=== PATIENT | female | born 1975 | race Hispanic/Latino ===

== ENCOUNTER 2020-08-04 | Emergency (ER) | payer BC, SELFPAY ==
--- NOTE | 2020-08-03 23:54 | ED.ARRPALP ---
HPI - Arrhythmia/Palpitations General Chief Complaint: Arrhythmia/Palpitations Stated Complaint: fast HR Source: patient and EMS Mode of arrival: EMS Limitations: no limitations History of Present Illness HPI narrative: Patient is a 45-year-old female with a history of SVT following with Dr. Monsalve, who presents for evaluation of palpitations. Patient reportedly awakened with palpitations from sleep. She has had associated chest pain and shortness of breath with these. Patient immediately called EMS, EMS administered 6 mg of adenosine without change. The patient was then given 12 mg of adenosine, after this the patient remained in SVT however her blood pressure decreased to 80s/40s, thus the patient was given 4 of intravenous Versed and attempted synchronized cardioversion with 50 J with EMS without resolution in the SVT. Patient presents alert and oriented, reporting palpitations and chest pressure. Patient states this is happened 3 times prior. She denies any recent illnesses or medication changes. Patient states she does not often remember to take her Toprol and misses doses. Per chart review, last admission in October 2019 in which the patient had stable troponin and was discharged home with beta-blockade medication after normal cardiac work-up otherwise. Related Data Home Medications Medication Instructions Recorded Confirmed naproxen 08/04/20 Allergies Allergy/AdvReac Type Severity Reaction Status Date / Time morphine Allergy Unknown Rash Verified 10/30/19 16:54 Review of Systems Review of Systems: Narrative: CONSTITUTIONAL: Denies fever, chills, or sweats. EYES: Denies visual changes, redness, or discharge. ENT: Denies rhinorrhea, congestion, sore throat, or otalgia. CARDIOVASCULAR: Reports chest pain and palpitations RESPIRATORY: Denies cough or dyspnea. GASTROINTESTINAL: Denies abdominal pain, reports nausea GENITOURINARY: Denies dysuria or hematuria. SKIN: Denies rash or itching. MUSCULOSKELETAL: Denies back pain, joint pain, or myalgia. NEUROLOGIC: Denies headache, numbness, or weakness. [facility]LY [facility] Past Medical History Medical History SVT (supraventricular tachycardia) Surgical History Surgical History History of cholecystectomy Hx of right knee surgery Previous section x2 Family History Family History (Updated 10/30/19 @ 21:56 by Karly Banda RN) Sibling Diabetes mellitus Hypertension Grandparent Diabetes mellitus Hypertension Mother Pacemaker Hypertension Father Cerebrovascular accident Social History Social History Smoking packs per day: 1 Smoking cigarettes per day: 20.0 Years smoked: 1 Smoking pack-years: 1.00 Smoking status: Former smoker Tobacco type: cigarettes Second hand tobacco smoke exposure: Yes Alcohol intake: former Substance use: former Gender identity (if verbalized by the patient): Female Spiritual care concerns: No Agree to blood products: Yes Exam Narrative: Exam Narrative: GENERAL: Awake, alert, hyperventilating HEAD: Normocephalic, atraumatic. EYES: PERRLA and EOMI. ENT: Nares clear, no rhinorrhea or epistaxis. Mucous membranes moist. NECK: Supple. CHEST: Tachypneic, hyperventilating, lungs clear to auscultation bilaterally HEART: Narrow complex tachycardia, regular rhythm ABDOMEN:Non distended, non tender EXTREMITIES: Normal range of motion. No edema. SKIN: Warm, dry, no rash. NEURO:No focal deficits. Alert and oriented x3 Course Vital Signs Vital signs: Vital Signs Temperature 37.0 C 08/03/20 23:59 Pulse Rate 216 H 08/03/20 23:59 Respiratory Rate 30 H 08/03/20 23:59 Blood Pressure 112/72 08/03/20 23:59 Pulse Oximetry 96 08/03/20 23:59 Temperature 37.0 C 08/03/20 23:59 Pulse Rate 84 08/04/20 02:01 Respiratory Rate
[2020-08-03 23:59] VITALS: BP 112/72; PULSE 216; RESP 30; TEMP 37; O2SAT 96
--- NOTE | ~2020-08-04 | XR_ITS ---
EXAMINATION: XR chest 1V portable DATE: 08/04/2020 02:40 INDICATION: Chest pain. TECHNIQUE: A single frontal view of the chest was obtained. COMPARISON: Chest 2 views 10/30/2019 FINDINGS: The chest demonstrates clear lungs without pneumonia, pleural effusion, or pneumothorax. Th e heart size is normal. IMPRESSION: 1. No acute cardiopulmonary disease. Reviewed, dictated and finalized at location A.
[2020-08-04] MEDS: ONDANSETRON INJ 4 MG/2 ML VIAL IV PUSH (00:08)
[2020-08-04] MEDS: fentaNYL CITRATE INJ (*CRX) 100 MCG/2 ML VIAL 50 MCG IV PUSH (00:10)
--- NOTE | 2020-08-04 00:13 | PC.NURSE ---
Note pt converts to ST after additional dose of adenosine. Repeat EKG being obtained.
[2020-08-04 00:14] VITALS: BP 129/88; PULSE 115; RESP 24; O2SAT 100
[2020-08-04] MEDS: ADENOSINE IV SOLN 6 MG/2 ML VIAL 12 MG IV PUSH (00:14)
--- NOTE | 2020-08-04 00:15 | ECG_ITS ---
Measurements Intervals [place] Rate: 215 P: VA: 0 QRS: 57 QRSD: 132 T: -60 QT: 240 QTc: 455 Interpretive Statements SUPRAVENTRICULAR TACHYCARDIA CANNOT RULE OUT SEPTAL INFARCT, AGE INDETERMINATE ST-T WAVE ABNORMALITY IN ANTEROLAT/INF LEADS- CONSIDER ISCHEMIA BASELINE ARTIFACT- I, II, III, AVR, AVL, AVF ABNORMAL ECG Electronically Signed On 08-04-2020 7:59:03 CDT by Jesus Self D.O.
[2020-08-04 00:25] LABS: Basophils Absolute Auto 0.1 K/mm3 (0.0-0.1); Basophils Percent Auto 0.7 % (0.2-1.2); Eosinophils Absolute Auto 0.3 K/mm3 (0-0.3); Eosinophils Percent Auto 3.3 % (0-4.4); Hematocrit 42.9 % (37.0-47.0); Immature Granulocyte Absolute 0.02 K/mm3 (0.00-0.031); Immature Granulocyte Percent A 0.2 % (0-0.5); Lymphocytes Absolute Auto 4.19 K/mm3 (0.9-3.2); Lymphocytes Percent Auto 46.2 % (18.3-44.2); Mean Corpuscular Hemoglobin 32.2 pg (26-34); Mean Corpuscular Volume 92.1 fl (80-100); Mean Platelet Volume 10.4 fl (7.4-10.4); Monocytes Absolute Auto 0.9 K/mm3 (0.1-0.6); Monocytes Percent Auto 9.7 % (2.6-8.5); Neutrophils Absolute Auto 3.6 K/mm3 (1.3-6.7); Neutrophils Percent Auto 39.9 % (45.5-73.1); Platelet Count Result 440 k/mm3 (150-375); Red Blood Count 4.66 M/mm3 (4.2-5.4); Red Cell Distribution Width 12.7 % (11.5-14.5); White Blood Count 9.1 K/mm3 (4.5-10.0)
[2020-08-04 00:36] VITALS: BP 110/73; PULSE 91; RESP 15; O2SAT 100
[2020-08-04 00:37] LABS: Anion Gap 13 mmol/L (8-16); Blood Urea Nitrogen 10 mg/dL (7-17); Calcium 9.5 mg/dL (8.4-10.2); Carbon Dioxide 21 mmol/L (22-30); Chloride 107 mmol/L (98-107); Estimated Glomerular Filt Rate > 60; Glucose 135 mg/dL (65-105); Potassium 3.5 mmol/L (3.4-5.0); Sodium 141 mmol/L (137-145)
[2020-08-04 01:01] VITALS: BP 113/68; PULSE 93; RESP 20; O2SAT 98
--- NOTE | 2020-08-04 01:05 | ECG_ITS ---
Measurements Intervals [place] Rate: 106 P: 2 AK: 118 QRS: 25 QRSD: 89 T: 36 QT: 332 QTc: 442 Interpretive Statements SINUS TACHYCARDIA WITH SHORT [place] INTERVAL BORDERLINE ST ABNORMALITY- ANTEROLATERAL LEADS BASELINE ARTIFACT- I, II, III, AVR, AVL, AVF, V1-V2, V5-V6 ABNORMAL ECG Electronically Signed On 08-04-2020 7:59:58 CDT by Jesus Self D.O.
--- NOTE | 2020-08-04 01:06 | PC.NURSE ---
Pt continues to c/o chest pressure. Dr. Patiño made aware.
[2020-08-04] MEDS: fentaNYL CITRATE INJ (*CRX) 100 MCG/2 ML VIAL 25 MCG IV PUSH (01:11)
[2020-08-04] MEDS: ASPIRIN 81 MG CHEWABLE TABLET 324 MG PO (01:12)
[2020-08-04 01:16] VITALS: BP 103/69; PULSE 92; O2SAT 98
[2020-08-04 01:17] LABS: Prothrombin Time 12.7 Seconds (11.1-14.7)
[2020-08-04 01:30] LABS: Troponin I < 0.012 ng/mL (0.000-0.034)
[2020-08-04 02:01] VITALS: BP 108/70; PULSE 84; O2SAT 99
[2020-08-04 02:25] LABS: Free T4 Free Thyroxine Reflex 1.31 ng/dL (0.78-2.19)
[2020-08-04 02:53] VITALS: BP 112/71; PULSE 84; RESP 18; O2SAT 99
== END 2020-08-04 02:50 | disposition home or self-care (01) ==
PROVIDERS: Emergency Provider Emergency Medicine; PCP Family Medicine
DX: I47.1 Supraventricular tachycardia (principal); Z87.891 Personal history of nicotine dependence; R94.31 Abnormal electrocardiogram [ECG] [EKG]
CPT/HCPCS: 36415; 71045; 80048; 84439; 84443; 84480; 84484; 85025; 85610; 85730; 93005; 96374; 96375; 96376; 99284; A9270; J0153; J2405; J3010

== ENCOUNTER → 2020-08-06 16:38 | Outpatient (CLI) | payer BC, SELFPAY ==
--- NOTE | ~2020-08-06 | MR_ITS ---
EXAMINATION: MR knee LT wo con DATE: 08/06/2020 17:28 INDICATION: Left knee pain. TECHNIQUE: Magnetic resonance imaging (MRI) of the left knee was performed without intravenous contra st. Sequences included axial PD-weighted FS FSE, coronal PD-weighted FSE and PD-weighted FS FSE, sagi ttal PD-weighted FSE, and sagittal T2-weighted FS FSE. COMPARISON: None. FINDINGS: Medial compartment: There is an undersurface horizontal tear of posterior horn of medial meniscus. There is extensive sha llow partial-thickness cartilage loss of tibial condyle and femoral condyle. There is deep partial th ickness cartilage loss of femoral condyle involving the lateral, central, and medial articular surfac e. There is deep partial thickness cartilage loss of tibial condyle involving the central articular s urface with mild subchondral edema-like marrow signal intensity. Marginal osteophytes are noted. Lateral compartment: Lateral meniscus is normal. There is shallow partial-thickness cartilage loss of tibial condyle predo minantly involving the central and posterior articular surface. Femoral cartilage is normal. Marginal osteophytes are noted. Patellofemoral compartment: There is deep partial thickness cartilage loss of patellar medial facet, median ridge, and lateral fa cet with mild subchondral edema. There is deep partial thickness cartilage loss of central trochlea a nd shallow partial-thickness cartilage loss of medial and lateral trochlea with mild subchondral roberto a-like marrow signal intensity. Subtle osteophytes are noted. Ligaments and tendons: The anterior and posterior cruciate ligaments are normal. Medial collateral ligament and lateral herberth ateral ligament complex are normal. There is mild patellar tendinopathy. Fluid: There is a small knee joint effusion. There is mild prepatellar and superficial infrapatellar bursiti s. IMPRESSION: 1. Moderate chondrosis of medial and patellofemoral compartments and mild chondrosis of lateral marcela rtment. 2. Tear of medial meniscus. 3. Small knee joint effusion. Reviewed, dictated and finalized at location A. IMPRESSION: 1. Moderate chondrosis of medial and patellofemoral compartments and mild chond rosis of lateral compartment. 2. Tear of medial meniscus. 3. Small knee joint effusion.
== END ==
PROVIDERS: PCP Family Medicine; Visit Provider Chiropractor Rehabilitation
DX: M25.562 Pain in left knee (principal); M22.2X2 Patellofemoral disorders, left knee; S83.242A Other tear of medial meniscus, current injury, left knee, initial encounter; M25.462 Effusion, left knee
CPT/HCPCS: 73721

== ENCOUNTER → 2020-10-07 12:21 | Outpatient (CLI) | payer BC, SELFPAY ==
--- NOTE | ~2020-10-07 | XR_ITS ---
EXAMINATION: XR clavicle LT DATE: 10/07/2020 13:28 INDICATION: Left clavicle injury. TECHNIQUE: 2 views of left clavicle were obtained. COMPARISON: None. FINDINGS: Bone alignment is normal. No fracture. Coracoclavicular interval is normal. There is mild a cromioclavicular joint osteoarthritis. IMPRESSION: 1. Mild left acromioclavicular joint osteoarthritis. Reviewed, dictated and finalized at location A. OPERATOR
== END ==
PROVIDERS: PCP Family Medicine; Visit Provider Nurse Practitioner Family
DX: S29.9XXA Unspecified injury of thorax, initial encounter (principal); M19.012 Primary osteoarthritis, left shoulder
CPT/HCPCS: 73000

== ENCOUNTER 2020-11-22 06:38 | Emergency (ER) | payer BC, SELFPAY ==
[2020-11-22 06:44] VITALS: BP 129/86; PULSE 229; RESP 28; TEMP 36.2; O2SAT 100
[2020-11-22] MEDS: ADENOSINE IV SOLN 6 MG/2 ML VIAL (06:50)
[2020-11-22] MEDS: ADENOSINE IV SOLN 6 MG/2 ML VIAL 12 MG (06:52)
--- NOTE | 2020-11-22 06:53 | ECG_ITS ---
Measurements Intervals [place] Rate: 224 P: ID: 0 QRS: 47 QRSD: 89 T: -60 QT: 193 QTc: 373 Interpretive Statements SUPRAVENTRICULAR TACHYCARDIA NONSPECIFIC ST & T-WAVE ABNORMALITY- DIFFUSE LEADS BASELINE WANDER- I, II, III, AVR, AVL, AVF, V1-V2, V4-V6 ABNORMAL ECG Electronically Signed On 11-22-2020 7:16:29 SENIOR MECHANICAL PROJECT ENGINEER by Jesus Self D.O.
[2020-11-22 06:54] VITALS: PULSE 113; RESP 22; O2SAT 100
--- NOTE | 2020-11-22 06:56 | ECG_ITS ---
Measurements Intervals [place] Rate: 96 P: 10 NH: 117 QRS: 23 QRSD: 94 T: 16 QT: 351 QTc: 444 Interpretive Statements SINUS RHYTHM WITH SHORT [place] INTERVAL BORDERLINE ECG Electronically Signed On 11-22-2020 7:16:44 SPRING TESTER by Jesus Self D.O.
[2020-11-22 07:14] VITALS: BP 110/78; PULSE 93; RESP 16; O2SAT 100
--- NOTE | 2020-11-22 07:14 | PC.NURSE ---
Assumed care of pt, pt is alert on stretcher w/ tele monitor. Pt VSS at this time. EDP at bedside discussing POC.
--- NOTE | 2020-11-22 07:20 | ED.ARRPALP ---
HPI - Arrhythmia/Palpitations General Chief Complaint: Arrhythmia/Palpitations Stated Complaint: heart palpitations Time Seen by Provider: 11/22/20 06:59 History of Present Illness HPI narrative: 45 yo female w/ h/o SVT presented to the ED for heart racing. This started shortly before coming in. Associated with moderate chest pressure. Dix like previous a-fib. She had already taken her metoprolol this morning. She was given 6 and 12 mg adenosine before I arrived. She is currently in Sinus and symptoms are significantly improved. Related Data Home Medications Medication Instructions Recorded Confirmed naproxen 08/04/20 Allergies Allergy/AdvReac Type Severity Reaction Status Date / Time morphine Allergy Unknown Rash Verified 11/22/20 07:16 Review of Systems Review of Systems: All systems reviewed & are unremarkable except as noted in HPI and below Constitutional: Constitutional: Denies chills, Denies fever(s) and Denies weakness Cardiovascular: Cardiovascular: Reports chest pain, Reports rapid heart rate and Denies radiating jaw, neck or arm pain Respiratory: Respiratory: Denies dyspnea Gastrointestinal: Gastrointestinal: Denies abdominal pain, Denies nausea and Denies vomiting Genitourinary: Genitourinary: Denies dysuria Musculoskeletal: Musculoskeletal: Denies back pain Neurologic: Denies dizziness and Denies weakness PMFSH Past Medical History Medical History SVT (supraventricular tachycardia) Surgical History Surgical History History of cholecystectomy Hx of right knee surgery Previous section x2 Family History Family History Sibling Diabetes mellitus Hypertension Grandparent Diabetes mellitus Hypertension Mother Pacemaker Hypertension Father Cerebrovascular accident Social History Social History Smoking packs per day: 1 Smoking cigarettes per day: 20.0 Years smoked: 1 Smoking pack-years: 1.00 Smoking status: Former smoker Tobacco type: cigarettes Second hand tobacco smoke exposure: Yes Alcohol intake: former Substance use: former Gender identity (if verbalized by the patient): Female Spiritual care concerns: No Agree to blood products: Yes Exam Const: General: healthy appearing, no acute distress and alert Orientation/consciousness: patient oriented x3 HENMT: Head: normal to inspection Neck: Neck: normal visual inspection and no lymphadenopathy Chest: Chest palpation & inspection: no tenderness Resp: Effort & Inspection: normal respiratory effort Auscultation: clear to auscultation bilaterally, no rales, no rhonchi and no wheezes Cardio: Jugular venous distension: no JVD Rate: regular rate Rhythm: regular rhythm Heart sounds: no murmurs GI: Inspection: non-distended GI Palp: Yes Soft to palpation and No Tenderness to palpation present (GI) Skin: General skin exam: normal color Neuro: General: patient oriented x3 and moves all extremities Speech: normal speech Extrem: General: no edema Psych: Appearance: well kempt Affect: normal affect Course Vital Signs Vital signs: Vital Signs Temperature 36.2 C L 11/22/20 06:44 Pulse Rate 229 H 11/22/20 06:44 Respiratory Rate 28 H 11/22/20 06:44 Blood Pressure 129/86 11/22/20 06:44 Pulse Oximetry 100 11/22/20 06:44 Temperature 36.2 C L 11/22/20 06:44 Pulse Rate 93 11/22/20 08:58 Respiratory Rate 17 11/22/20 08:58 Blood Pressure 118/71 11/22/20 08:58 Pulse Oximetry 98 11/22/20 08:58 MDM - Arrhythmia/Palpitations MDM Narrative Medical decision making narrative: Original EKG shows SVT at a rate 224. NSR after adenosine Dr. Santiago contacted. No med changes at this time. She can follow-up in clinic. Medical Records At
[2020-11-22] MEDS: SODIUM CHLORIDE 0.9% IV 1,000 ML 999 ML IV CONT (07:29)
[2020-11-22 07:40] LABS: Basophils Percent Auto 0.7 % (0.2-1.2); Eosinophils Absolute Auto 0.1 K/mm3 (0-0.3); Hematocrit 37.8 % (37.0-47.0); Hemoglobin 12.5 g/dL (12.0-15.0); Immature Granulocyte Absolute 0.01 K/mm3 (0.00-0.031); Immature Granulocyte Percent A 0.2 % (0-0.5); Lymphocytes Absolute Auto 1.13 K/mm3 (0.9-3.2); Lymphocytes Percent Auto 26.1 % (18.3-44.2); Mean Corpuscular HGB Conc 33.1 g/dl (32-36); Mean Corpuscular Hemoglobin 30.9 pg (26-34); Mean Corpuscular Volume 93.3 fl (80-100); Mean Platelet Volume 9.8 fl (7.4-10.4); Monocytes Absolute Auto 0.4 K/mm3 (0.1-0.6); Monocytes Percent Auto 9.9 % (2.6-8.5); Neutrophils Absolute Auto 2.6 K/mm3 (1.3-6.7); Neutrophils Percent Auto 60.1 % (45.5-73.1); Platelet Count Result 360 k/mm3 (150-375); Red Blood Count 4.05 M/mm3 (4.2-5.4); Red Cell Distribution Width 12.6 % (11.5-14.5); White Blood Count 4.3 K/mm3 (4.5-10.0)
[2020-11-22 07:50] LABS: Partial Thromboplastin Time 27.2 SECONDS (22.3-36.8)
[2020-11-22 07:51] LABS: Anion Gap 3 mmol/L (8-16); Blood Urea Nitrogen 16 mg/dL (7-17); Calcium 7.9 mg/dL (8.4-10.2); Carbon Dioxide 26 mmol/L (22-30); Chloride 111 mmol/L (98-107); Estimated CRCL calculation 83 ml/min; Estimated Glomerular Filt Rate > 60; Glucose 71 mg/dL (65-105); Potassium 3.4 mmol/L (3.4-5.0); Sodium 140 mmol/L (137-145)
[2020-11-22 08:02] LABS: Troponin I < 0.012 ng/mL (0.000-0.034)
[2020-11-22 08:10] VITALS: BP 113/75; PULSE 90; RESP 15; O2SAT 100
[2020-11-22 08:58] VITALS: BP 118/71; PULSE 93; RESP 17; O2SAT 98
== END 2020-11-22 08:59 | disposition home or self-care (01) ==
PROVIDERS: Emergency Provider Emergency Medicine; PCP Family Medicine
DX: I47.1 Supraventricular tachycardia (principal); Z87.891 Personal history of nicotine dependence; R94.31 Abnormal electrocardiogram [ECG] [EKG]
CPT/HCPCS: 36415; 80048; 84484; 85025; 85610; 85730; 93005; 96361; 96374; 99284; J0153; J7030

== ENCOUNTER → 2020-12-11 16:50 | Outpatient (CLI) | payer BC, SELFPAY ==
--- NOTE | ~2020-12-11 | MR_ITS ---
EXAMINATION: MR shoulder LT wo con DATE: 12/11/2020 17:51 INDICATION: Rotator cuff insufficiency of left shoulder. Left shoulder pain. TECHNIQUE: Magnetic resonance imaging (MRI) of the left shoulder was performed without intravenous co ntrast. Sequences included axial PD-weighted FS FSE, coronal oblique PD-weighted FS FSE and T2-weight ed FS FSE, and sagittal oblique T2-weighted FS FSE and T1-weighted FSE. COMPARISON: Left clavicle radiographs 10/07/2020 FINDINGS: Coracoacromial arch: The acromion undersurface is curved in morphology with anterior hook (type III). There is moderate ac romioclavicular joint osteoarthritis including inferiorly directed osteophytes. There is mild subacro mial/subdeltoid bursitis. Rotator cuff: There is mild supraspinatus and infraspinatus tendinopathy. Teres minor tendon is normal. Subscapular is tendon is normal. No tear. There is no asymmetric fatty atrophy of the rotator cuff muscle bellies . Biceps tendon and glenoid labrum: Biceps tendon is in bicipital groove. Intra-articular biceps tendon is normal. The glenoid labrum is normal. Fluid: There is no glenohumeral joint effusion. Bones/cartilage: Glenoid cartilage is normal. Humeral head cartilage is normal. IMPRESSION: 1. Mild rotator cuff tendinopathy. No tear. 2. Moderate acromioclavicular joint osteoarthritis. 3. Mild subacromial/subdeltoid bursitis. Reviewed, dictated and finalized at location A. AL MEDIA MANAGER
== END ==
DX: M25.312 Other instability, left shoulder (principal); M75.52 Bursitis of left shoulder; M19.012 Primary osteoarthritis, left shoulder
CPT/HCPCS: 73221

== ENCOUNTER → 2020-12-27 07:50 | Outpatient (CLI) | payer BC, SELFPAY ==
--- NOTE | ~2020-12-27 | MMUS_ITS ---
EXAMINATION: MM diagnostic maria r BI w anne, US breast BI limited HISTORY: TECHNIQUE: Additional 3-D tomosynthesis images of were performed and synthetic 2-D images were genera garcia. CAD analysis was submitted and interpreted. High resolution breast ultrasound was performed. COMPARISON: 08/09/2019 diagnostic left digital mammogram and limited left breast ultrasound 07/11/2019, 07/07/2017 bilateral digital screening mammogram examinations BREAST PARENCHYMAL COMPOSITION: There are scattered areas of fibroglandular density. FINDINGS: MAMMOGRAPHIC FINDINGS: No suspicious mass, architectural distortion, malignant calcification, skin thickening or retraction of either breast is evident. There is minimal fibroglandular asymmetry. No significant change since p rior examinations. ULTRASOUND: There is a 1.9 x 3.4 mm cyst of the left breast at 2:00 6 cm from the nipple. Otherwise no suspicious mass or shadowing or other significant sonographic abnormality of either breast. IMPRESSION: 1. No mammographic evidence of malignancy 2. Routine annual mammographic screening is recommended. BI-RADS Category 2: Benign finding(s). Reviewed, dictated and finalized at location A. TRIC MOTOR REBUILDER IMPRESSION: 1. No mammographic evidence of malignancy 2. Routine annual mammographic screening is recommended. BI-RADS Category 2: Benign finding(s).
== END ==
PROVIDERS: PCP Family Medicine; Visit Provider Family Medicine
DX: R92.8 Other abnormal and inconclusive findings on diagnostic imaging of breast (principal)
CPT/HCPCS: 76642; 77062; 77066; G0279

== ENCOUNTER → 2021-01-22 08:41 | Outpatient (CLI) | payer BC, SELFPAY ==
--- NOTE | ~2021-01-22 | XR_ITS ---
EXAMINATION: XR chest 2V EXAM DATE: 01/22/2021 08:59 INDICATION: Preoperative testing for shoulder surgery. Heart ablation 01/05. TECHNIQUE: Frontal and lateral projections of the chest obtained and reviewed. Comparison is made to prior examination from 08/04/2020. FINDINGS: The lungs are clear. There are no pleural effusions. The cardiomediastinal silhouette is within normal limits, has normalized compared to last 2 studies. There is no pneumothorax suspected. The bones and soft tissues are unremarkable. IMPRESSION: No acute cardiopulmonary findings. Reviewed, dictated and finalized at location A.
== END ==
PROVIDERS: Visit Provider Orthopaedic Surgery
DX: Z01.818 Encounter for other preprocedural examination (principal)
CPT/HCPCS: 71046

== ENCOUNTER 2021-05-16 22:19 | Emergency (ER) | payer BC, SELFPAY ==
--- NOTE | ~2021-05-16 | CT_ITS ---
EXAMINATION: CT abdomen pelvis w con INDICATION: Epigastric pain TECHNIQUE: Computed tomographic images of the abdomen and pelvis were obtained after the administrati on of 100 cc of Omnipaque 350 intravenous contrast. The dose-length product (DLP) was 830.39 mGy-cm. Automated exposure control and iterative reconstruction technique were employed. COMPARISON: None available FINDINGS: Minimal dependent atelectasis is present in the lung bases. The heart size is normal. The g allbladder is surgically absent. The liver, spleen, pancreas, and adrenal glands are normal. The kidn eys are unremarkable. A large volume of colonic stool is present. No pathologically enlarged abdomina l or pelvic lymph nodes are identified. There is no free intraperitoneal gas or evidence of bowel obs truction. The appendix is normal. IMPRESSION: 1. No CT correlate for the patient's symptoms. Reviewed, dictated and finalized at location A.
[2021-05-16 22:21] VITALS: BP 155/70; PULSE 103; RESP 17; TEMP 37.1; O2SAT 100
[2021-05-16 22:39] LABS: Basophils Percent Auto 0.6 % (0.2-1.2); Eosinophils Absolute Auto 0.2 K/mm3 (0-0.3); Eosinophils Percent Auto 3.2 % (0-4.4); Hematocrit 39.3 % (37.0-47.0); Hemoglobin 12.6 g/dL (12.0-15.0); Immature Granulocyte Absolute 0.02 K/mm3 (0.00-0.031); Immature Granulocyte Percent A 0.3 % (0-0.5); Lymphocytes Absolute Auto 2.34 K/mm3 (0.9-3.2); Lymphocytes Percent Auto 32.3 % (18.3-44.2); Mean Corpuscular HGB Conc 32.1 g/dl (32-36); Mean Corpuscular Hemoglobin 30.1 pg (26-34); Mean Corpuscular Volume 93.8 fl (80-100); Mean Platelet Volume 9.7 fl (7.4-10.4); Monocytes Absolute Auto 0.7 K/mm3 (0.1-0.6); Monocytes Percent Auto 9.4 % (2.6-8.5); Neutrophils Absolute Auto 3.9 K/mm3 (1.3-6.7); Neutrophils Percent Auto 54.2 % (45.5-73.1); Platelet Count Result 398 k/mm3 (150-375); Red Blood Count 4.19 M/mm3 (4.2-5.4); White Blood Count 7.2 K/mm3 (4.5-10.0)
[2021-05-16 22:44] LABS: Add Urine Microscopic? YES; Appearance Urine Clear (Clear); Bacteria Urine Trace /hpf; Bilirubin Urine Negative (Negative); Blood Urine Negative (Negative); Color Urine Straw (Yellow); Glucose Urine UA Negative (Negative); Ketones Urine Negative (Negative); Leukocyte Esterase Ur Negative LEU/UL (Negative); Mucus Urine Rare /lpf; Nitrate Urine Negative (Negative); Protein Urine Negative (Negative); RBC Urine 0-2 /hpf (0-2); Squamous Epithelial Cell Urine Rare /hpf (Few); Urobilinogen Urine Negative mg/dL (<2.0); WBC Urine 0-3 /hpf
[2021-05-16 22:53] LABS: Alanine Aminotransferase 23 U/L (4-35); Albumin Level 4.1 g/dL (3.5-5.1); Alkaline Phosphatase 71 U/L (38-126); Anion Gap 8 mmol/L (8-16); Aspartate Amino Transferase 31 U/L (14-36); Bilirubin,Total 0.2 mg/dL (0.2-1.3); Blood Urea Nitrogen 18 mg/dL (7-17); Calcium 9.6 mg/dL (8.4-10.2); Carbon Dioxide 24 mmol/L (22-30); Chloride 108 mmol/L (98-107); Estimated CRCL calculation 82 ml/min; Estimated Glomerular Filt Rate > 60; Glucose 103 mg/dL (65-110); Lipase 137 U/L (23-300); Potassium 4.6 mmol/L (3.4-5.0); Sodium 140 mmol/L (137-145)
[2021-05-17] VITALS (13 sets, daily range): BP systolic 105–128; BP diastolic 59–91; PULSE 68–90; RESP 18; O2SAT 95–100
--- NOTE | 2021-05-17 00:12 | ED.ABDPAIN ---
HPI - Abdominal Pain General Chief Complaint: Abdominal Pain Stated Complaint: abdominal pain Time Seen by Provider: 05/17/21 00:12 History of Present Illness HPI narrative: 46 yo female w/ h/o cholecystectomy presnets to the ED for abdominal pain. Cramping epigastric pain. No radiation. 3-4 days. exacerbated by eating. No nausea, vomiting, diarrhea, fever. Related Data Home Medications Medication Instructions Recorded Confirmed naproxen 08/04/20 Allergies Allergy/AdvReac Type Severity Reaction Status Date / Time morphine Allergy Unknown Rash Verified 11/22/20 07:16 Review of Systems Review of Systems: All systems reviewed & are unremarkable except as noted in HPI and below PMFSH Past Medical History Medical History SVT (supraventricular tachycardia) Surgical History Surgical History History of cholecystectomy Hx of right knee surgery Previous section x2 Family History Family History Sibling Diabetes mellitus Hypertension Grandparent Diabetes mellitus Hypertension Mother Pacemaker Hypertension Father Cerebrovascular accident Social History Social History Smoking packs per day: 1 Smoking cigarettes per day: 20.0 Years smoked: 1 Smoking pack-years: 1.00 Smoking status: Former smoker Tobacco type: cigarettes Second hand tobacco smoke exposure: Yes Alcohol intake: former Substance use: former Gender identity (if verbalized by the patient): Female Spiritual care concerns: No Agree to blood products: Yes Exam Const: General: healthy appearing, no acute distress and alert Orientation/consciousness: patient oriented x3 HENMT: Head: normal to inspection Neck: Neck: normal visual inspection Chest: Chest palpation & inspection: no tenderness Resp: Effort & Inspection: normal respiratory effort Auscultation: clear to auscultation bilaterally, no rales, no rhonchi and no wheezes Cardio: Jugular venous distension: no JVD Rate: regular rate Rhythm: regular rhythm Heart sounds: no murmurs GI: Inspection: non-distended GI Palp: Yes Soft to palpation, Yes Tenderness to palpation present (GI) (epigastrium), Yes Guarding due to palpation present (GI) and No Rebound tenderness present Skin: General skin exam: normal color Neuro: General: patient oriented x3 and moves all extremities Speech: normal speech Extrem: General: no edema Psych: Appearance: well kempt Affect: normal affect Course Vital Signs Vital signs: Vital Signs Temperature 37.1 C 05/16/21 22:21 Pulse Rate 103 H 05/16/21 22:21 Respiratory Rate 17 05/16/21 22:21 Blood Pressure 155/70 H 05/16/21 22:21 Pulse Oximetry 100 05/16/21 22:21 Temperature 37.1 C 05/16/21 22:21 Pulse Rate 90 05/17/21 02:31 Respiratory Rate 18 05/17/21 02:46 Blood Pressure 105/59 L 05/17/21 02:46 Pulse Oximetry 100 05/17/21 02:46 MDM - Abdominal Pain Medical Records Attestation: I reviewed the patient's medical records. Lab Data Attestation: I reviewed the patient's lab results. Result diagrams: 05/16/21 22:32 05/16/21 22:32 Labs: Lab Results 05/16/21 05/16/21 05/16/21 Range/Units 22:32 22:32 22:32 WBC 7.2 (4.5-10.0) K/mm3 RBC 4.19 L (4.2-5.4) M/mm3 Hgb 12.6 (12.0-15.0) g/dL Hct 39.3 (37.0-47.0) % MCV 93.8 (80-100) fl MCH 30.1 (26-34) pg MCHC 32.1 (32-36) g/dl RDW 13.0 (11.5-14.5) % Plt Count 398 H (150-375) k/mm3 MPV 9.7 (7.4-10.4) fl Immature Gran % (Auto) 0.3 (0-0.5) % Neut % (Auto) 54.2 (45.5-73.1) % Lymph % (Auto) 32.3 (18.3-44.2) % [place] % (Auto) 9.4 H (2.6-8.5) % Eos % (Auto) 3.2 (0-4.4) % Baso % (Auto) 0.6 (0.2-1.2) % Ly
--- NOTE | 2021-05-17 00:28 | PC.NURSE ---
pt to ED c/o abd pain to medial upper abd since approx. 2100 last night. denies nvd. denies difficulty urinating. appears uncomfortable. prior choly.
[2021-05-17] MEDS: fentaNYL CITRATE INJ (*CRX) 100 MCG/2 ML VIAL 50 MCG IV PUSH (01:02)
--- NOTE | 2021-05-17 01:06 | ECG_ITS ---
Measurements Intervals [place] Rate: 61 P: 4 RI: 115 QRS: 12 QRSD: 97 T: -5 QT: 412 QTc: 417 Interpretive Statements SINUS RHYTHM WITH SHORT RI INTERVAL MINIMAL Q WAVES- HIGH LATERAL LEADS BORDERLINE T WAVE ABNORMALITY- INFERIOR LEADS BASELINE WANDER- I, II, AVR BORDERLINE ECG Electronically Signed On 05-17-2021 7:39:40 CDT by Jesus Self D.O.
[2021-05-17 02:31] LABS: Troponin I < 0.012 ng/mL (0.000-0.034)
== END 2021-05-17 03:06 | disposition home or self-care (01) ==
PROVIDERS: Emergency Medicine; Emergency Provider Emergency Medicine
DX: R10.13 Epigastric pain (principal); Z87.891 Personal history of nicotine dependence; R94.31 Abnormal electrocardiogram [ECG] [EKG]
CPT/HCPCS: 36415; 74177; 80053; 81001; 81025; 83690; 84484; 85025; 93005; 96374; 99284; A9270; J3010; Q9967

== ENCOUNTER → 2021-06-16 16:33 | Outpatient (CLI) | payer BC, SELFPAY ==
--- NOTE | ~2021-06-16 | XR_ITS ---
EXAMINATION: XR knee RT 3V DATE: 06/16/2021 16:53 INDICATION: Right knee pain. TECHNIQUE: 3 views of right knee including standing views were obtained. COMPARISON: Right knee radiographs 09/17/2015 FINDINGS: There is varus angulation at the knee. No fracture. There is moderate osteoarthritis of med ial compartment and mild osteoarthritis of lateral and patellofemoral compartments. There is a small knee joint effusion. There are loose bodies in the knee joint posteriorly. IMPRESSION: 1. Moderate right knee osteoarthritis. 2. Small right knee joint effusion with loose bodies. Reviewed, dictated and finalized at location A.
== END ==
PROVIDERS: PCP Nurse Practitioner Family; Visit Provider Nurse Practitioner Family
DX: M25.561 Pain in right knee (principal); M25.461 Effusion, right knee; M23.41 Loose body in knee, right knee
CPT/HCPCS: 73562

== ENCOUNTER → 2022-04-22 16:20 | Outpatient (CLI) | payer BC, SELFPAY ==
--- NOTE | ~2022-04-22 | MM_ITS ---
EXAMINATION: MM screening maria r BI w anne HISTORY: Screening TECHNIQUE: Craniocaudal and mediolateral oblique 3-D tomosynthesis images were obtained and synthetic 2-D images were generated. CAD analysis was submitted and interpreted. COMPARISON: Comparison to multiple prior studies sequentially, with oldest reviewed study dated 06/30. BREAST PARENCHYMAL COMPOSITION: There are scattered areas of fibroglandular density. FINDINGS: There is a developing mass in the lower inner quadrant of the left breast measuring 5 mm. T he right breast is stable without evidence for malignancy. IMPRESSION: 1. Developing left breast mass, lower inner quadrant. 2. Additional mammographic views and possible breast ultrasound are recommended. BI-RADS Category 0: Incomplete: Needs additional imaging evaluation. Reviewed, dictated and finalized at location A. IMPRESSION: 1. Developing left breast mass, lower inner quadrant. 2. Additional mammographic views and possible breast ultrasound are recommended . BI-RADS Category 0: Incomplete: Needs additional imaging evaluation.
== END ==
PROVIDERS: PCP Family Medicine; Visit Provider Family Medicine
DX: Z12.31 Encounter for screening mammogram for malignant neoplasm of breast (principal); R92.8 Other abnormal and inconclusive findings on diagnostic imaging of breast
CPT/HCPCS: 77063; 77067

== ENCOUNTER → 2022-08-07 14:25 | Outpatient (CLI) | payer BC, SELFPAY ==
--- NOTE | ~2022-08-07 | MMUS_ITS ---
EXAMINATION: MM diagnostic maria r LT w anne, US breast LT limited HISTORY: Follow-up left breast mass TECHNIQUE: Additional 3-D tomosynthesis images of the left breast were performed and synthetic 2-D im ages were generated. CAD analysis was submitted and interpreted. High resolution Limited left breast ultrasound was performed. COMPARISON: Comparison to multiple prior studies sequentially, with oldest reviewed study dated 06/30. BREAST PARENCHYMAL COMPOSITION: Breast composed of scattered areas of fibroglandular density FINDINGS: MAMMOGRAPHIC FINDINGS: There is a slightly irregular shaped mass in the upper inner quadrant of the left breast. No suspicio us calcifications or architectural distortion. ULTRASOUND: Limited left breast ultrasound: At 10:00, 7 cm from the nipple, there is an irregular shaped hypoecho ic mass measuring 5 x 4 x 3 mm. There is internal vascularity. This corresponds to the mass seen on m ammography. IMPRESSION: 1. Irregular shaped left breast mass measuring 5 mm at 10:00, 7 cm from the nipple. 2. Ultrasound-guided left breast biopsy recommended. BI-RADS category 4, suspicious findings. Reviewed, dictated and finalized at location A. IMPRESSION: 1. Irregular shaped left breast mass measuring 5 mm at 10:00, 7 cm from the nip ple. 2. Ultrasound-guided left breast biopsy recommended. BI-RADS category 4, suspicious findings.
== END ==
PROVIDERS: PCP Family Medicine; Visit Provider Family Medicine
DX: R92.8 Other abnormal and inconclusive findings on diagnostic imaging of breast (principal)
CPT/HCPCS: 76642; 77061; 77065; G0279

== ENCOUNTER 2022-09-15 12:28 | Outpatient (CLI) | payer BC, SELFPAY ==
--- NOTE | ~2022-09-15 | MMUS_ITS ---
EXAMINATION: US breast biopsy LT w image, MM post biopsy invasive LT DATE: 09/15/2022 13:45 (accession [id number]), 09/15/2022 13:51 (accession [id number]) INDICATION: Indeterminate mass in the upper inner quadrant of the left breast Ultrasound-guided core biopsy is requested to evaluate for malignancy. TECHNIQUE AND FINDINGS: The risks and potential benefits of the procedure were discussed with the patient including bleeding and infection. A time out was performed. The skin of the left breast was prepared and draped in usual sterile fashion. Lidocaine was used for superficial anesthesia. Lidocaine with epinephrine was used for deep anesthesia. A vacuum-assisted biopsy needle was advanced through to the outer edge of the region of interest from a lateral approach utilizing sonographic guidance. A total of three tissue core samples were obtaine d through the lesion. A tissue marker clip was then placed at the biopsy site. Hemostasis was achieve d. A sterile bandage was applied. The patient tolerated procedure well and there was no evidence of immediate complication. The patient was given verbal instructions to return to the Emergency Department in the event of severe breast pa in or rapid breast enlargement. A two view left breast mammogram was obtained to document tissue xiao er clip placement. IMPRESSION: 1. Successful ultrasound-guided vacuum-assisted biopsy of left breast mass with tissue marker placeme nt. Reviewed, dictated and finalized at location A. OROLOGY PROFESSOR IMPRESSION: 1. Successful ultrasound-guided vacuum-assisted biopsy of left breast mass with tissue marker placement.
== END 2022-09-15 12:29 | disposition home or self-care (01) ==
PROVIDERS: PCP Family Medicine; Visit Provider Family Medicine
DX: R92.8 Other abnormal and inconclusive findings on diagnostic imaging of breast (principal)
CPT/HCPCS: 19083; 88305; A4648

== ENCOUNTER → 2022-10-29 11:23 | Outpatient (CLI) | payer BC, SELFPAY ==
--- NOTE | ~2022-10-29 | XR_ITS ---
EXAMINATION: XR chest 2V DATE: 10/29/2022 11:42 INDICATION: History of SVT with ablation TECHNIQUE: PA and lateral views of the chest are obtained. COMPARISON: 01/22/2021 FINDINGS: The lungs are free of acute opacities. No pleural effusion or pneumothorax. The cardiomedia stinal silhouette is normal. There is mild thoracic spondylosis. IMPRESSION: 1. No acute cardiopulmonary abnormality. Reviewed, dictated and finalized at location L. OMER HOSTESS
== END ==
PROVIDERS: PCP Physician Assistant; Visit Provider Physician Assistant
DX: Z01.89 Encounter for other specified special examinations (principal)
CPT/HCPCS: 71046

== ENCOUNTER → 2023-10-02 10:50 | Outpatient (CLI) | payer BC, SELFPAY ==
--- NOTE | ~2023-10-02 | XR_ITS ---
XR foot RT 2V 10/02/2023 11:04 Indication: Right foot pain Procedure: 2 views right foot Comparison: 03/05/2017 Findings: Lisfranc joint intact. Small degenerative calcaneal enthesophyte. No acute fracture or trau matic malalignment. No foreign bodies. No focal soft tissue abnormality. 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 Impression: 1: No acute bone or joint abnormality. Reviewed, dictated and finalized at location A. DENTIAL DIRECTOR Impression: 1: No acute bone or joint abnormality.
== END ==
PROVIDERS: PCP Family Medicine; Visit Provider Family Medicine
DX: M79.671 Pain in right foot (principal)
CPT/HCPCS: 73620

== ENCOUNTER 2023-10-02 11:28 | Outpatient (CLI) | payer BC, SELFPAY ==
[2023-10-02 13:02] LABS: Basophils Percent Auto 0.4 % (0.2-1.2); Eosinophils Absolute Auto 0.2 K/mm3 (0-0.3); Eosinophils Percent Auto 1.8 % (0-4.4); Hematocrit 38.9 % (37.0-47.0); Hemoglobin 12.9 g/dL (12.0-15.0); Immature Granulocyte Absolute 0.02 K/mm3 (0.00-0.031); Immature Granulocyte Percent A 0.2 % (0-0.5); Lymphocytes Absolute Auto 1.87 K/mm3 (0.9-3.2); Lymphocytes Percent Auto 22.3 % (18.3-44.2); Mean Corpuscular HGB Conc 33.2 g/dl (32-36); Mean Corpuscular Hemoglobin 31.1 pg (26-34); Mean Corpuscular Volume 93.7 fl (80-100); Mean Platelet Volume 10.2 fl (7.4-10.4); Monocytes Absolute Auto 0.5 K/mm3 (0.1-0.6); Monocytes Percent Auto 6.2 % (2.6-8.5); Neutrophils Absolute Auto 5.8 K/mm3 (1.3-6.7); Neutrophils Percent Auto 69.1 % (45.5-73.1); Platelet Count Result 457 k/mm3 (150-375); Red Blood Count 4.15 M/mm3 (4.2-5.4); Red Cell Distribution Width 13.2 % (11.5-14.5); White Blood Count 8.4 K/mm3 (4.5-10.0)
[2023-10-02 13:14] LABS: Alanine Aminotransferase 21 U/L (6-35); Alkaline Phosphatase 58 U/L (38-126); Anion Gap 6 mmol/L (8-16); Aspartate Amino Transferase 28 U/L (14-36); Bilirubin,Total 0.4 mg/dL (0.2-1.3); Blood Urea Nitrogen 14 mg/dL (7-17); Carbon Dioxide 25 mmol/L (22-30); Chloride 107 mmol/L (98-107); Cholesterol 179 mg/dL (0-200); Estimated Glomerular Filt Rate > 60; Glucose 88 mg/dL (65-110); HDL Direct 59 mg/dL; Sodium 138 mmol/L (137-145); Triglycerides 153 mg/dL (<150)
[2023-10-02 13:22] LABS: Hemoglobin A1C 5.8 % (<5.7)
[2023-10-02 13:25] LABS: LDL Cholesterol Direct 87 mg/dL
[2023-10-02 13:53] LABS: Hepatitis B Surface Antigen Negative (Negative)
[2023-10-02 13:57] LABS: HIV 1/2 Ab P24 Ag Result Negative (Negative)
[2023-10-02 13:58] LABS: HAV RESULT Negative (Negative); Hepatitis B Core IgM Result Negative (Negative)
[2023-10-02 14:10] LABS: Hepatitis C Virus Antibody Negative (Negative)
== END 2023-10-02 11:29 | disposition home or self-care (01) ==
PROVIDERS: PCP Family Medicine
DX: Z00.00 Encounter for general adult medical examination without abnormal findings (principal); E03.9 Hypothyroidism, unspecified; R73.9 Hyperglycemia, unspecified; L40.0 Psoriasis vulgaris; Z79.899 Other long term (current) drug therapy; Z13.220 Encounter for screening for lipoid disorders; Z13.1 Encounter for screening for diabetes mellitus
CPT/HCPCS: 36415; 80053; 80061; 80074; 83036; 84443; 85025; 86480; 86703; G0432

== ENCOUNTER 2023-10-05 17:58 | Outpatient (CLI) | payer BC, SELFPAY ==
[2023-10-08 12:49] LABS: NIL 0.02 IU/mL; Quantiferon TB Plus, 1T NEGATIVE (NEGATIVE); TB2-NIL 0.01 IU/mL
== END 2023-10-05 17:59 | disposition home or self-care (01) ==
PROVIDERS: PCP Family Medicine
DX: L40.0 Psoriasis vulgaris (principal); Z79.899 Other long term (current) drug therapy
CPT/HCPCS: 36415; 86480

== ENCOUNTER 2024-05-30 13:02 | Outpatient (CLI) | payer BC, SELFPAY ==
--- NOTE | ~2024-05-30 | MM_ITS ---
EXAMINATION: MM screening maria r BI w anne HISTORY: Screening TECHNIQUE: Craniocaudal and mediolateral oblique 3-D tomosynthesis images were obtained and synthetic 2-D images were generated. CAD analysis was submitted and interpreted. COMPARISON: Comparison to multiple prior studies sequentially, with oldest reviewed study dated 07/11. BREAST PARENCHYMAL COMPOSITION: Not Dense. The breasts are almost entirely fatty. FINDINGS: There is no evidence of suspicious mass, calcification, or architectural distortion to sugg est malignancy in either breast. There has been no suspicious interval change. IMPRESSION: 1. No mammographic evidence of malignancy. 2. Recommend routine screening mammography in one year. BI-RADS Category 1: Negative Reviewed, dictated and finalized at location B.
== END 2024-05-30 13:03 ==
LOC: MICIMG 13:04
PROVIDERS: PCP Nurse Practitioner Family; Visit Provider Nurse Practitioner Family
DX: Z12.31 Encounter for screening mammogram for malignant neoplasm of breast (principal)
CPT/HCPCS: 77063; 77067

== ENCOUNTER 2024-05-30 13:36 | Outpatient (CLI) | payer BC, SELFPAY ==
[2024-05-30 14:11] LABS: Basophils Percent Auto 0.6 % (0.2-1.2); Eosinophils Absolute Auto 0.2 K/mm3 (0-0.3); Eosinophils Percent Auto 2.6 % (0-4.4); Hematocrit 43.3 % (37.0-47.0); Hemoglobin 14.4 g/dL (12.0-15.0); Immature Granulocyte Absolute 0.02 K/mm3 (0.00-0.031); Immature Granulocyte Percent A 0.3 % (0-0.5); Lymphocytes Absolute Auto 1.69 K/mm3 (0.9-3.2); Lymphocytes Percent Auto 24.1 % (18.3-44.2); Mean Corpuscular HGB Conc 33.3 g/dl (32-36); Mean Corpuscular Hemoglobin 31.5 pg (26-34); Mean Corpuscular Volume 94.7 fl (80-100); Monocytes Absolute Auto 0.5 K/mm3 (0.1-0.6); Monocytes Percent Auto 7.6 % (2.6-8.5); Neutrophils Absolute Auto 4.6 K/mm3 (1.3-6.7); Neutrophils Percent Auto 64.8 % (45.5-73.1); Platelet Count Result 378 k/mm3 (150-375); Red Blood Count 4.57 M/mm3 (4.2-5.4); Red Cell Distribution Width 12.5 % (11.5-14.5)
[2024-05-30 14:25] LABS: Alanine Aminotransferase 24 U/L (6-35); Albumin Level 4.2 g/dL (3.5-5.1); Alkaline Phosphatase 79 U/L (38-126); Anion Gap 10 mmol/L (4-12); Aspartate Amino Transferase 28 U/L (14-36); Bilirubin,Total 0.2 mg/dL (0.2-1.3); Blood Urea Nitrogen 17 mg/dL (7-17); Calcium 9.2 mg/dL (8.4-10.2); Carbon Dioxide 26 mmol/L (22-30); Chloride 102 mmol/L (98-107); Estimated Glomerular Filt Rate > 60; Glucose 108 mg/dL (65-110); Potassium 3.8 mmol/L (3.4-5.0); Sodium 138 mmol/L (137-145)
== END 2024-05-30 13:37 | disposition home or self-care (01) ==
PROVIDERS: PCP Nurse Practitioner Family
DX: Z79.899 Other long term (current) drug therapy (principal)
CPT/HCPCS: 36415; 80053; 85025

== ENCOUNTER 2025-05-04 19:22 | Emergency (ER) | payer BC, SELFPAY ==
--- OUTSIDE RECORDS SUMMARY | 2025-05-04 19:26 | XMS_ITS | Encounter Summary ---
Author Organization [facility] Address [address] [place] [address] Care Team Providers Care Dictating Transcribing Machine Servicer Name Role Phone Unavailable Primary Care Provider Unavailabl e Encounter Details Date Type Department Care Team (Late st Contact Info) Description 05/11/2018 Lab Requisition [id number] [address], [facility] [place] [address] Mely Jones MD [address] [facility] [place] [address] Social History Tobacco Use Types Packs/Day Years Used Date Smoking Tobacco: Never Assessed Comments Unknown Sex and Gender Information Value Date Recorded Sex Assigned at Female 01/12/2022 10:12 AM CDT Legal Sex Female 8:32 AM CDT Gender Identity Female 01/12/2022 10:12 AM CDT Sexual Orientation Not on file documented as of this encounter Plan of Treatment Not on file documented as of this encounter Procedures Procedure Name Priority Date/Time Associated Diagnosis Comments DERMATOPATH TECHNICAL REPORT Routine 05/10/2018 12:00 AM CDT documented in this encounter Results * DERMATOPATH TECHNICAL REPORT (05/10/2018 12:00 AM CDT) Case Report Dermatopathology Report Case: [id number] Authorizing Provider: Mely Jones MD Collected: 05/10/2018 12:00 AM Pathologist: Maura Bay MD Received: 05/11/2018 06:16 AM Specimen: Skin, left barrientos 8 11:36 AM CDT DERMATOPATHOLOGY LABORATORY Addendum 1 At the request of the diagnosing physician, the technical component for GMS was performed by [facility] Dermatopathology [facility]. 8 11:36 AM CDT DERMATOPATHOLOGY LABORATORY Addendum electronically signed by Maura Bay MD on 05/13/2018 at 1136 CDT Clinical History [place] vs PSO vs other. 11:36 AM T DERMATOPATHOLOGY LABORATORY Gross Description Specimen A: Received is one formalin filled container labeled with the patient's name and designated left barrientos. The specimen consists of a shave biopsy measuring [id number]. Jar 0. [facility] Dermatopathology [facility] performed the technical component only. 11:36 AM T DERMATOPATHOLOGY LABORATORY Embedded Images 11:36 AM T DERMATOPATHOLOGY LABORATORY DISCLAIMER An external and internal positive and negative controls are appropriate for the histochemical, immunohistochemical and immunofluorescence stain(s) in this case (if any), except where stated explicitly. The performance characteristics of the stain(s) cited in this report were developed and its performance characteristic determined by the Dermatopathology Laboratory at [facility]. These tests need not be, and therefore are not, approved by the [place] Food and Drug Administration. The tests are used for clinical purposes. 11:36 AM [facility] DERMATOPATHOLOGY [facility]ORATORY at 1232 CDT Pathology/Cytolog y TISSUE SPECIMEN FROM SKIN / Unknown 05/10/2018 05/11/2018 6:16 AM CDT Mely Jones MD LAB - PATHOLOGY/CYTOLOGY OR DERABLES Edited Result - Final DERMATOPATHOLOGY LABORATORY [facility] - Department of Dermatology [address] [place] [address], [facility] [phone] documented in this encounter Visit Diagnoses Not on filedocumented in this encounter
--- OUTSIDE RECORDS SUMMARY | 2025-05-04 19:26 | XMS_ITS | Encounter Summary ---
Author Name Department of [facility] ([place]) Organization Department of [facility] ([place]) Address [address] [place] [address] Care Team Providers Care Franchise Manager Name Role Phone SANTA BETHEA Primary Care Provider Unavailshekhar eastman Insurance Providers: All historical and current Section Date Range: From patient's date of to the date document was created. This section includes the names of all active insurance providers for the patient. Insurance Provider Type of Coverage Plan Name Start of Policy Coverage End of Policy Coverage Group Number Member ID Insurance Provider's Telephone Number Policy Phipps's Name Patient's Relationship to Policy Phipps [place] PREFERRED PROVIDER ORGANIZAT ION (PPO) FEP BASIC FAM Jun 12, 2012 [id number] [phone] UGO CABELLO PATIENT ANTHE[place] PREFERRED PROVIDER ORGANIZAT ION (PPO) FEP BASIC FAM Jun 12, 2012 112 [id number] [phone] UGO CABELLO SINECRE PATIENT ANTHE[place] PREFERRED PROVIDER ORGANIZAT ION (PPO) FEP BASIC FAM Jun 12, 2012 112 [id number] [phone] UGO CABELLO SINC[place] PATIENT [place] PREFERRED PROVIDER ORGANIZAT ION (PPO) FEP BASIC FAM Jun 12, 2012 112 [id number] [phone] UGO CABELLO PATIENT [place] FEP ([id number]) PRESCRIPT ION FEPRX Jun 12, 2012 [id number] [phone] UGO CABELLO PATIENT Selected Encounter This section includes the information on record at [place] for the Encounter. Date/Time Encounter Type Encounter Description Reason Provider Source February 19, 2025 01:30 PM OFFICE O/P EST MOD 30 MIN PRIMARY CARE/MEDICINE ICD-10-CM M54.50 Low back pain, unspecified BETHEA,SANTA A IHE Encounter Template Text not used by [place] Assessments - Encounter Diagnoses This section includes the primary and secondary diagnoses documented for the Encounter. Date/Time Primary/Secondary Diagnosis Diagnosis Name Provider Source February 19, 2025 09:59 PM PRIMARY Low back pain, unspecified BETHEA,SANTA A [facility] February 19, 2025 09:59 PM SECONDARY Pain in unspecified knee [facility]HEA,[facility]A [facility] Plan of Treatment: Future Appointments (+ 6 months) and Future Tests (+/- 45 days) The Plan of Treatment section includes future care activities for the patient from [facility] [place] [facility] This section includes future appointments and future orders which are active, pending or scheduled. Future Appointments This section includes appointments that were scheduled to occur 6 months from the date of the Encounter, up to a maximum of 20 appointments. The data comes from all [place] treatment facilities. Appointment Date/Time Appointment Type Appointme nt Facility Name March 07, 2025 08:00 AM AMBULATORY - REHAB MEDICIN E [facility] March 14, 2025 08:00 AM AMBULATORY - REHAB MEDICIN E [facility] Mar 26, 2025 08:00 AM AMBULATORY - REHAB MEDICIN E [facility] Apr 02, 2025 08:00 AM AMBULATORY - REHAB MEDICIN E [facility] Apr 04, 2025 08:30 AM [facility]ULATORY [facility] NONE [facility] Apr 10, 2025 08:00 AM AMBULATORY - REHAB MEDICIN E [facility] Apr 17, 2025 01:30 PM AMBULATORY [facility] NONE [facility] Jun 12, 2025 08:30 AM AM[facility]ULATORY [facility] NONE [facility] Jun 22, 2025 08:30 AM AMBULATORY [facility] NONE [facility] Jun 29, 2025 08:30 AM AM[facility]ULATORY [facility] NONE [facility] Jul 06, 2025 08:30 AM AM[facility]ULATORY [facility] NONE [facility] Jul 12, 2025 03:00 PM AMBULATORY - NONE [facility] Active, Pending, and Scheduled Orders This section includes a listing of several types of active, pending, and scheduled orders, including clinic medications orders, diagnostic test orders, procedure orders and consult orders; where the start date of the order is 45 days before the date of the Encounter or 45 days after the date of theEncounter. The data comes from all [place] treatment facilities. Test Date/Time Test Type Test Details Facility Name February 19, 2025 12:00 AM Laboratory - Chemistry Order COMPREHENSIVE METABOLIC PANEL GREEN LI/HEP BLD/PLAS PLASMA SP [facility] February 19, 2025 12:00 AM Laboratory - Chemistry Order LIPID PANEL (STL) GREEN LI/HEP BLD/PLAS PLASMA SP ONCE [facility] Lab Results: +/- 30 days of the encounter This section includes the Chemistry and Hematology Lab Results [facility] record with [facility] for the [facility]. Radiology Reports and Pathology Reports are provided separately, in subsequent sections. Lab Results This section contains the Chemistry/Hematology Results that were resulted 30 days before or 30 daysafter the date of the Encounter. Date/Time Source Result Type Result - Unit Interpretation Reference Range Specimen Type Comment February 20, 2025 02:09 PM [facility] MICRAL/CREAT PROFILE (STL) URINE Specimen Typ e: URINE Comment: uALB/CREAT Ratio Unable to be calculated Unable to calculate due to Microalbumin < 5.0 mg/L Ordering Provider: SANTA BETHEA Report Released Date/Time: February 19, 2025 02:02 PM Reporting Lab: [facility] [address] [facility] [phone] Performing Lab: [facility] [address] [facility] [phone] URINE ALBUMIN (PB-STL) <5.0 mg/L uACR (STL) comment mg/g 0-29 CREATININE URINE/OTHERS 51.0 mg/dL 47-11 0 February 19, 2025 02:05 PM [facility] HGA1C BLOOD Specimen Type: BLOOD No comment entered. Ordering Provider: SANTA BETHEA Report Released Date/Time: February 19, 2025 02:02 PM Reporting Lab: [facility] [address] [facility] [address] Performing Lab: [facility] [address] [place] [phone] HGA1C 5.8 4.0-6.0 February 19, 2025 02:05 PM [facility] TSH W/ REFLEX FT4 (STL) PLASMA Specimen Type: PLASMA No comment entered. Ordering Provider: SANTA BETHEA Report Released Date/Time: February 19, 2025 02:02 PM Reporting Lab: [facility] [address] [place] [phone] Performing Lab: [address] [phone] TSH 1.441 u[IU]/mL 0.47-5 February 19, 2025 02:05 PM [facility] VITAMIN D, 25-HYDROXY SERUM Specimen Type: SE RUM No comment entered. Ordering Provider: SANTA BETHEA Report Released Date/Time: February 19, 2025 02:02 PM Reporting Lab: [facility] [address] [place] [phone] Performing Lab: [address] [address] VITAMIN D, 25-HYDROXY 28.6 ng/mL L 30-96 February 19, 2025 02:05 PM [facility] CBC BLOOD Specimen Type: BLOOD No comment entered. Ordering Provider: SANTA BETHEA Report Released Date/Time: February 19, 2025 02:02 PM Reporting Lab: [facility] [address] [place] [phone] Performing Lab: [address] [address] WBC 7.4 10*3/uL 3.6-11.2 RBC 4.79 10*6/uL 3.60-5.00 HGB 14.7 g/dL 11.0-14.9 HCT 45.0 H 32.6-43.4 MCV 93.9 fL 80.0-100.0 MCH 30.7 pg 27.0-34.0 MCHC 32.7 g/dL L 33.0-36.0 PLT 463 10*3/uL H 150-400 MPV 10.4 fL 7.5-11.2 RDW 12.4 11.8-15.1 LYMPHOCYTES, AUTO % 28 MONOCYTES, AUTO % 8 NEUTROPHILS, AUTO % 61 EOSINOPHILS, AUTO % 3 BASOPHILS, AUTO % 1 LYMPHOCYTES, ABSOLUTE 2.06 10*3/uL 0.77- 4.50 MONOCYTES, ABSOLUTE 0.56 10*3/uL 0.19-0. 80 NEUTROPHILS, ABSOLUTE 4.49 10*3/uL 2.10- 8.00 EOSINOPHILS, ABSOLUTE 0.24 10*3/uL 0.00- 0.60 BASOPHILS, ABSOLUTE 0.04 10*3/uL 0.00-0. 20 Vital Signs: All taken on the encounter date This section contains inpatient and outpatient Vital Signs collected on the date of the Encounter. Date/Time Temperature Pulse Blood Pressure Respiratory Rate SP02 Pain Height Weight Body Mass Index Source February 19, 2025 01:39 PM 98 82 124/84 18 99 5 64 220 38 [facility] Social History: Smoking Status (Most current) and Tobacco Use (All prior to encounter date) This section includes the most current, and the historical, smoking and tobacco- related health factors from the [place] facility where the Encounter took place. Current Smoking Status This section includes the most current smoking, or tobacco-related health factor, from the [place] facility where the Encounter took place. Date/Time Current Smoking Status Comment Facil ity Apr 18, 2024 11:30 AM [facility]-TOBACCO NEVER USED [facility] Tobacco Use History This section includes a history of the smoking, or tobacco-related health factors, that were collected on or before the date of the Encounter. The data comes from the [place] facility where the Encounter took place. Date/Time Smoking Status/Tobacco Use Comment F acility Jun 02, 2021 02:30 PM [facility]-TOBACCO FORMER USER [facility] Jun 02, 2021 02:30 PM [place]-TOBAC[place] QUIT 15 YRS OR MORE [facility] Encounter Notes: All associated encounter notes This section contains the clinical notes associated to the Encounter. Date/Time Encounter Note(s) Provider Source Mar 27, 2025 10:43 AM PHYSICIAN LETTERS: LOCAL TITLE: TEST RESULT GENERAL LETTER STL STANDARD TITLE: PHYSICIAN LETTERS DATE OF NOTE: MAR 27, 2025@10:43 ENTRY DATE: MAR 27, 2025@10:43:15 AUTHOR: SANTA BETHEA COSIGNER: URGENCY: STATUS: COMPLETED [facility] [address] [place] [address] MAR 27, 2025 SEBASTIÁN CABELLO [address] [place], [place] [address] Dear Sebastián Cabello, I would like to update you on your recent test results. HEMOGLOBIN A1C - Gives us information about your diabetes (sugar or glucose) control over the past 3 months. Your target is to keep your A1C below 6 %. HGA1C 5.8 % 02/19/2025 14:05 These readings are within normal limits. CBC - A complete blood count (CBC) gives important information about the kinds and numbers of cells in the blood, especially red blood cells, white blood cells, and platelets. HGB 14.7 g/dL 02/19/2025 14:05 HEMATOCRIT 45.0 % H (02/19/25 14:05) PLT 463 H 10*3/uL 02/19/2025 14:05 WHITE BLOOD COUNT 7.4 10*3/uL (02/19/25 14:05) These results are abnormal. We will continue to monitor your elevated Platelet and hematocrit, I am not sure if this is stable for you as I do not have any access to your previous records from other medical providers that you see in the community TSH - Thyroid-stimulating hormone (also known as TSH or thyrotropin) is a peptide hormone synthesized and secreted by thyrotrope cells in the anterior pituitary gland, which regulates the endocrine function of the thyroid gland. TSH TSH 1.441 uIU/mL 02/19/2025 14:05 These readings are within normal limits. VITAMIN D - Helps promote the proper utilization of calcium and phosphorus, thereby producing proper bone maintenance. VITAMIN D, 25-HYDROXY 28.6 L ng/mL 02/19/2025 14:05 These results are abnormal. pls go out and get some sun. you may also take over the counter Vitamin D supplement daily. PLAN Please continue your treatment as we discussed during your visit. If you have any questions please call your case worker. I look forward to seeing you at your next clinic appointment. Thank you for choosing the [facility] for your healthcare. FUTURE APPOINTMENTS: 04/02/2025 08:00 [facility]-PT VP PRODUCT 04/04/2025 08:30 [facility]-HW MASSAGE CONSULT BLD 10/17/2025 10:00 [facility]-ST CLR PACT 6 PCP Sincerely, SEBASTIÁN ULLOA MD, ARMIDA A [facility] February 19, 2025 01:46 PM PRIMARY CARE NOTE: LOCAL TITLE: PRIMARY CARE PROVIDER ESTABLISHED VISIT [facility] STANDARD TITLE: PRIMARY CARE NOTE DATE OF NOTE: FEBRUARY 19, 2025@13:46 ENTRY DATE: FEBRUARY 19, 2025@13:46:23 AUTHOR: SANTA BETHEA COSIGNER: URGENCY: STATUS: COMPLETED ESTABLISHED PATIENT ASYA-YD-KVHE: REASON FOR VISIT/CHIEF COMPLAINT: routine f.u HPI:had knee replacement Sep 2024. still followed by orth and still on restrictions. still doing PT and reports improving ROM. still as occ neck pain that radiates to shoulders, on a daily basis, BFA was helpful but pt is unable to get to [facility] .last pap 3 yrs ago, will scheds wwe in 6 mo SOURCE(S) OF HISTORY: Patient PAST MEDICAL HISTORY: 1) Low Back Pain (SCT [id number]) 2) Bilateral Knee Pain (SCT [id number]) comment: L TKA Oct 2022, R TKA Sep 2024 3) Shoulder Pain (SCT [id number]) 4) Tinnitus (SCT [id number]) 5) Foot Pain (SCT [id number]) 6) Neck Pain (SCT [id number]) 7) Headache (SCT [id number]) FAMILY HISTORY: No new updates. SOCIAL HISTORY: NICOTINE: Nicotine User: No ILLICIT DRUGS: No ETOH: denies ALLERGIES: MORPHINE ALLERGY REVIEW: Allergy list reviewed and remains current. MEDICATION RECONCILIATION: I have reviewed the patient's medication list with the patient and/or his/her care-radiology orderly. Handwritten corrections, additions and/or deletions were made to the list. Corrected Outpatient Medication List was provided to the patient/caregiver. Active Outpatient Medications (including Supplies): Active Outpatient Medications Status 1) METHOCARBAMOL 750MG TAB TAKE 1 TABLET BY MOUTH FOUR TIMES A ACTIVE (S) DAY NEEDED Indication: FOR MUSCLE SPASM Active Non-VA Medications Status 1) Non-VA NAPROXEN 500MG TAB 500MG BY MOUTH TWICE A DAY ACTIVE 2 Total Medications REVIEW OF SYSTEMS: General: Normal No Fevers, Chills, Weight Loss, Weight Gain, Recent Illness. Ears, Nose, Mouth, Throat: Normal No new loss of hearing or tinnitus, no Dental issue, Difficulty swallowing, Vertigo. Eye: Normal No Trauma, Cataracts, Glaucoma, Blurred vision Cardiovascular: Normal No Chest pain, Dizziness, Palpitations. Respiratory: Normal No Cough, SOB, Hemoptysis, Epistaxis, Influenza symptoms, +PDD. PHYSICAL EXAMINATION: General appearance: VITALS (most recent, as listed in the electronic record): B/P: 124/84 (02/19/2025 13:39) Pulse: 82 (02/19/2025 13:39) Temperature: 98 F [36.7 C] (02/19/2025 13:39) Weight: 220 lb [99.79 kg] (02/19/2025 13:39) Height: 64 in [162.6 cm] (02/19/2025 13:39) BMI: 37.8 Pain: 5 (02/19/2025 13:39) (0-10 scale) General: pleasant, cooperative, well-developed,obese,, appropriately dressed and groomed ; in no acute distress. Ears, Nose, Mouth, Throat:TM pearly bañuelos, intact. Throat clear with no exudate. No trismus. Nose patent Eye:PERRL Cardiovascular:RRR, No m/r/g or clicks. Respiratory:Clear to auscultation bilaterally. No accessory muscle use. Respirations even and non-labored ABD/GI:soft, non-tender. BS + x 4. /FIBER MACHINE TENDER: Deferred Lymph: No lymphadenopathy Extremities:No pedal edema. bilateral TKR Psych:Affect appropriate. Neuro: Oriented x3. Gait steady with normal stride. Hematology: Color good. No pallor. No ecchymosis or petechiae. Skin:No visualized abnormalities. ASSESSMENT/PLAN: LBP 2/2 DDD, cont RICE. nsaid and muscle relaxers. monitor knee pain better with TKR- cont PT and ortho recs; ,monitor obesity cont TLC , monitor claoric intake. MOVE program RETURN TO CLINIC:6-8 mo for WWE Return to Clinic order placed SUMMARY STATEMENT: Plan of care has been discussed with including expected therapeutic benefits and potential side effects of prescribed medication and treatments. [place] verbalizes understanding and is in agreement with the plan of care. Patient was instructed to keep all scheduled appointments and contact well site drilling engineer for any additional problems. PREVENTION & SCREENING: ALCOHOL: Clinical Reminder not due now or within a month BLOOD PRESSURE: Clinical Reminder not due now or within a month HEMOGLOBIN A1C: Clinical Reminder not due now or within a month Breast Cancer Screening - L,N,P,PH,U: A mammogram is currently scheduled. /yonny/ SANTA BETHEA MD Signed: 03/01/2025 17:27 SANTA BETHEA [facility] February 19, 2025 01:44 PM NURSING NOTE: LOCAL TITLE: V15 PACT FACE TO FACE NOTE STL STANDARD TITLE: NURSING NOTE DATE OF NOTE: FEBRUARY 19, 2025@13:44 ENTRY DATE: FEBRUARY 19, 2025@13:44:06 AUTHOR: ABBY BRADLEY EXP COSIGNER: URGENCY: STATUS: COMPLETED Provider Visit: Patient Identifiers : Full Name Date of Reason for visit: Established Follow-Up Mode of Arrival: Ambulatory Allergy Review: MORPHINE Allergy list reviewed and remains current. Recent Vital Signs: Temperature: 98 F [36.7 C] (02/19/2025 13:39) Pulse: 82 (02/19/2025 13:39) Respiration: 18 (02/19/2025 13:39) B/P: 124/84 (02/19/2025 13:39) Pain: 5 (02/19/2025 13:39) Wt: 220 lb [99.79 kg] (02/19/2025 13:39) Ht: 64 in [162.6 cm] (02/19/2025 13:39) BMI: 37.8 POX: 99% (02/19/2025 13:39) PERSONAL HEALTH INVENTORY Notes: No data available for PHI note titles PERSONAL HEALTH INVENTORY - MAP: No data available for PHI MAP What matters most to you in your life right now? - [place]'s Response: family Would you like to discuss any personal problem, family problem, alcohol use, drug use, or a mental or emotional illness? No My [facility] ([facility]), please select appointment type: Face to face: Yes- Done Contact provided Primary Care phone number and encouraged to call if any questions or concerns. Review that after hours nurse line [phone] and emergency room are available 10/05 for patient use. Contact verbalized good understanding. Influenza Immunization - L,N,P,PH,U: Deferral / Refusal The patient declines to receive the recommended dose of seasonal influenza vaccine. Immunization: INFLUENZA, UNSPECIFIED FORMULATION Refusal Reason: PATIENT DECISION Patient refuses all immunization(s) in the FLU group Date Documented: 02/19/25 13:45 /yonny/ ABBY BRADLEY LPN LICENSED PRACTICAL NURSE Signed: 02/19/2025 13:45 ABBY BRADLEY [facility]
--- OUTSIDE RECORDS SUMMARY | 2025-05-04 19:26 | XMS_ITS | Encounter Summary ---
Author Name [facility] ([place]) Organization [facility] ([place]) Address [address] [place] [address] Care Team Providers Care Cake Tester Name Role Phone SANTA COLLIER Primary Care Provider Anurag e Insurance Providers: All historical and current Section [...] FEP BASIC FAM Jun 12, 2012 112 [id number] [phone] UGO CABELLO PATIENT ANTHEM [place] FEP PREFERRED PROVIDER ORGANIZAT ION (PPO) FEP BASIC FAM Jun 12, 2012 112 [id number] [phone] UGO CABELLO SINCERE PATIENT ANTHEM [place] FEP PREFERRED PROVIDER ORGANIZAT ION (PPO) FEP BASIC FAM Jun 12, 2012 112 [id number] [phone] UGO CABELLO SINCERE PATIENT [place] FEP PREFERRED PROVIDER ORGANIZAT ION (PPO) FEP BASIC FAM Jun 12, 2012 112 [id number] [phone] UGO CABELLO PATIENT [employer] FEP ([id number]) PRESCRIPT ION FEPRX Jun 12, 2012 [id number] [phone] UGO CABELLO PATIENT Selected Encounter This section includes the information on record at [place] for the Encounter. Date/Time Encounter Type Encounter Description Reason Provider Source Mar 26, 2025 08:00 AM THERAPEUTIC EXERCISES PHYSICAL THERAPY ICD-10-CM M17.11 Unilateral primary osteoarthritis, right knee JO GAGE IHE Encounter Template Text not used by [place] Assessments - Encounter Diagnoses This section includes the primary and secondary diagnoses documented for the Encounter. Date/Time Primary/Secondary Diagnosis Diagnosis Name Provider Source Mar 26, 2025 11:48 AM PRIMARY Unilateral primary osteoarthritis, right knee JO GAGE [facility] Plan of Treatment: Future Appointments (+ 6 months) and Future Tests (+/- 45 days) The Plan of Treatment section includes future care activities for the patient from [facility] [place] [facility]. This section includes future appointments and future orders which are active, pending or scheduled. Future Appointments This section includes appointments that were scheduled to occur 6 months from the date of the Encounter, up to a maximum of 20 appointments. The data comes from all [facility]. Appointment Date/Time Appointment Type Appointme nt Facility Name Apr 02, 2025 08:00 AM AMBULATORY - REHAB MEDICIN E [facility] Apr 04, 2025 08:30 AM AMBULATORY - NONE [facility] Apr 10, 2025 08:00 AM AMBULATORY - REHAB MEDICIN E [facility] Apr 17, 2025 01:30 PM AMBULATORY - NONE [facility] Jun 12, 2025 08:30 AM AMBULATORY - NONE [facility] Jun 22, 2025 08:30 AM AMBULATORY - NONE [facility] Jun 29, 2025 08:30 AM AMBULATORY - NONE [facility] Jul 06, 2025 08:30 AM AMBULATORY - NONE [facility] Jul 12, 2025 03:00 PM AMBULATORY - NONE [facility] Active, Pending, and Scheduled Orders This section includes a listing of several types of active, pending, and scheduled orders, including clinic medications orders, diagnostic test orders, procedure orders and consult orders; where the start date of the order is 45 days before the date of the Encounter or 45 days after the date of theEncounter. The data comes from all [facility]. Test Date/Time Test Type Test Details Facility Name February 19, 2025 12:00 AM Laboratory - Chemistry Order COMPREHENSIVE METABOLIC PANEL GREEN LI/HEP BLD/PLAS PLASMA SP [facility] February 19, 2025 12:00 AM Laboratory - Chemistry Order LIPID PANEL (STL) GREEN LI/HEP BLD/PLAS PLASMA SP [facility] Encounter Notes: All associated encounter notes This section contains the clinical notes associated to the Encounter. Date/Time Encounter Note(s) Provider Source Mar 26, 2025 11:08 AM PHYSICAL MEDICINE REHAB NOTE: LOCAL TITLE: PT PROGRESS STL STANDARD TITLE: PHYSICAL MEDICINE REHAB NOTE DATE OF NOTE: MAR 26, 2025@11:08 ENTRY DATE: MAR 26, 2025@11:08:11 AUTHOR: JO GAGE COSIGNER: URGENCY: STATUS: COMPLETED Current PC Provider: SANTA COLLIER Current PC Team: OLGA DO PACT 6 PCP Current Pat. 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 Date: Oct 13, 2024 DST ID: Orderable Item: PT OUTPT STL Consult: Consult Request Provisional Diagnosis: Pain in right Knee(ICD-10-CM M25.561) Reason For Request: Physical Therapy Outpatient Consult Please educate patient prior to placing this consult that if they no show to this appointment, the consult will be discontinued and a new consult will be needed in order to reschedule.If a referral is for multiple areas, the treating therapist will work with the patient to prioritize treatment area(s) to optimize function. Referrals from patients who have received and been discharged from physical therapy within the last 6 months for the same condition will not be accepted. If contact with Physical Therapy Department is needed: Launch Email to [facility] PT Group Evaluation and Treatment for: (Please include post-op protocol as appropriate) received [facility] for PT from [facility]. pt is s/p right knee arthroplasty 10/01/24 and is ordered to start PT 2-3x/week for 8-12 weeks. ROM, strengthening, gait training, functional activities, balance/proprioception. HEP instructions , modalities as needed. Responsible attending:Santa Collier Md for NON [facility] orth[facility] provider Cecilio Reese MD PHYSICAL THERAPY DAILY NOTE for RIGHT TKA on 10/01/25(by outside doctor) Referring provider: Josefina Collier MD Start of Care: 10/24/24 Reevaluation due:11/24/24 POC through:01/22/25 Visits to date: 13 No shows/cancellations: 0 Primary PT: Monet Gage Treatment time: Total mins. 45 Therapeutic exercise: 45 mins. Subjective:[place] states that she has until the end of the month to get ready for her eval. for RTW. Pt states doing about the same. Would like to work on kneeling and squats so she can return to work. 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 Treatment: Therapeutic exercise: Physiostep for 8.0 minutes, level 5 forward lunges in // bars x 10 each side backwards lunge onto blue airex+red/yellow mat, 1 UE support on chair x 10 reps bilateral(holding a 2lb wt) single leg stance, toe taps on 3 cones in front of pt, 3 rounds each direction and 1 round on LLE -SLB with one arm overhead(holding a 4lb wt) and one out to the side. Pt was instructed in and demonstrated independence with current HEP x 1 (pt was provided with handouts):pt to begin with 6-7 reps an build up reps as tolerated. -Quad sets(as many as possible) -SLR, SAQ, LAQ, Heel slides -Standing ham. curls, marching steps, AROM of the right hip, TKE with ball behind the knee, wall slide with ball betwen the knee, toe raises->all with UE support. given written HEP Encouraged HEP 2x's/day -Instructed in hip strengthening ex's. *Sidelying clam shells->partial and with hip lift, 10 reps. each, X2 *Sit to stands, 10 reps. *AROM of the hip in standing with ankle weight *Marching step in standing with ankle weight Assessment: Pt would benefit from PT to address:ROM, strength, gait, balance. Pt reports no increase in pain with session. Able to progress to no UE support on backwards lunge onto soft surface. Will continue to progress to lower surfaces in future visits. Pt inquired about running again-february trial treadmill next visit. Encouraged to continue with hip/core strengthening prior to running. Movement Classification:right TKA Goals: Short term: (4 weeks) 1) Pt will demonstrate independence with current HEP x 1 2) Pt will verbalize pain at worst:4 at night skilled nursing: (12 weeks) 1) Pt will demonstrate independence with final HEP x 1 2) Pt will verbalize pain at worst:2/10 at night 3) Pt will improve right knee ROM to 0 to 120d. 4) Pt will improve right knee strength to 4/5 to 4+/5. --CONTINUED SKILLED THERAPY NEEDED TO ADDRESS THE FOLLOWING IMPAIRMENTS/FUNCTIONAL LIMITATIONS AND EDUCATIONAL NEEDS: [X] Pain: [X] Physiological impairments of: [X] Balance: [X] ROM: [X] Strength: [] Other: [X] ADL deficits: [] WB activities: [X] Self-care: [] Other: [X] Education needs: Individual(s) involved: [X] Patient: [] Caregiver: [X] Achieving (I) with home program: [X] Gain further of understanding of self-management of condition: [X] Self-Care: [] Caregiver education: [] Other: Equipment Pt Currently Has:SPC Plan: Will see in 1 week for strengthening, ROM, gait and balance activites. Pt to continue to go to her gym. --PATIENT EDUCATION DOCUMENTATION: Person(s) who received education: [x] Patient; [] Family: [] Other: Education Topic/Teaching Needs: [X] Home program: [X] Why compliance with home program is important [] Regarding automated call/letter regarding scheduled appointment; two no show policy; late arriving for appointment; follow up appointment lengths. [] TENS [] Nature of condition [] Other: Methods used Included: [X] Handout(s): [X] Home program: [X] Why compliance with home program is important [] Regarding automated call/letter regarding scheduled appointment; two no show policy; late arriving for appointment; follow up appointment lengths. [] TENS [] Other: [x] One-on one: [X] Verbal instructions [X] Visual instructions [] Tactile cues. [] Other: Teaching Outcomes: [X] Good; [] Fair; [] Poor [x] Patient acknowledged understanding of instruction [] Family/Other acknowledged understanding of instruction /es/ Jo Gage MA, PT Physical Therapist Signed: 03/26/2025 11:48 JO GAGE [facility]
--- OUTSIDE RECORDS SUMMARY | 2025-05-04 19:26 | XMS_ITS | Encounter Summary ---
Author Name [facility] Organization [facility] ([place]) Address [address] [place] [address] Care Team Providers Care Ict Help Desk Technician Name Role Phone SANTA COLLIER Primary Care [...] FEP BASIC FAM Jun 12, 2012 112 [id number] [phone] UGO CABELLO PATIENT ANTHEM [place] FEP PREFERRED PROVIDER ORGANIZAT ION (PPO) FEP BASIC FAM Jun 12, 2012 112 [id number] [phone] UGO CABELLO SINCERE PATIENT [place]THE[place] FEP PREFERRED PROVIDER ORGANIZAT ION (PPO) FEP BASIC FAM Jun 12, 2012 112 [id number] [phone] UGO CABELLO SINCERE PATIENT [place] FEP PREFERRED PROVIDER ORGANIZAT ION (PPO) FEP BASIC FAM Jun 12, 2012 112 [id number] [phone] UGO CABELLO PATIENT [employer] FEP ([id number]) PRESCRIPT ION FEPRX Jun 12, 2012 [id number] [phone] UGO CABELLO PATIENT Selected Encounter This section includes the information on record at [place] for the Encounter. Date/Time Encounter Type Encounter Description Reason Provider Source March 07, 2025 08:00 AM THERAPEUTIC EXERCISES PHYSICAL THERAPY ICD-10-CM M17.11 Unilateral primary osteoarthritis, right knee JO GAGE I[facility] Encounter Template Text not used by [place] Assessments - Encounter Diagnoses This section includes the primary and secondary diagnoses documented for the Encounter. Date/Time Primary/Secondary Diagnosis Diagnosis Name Provider Source March 07, 2025 12:42 PM PRIMARY Unilateral primary osteoarthritis, right knee JO GAGE [facility] Plan of Treatment: Future Appointments (+ 6 months) and Future Tests (+/- 45 days) The Plan of Treatment section includes future care activities for the patient from all [place] [facility]. This section includes future appointments and future orders which are active, pending or scheduled. Future Appointments This section includes appointments that were scheduled to occur 6 months from the date of the Encounter, up to a maximum of 20 appointments. The data comes from all [place] treatment facilities. Appointment Date/Time Appointment Type Appointme nt Facility Name March 14, 2025 08:00 AM AMBULATORY - REHAB MEDICIN E [facility] Mar 26, 2025 08:00 AM AMBULATORY - REHAB MEDICIN E [facility] Apr 02, 2025 08:00 AM AMBULATORY - REHAB MEDICIN E [facility] Apr 04, 2025 08:30 AM AMBULATORY - NONE [facility] Apr 10, 2025 08:00 AM AMBULATORY - REHAB MEDICIN E [facility] Apr 17, 2025 01:30 PM AMBULATORY - NONE [facility] Jun 12, 2025 08:30 AM AMBULATORY - NONE [facility] Jun 22, 2025 08:30 AM AMBULATORY - NONE [facility] Jun 29, 2025 08:30 AM AMBULATORY - NONE [facility] Jul 06, 2025 08:30 AM AMBULATORY - NONE [facility] Jul 12, 2025 03:00 PM AMBULATORY - NONE [facility] Active, Pending, and Scheduled Orders This section includes a listing of several types of active, pending, and scheduled orders, including clinic medications orders, diagnostic test orders, procedure orders and consult orders; where the start date of the order is 45 days before the date of the Encounter or 45 days after the date of theEncounter. The data comes from all [place] treatment facilities. Test Date/Time Test Type Test Details Facility Name February 19, 2025 12:00 AM Laboratory - Chemistry Order COMPREHENSIVE METABOLIC PANEL GREEN LI/HEP BLD/PLAS PLASMA SP [facility] February 19, 2025 12:00 AM Laboratory - Chemistry Order LIPID PANEL (STL) GREEN LI/HEP BLD/PLAS PLASMA SP ONCE [facility] Lab Results: +/- 30 days of the encounter This section includes the Chemistry and Hematology Lab Results on record with [place] for the patient. Radiology Reports and Pathology Reports are provided separately, in subsequent sections. Lab Results This section contains the Chemistry/Hematology Results that were resulted 30 days before or 30 daysafter the date of the Encounter. Date/Time Source Result Type Result - Unit Interpretation Reference Range Specimen Type Comment February 20, 2025 02:09 PM [facility] MICRAL/CREAT PROFILE (STL) URINE Specimen Typ e: URINE Comment: uALB/CREAT Ratio Unable to be calculated Unable to calculate due to Microalbumin < 5.0 mg/L Ordering Provider: SANTA COLLIER Report Released Date/Time: February 19, 2025 02:02 PM Reporting Lab: [facility] [address] [facility] [phone] Performing Lab: [facility] [address] [facility] [phone] URINE ALBUMIN (PB-STL) <5.0 mg/L uACR (STL) comment mg/g 0-29 CREATININE URINE/OTHERS 51.0 mg/dL 47-11 0 February 19, 2025 02:05 PM [facility] HGA1C BLOOD Specimen Type: BLOOD No comment entered. Ordering Provider: SANTA COLLIER Report Released Date/Time: February 19, 2025 02:02 PM Reporting Lab: [facility] [address] [facility] [phone] Performing Lab: [facility] [address] [facility] [address] HGA1C 5.8 4.0-6.0 February 19, 2025 02:05 PM [facility] TSH W/ REFLEX FT4 (STL) PLASMA Specimen Type: PLASMA No comment entered. Ordering Provider: SANTA COLLIER Report Released Date/Time: February 19, 2025 02:02 PM Reporting Lab: [facility] [address] [place] [phone] Performing Lab: [facility] [address] [place] [phone] TSH 1.441 u[IU]/mL 0.47-5 February 19, 2025 02:05 PM [facility] VITAMIN D, 25-HYDROXY SERUM Specimen Type: SE RUM No comment entered. Ordering Provider: SANTA COLLIER Report Released Date/Time: February 19, 2025 02:02 PM Reporting Lab: [address] [address] Performing Lab: [address] [address] VITAMIN D, 25-HYDROXY 28.6 ng/mL L 30-96 February 19, 2025 02:05 PM [facility] CBC BLOOD Specimen Type: BLOOD No comment entered. Ordering Provider: SANTA COLLIER Report Released Date/Time: February 19, 2025 02:02 PM Reporting Lab: [facility] [address] [place] [phone] Performing Lab: [address] [address] WBC 7.4 10*3/uL 3.6-11.2 RBC 4.79 10*6/uL [...] 0.60 BASOPHILS, ABSOLUTE 0.04 10*3/uL 0.00-0. 20 Encounter Notes: All associated encounter notes This section contains the clinical notes associated to the Encounter. Date/Time Encounter Note(s) Provider Source March 07, 2025 12:34 PM PHYSICAL MEDICINE REHAB NOTE: LOCAL TITLE: PT DAILY STL STANDARD TITLE: PHYSICAL MEDICINE REHAB NOTE DATE OF NOTE: MARCH 07, 2025@12:34 ENTRY DATE: MARCH 07, 2025@12:34:32 AUTHOR: JO GAGE COSIGNER: URGENCY: STATUS: COMPLETED Current PC Provider: SANTA COLLIER Current PC Team: OLGA DO PACT 6 PCP Current Pat. Status: Outpatient UCID: [id number] Primary Eligibility: SERVICE CONNECTED 50% to 100%(VERIFIED) Patient Type: SC OEF/OIF: NO Service Connection/Rated Disabilities [place] Percent: 90% Rated Disabilities: FLAT FOOT CONDITION [...] be rendered on an OUTPATIENT basis Place: Chemical Processing Equipment Repairer's choice Urgency: Routine Clinically Ind. Date: Oct [...] Therapy Department is needed: Launch Email to [facility] PT Group Evaluation and Treatment for: (Please include post-op protocol as appropriate) received [facility] for PT [facility]. pt is s/p right knee arthroplasty 10/01/24 [...] Reevaluation due:11/24/24 POC through:01/22/25 Visits to date: 11 No shows/cancellations: 0 Treatment time: Total mins. 35 Therapeutic exercise: 35 mins. Subjective:Pt states that she is not having too much right post-op knee pain lately. States that she is practicing kneeling on a soft surface. states that she was told by the PA in her surgeon's office that she needs more hip strength. She states that she didn't have this much pain and recovery with her other TKA. She states that she was told that she has a different type of knee than the other one. Pt states that she is doing water aerobics once a week. She has returned to work on a limited basis. Not ready for full duty just yet. She needs to be able to kneel. She states that she is still having some difficulty with going down the stairs. Needs UE support. 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 Treatment: Therapeutic exercise: Pt was instructed in and demonstrated independence [...] the knee, toe raises->all with UE support. [place] given written HEP Encouraged HEP 2x's/day In PT today: -Physiostep for 8.0 min, Level 5 -Leg press with 20 reps. at 60lbs. and 20 reps. at 80 lbs. -Toe raises and calf/ham stretch on step with UE support, 10 reps. -Stretching into knee fl on step, 10 reps. -Lateral step-ups with UE support, 10 reps. -Agility drills (with triangle ladder on the floor), side to side and forward, quick steps. -Forward and side lunges holding 2 4lb wts., 2 laps up an down in // bars. -Instructed in hip strengthening ex's. *Sidelying clam shells->partial and with hip lift, 10 reps. each, X2 *Sit to stands, 10 reps. *AROM of the hip in standing with ankle weight *Marching step in standing with ankle weight Using pool at her gym. States that she also swam some laps. States that she has to be able to kneel at work on a soft surface. She states that she is going to try 1/2 kneeling since she has to be able to get in that position for work activities. Assessment: Pt would benefit from PT to address:ROM, strength, gait, balance. PT tolerated well. Delia has been able to to RTW on a limited basis. Delia is a 49 yr female with a dx of right TKA on 10/01/24. 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 She had a left TKA in 2022 and recoverd well. She was able to go back to work and run. She was cooperative and well motivated. --Complexity of eval: [X] Low [] Medium [] High -Complexity of eval due to: -Co-morbidities:see above -Personal Factors:see above -Examination: -Elements addressed:ROM, strength, gait, balance -Outcome measure: -Clinical Presentation: - [X] Stable and/or Uncomplicated - [] Evolving Clinical Presentation with Changing Clinical Characteristics: - [] Unstable And Unpredictable Characteristics Movement Classification:right TKA Goals: Short term: (4 weeks) 1) Pt will demonstrate independence with current HEP x 1 2) Pt will verbalize pain at worst:4 at night flight service specialist: (12 weeks) 1) Pt will demonstrate independence with final HEP x 1 2) Pt will verbalize pain at worst:2/10 at night 3) Pt will improve right knee ROM to 0 to 120d. 4) Pt will improve right knee strength to 4/5 to 4+/5. --REHABILITATION POTENTIAL: [] POOR - Limited potential for improvement. [] GUARDED - There exists a question of the potential for improvement [] FAIR - Presents with the potential to improve in some areas while other deficits may remain unchanged. [X] GOOD - Presents with the potential to improve to a level of functional independence, though may continue to demonstrate certain minimal limitations with consistent performance of HEP. [] EXCELLENT - Presents with the potential to fully recover with no residual deficits. --CONTINUED SKILLED THERAPY NEEDED TO ADDRESS THE [...] Jo Gage MA, PT Physical Therapist Signed: 03/07/2025 12:42 JO GAGE [facility]
--- OUTSIDE RECORDS SUMMARY | 2025-05-04 19:26 | XMS_ITS | Clinical Summary ---
Author Organization [facility] Address [address] [place] [address] Care Team Providers Care Nat Instructor Name Role Phone Unavailable Primary Care Provider Unavailabl e Source Comments [facility],non-owned Affiliates and Associated Physician Practices is amultiple site organization consisting of ambulatory clinics and hospital sitesin [place], [place], [place] and [place]. This disclosure is being madepursuant to the Care Everywhere program and may not contain all information available regarding this patient. Last updated 18.[facility] [place] Social History Tobacco Use Types Packs/Day Years Used Date Smoking Tobacco: Never Assessed Comments Unknown Sex and Gender Information Value Date Recorded Sex Assigned at Female 01/12/2022 10:12 AM CDT Legal Sex Female 8:32 AM CDT Gender Identity Female 01/12/2022 10:12 AM CDT Sexual Orientation Not on file Plan of Treatment Health Maintenance Due Date Last Done Comments COLOGUARD (AGES 45-75) - COL ON CA SCREENING 1976 COLON MONITORING 1976 COLONOSCOPY - COLON CA SCREENING 1976 CT COLONOGRAPHY - COLON CA SCREENING 1976 Colorectal Cancer Screening 1976 FIT - COLON CA SCREENING 1976 FLEX SIG - COLON CA SCREENING 1976 LIPID TESTING 1976 MAMMOGRAM 1976 HIV SCREENING 01/06/1991 HEPATITIS C SCREENING 01/02/1994 DTAP/TDAP/TD VACCINES (1 - Tdap) 01/06/1995 HEPATITIS B VACCINE (1 of 3 - 19+ 3-dose series) 01/06/1995 COVID-19 VACCINE (1 - 2023-2 5 season) 2024 DEPRESSION SCREENING 10/18/2024 INFLUENZA VACCINE (#1) 2025 ZOSTER VACCINE (1 of 2) 01/06/2026 HIB VACCINE Aged Out No longer eligi ble based on patient's age to complete this topic HPV VACCINE Aged Out No longer eligi ble based on patient's age to complete this topic MENINGOCOCCAL (Group B) VACC INE SHARED DECISION-MAKING Aged Out No longer eligibl e based on patient's age to complete this topic MENINGOCOCCAL GROUPS A/C/Y/W VACCINE Aged Out No longer eligible b ased on patient's age to complete this topic Insurance
--- OUTSIDE RECORDS SUMMARY | 2025-05-04 19:27 | XMS_ITS | Encounter Summary ---
Author Name [facility] ([place]) Organization [facility] ([place]) Address [address] [place] [address] Care Team Providers Care Director Of Math Name Role Phone SANTA COLLIER Primary Care Provider Anurag eastman Insurance Providers: All historical and current [...] FEP BASIC FAM Jun 12, 2012 112 [id number] [phone] UGO CABELLO SINCERE PATIENT ANTHEM [place] FEP PREFERRED PROVIDER ORGANIZAT ION (PPO) FEP BASIC FAM Jun 12, 2012 112 [id number] [phone] UGO CABELLO SINCERE PATIENT ANTHEM [place] FEP PREFERRED PROVIDER ORGANIZAT ION (PPO) FEP BASIC FAM Jun 12, 2012 112 [id number] [phone] UGO CABELLO SINCERE PATIENT [place] FEP PREFERRED PROVIDER ORGANIZAT ION (PPO) FEP BASIC FAM Jun 12, 2012 112 [id number] [phone] UGO CABELLO SINCERE PATIENT [employer] FEP ([id number]) PRESCRIPT ION FEPRX Jun 12, 2012 [id number] [phone] UGO CABELLO SINCERE PATIENT Selected Encounter This section includes the information on record at [place] for the Encounter. Date/Time Encounter Type Encounter Description Reason Pro vider Source May 23, 2024 11:05 AM Outpatient Encounter ADMIN PAT ACTIVTIES (MASNONCT) IHE Encounter Template Text not used by [place] Plan of Treatment: Future Appointments (+ 6 months) and Future Tests (+/- 45 days) The Plan of Treatment section includes future care activities for the patient from [facility] [place] [facility] This section includes future appointments and future orders which are active, pending or scheduled. Future Appointments This section includes appointments that were scheduled to occur 6 months from the date of the Encounter, up to a maximum of 20 appointments. The data comes from all [facility]. Appointment Date/Time Appointment Type Appointme nt Facility Name May 30, 2024 08:30 AM AMBULATORY - MEDICINE [facility] Jul 10, 2024 03:00 PM AMBULATORY - NONE . BRII R [facility] Oct 24, 2024 01:00 PM AMBULATORY - REHAB MEDICIN E [facility] Oct 31, 2024 01:00 PM AMBULATORY - REHAB MEDICIN E [facility] Nov 07, 2024 02:30 PM AMBULATORY - REHAB MEDICIN E [facility] Nov 14, 2024 01:30 PM AMBULATORY - REHAB MEDICIN E [facility] Nov 21, 2024 01:30 PM AMBULATORY - REHAB MEDICIN E [facility] Radiology Reports: +/- 30 days of the encounter Radiology Reports For cases when an order for radiology services may have been completed prior to the date of the Encounter, the report list includes the Radiology Reports that were completed up to 30 days before dateof the Encounter. For cases when an order for radiology services may have been completed after the date of the Encounter, the report list also includes the Radiology Reports that were completed up to30 days after date of the Encounter. The data comes from all [facility]. Date/Time Radiology Report Provider Source May 14, 2024 08:42 AM SPINE CERVICAL MIN 4 OR 5 VIEWS: SEBASTIÁN CABELLO [id number] -1975 F Exm Date: MAY 14, 2024@08:42 Req Phys: SANTA COLLIER Loc: -[facility]VC PACT 6 PCP (Req' Img Loc: -MAIN RADIOLOGY SUITE Service: Unknown Screen: Patient answered no [facility] [address] [place] [address] (Case [id number] COMPLETE) SPINE CERVICAL MIN 4 OR 5 VIEWS (RAD Detailed) CPT:61498 Reason for Study: neck pain Clinical History: Report Status: Verified Date Reported: MAY 14, 2024 Date Verified: MAY 14, 2024 Security Systems Manager E-Sig:/ES/Kenton Wick MD Report: FINDINGS: Changes of disc degeneration are present at C5-C6 and there is loss of normal cervical curve/muscle spasm. Minor changes of facet arthropathy are seen. No other significant finding are noted. Other disc spaces appeared preserved throughout and vertebral alignment is satisfactory. Vertebral bodies appear intact. 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 Impression: Changes of disc degeneration at C5-C6 and changes of muscle spasm are noted without additional significant findings. Primary Interpreting Staff: Kenton Wick MD, Radiologist (Security Systems Manager) /QMB [facility] May 05, 2024 01:[address] HEAD W/O CONT: SEBASTIÁN CABELLO [id number] -1975 F Exm Date: MAY 05, 2024@13:59 Req Phys: SANTA COLLIER Pat Loc: [facility] PACT 6 PCP (Req' Img Loc: [facility] Service: Unknown Screen: Patient answered no [facility] [address] [place] [address] (Case [id number] COMPLETE) CT HEAD W/O CONT (CT Detailed) CPT:61676 Reason for Study: chronic headache Clinical History: Responsible Attending: Santa Collier Attending Contact Number: ext [phone] Resident Contact Number: chronic headache, denies eye strain r/o tension headache.rule out organic brain pathology Allergies listed in CPRS chart: MORPHINE Creatinine: No CREATININE EO data found/eGFR: STL EGFR (within one year). *No Lab Data Found* Wt: 201 lb [91.17 kg] (06/02/2021 14:45) History of: Renal failure, chronic or acute renal disease: NO Report Status: Verified Date Reported: MAY 08, 2024 Date Verified: MAY 08, 2024 Security Systems Manager E-Sig:/ES/Sky Gunn MD Report: CT HEAD W/O CONT CASE #: [id number] DATE:05/05/2024 2:41 PM CLINICAL HISTORY:chronic headache COMPARISON: None currently available. TECHNIQUE: CT HEAD W/O CONT FINDINGS: Beam hardening streak artifact affects the lower scan slices. Brain appears developmentally unremarkable. No evidence for acute or more chronic hemorrhage. The calvarium and visualized facial bones are intact. No mass effect or midline shift. No acute sinusitis or mastoiditis. Impression: No acute intracranial hemorrhage. No mass effect or midline shift. Primary Interpreting Staff: Sky Gunn MD, Radiologist (Security Systems Manager) /SKY [facility] Encounter Notes: All associated encounter notes This section contains the clinical notes associated to the Encounter. Date/Time Encounter Note(s) Provider Source May 30, 2024 02:05 PM ADDENDUM: LOCAL TITLE: Addendum STANDARD TITLE: ADDENDUM DATE OF NOTE: MAY 30, 2024@14:05:38 ENTRY DATE: MAY 30, 2024@14:05:39 AUTHOR: ROXANE DEL RIO COSIGNER: URGENCY: STATUS: COMPLETED pt called stating BFA is not working, patient is getting annoyed no one has called her back, states test result does nothing for her because she doesnt understand the verbabge, said shes been calling for an update since april /yonny/ ROXANE DEL RIO [employer] Signed: 05/30/2024 14:32 Receipt Acknowledged By: 06/05/2024 13:59 /es/ JULIEN GUSMAN REGISTERED NURSE --- Original Document --- 05/23/24 ADMINISTRATIVE STL: PTN called stating that she would like the RNCM to go over the CT scan and x-ray results with her. /es/ KWAKU CELIS Signed: 05/23/2024 11:11 Receipt Acknowledged By: 05/24/2024 13:35 /es/ SANTA COLLIER MD 05/24/2024 ADDENDUM STATUS: COMPLETED head CT unremarakble. cervical spine XR showed arthritis or disc degeneration at C5-C6 and changes of muscle spasm are noted without additional significant findings.Pls proceed with WH accupuncture, massage. OTC nsaid. /es/ SANTA COLLIER MD Signed: 05/24/2024 13:38 ROXANE DEL RIO [facility] May 23, 2024 11:11 AM ADMINISTRATIVE NOT E: LOCAL TITLE: ADMINISTRATIVE STL STANDARD TITLE: ADMINISTRATIVE NOTE DATE OF NOTE: MAY 23, 2024@11:11 ENTRY DATE: MAY 23, 2024@11:11:13 AUTHOR: KWAKU WISDOM EXP COSIGNER: URGENCY: STATUS: COMPLETED ADMINISTRATIVE STL Has ADDENDA PTN called stating that she would like the RNCM to go over the CT scan and x-ray results with her. /yonny/ KWAKU WISDOM AMSA Signed: 05/23/2024 11:11 Receipt Acknowledged By: 05/24/2024 13:35 /es/ SANTA COLLIER MD * AWAITING SIGNATURE * JULIEN GUSMAN 05/24/2024 ADDENDUM STATUS: COMPLETED head CT unremarakble. cervical spine XR showed arthritis or disc degeneration at C5-C6 and changes of muscle spasm are noted without additional significant findings.Pls proceed with WH accupuncture, massage. OTC nsaid. /es/ SANTA COLLIER MD Signed: 05/24/2024 13:38 05/30/2024 ADDENDUM STATUS: COMPLETED pt called stating BFA is not working, patient is getting annoyed no one has called her back, states test result does nothing for her because she doesnt understand the verbabge, said shes been calling for an update since april /yonny/ ROXANE DEL RIO [employer] Signed: 05/30/2024 14:32 Receipt Acknowledged By: * AWAITING SIGNATURE * JULIEN GUSMAN [facility]
--- OUTSIDE RECORDS SUMMARY | 2025-05-04 19:27 | XMS_ITS | Encounter Summary ---
Author Name [facility] ([place]) Organization [facility] ([place]) Address [address] [place] [id number] Care Team Providers Care Chain Mortiser Operator Name Role Phone SANTA COLLIER Primary Care [...] FEP BASIC FAM Jun 12, 2012 112 [id number] [phone] UGO CABELLO PATIENT [place] FEP PREFERRED PROVIDER ORGANIZAT ION (PPO) FEP BASIC FAM Jun 12, 2012 112 [id number] [phone] UGO CBAELLO SINCERE PATIENT ANTHEM [place] FEP PREFERRED PROVIDER ORGANIZAT ION (PPO) FEP BASIC FAM Jun 12, 2012 112 [id number] [phone] UGO CABELLO SINCERE PATIENT [place] FEP PREFERRED PROVIDER ORGANIZAT ION (PPO) FEP BASIC FAM Jun 12, 2012 112 [id number] [phone] UGO CABELLO PATIENT [employer] FEP ([id number]) PRESCRIPT ION FEPRX Jun 12, 2012 [id number] [phone] UGO CABELLO PATIENT Selected Encounter This section includes the information on record at [place] for the Encounter. Date/Time Encounter Type Encounter Description Reason Provider Source Jan 29, 2025 02:30 PM THERAPEUTIC EXERCISES PHYSICAL THERAPY ICD-10-CM M17.12 Unilateral primary osteoarthritis, left knee JO GAGE IHE Encounter Template Text not used by [place] Assessments - Encounter Diagnoses This section includes the primary and secondary diagnoses documented for the Encounter. Date/Time Primary/Secondary Diagnosis Diagnosis Name Provider Source Jan 30, 2025 10:54 AM PRIMARY Unilateral primary osteoarthritis, left knee JO GAGE [facility] Plan of Treatment: Future Appointments (+ 6 months) and Future Tests (+/- 45 days) The Plan of Treatment section includes future care activities for the patient from all [place] treatmentfacilities. This section includes future appointments and future orders which are active, pending or scheduled. Future Appointments This section includes appointments that were scheduled to occur 6 months from the date of the Encounter, up to a maximum of 20 appointments. The data comes from all [place] treatment facilities. Appointment Date/Time Appointment Type Appointme nt Facility Name Feb 12, 2025 02:30 PM AMBULATORY - REHAB MEDICIN E [facility] February 19, 2025 01:30 PM AMBULATORY - MEDICINE [facility] March 07, 2025 08:00 AM AMBULATORY - REHAB MEDICIN E [facility] March 14, 2025 08:00 AM AMBULATORY - REHAB MEDICIN E [facility] Mar 26, 2025 08:00 AM AMBULATORY - REHAB MEDICIN E [facility] Apr 02, 2025 08:00 AM AMBULATORY - REHAB MEDICIN E [facility] Apr 04, 2025 08:30 AM AMBULATORY - NONE [facility] Apr 10, 2025 08:00 AM AMBULATORY - REHAB MEDICIN E [facility] Apr 17, 2025 01:30 PM AMBULATORY - NONE . CLAI R [facility] Jun 12, 2025 08:30 AM AMBULATORY - NONE [facility] Jun 22, 2025 08:30 AM AMBULATORY - NONE [facility] Jun 29, 2025 08:30 AM AMBULATORY - NONE [facility] Jul 06, 2025 08:30 AM AMBULATORY - NONE [facility] Jul 12, 2025 03:00 PM [facility]ULATORY - NONE [facility] Active, Pending, and Scheduled Orders This section includes a listing of several types of active, pending, and scheduled orders, including clinic medications orders, diagnostic test orders, procedure orders and consult orders; where the start date of the order is 45 days before the date of the Encounter or 45 days after the date of theEncounter. The data comes from all [place] treatment facilities. Test Date/Time Test Type Test Details Facility Name February 19, 2025 12:00 AM Laboratory - Chemistry Order COMPREHENSIVE METABOLIC PANEL GREEN LI/HEP BLD/PLAS PLASMA SP [facility] February 19, 2025 12:00 AM Laboratory - Chemistry Order LIPID PANEL (STL) GREEN LI/HEP BLD/PLAS PLASMA SP ONCE [facility] Lab Results: +/- 30 days of the [...] Type Comment February 20, 2025 02:09 PM [facility] MICRAL/CREAT PROFILE (STL) URINE Specimen Typ e: URINE Comment: uALB/CREAT Ratio Unable to be calculated Unable to calculate due to Microalbumin < 5.0 mg/L Ordering Provider: SANTA COLLIER Report Released Date/Time: February 19, 2025 02:02 PM Reporting Lab: [facility] [address] [address] [phone] Performing Lab: [facility] [address] [phone] URINE ALBUMIN (PB-STL) <5.0 mg/L uACR (STL) comment mg/g 0-29 CREATININE URINE/OTHERS 51.0 mg/dL 47-11 0 February 19, 2025 02:05 PM [facility] HGA1C BLOOD Specimen Type: BLOOD No comment entered. Ordering Provider: SANTA COLLIER Report Released Date/Time: February 19, 2025 02:02 PM Reporting Lab: [facility] [address] [phone] Performing Lab: [facility] [address] [place] [phone] HGA1C 5.8 4.0-6.0 February 19, 2025 02:05 PM [facility] TSH W/ REFLEX FT4 (STL) PLASMA Specimen Type: PLASMA No comment entered. Ordering Provider: SANTA COLLIER Report Released Date/Time: February 19, 2025 02:02 PM Reporting Lab: [facility] [address] [place] [phone] Performing Lab: [address] [address] TSH 1.441 u[IU]/mL 0.47-5 February 19, 2025 02:05 PM [facility] VITAMIN D, 25-HYDROXY SERUM Specimen Type: SE RUM No comment entered. Ordering Provider: SANTA COLLIER Report Released Date/Time: February 19, 2025 02:02 PM Reporting Lab: [facility] [address] [place] [phone] Performing Lab: [address] [phone] VITAMIN D, 25-HYDROXY 28.6 ng/mL L 30-96 February 19, 2025 02:05 PM [facility] CBC BLOOD Specimen Type: BLOOD No comment entered. Ordering Provider: SANTA COLLIER Report Released Date/Time: February 19, 2025 02:02 PM Reporting Lab: [facility] [address] [place] [phone] Performing Lab: [address] [phone] WBC 7.4 10*3/uL 3.6-11.2 RBC 4.79 10*6/uL [...] the Encounter. Date/Time Encounter Note(s) Provider Source Jan 29, 2025 03:13 PM PHYSICAL MEDICINE REHAB NOTE: LOCAL TITLE: PT DAILY STL STANDARD TITLE: PHYSICAL MEDICINE REHAB NOTE DATE OF NOTE: JAN 29, 2025@15:13 ENTRY DATE: JAN 29, 2025@15:13:05 AUTHOR: JO GAGE COSIGNER: URGENCY: STATUS: COMPLETED Current PC Provider: SANTA COLLIER Current PC Team: OLGA DO PACT 6 PCP *WH* Current Pat. Status: Outpatient UCID: [id number] Primary Eligibility: SERVICE CONNECTED 50% to 100%(VERIFIED) Patient Type: [place] OEF/OIF: NO Service Connection/Rated Disabilities [place] Percent: 90% Rated Disabilities: FLAT FOOT CONDITION [...] be rendered on an OUTPATIENT basis Place: Spray Painting Machine Operator's choice Urgency: Routine Clinically Ind. Date: Oct [...] Therapy Department is needed: Launch Email to [facility] Evaluation and Treatment for: (Please include post-op protocol as appropriate) [facility]. pt is s/p right knee [...] Reevaluation due:11/24/24 POC through:01/22/25 Visits to date: 9 No shows/cancellations: 0 Treatment time: Total mins. 40 Therapeutic exercise: 40 mins. 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 Left knee ROM:0 to 125d Functional ability: sit <-> stand: use BUE's [...] the knee, toe raises->all with UE support. [place] given written HEP Encouraged HEP 2x's/day In PT today: -Physiostep for 8.0 min -Leg press with 60 lbs, 2 sets of 10 reps. and 20 reps. at 80lbs. -Toe raises and calf/ham stretch on step with UE support, 10 reps. -Stretching into knee fl on step, 10 reps. -Lateral step-ups with UE support, 10 reps. -Agility drills (with triangle ladder on the floor), side to side and forward, quick steps. - Sit to stand without UE support, 2 sets of 10 reps. -Prone stretching into knee fl. with green stretch our strap. -Instructed in hip strengthening ex's. *Sidelying clam [...] kneel at work on a soft surface. Assessment: Pt would benefit from PT to address:ROM, strength, gait, balance. PT tolerated well. Delia has been able to to RTW on a limited basis. Delia is a 49 yr female with a dx of right TKA on 10/01/24. 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 [...] will verbalize pain at worst:4 at night [facility]: (12 weeks) 1) Pt will demonstrate independence [...] Jo Gage MA, PT Physical Therapist Signed: 01/30/2025 10:54 JO GAGE [facility]
--- OUTSIDE RECORDS SUMMARY | 2025-05-04 19:27 | XMS_ITS | Clinical Summary ---
Author Organization [facility] Address [address] [place] [address] Care Team Providers Care Photovoltaic Power Systems Engineer Name Role Phone Samantha Mackay MD Primary Care Provider [phone] Social History Tobacco Use Types Packs/Day Years Used Date Smoking Tobacco: Never Assessed Comments Unknown Sex and Gender Information Value Date Recorded Sex Assigned at Not on file Legal Sex Female 4:13 PM CDT Gender Identity Not on file Sexual Orientation Not on file Plan of Treatment Health Maintenance Due Date Last Done Comments Cervical Cancer Screening Pa p Smear (Age 30 to 64) Every 3 Years 1976 Colorectal Cancer Screening Colonoscopy (10 Years) 1976 Annual Physical 01/06/1979 Hepatitis C 01/06/1994 DTaP, Tdap and Td Vaccines ( 1 - Tdap) 01/06/1995 Hepatitis B Vaccines (1 of 3 - 19+ 3-dose series) 01/06/1995 Cervical Cancer Screening Pa p with HPV Testing (Age 30 to 64) Every 5 Years 01/06/2006 Cervical Cancer Screening with HPV 01/06/2006 Mammogram Screening 2016 COVID-19 Vaccine (2023-2 5 season) 2024 Meningococcal B Vaccine Aged Out No l onger eligible based on patient's age to complete this topic Meningococcal Vaccine Aged Out No frannie caitlin eligible based on patient's age to complete this topic Pneumococcal Vaccine: Pediat rics (0 to 5 Years) and At-Risk Patients (6 to 49 Years) Aged Out No longer eligible b ased on patient's age to complete this topic RSV Immunizations Under 20 Months Aged Out No longer eligible based on patient's age to complete this topic Care Teams Photovoltaic Power Systems Engineer Relationship Specialty Start Date End Date Samantha Mackay MD [address] [place], [place] [id number] [facility] - General 03/23/17
--- OUTSIDE RECORDS SUMMARY | 2025-05-04 19:27 | XMS_ITS | Data Portability ---
Author Organization [place] [facility], Main Office Address [address] [place] [address] Care Team Providers Care Senior Stack Engineer Name Role Phone VERA MACKAY Primary Care Provider VERA MACKAY Referring Provider Assessment Encounter Date Assessment Date Assessment LastModified by Organization Details LastModified Time 11/01/2023 11/01/2023 This note is dictated and transcribed by [employer]. Veneer Splicer variances may occur. Despite proofreading, typographical errors may occur. Occasional wrong-word or 'amgpy-d-dlnt' substitutions may have occurred due to the inherent limitations of voice recording. Read the chart carefully and recognize, using context, where substitutions have occurred. [email or web address] Not available 11/01/2023 17:12:13 Plan of Treatment Reminders Order Date Submit Date Provider Last Modified By Organization Details Last Modified Time Details Appointments None recorded. Lab CMP, serum or plasma [address] (Lab)[address], [id number], 4 07:58:30 CBC w/ auto diff [address] (Lab), [address] [place] [address], [id number], 4 07:58:30 urinalysis complete, reflex culture [address] (Lab), [address] [place] [address], [phone], 4 07:58:30 HbA1c (hemoglobin A1c), blood 2022 023 [email or web address] Not available 3 07:50:58 noninvasive colorectal cancer DNA + occult blood screening, QL, stool 2022 023 [email or web address] (Cologuard Orders Only), [address], [facility] [address], [place], [address], 3 07:50:58 BMP, serum or plasma 2022 023 [email or web address] Not available 3 07:50:58 lipid panel, serum 2022 023 [email or web address] Not available 3 07:50:58 TSH, serum or plasma 2022 023 [email or web address] Not available 3 07:50:57 Referral cardiologis t referral - Please call patient to schedule an appointment . Thank you. 2023 024 [email or web address] [facility], [facility], [address] [facility], [facility] [address], [place], [address], 4 08:56:49 Procedures None recorded. Surgeries None recorded. Imaging electrocard iogram 2023 024 [email or web address] [facility] [address], [place], [address], 4 17:32:20 XR, chest, 2 view 2023 024 [email or web address] [facility], [address], [place] [address], [place], [address], 4 09:08:19 MAMMO, screening, digital, bilateral 2022 023 [email or web address] Not available 3 08:58:39 Medication Orders fluconazole 150 mg tablet 2023 024 [email or web address] [id number], [address], [place], [place], [id number], 4 17:49:24 triamcinolo ne acetonide 40 mg/mL suspension for injection 2023 024 [email or web address] Not available 4 08:50:06 lidocaine (PF) 10 mg/mL (1 %) injection solution 2023 024 [email or web address] Not available 4 08:50:42 diclofenac sodium 75 mg tablet,aparna yed release 2023 024 DELANO [facility] #[id number], [address] , [place], [place], [id number], 4 15:55:07 Patient TargetsNo targets recorded. Patient InstructionsNo instructions recorded. Reason for Referral Home Care Chaplain Referral for Pr e-surgery evaluation Please call patient to schedule an appointment. Thank you. Referring Physician: Loreto Silva, Family Medicine, Encounter Date: 08/21/2024 Results Created Date Observation Date Name Description Value Unit Range Abnormal Flag Note LastModifiedBy Organization Detail LastModifiedTime 10/29/19 23 10/29/2022 AMBFABI ABBRE V CMP14 DEFAU LT ambfabi abbrev CMP14 default commen t A hand- writt en panel /prof ile was recei fredrick from your offic e. In accor dance with the [facility] Ambig uous Test Code Polic y dated April 2003, we have compl eted your order by using the close st curre ntly or forme rly recog nized AMA panel . We have assig jairo Compr ehens reynaldo Metab olic Panel (14), Test Code #32[address]. If this is not the testi ng you wishe d to recei ve on this speci men, pleas e conta ct the [facility] Clien t Inqui ry/Te chnic al Servi leonides Depar tment to malaika fy the test order . We appre ciate your busin ess. Not Available [facility] ([facility]) [address] [facility], [place], [address], 10/30/2022 09:38:39 10/29/19 23 10/30/2022 URINA LYSIS , COMPL ETE appearance cloudy clear abnormal Not Available [facility] ([facility]) [address] [place], [address], 10/30/2022 09:38:38 10/29/19 23 10/30/2022 URINA LYSIS , COMPL ETE specific gravity 1.028 1.005- 1.030 Not Available [facility] ([facility]) [address] [place], [address], 10/30/2022 09:38:38 10/29/19 23 10/30/2022 URINA LYSIS , COMPL ETE pH 6.5 5.0-7. 5 Not Available [facility] ([facility]) [address] [place], [address], 10/30/2022 09:38:38 10/29/19 23 10/30/2022 URINA LYSIS , COMPL ETE urine-color yellow yellow Not Available [facility] ([facility]) [address] [place], [address], 10/30/2022 09:38:38 10/29/19 23 10/30/2022 URINA LYSIS , COMPL ETE WBC esterase 1+ negati ve abnormal Not Available [facility] ([facility]) [address] [place], [address], 10/30/2022 09:38:38 10/29/19 23 10/30/2022 URINA LYSIS , COMPL ETE protein 1+ negati ve/tra ce abnormal Not Available [facility] ([facility]) [address] [place], [address], 10/30/2022 09:38:38 10/29/1910/30/2022 URINA LYSIS , COMPL ETE glucose negati ve negati ve Not Available [facility] ([facility]) [address] [facility], [place], [address], 10/30/2022 09:38:38 10/29/1910/30/2022 URINA LYSIS , COMPL ETE ketones negati ve negati ve Not Available [facility] ([facility]) [address] [facility], [place], [address], 10/30/2022 09:38:38 10/29/1910/30/2022 URINA LYSIS , COMPL ETE occult blood 3+ negati ve abnormal Not Available [facility] ([facility]) [address] [facility], [place], [address], 10/30/2022 09:38:38 10/29/1910/30/2022 URINA LYSIS , COMPL ETE bilirubin negati ve negati ve Not Available [facility] ([facility]) [address] [place], [address], 10/30/2022 09:38:38 10/29/1910/30/2022 URINA LYSIS , COMPL ETE urobilinogen ,semi-qn 0.2 mg/dL 0.2-1. 0 Not Available [facility] ([facility]) [address] [facility], [place], [address], 10/30/2022 09:38:38 10/29/1910/30/2022 URINA LYSIS , COMPL ETE nitrite, urine negati ve negati ve Not Available [facility] ([facility]) [address] [place], [address], 10/30/2022 09:38:38 10/29/1910/30/2022 URINA LYSIS , COMPL ETE microscopic examination see below: Micro scopi c was indic ated and was perfo rmed. Not Available [facility] ([facility]) [address] [facility], [place], [address], 10/30/2022 09:38:38 10/29/19 23 10/30/2022 URINA LYSIS , COMPL ETE WBC 6-10 /hpf 0 - 5 abnormal Not Available [facility] ([facility]) [address] [facility], [place], [address], 10/30/2022 09:38:38 10/29/19 23 10/30/2022 URINA LYSIS , COMPL ETE RBC >30 /hpf 0 - 2 abnormal Not Available [facility] ([facility]) [address] [facility], [place], [address], 10/30/2022 09:38:38 10/29/19 23 10/30/2022 URINA LYSIS , COMPL ETE epithelial cells (non renal) >10 /hpf 0 - 10 abnormal Not Available [facility] ([facility]) [address] [facility], [place], [address], 10/30/2022 09:38:38 10/29/19 23 10/30/2022 URINA LYSIS , COMPL ETE epithelial cells (renal) road cutter Not Available [facility] ([facility]) [address] [facility], [place], [address], 10/30/2022 09:38:38 10/29/19 23 10/30/2022 URINA LYSIS , COMPL ETE casts none seen /lpf none seen Not Available [facility] ([facility]) [address] [facility] [place], [address], 10/30/2022 09:38:38 10/29/1910/30/2022 URINA LYSIS , COMPL ETE cast type road cutter Not Available [facility] ([facility]) [address] [facility], [place], [address], 10/30/2022 09:38:38 10/29/19 23 10/30/2022 URINA LYSIS , COMPL ETE crystals road cutter Not Available [facility] ([facility]) [address] [facility], [place], [address], 10/30/2022 09:38:38 10/29/19 23 10/30/2022 URINA LYSIS , COMPL ETE crystal type road cutter Not Available [facility] ([facility]) [address] [facility], [place], [address], 10/30/2022 09:38:38 10/29/1910/30/2022 URINA LYSIS , COMPL ETE mucus threads presen t not estab. Not Available [facility] ([facility]) [address] [facility], [place], [address], 10/30/2022 09:38:38 10/29/1910/30/2022 URINA LYSIS , COMPL ETE bacteria few none seen/f ew Not Available [facility] ([facility]) [address] [facility], [place], [address], 10/30/2022 09:38:38 10/29/1910/30/2022 URINA LYSIS , COMPL ETE yeast road cutter Not Available [facility] ([facility]) [address] [facility], [place], [address], 10/30/2022 09:38:38 10/29/1910/30/2022 URINA LYSIS , COMPL ETE trichomonas road cutter Not Available [facility] ([facility]) [address] [facility], [place], [address], 10/30/2022 09:38:38 10/29/1910/30/2022 URINA LYSIS , COMPL ETE comment road cutter Not Available [facility] ([facility]) [address] [facility], [place], [address], 10/30/2022 09:38:38 10/29/1910/30/2022 URINA LYSIS , COMPL ETE microscopic examination road cutter Not Available [facility] ([facility]) [address] [facility] [place], [address], 10/30/2022 09:38:38 10/29/19 23 10/30/2022 COMP. METAB OLIC PANEL (14) glucose 97 mg/dL 70-99 Not Available [facility] ([facility]) [address] [facility] [place], [address], 10/30/2022 09:38:38 10/29/19 23 10/30/2022 COMP. METAB OLIC PANEL (14) BUN 12 mg/dL 6-24 Not Available [facility] ([facility]) [address] [place], [address], 10/30/2022 09:38:38 10/29/19 23 10/30/2022 COMP. METAB OLIC PANEL (14) creatinine 0.69 mg/dL 0.57-1 .00 Not Available [facility] ([facility]) [address] [place], [address], 10/30/2022 09:38:38 10/29/19 23 10/30/2022 COMP. METAB OLIC PANEL (14) eGFR 108 mL/mi n/1.7 3 >59 Not Available [facility] ([facility]) [address] [place], [address], 10/30/2022 09:38:38 10/29/19 23 10/30/2022 COMP. METAB OLIC PANEL (14) BUN/creatini ne ratio 17 9-23 Not Available [facility] ([facility]) [address] [place], [address], 10/30/2022 09:38:38 10/29/19 23 10/30/2022 COMP. METAB OLIC PANEL (14) sodium 139 mmol/ L 134-14 4 Not Available [facility] ([facility]) [address] [place], [address], 10/30/2022 09:38:38 10/29/19 23 10/30/2022 COMP. METAB OLIC PANEL (14) potassium 4.6 mmol/ L 3.5-5. 2 Not Available [facility] ([facility]) [address] [place], [address], 10/30/2022 09:38:38 10/29/19 23 10/30/2022 COMP. METAB OLIC PANEL (14) chloride 105 mmol/ L 96-106 Not Available [facility] ([facility]) [address] [place], [address], 10/30/2022 09:38:38 10/29/19 23 10/30/2022 COMP. METAB OLIC PANEL (14) carbon dioxide, total 22 mmol/ L 20-29 Not Available [facility] ([facility]) [address] [place], [address], 10/30/2022 09:38:38 10/29/19 23 10/30/2022 COMP. METAB OLIC PANEL (14) calcium 8.8 mg/dL 8.7-10 .2 Not Available [facility] ([facility]) [address] [place], [address], 10/30/2022 09:38:38 10/29/19 23 10/30/2022 COMP. METAB OLIC PANEL (14) protein, total 6.4 g/dL 6.0-8. 5 Not Available [facility] ([facility]) [address] [place], [address], 10/30/2022 09:38:38 10/29/19 23 10/30/2022 COMP. METAB OLIC PANEL (14) albumin 4.0 g/dL 3.8-4. 8 Not Available [facility] ([facility]) [address] [place], [address], 10/30/2022 09:38:38 10/29/19 23 10/30/2022 COMP. METAB OLIC PANEL (14) globulin, total 2.4 g/dL 1.5-4. 5 Not Available [facility] ([facility]) [address] [facility] [place], [address], 10/30/2022 09:38:38 10/29/19 23 10/30/2022 COMP. METAB OLIC PANEL (14) A/G ratio 1.7 1.2-2. 2 Not Available [facility] ([facility]) [address] [facility] [place], [address], 10/30/2022 09:38:38 10/29/19 23 10/30/2022 COMP. METAB OLIC PANEL (14) bilirubin, total 0.5 mg/dL 0.0-1. 2 Not Available [facility] ([facility]) [address] [facility] [place], [address], 10/30/2022 09:38:38 10/29/19 23 10/30/2022 COMP. METAB OLIC PANEL (14) alkaline phosphatase 50 IU/L 44-121 Not Available [facility] ([facility]) [address] [facility] [place], [address], 10/30/2022 09:38:38 10/29/19 23 10/30/2022 COMP. METAB OLIC PANEL (14) AST (SGOT) 18 IU/L 0-40 Not Available [facility] ([facility]) [address] [facility] [place], [address], 10/30/2022 09:38:38 10/29/19 23 10/30/2022 COMP. METAB OLIC PANEL (14) ALT (SGPT) 20 IU/L 0-32 Not Available [facility] ([facility]) [address] [facility] [place], [address], 10/30/2022 09:38:38 10/29/19 23 10/30/2022 CBC/D IFF AMBIG UOUS DEFAU LT hematocrit 40.6 % 34.0-4 6.6 Not Available [facility] ([facility]) [address] [facility], [place], [address], 10/30/2022 09:38:37 10/29/19 23 10/30/2022 CBC/D IFF AMBIG UOUS DEFAU LT WBC 4.7 x10e3 /uL 3.4-10 .8 Not Available [facility] ([facility]) [address] [facility], [place], [address], 10/30/2022 09:38:37 10/29/1910/30/2022 CBC/D IFF AMBIG UOUS DEFAU LT RBC 4.42 x10e6 /uL 3.77-5 .28 Not Available [facility] ([facility]) [address] [facility], [place], [address], 10/30/2022 09:38:37 10/29/1910/30/2022 CBC/D IFF AMBIG UOUS DEFAU LT hemoglobin 13.4 g/dL 11.1-1 5.9 Not Available [facility] ([facility]) [address] [facility], [place], [address], 10/30/2022 09:38:37 10/29/1910/30/2022 CBC/D IFF AMBIG UOUS DEFAU LT MCV 92 fL 79-97 Not Available [facility] ([facility]) [address] [facility], [place], [address], 10/30/2022 09:38:37 10/29/1910/30/2022 CBC/D IFF AMBIG UOUS DEFAU LT MCH 30.3 pg 26.6-3 3.0 Not Available [facility] ([facility]) [address] [facility], [place], [address], 10/30/2022 09:38:37 10/29/1910/30/2022 CBC/D IFF AMBIG UOUS DEFAU LT MCHC 33.0 g/dL 31.5-3 5.7 Not Available [facility] ([facility]) [address] [facility], [place], [address], 10/30/2022 09:38:37 10/29/19 23 10/30/2022 CBC/D IFF AMBIG UOUS DEFAU LT RDW 13.3 % 11.7-1 5.4 Not Available [facility] ([facility]) [address] [facility], [place], [address], 10/30/2022 09:38:37 10/29/1910/30/2022 CBC/D IFF AMBIG UOUS DEFAU LT platelets 382 x10e3 /uL 150-45 0 Plate paul ruvalcaba ed. Not Available [facility] ([facility]) [address] [facility], [place], [address], 10/30/2022 09:38:37 10/29/1910/30/2022 CBC/D IFF AMBIG UOUS DEFAU LT neutrophils 55 % not estab. Not Available [facility] ([facility]) [address] [facility], [place], [address], 10/30/2022 09:38:37 10/29/1910/30/2022 CBC/D IFF AMBIG UOUS DEFAU LT lymphs 30 % not estab. Not Available [facility] ([facility]) [address] [facility], [place], [address], 10/30/2022 09:38:37 10/29/1910/30/2022 CBC/D IFF AMBIG UOUS DEFAU LT monocytes 10 % not estab. Not Available [facility] ([facility]) [address] [facility], [place], [address], 10/30/2022 09:38:37 10/29/19 23 10/30/2022 CBC/D IFF AMBIG UOUS DEFAU LT eos 4 % not estab. Not Available [facility] ([facility]) [address] [facility], [place], [address], 10/30/2022 09:38:37 10/29/1910/30/2022 CBC/D IFF AMBIG UOUS DEFAU LT basos 1 % not estab. Not Available [facility] ([facility]) [address] [facility], [place], [address], 10/30/2022 09:38:37 10/29/1910/30/2022 CBC/D IFF AMBIG UOUS DEFAU LT immature cells road cutter Not Available [facility] ([facility]) [address] [facility], [place], [address], 10/30/2022 09:38:37 10/29/1910/30/2022 CBC/D IFF AMBIG UOUS DEFAU LT neutrophils (absolute) 2.6 x10e3 /uL 1.4-7. 0 Not Available [facility] ([facility]) [address] [place], [address], 10/30/2022 09:38:37 10/29/19 23 10/30/2022 CBC/D IFF AMBIG UOUS DEFAU LT lymphs (absolute) 1.4 x10e3 /uL 0.7-3. 1 Not Available [facility] ([facility]) [address] [facility], [place], [address], 10/30/2022 09:38:37 10/29/19 23 10/30/2022 CBC/D IFF AMBIG UOUS DEFAU LT monocytes(ab solute) 0.5 x10e3 /uL 0.1-0. 9 Not Available [facility] ([facility]) [address] [place], [address], 10/30/2022 09:38:37 10/29/19 23 10/30/2022 CBC/D IFF AMBIG UOUS DEFAU LT eos (absolute) 0.2 x10e3 /uL 0.0-0. 4 Not Available [facility] ([facility]) [address] [facility], [place], [address], 10/30/2022 09:38:37 10/29/19 23 10/30/2022 CBC/D IFF AMBIG UOUS DEFAU LT baso (absolute) 0.0 x10e3 /uL 0.0-0. 2 Not Available [facility] ([facility]) [address] [facility], [place], [address], 10/30/2022 09:38:37 10/29/19 23 10/30/2022 CBC/D IFF AMBIG UOUS DEFAU LT immature granulocytes 0 % not estab. Not Available [facility] ([facility]) [address] [facility], [place], [address], 10/30/2022 09:38:37 10/29/19 23 10/30/2022 CBC/D IFF AMBIG UOUS DEFAU LT immature grans (abs) 0.0 x10e3 /uL 0.0-0. 1 Not Available [facility] ([facility]) [address] [place], [address], 10/30/2022 09:38:37 10/29/19 23 10/30/2022 CBC/D IFF AMBIG UOUS DEFAU LT NRBC road cutter Not Available [facility] ([facility]) [address] [place], [address], 10/30/2022 09:38:37 10/29/19 23 10/30/2022 CBC/D IFF AMBIG UOUS DEFAU LT hematology comments: note: Verif ied by jean Sethi hand- writt en panel /prof abby was recei fredrick from your offic e. In accor dance with the [facility] Ambig uous Test Code Polic y dated April 2003, we have assig jairo CBC with Diffe yara al/Pl atele t, Test Code #[address]. If this is not the testi ng you wishe d to recei ve on this speci men, pleas e conta ct the [facility] Clien t Inqui ry/ Techn ical Servi leonides Depar tment to malaika fy the test order . We appre ciate your busin ess. Not Available [facility] ([facility]) [address] [facility], [place], [address], 10/30/2022 09:38:37 07/10/2007/10/2023 COLOG UARD cologuard result reportable NEGATI VE negati ve normal NEGAT REYNALDO TEST RESUL T. A negat reynaldo Colog uard resul t indic ates a low likel ihood that a color ectal cance r (CRC) or advan jh adeno ma (yenni omato us polyp s with more advan jh pre-m align ant featu res) is prese nt. The [facility] that a perso n with a negat reynaldo Colog uard test has a color ectal cance r is less than 1 in 1500 (nega tive predi ctive value >99.9 %) or has an advan jh adeno ma is less than 5.3% (nega tive predi ctive value 94.7% ). These data are based on a prosp ectiv e cross -sect ional study of 10,00 0 indiv idual s at [place] [facility] risk for color ectal cance r who were scree jairo with both Colog uard and colon oscop y. (Marina Dc et al, N Engl J Med 2014; 370(1 4):12 86-12 97) The johana l value (refe rence range ) for this assay is negat reynaldo. COLOG UARD RE-SC REENI NG RECOM MENDA TION: Perio dic color ectal cance r scree violeta is an impor tant part of preve ntive healt hcare for asymp tomat ic indiv idual s at [place] risk for color ectal cance r. Follo wing a negat reynaldo Colog uard resul t, the Ameri can Cance r Socie ty and U.S. Multi -Soci ety Task Force scree violeta guide lines recom mend a Colog uard re-sc peter romero inter sanjana of 3 years . Refer ences : Ameri can Cance r Socie ty Guide line for Color ectal Cance r Scree violeta: https ://noemi w.can cer.o rg/ca ncer/ colon -rect al-ca ncer/ detec tion- diagn osis- stagi ng/ac s-rec ommen datio ns.ht ml.; Javier DK, Kip ca CR, Mt calero JK, Color ectal Cance r Scree violeta: Recom menda tions for Physi cians and Patie nts from the U.S. Multi -Soci ety Task Force on Color ectal Cance r Scree violeta , Charles haydenntjaren rolog y 2017; 112:1 016-1 030. TEST DESCR IPTIO N: [place] site algor ithmi c [facility] sis of stool DNA-b jeffrey childress with hemog lobin immun oassa y. Quant itati ve value s of indiv idual bioma rkers are not repor table and are not assoc iated with indiv idual bioma rker resul t refer ence range s. Colog uard is inten ded for color ectal cance r scree violeta of adult s of eithe r sex, 45 years or older , who are at [facility] for color ectal cance r (CRC) . Colog uard has been appro fredrick for use by the U.S. FDA. The perfo rmanc e of Colog uard was estab lishe d in a cross secti onal study of [facility] adult s aged 50-84 . Colog uard perfo rmanc e in patie nts ages 45 to 49 years was estim ated by john-araceli koenig [facility] sis of near- age group s. Colon oscop ies perfo rmed for a posit reynaldo resul t may find as the most clini edilberto signi fican t lesio n: color ectal cance r [4.0% ], advan jh adeno ma (incl uding sessi le erin garcia polyp s great er than or equal to 1cm diame ter) [20%] or non- advan jh adeno ma [31%] ; or no color ectal neopl dagmar [45%] . These estim ates are deriv ed from a prosp ectiv e cross -sect ional rubio mcdaniel study of ,00 0 indiv idual s at [facility] risk for color ectal cance r who were scree jairo with both Colog uard and colon oscop y. (Marina Dc et al, N Engl J Med 2014; 370(1 4):12 86-12 97.) Colog uard may produ ce a false negat reynaldo or false posit reynaldo resul t (no color ectal cance r or preca ncero us polyp prese nt at colon oscop y follo w up). A negat reynaldo Colog uard test resul t does not guara ntee the absen ce of CRC or advan jh adeno ma (pre- cance r). The curre nt Colog uard scree violeta inter sanjana is every 3 years . (Amer ican Cance r Socie ty and U.S. Multi -Soci ety Task Force ). Colog uard perfo rmanc e data in a 0 patie nt pivot al study using colon oscop y as the refer ence metho d can be acces sed at the follo wing locat ion: www.e xactl abs.c om/re andressa . Addit ional descr iptio n of the Colog uard test proce ss, warni ngs and preca ution s can be found at www.c ologu thelma.c om. Not Available [email or web address] (Cologuard Orders Only) [address] [facility] [address], [place], [address], 07/14/2023 17:13:33 11/06/19 23 10/29/2022 XR, chest , 2 view No observ ation record ed. [id number] [facility] [address], [place], [address], 12/16/2022 03:07:30 10/02/20 23 10/02/2023 XR, foot No observ ation record ed. [email or web address] [facility] [address], [place], [address], 10/19/2023 09:57:53 11/01/19 24 10/02/2023 XR, foot No observ ation record ed. [email or web address] [facility] [address], [place], [address], 11/01/2023 18:23:07 05/30/20 24 05/30/2024 MAMMO , scree violeta, digit al, bilat eral No observ ation record ed. [email or web address] Not Available 2023 16:48:38 08/21/20 24 elect lara mckinley am No observ ation record ed. [email or web address] [facility] [address], [place], [address], 08/21/2024 16:03:13 09/19/20 24 09/13/2024 rhyth m strip , EKG* No observ ation record ed. [email or web address] [facility] [place] [facility] [address], [place], [address], 09/22/2024 14:05:50 09/19/20 24 09/13/2024 XR, chest , 2 view No observ ation record ed. [email or web address] [facility] [place] [facility] [address] [facility] [address], [place], [address], 09/22/2024 14:06:03 Result Notes None recorded. Problems Name Problem SNOMED Code Status Onset Date Resolution Date Notes Provider Name and Address Organization Details Recorded Time Acne 49853589 Active Not Available [facility] 3 02:58:11 Synovitis and tenosynov itis 170258192 Active Not Available [employer] 3 02:58:11 Sprain of ankle and/or foot 791139221 Active Not Available [facility] 3 02:58:11 Genital warts 999355905 Active Not Available [facility] 3 02:58:11 Dysmenorr hea 329552256 Active Not Available [facility] 3 02:58:12 Knee pain Active Not Available [facility] 3 02:58:12 Seasonal allergic rhinitis 174775826 Active Not Available [facility] 3 02:58:12 Fever 823489804 Active Not Available [facility] 3 02:58:12 Menorrhag ia 334118189 Active Not Available [facility] 3 02:58:12 Temporoma ndibular joint disorder 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 Not Available [facility] 3 02:58:12 Abnormal cervical Papanicol aou smear 036231199 Active Not Available [facility] 3 02:58:12 Sprain of ankle 57510772 Active Not Available [facility] 3 02:58:12 Muscle strain 58769000 Active Not Available [facility] 3 02:58:12 Cyst of ovary 75828955 Active Not Available [facility] 3 02:58:12 Sinusitis 95642094 Active 2016 Not Available [facility] 3 02:58:12 Pharyngit is 197123047 Active 2016 Not Available [facility] 3 02:58:12 Supravent ricular tachycard ia 3354269 Active 2018 Not Available [facility] 3 02:58:12 Hypothyro idism 34327156 Active 2019 Not Available [facility] 3 02:58:12 Prediabet es 154642096 Active 2021 Not Available [facility] 3 02:58:12 Hyperglyc emia 46463885 Active 2022 Vera Mackay MD [address] [facility], [facility] [address], [place], [address] , [facility] 3 15:03:54 Pain in right foot 17445598987 9107 Active 2022 Vera Mackay MD [address], [place], [address] , [facility] [place] [facility] 3 17:39:52 Arthritis 6186165 Active 2023 Christal Gomez null, [place] [facility] 4 15:15:21 Disorder of eye 447023320 Active 2023 Christal Gomez [place], [place] [facility] 4 15:15:48 Skin problem 471608626 Active 2023 Christal Gomez null, [place] [facility] 4 15:15:55 Disorder of thyroid gland 36783727 Active 2023 Christal Gomez [place], [place] [facility] 4 15:16:04 Asthma 512401340 Active 2023 Christal Gomez [place], [place] [facility] 4 15:16:28 Tendiniti s of right posterior tibial tendon 06579262595 9102 Active 2023 John Rouse DPM [address], [address], [place], [address] , [facility] 4 15:53:38 Pain of right knee joint 33871314433 4100 Active 2023 Vera Mackay MD [address], [place], [address] , [facility] 4 14:44:15 Vaginitis 07056470 Active 2023 Vera Mackay MD [address], [place], [address] , [facility] 4 15:19:35 Pain of bilateral knee joints 13717689091 4104 Active 2023 CHANTAL Robert [address], [place], [address] , [facility] [place] [facility] 4 23:25:35 Notes:BACK/NECK PROBLEMS Problem Notes None recorded. Procedures Surgical History Date Name Laterality Status Provider Name and Address Organization Details Recorded Time 01/19/20 24 Cortisone Injection (Dequervains/ Greater Trochantric/ Lateral Epicondylitis/ Shoulder/ Subacromial Space/ Knee or Trigger Finger) completed Vera Mackay MD [address], [place], [address], [employer] 03/06/2024 15:37:37 11/12/19 23 total knee replacement completed Vera Mackay MD [address], [place], [address], [facility] 06/01/2023 14:55:46 02/25/20 21 PLUMBER PIPE FITTING Procedure completed Not Available [facility] 12/16/2022 02:51:32 01/28/20 21 Orthopedic Surgery completed Not Available [facility] 12/16/2022 02:51:32 01/11/20 21 catheter ablation of tissue of heart completed Not Available [facility] 12/16/2022 02:51:32 09/20/20 Date of Last Pap Smear completed Not Available [facility] 12/16/2022 02:51:26 09/17/20 20 Orthopedic Surgery completed Not Available [facility] 12/16/2022 02:51:32 section completed Not Available [facility] 12/16/2022 02:51:32 Orthopedic Surgery completed Not Available [facility] 12/16/2022 02:51:32 cryosurgery completed Not Available [facility] 12/16/2022 02:51:32 cholecystectomy completed Not Available [facility] 12/16/2022 02:51:32 loop electrosurgical excision procedure completed Not Available [facility] 12/16/2022 02:51:32 Imaging Results None recorded. Procedure Notes None recorded. Medical Equipment None Reported. Allergies Allergen ID Allergen Name Allergen Category Reaction Reaction Severity Criticality Documentation Date Start Date Code Code System Note Provider Name and Address Organization Details Recorded Time 5103 morphine medicatio n rash Not available Not available 12/16/2022 7052 RxNorm Not Available [facility] 03:07:00 Medications Name Sig Start Date Stop Date Status Note LastModified by Organization Details LastModified Time celecoxib 200 mg capsule 11/01 completed Not Available Not Available Not Available cyclobenzap rine 10 mg tablet TK 1 T PO HS PRN active Not Available Not Available No t Available amoxicillin 500 mg capsule 04/24 completed Not Available Not Available Not Available promethazin e-DM 6.25 mg-15 mg/5 mL oral syrup Take 5 mL every 4 hours by oral route as needed for 3 days. active Not Available Not Available No t Available Xylocaine with Epinephrine 2 %-1:100,000 injection solution Take 2 mL by injection route. 04/27 completed Not Available Not Available Not Available doxycycline hyclate 100 mg capsule Take 1 capsule twice a day by oral route for 10 days. active Not Available Not Available No t Available clindamycin HCl 300 mg capsule 04/24 completed Not Available Not Available Not Available azithromyci n 250 mg tablet TK 2 TS PO ON DAY 1, THEN TK 1 T PO D FOR 4 DAYS 11/01 completed Not Available Not Available Not Available ibuprofen 800 mg tablet 01/16 completed Not Available Not Available Not Available ofloxacin 0.3 % eye drops 09/19 completed Not Available Not Available Not Available fluconazole 150 mg tablet TAKE 1 TABLET BY MOUTH NOW. MAY REPEAT IN 3 DAYS. IF SYMPTOMS CONTINUE active Not Available Not Available No t Available valacyclovi r 1 gram tablet Take 1 tablet every 12 hours by oral route for 7 days. active Not Available Not Available No t Available hydrocodone 5 mg-acetamin ophen 325 mg tablet TAKE 1 TO 2 TABLETS BY MOUTH EVERY 4 HOURS NEEDED FOR PAIN active Not Available Not Available No t Available phenazopyri dine 200 mg tablet 09/19 completed Not Available Not Available Not Available metronidazo le 0.75 % (37.5 mg/5 gram) vaginal gel Insert 1 applicato rful every day by vaginal route at bedtime for 5 days. active Not Available Not Available No t Available ondansetron HCl 4 mg tablet active Not Available Not Available Not Available prednisone 20 mg tablet TK 2 TS PO D FOR 5 DAYS active Not Available Not Available No t Available clobetasol 0.05 % topical cream APPLY TO NECK AND INJECTION REACTIONS TWICE DAILY NEEDED active Not Available Not Available No t Available penicillin V potassium 500 mg tablet 04/24 completed Not Available Not Available Not Available phentermine 37.5 mg tablet TAKE 1 TABLET BY MOUTH EVERY DAY 11/01 completed Not Available Not Available Not Available ciprofloxac in 500 mg tablet 09/19 completed Not Available Not Available Not Available Tamiflu 75 mg capsule Take 1 capsule twice a day by oral route for 5 days. 11/01 completed Not Available Not Available Not Available clindamycin 1 %-benzoyl peroxide 5 % topical gel active Not Available Not Available Not Available sulfamethox azole 800 mg-trimetho prim 160 mg tablet 06/15 completed Not Available Not Available Not Available aspirin 81 mg tablet,aparna yed release active Not Available Not Available Not Available triamcinolo ne acetonide 0.1 % topical cream APPLY AA UTD BID 01/16 completed Not Available Not Available Not Available ketorolac 30 mg/mL (1 mL) injection solution Inject 1 mL every 6 hours by intramusc ular route. 06/15 completed Not Available Not Available Not Available amoxicillin 500 mg tablet 04/24 completed Not Available Not Available Not Available ketorolac 10 mg tablet Take 1 tablet every 6 hours by oral route as needed for 5 days. active Not Available Not Available No t Available oxycodone-a cetaminophe n 5 mg-325 mg tablet 02/12 completed Not Available Not Available Not Available famotidine 20 mg tablet TK 1 T PO BID FOR 15 DAYS 12/01 completed Not Available Not Available Not Available magnesium oxide 400 mg (241.3 mg magnesium) tablet TAKE 1 TABLET BY MOUTH EVERY OTHER DAY 11/01 completed Not Available Not Available Not Available aspirin 325 mg tablet,aparna yed release 08/06 completed Not Available Not Available Not Available imiquimod 5 % topical cream packet APPLY 1 APPLICATI ON TOPICALLY THREE TIMES A WEEK HS 05/22 completed Not Available Not Available Not Available doxycycline monohydrate 100 mg capsule TK ONE C PO D WITH FOOD AND FULL GLASS OF LIQUID 04/24 completed Not Available Not Available Not Available triamcinolo ne acetonide 40 mg/mL suspension for injection 2 ml right knee x 1 2023 active Not Available Not Available Not Avai lable levothyroxi ne 50 mcg tablet TAKE 1 TABLET BY MOUTH EVERY DAY active Not Available Not Available No t Available cephalexin 500 mg capsule 06/15 completed Not Available Not Available Not Available erythromyci n 5 mg/gram (0.5 %) eye ointment 09/19 completed Not Available Not Available Not Available tobramycin 0.3 % eye drops 09/19 completed Not Available Not Available Not Available nystatin 100,000 unit/gram topical cream APPLY TO THE AFFECTED AREA(S) BY TOPICAL ROUTE 2 TIMES PER DAY for 1 week 2023 active Not Available Not Available Not Avai lable promethazin e 25 mg tablet 08/06 completed Not Available Not Available Not Available diclofenac sodium 75 mg tablet,aparna yed release TAKE 1 TABLET BY MOUTH TWICE DAILY NEEDED active Not Available Not Available No t Available metoprolol succinate ER 25 mg tablet,exte nded release 24 hr TAKE 1/2 TABLET BY MOUTH DAILY AT BEDTIME DIRECTED 02/12 completed Not Available Not Available Not Available clobetasol 0.05 % topical ointment APPLY TO LEGS / TRUNKS TWICE DAILY FOR 7 DAYS THEN NEEDED 11/01 completed Not Available Not Available Not Available ibuprofen 600 mg tablet 01/16 completed Not Available Not Available Not Available methylpredn isolone 4 mg tablets in a dose pack Take per package instructi ons 06/15 completed Not Available Not Available Not Available albuterol sulfate HFA 90 mcg/actuati on aerosol inhaler INHALE 2 PUFFS BY MOUTH EVERY 4 HOURS active Not Available Not Available No t Available betamethaso ne dipropionat e 0.05 % topical ointment 01/16 completed Not Available Not Available Not Available ondansetron 4 mg disintegrat ing tablet 02/12 completed Not Available Not Available Not Available fluticasone propionate 50 mcg/actuati on nasal spray,suspe nsion SHAKE LQ AND U 2 SPRAYS IEN QD 11/01 completed Not Available Not Available Not Available medroxyprog esterone 150 mg/mL intramuscul ar suspension Inject 1 mL every 3 months by intramusc ular route as directed. 02/24 completed Not Available Not Available Not Available doxycycline hyclate 100 mg tablet Take 1 tablet twice a day by oral route for 7 days. active Not Available Not Available No t Available naproxen 500 mg tablet TAKE 1 TABLET BY MOUTH TWICE DAILY NEEDED active Not Available Not Available No t Available amoxicillin 875 mg-potassiu m clavulanate 125 mg tablet Take 1 tablet every 12 hours by oral route for 7 days. active Not Available Not Available No t Available calcipotrie ne 0.005 % topical ointment APPLY TO SPOTS TWICE DAILY NEEDED active Not Available Not Available No t Available cyclobenzap rine 5 mg tablet 11/01 completed Not Available Not Available Not Available Restasis 0.05 % eye drops in a dropperette 05/22 completed Not Available Not Available Not Available moxifloxaci n 0.5 % eye drops 11/01 completed Not Available Not Available Not Available metoprolol tartrate 25 mg tablet 04/24 completed Not Available Not Available Not Available nitrofurant oin monohydrate /macrocryst als 100 mg capsule Take 1 capsule every 12 hours by oral route for 5 days. 04/24 completed Not Available Not Available Not Available lidocaine (PF) 10 mg/mL (1 %) injection solution 2 ml injected right knee x 1 2023 active Not Available Not Available Not Avai lable diclofenac 1 % topical gel 11/01 completed Not Available Not Available Not Available calcipotrie ne-betameth asone 0.005 %-0.064 % topical suspension APPLY EXTERNALL Y TO THE AFFECTED AREA ON ARMS AND LEGS TWICE DAILY NEEDED active Not Available Not Available No t Available Nexplanon 68 mg subdermal implant Inject 1 implant by subcutane ous route. 11/01 completed Not Available Not Available Not Available OneTouch Verio test strips TEST ONCE DAILY 11/01 completed Not Available Not Available Not Available Fluzone [id number] 45 mcg (15 mcg x 3)/0.5 mL intramuscul ar suspension TO BE ADMINISTE RED BY PHARMACIS T FOR IMMUNIZAT ION 09/19 completed Not Available Not Available Not Available Blisovi Fe 11/06 (28) 1 mg-20 mcg (21)/75 mg (7) tablet TAKE 1 TABLET BY MOUTH EVERY DAY active Not Available Not Available No t Available OneTouch Verio Flex Meter TEST ONCE DAILY 11/01 completed Not Available Not Available Not Available Taltz Autoinjecto r 80 mg/mL subcutaneou s active Not Available Not Available Not Available Flulaval Quad 60 mcg (15 mcg x 4)/0.5 mL IM suspension ADM 0.5ML IM UTD active Not Available Not Available No t Available Fluvirin 45 mcg (15 mcg x 3)/0.5 mL intramuscul ar suspension active Not Available Not Available N ot Available Fluarix Quad (PF) 60 mcg (15 mcg x 4)/0.5 mL IM syringe active Not Available Not Available N ot Available OneTouch Delica Plus Lancet 33 gauge TEST ONCE DAILY 11/01 completed Not Available Not Available Not Available ID NOW COVID-19 Test Kit TEST DIRECTED TODAY active Not Available Not Available No t Available Vitals Date Recorded Body height Body mass index (BMI) Body weight Provider Name and Address Organization Details Last Updated DateTime 11/01/2023 162.56 cm 36 kg/m2 73883.4 g Christal Gomez [employer] 11/01/2023 15:12:45 Date Recorded Heart rate Respiratory rate Oxygen saturation Oxygen saturation in Arterial blood by Pulse oximetry Systolic And Diastolic Provider Name and Address Organization Details Last Updated DateTime 4 66 /min 14 /min 99 % 99 % 135/84 mm[Hg] Sharonda Doss [employer] 4 15:14:34 Date Recorded Body mass index (BMI) Body height Oxygen saturation Oxygen saturation in Arterial blood by Pulse oximetry Heart rate Body temperature Body weight Systolic And Diastolic Provider Name and Address Organization Details Last Updated DateTime 3 38.4 kg/m2 162.56 cm 98 % 98 % 85 /min 96.8 [degF] 803291. 69 g 122/82 mm[Hg] Not Available [facility] 3 02:52:05 Date Recorded Body height Body mass index (BMI) Body weight Body temperature Heart rate Oxygen saturation Oxygen saturation in Arterial blood by Pulse oximetry Systolic And Diastolic Provider Name and Address Organization Details Last Updated DateTime 4 162.56 cm 37.1 kg/m2 12808.9 5 g 97.5 [degF] 77 /min 96 % 96 % 134/78 mm[Hg] Ericka Crain RN [employer] [facility] [employer] 4 14:34:49 Date Recorded Body height Body mass index (BMI) Body weight Body temperature Heart rate Oxygen saturation Oxygen saturation in Arterial blood by Pulse oximetry Systolic And Diastolic Provider Name and Address Organization Details Last Updated DateTime 3 162.56 cm 37.2 kg/m2 27988.5 4 g 97.9 [degF] 77 /min 99 % 99 % 122/76 mm[Hg] Ericka Crain RN [facility] [employer] [facility] 3 14:47:05 Date Recorded Body height Body mass index (BMI) Body weight Body temperature Heart rate Oxygen saturation Oxygen saturation in Arterial blood by Pulse oximetry Systolic And Diastolic Provider Name and Address Organization Details Last Updated DateTime 4 162.56 cm 37.9 kg/m2 265321. 91 g 97.7 [degF] 78 /min 97 % 97 % 138/88 mm[Hg] THEODORA Richard [facility] [employer] [facility] 4 15:51:35 Social History Question Answer Notes LastModified by [email or web address] Details LastModified Time Tobacco Smoking Status Never Smoker Not Available [facility] 12/16/2022 02:35:39 Do You Have An Advance Directive? No [id number] Information not available 12/16/2022 What Is Your Level Of Caffeine Consumption? Moderate [id number] Information not available 12/16/2022 In The 14 Days Before Symptom Onset, Have You Had Close Contact With A Laboratory-confirm ed COVID-19 While That Case Was Ill? No [id number] Information not available 12/16/2022 In The 14 Days Before Symptom Onset, Have You Had Close Contact With A Person Who Is Under Investigation For COVID-19 While That Person Was Ill? No [id number] Information not available 12/16/2022 Are There Any Guns Present In Your Home? No [id number] Information not available 12/16/2022 What Was The Date Of Your Most Recent Tobacco Screening? 04/27/2022 [id number] Information not available 12/16/2022 Do You Use Sunscreen Routinely? Yes [id number] Information not available 12/16/2022 Sex: Unknown Functional Status Question Answer Note LastModified by [email or web address] Details LastModified Time What is your level of alcohol consumption? 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 Never used electronic cigarettes [id number] Information not available 12/16/2022 What is your exercise level? None [id number] Information not available 12/16/2022 Mental Status None recorded. Family History Relationship Description Onset Age of this Age Resolved Age Notes LastModified by Organization Details LastModified Time Sister Diabetes mellitus [id number] Not available 12/16/2022 02:51:33 Maternal Grandmother Diabetes mellitus [id number] Not available 12/16/2022 02:51:33 Mother Hypertensive disorder [id number] Not available 12/16/2022 02:51:33 Mother Cardiac pacemaker in situ [email or web address] Not available 2023 14:28:40 Mother Arthritis [email or web address] Not availabl e 01/19/2024 14:28:40 Mother Heart disease [email or web address] Not available 2023 15:17:05 Brother Hypertensive disorder [id number] Not available 12/16/2022 02:51:33 Father Cerebrovascu lar accident [email or web address] Not available 12/2023 14:28:40 Father Heart disease [email or web address] Not available 2023 15:17:05 Medical History Condition Response BLINDNESS N RHEUMATIC FEVER N BLADDER PROBLEMS N KIDNEY STONES N MRSA N OTHER # 1 N POLIO N LUNG DISEASE/DISORDER N RADIATION / CHEMOTHERAPY N COPD N Other # 2 N BLOOD DISEASES N SURGERY N EAR OR HEARING PROBLEMS N MUMPS N FEMALE PROBLEMS / INFECTIONS N DEPRESSION (INCLUDING POST ) N BOWEL PROBLEMS N STROKE/TIA N THYROID DISEASE Y ULCERS N BENIGN PROSTATIC HYPERPLASIA N MEASLES N CERVICALGIA N TB SKIN TEST N MYOCARDIAL INFARCTION N PARAPELGIA N OBESITY N GERD/NAUSEA N ANEURYSM N URINARY/BLADDER/KIDNEY PROBLEMS N CORONARY ARTERY DISEASE (CAD) N MENIERE'S DISEASE N ADDICTION CONCERNS N ENDOMETRIOSIS N USE OF BLOOD THINNERS N SKIN PROBLEMS Y EMPHYSEMA N GASTROINTESTINAL DISORDER N MUSCLE,JOINT OR BONE PROBLEMS N GASTROINTESTINAL BLEEDING N BLOOD CLOTS N ASTHMA Y CATARACTS N ERECTILE DYSFUNCTION N GI PROBLEMS N CHF N Low Testosterone N NEUROPATHY N INFERTILITY N AIDS/HIV N FRACTURES N CHEMOTHERAPY / RADIATION N VISION/EYE PROBLEMS N LIVER DISEASE N MALE HYPOGONADISM N HYPERTENSION N ANXIETY DISORDER N BLOOD TRANSFUSION N ANEMIA/BLOOD DISORDER N CHRONIC EAR INFECTIONS N BRONCHITIS N TUBERCULOSIS N GLAUCOMA N FOOT PROBLEM N DIVERTICULITIS N SLEEP APNEA N CHICKENPOX N ALLERGIES/HAYFEVER Y INFECTIOUS DISEASE N PROSTATE N HEART ARRHYTHMIA N INSOMNIA N HIGH CHOLESTEROL / HYPERLIPIDEMIA N EYE PROBLEMS Y HYPERTHYROIDISM Y EATING DISORDER N NEUROLOGICAL PROBLEMS N EDEMA N CHRONIC PAIN SYNDROME N HYPOTHYROIDISM Y CAROTID BLOCKAGE N CONSTIPATION N BACK / NECK PROBLEMS Y HAVE YOU BEEN HOSPITALIZED OR SEEN IN [facility] ER IN THE PAST YEAR ? N ATHEROSCLEROSIS N BREAST PROBLEMS N DIALYSIS N ECZEMA N FIBROMYALGIA N OSTEOPOROSIS N ARTHRITIS Y NO SIGNIFICANT PAST MEDICAL HISTORY N APPENDICITIS N DIABETES, TYPE N BAD TEETH N HEARTBURN / REFLUX N ADD/ADHD N AUTISM SPECTRUM DISORDER (ASD) N HEPATITIS / LIVER DISEASE N PULMONARY DISEASE N GOUT N SLEEP DISORDER N ALZHEIMER'S DISEASE N PAIN N DEMENTIA N HERPES N SEIZURES/EPILEPSY N HEADACHES/MIGRAINES N VASCULAR DISEASE N PACEMAKER N DIZZINESS N HEART DISEASE/HEART PROBLEMS Y KIDNEY DISEASE N SCARLET FEVER N MULTIPLE SCLEROSIS N DEVELOPMENTAL OR BEHAVIORAL DISORDERS N MENTAL DISORDER/ILLNESS N CANCER: SPECIFY N CARDIAC ARRHYTHMIA N PNEUMONIA N ATRIAL FIBRILLATION N Gall Stones N PULMONARY EMBOLISM N AUTOIMMUNE DISEASE N Gynecological History Statement/Question Response Date of Last Pap Smear 09/20/2020 Current Control Method Implant Date of LMP 10/27/2022 Breast Problems no Obstetrics History GPAL:G 2 P 2 0 0 2 Type Value Full Term 2 Living 2 Total 2 Immunizations Vaccine Type Date Status Note Provider Nam e and Address Organization Details Recorded Time influenza, unspecified formulation 3 completed Not Available [facility] 12/16/2022 03:06:32 COVID-19, mRNA, LNP-S, PF, 30 mcg/0.3 mL dose 1 completed Not Available [facility] 12/16/2022 03:06:32 Influenza, split virus, quadrivalent, PF 9 completed Not Available [facility] 12/16/2022 03:06:32 Influenza, split virus, quadrivalent, PF 3 completed Not Available [facility] 12/16/2022 03:06:32 Influenza, split virus, quadrivalent, PF 0 completed Not Available [facility] 12/16/2022 03:06:32 Past Encounters Encounter ID Performer Location Encounter Start Date Encounter Closed Date Diagnosis/Indication Diagnosis SNOMED-CT Code Diagnosis ICD10 Code Diagnosis Note [id number] Vera Mackay MD [facility] Primary [facility] [address] [place] [address] 01/22/2021 00:00:00 01/22/2021 08:31:21 [id number] [facility]_M IGRATION_ DEFAULT_1 _1 , 02/13/2021 00:00:00 02/13/2021 17:53:33 [id number] [facility] _[facility]_M IGRATION_ DEFAULT_1 _1 , 02/24/2021 00:00:00 02/24/2021 18:13:48 [id number] Vera Mackay MD [facility] [place] [address] [place] [address] 03/19/2021 00:00:00 03/19/2021 09:13:46 [id number] [facility]_Histor ic_Gateway _ATHENA_M IGRATION_ DEFAULT_1 _1 , 05/19/2021 00:00:00 05/19/2021 17:26:14 [id number] Vera Mackay MD [facility] [place] [address] [place] [address] [address] [place] [address] 06/19/2021 00:00:00 06/19/2021 20:51:48 [id number] Vera Mackay MD [facility] [place] [address] [place] [address] [address] [place] [address] 10/09/2021 00:00:00 10/09/2021 13:29:29 [id number] Vera Mackay MD [facility] Primary Care [facility] [address] [place] [address] [address] [place] [address] 04/27/2022 00:00:00 04/27/2022 08:50:37 [id number] Vera Mackay MD [facility] Primary Care [facility] [address] [facility] [address] [place] [address] 07/22/2022 00:00:00 07/22/2022 14:25:40 [id number] Vera Mackay MD [facility] Primary [place] [address] [facility] [address] [place] [address] 08/25/2022 00:00:00 08/25/2022 08:33:11 [id number] Vera Mackay MD [facility] Primary [place] [address] [facility] [address] [place] [address] 10/20/2022 00:00:00 12/08/2022 17:52:28 [id number] Vera Mackay MD [facility] Primary [place] [address] [facility] [address] [place] [address] 11/03/2022 00:00:00 11/03/2022 19:52:26 [id number] Vera Mackay MD [facility] Primary [place] [address] [facility] [address] [place] [address] 06/01/2023 14:41:55 06/01/2023 15:18:34 Adult health examination 394572598 Z00.00 Z13.1 Z13.220 check fasting labsPap normal 2021 repeat in 2024 (ASCUS in 2020)Flu vaccine yearlyCovi d booster this fallcologu thelma ordered Screening mammography 24 924344 Z12.31 Hypothyroidism 20291928 E03.9 Hyperglycemia 10237901 R 73.9 Screening for malignant neoplasm of colon 830028356 Z12.11 [id number] John Rouse DPM [facility] Podiatry Renetta Savage [address] [place] [address] 11/01/2023 15:05:08 11/02/2023 11:58:34 Tendinitis of right posterior tibial tendon 8112686393 71878 M76.821 rice therapyrec ommend [employer] [place] [facility] ecommend supportive bootspatie nt declined cam boot and injection Pain in right foot 79189 58512 28263 M79.671 as above [id number] Vera Mackay MD [facility] Primary [place] [address] [facility] [address] [place] [address] 01/19/2024 14:27:31 01/19/2024 15:03:19 Pain of right knee joint [id number] 68126 M25.561 injection given in right knee, pt tolerated wellinjure d while serving in militarywi ll need surgery in futurecont inue supportive care in meantime, can repeat injection in 3 months if needed Vaginitis 98752112 N76.0 [id number] Loreto Silva, LUIS FERNANDO-Carlo [facility] Primary Care [place] [address] [facility] [address] [place] [address] 08/21/2024 15:42:33 08/21/2024 17:32:20 Pre-surgery evaluation 154731291 Z01.818 Health Concerns Section Related Observation LastModified by Organization Detai ls LastModified Time None Recorded Concern Status LastModified by Organization Details LastModified Time None Recorded Advance Directives Directive N: Payers Insurance Date Sequence Insurance Name Policy Number Policy Phipps Covered Member ID Phipps Member ID Guarantor Name 10/10/2024 1 [place] 112 Kayla S Blancas [id number] Kayla S Blancas Notes Date Note Type Note Provider Name and Address Organization Details Recorded Time 06/01/2023 text/html Here for alex s exam. Healing well from total knee replacement in October on left side. Vera Mackay MD [address] [address], [place], [address], [place] [facility] [employer] 06/01/2023 15:12:27 11/01/2023 text/html . Patient is a 48-year-old female who presents to the office with complaints of right foot pain. 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 Patient states that when she is walking or standing she has pain which she states is pinpoint to the posterior tibial tendon attachment at the navicular. Patient denies any injury of the foot. Patient states she comfort walk 0-2 blocks. Patient states the pain varies from 5/7 out of 10. Patient describes it as throbbing aching constant when weight-bearing. Patient states she has been taking naproxen which has helped but she continues have pain. Patient denies any other pedal complaints. John Rouse DPM [address] [address], [place], [address], [employer] 11/02/2023 10:23:29 01/19/2024 text/html Left knee pain from injury while in the -after PT and othe conservative therapy, had to have surgery to repair. 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 Injured while in , would like right knee injection. Ortho has already told her she will need surgery in future for definitive treatment. Vera Mackay MD [address], [facility] [address], [place], [address], [employer] 03/06/2024 15:38:00 08/21/2024 text/html Patient is a 49 year old female that presents to the office for pre-surgical clearance. Patient is scheduled on 10/02/24 for right total knee replacement. Patient's surgeon is requesting CBC, CMP, UA with reflux, EKG and Chest XR prior to surgery, will order. Patient is also in need of cardiology clearance, referral placed. Patient denies chest pain and shortness of breath. Patient denies any previous issues with anesthesia. CHANTAL Robert [address], [facility] [address], [place], [address], [employer] 08/21/2024 16:18:28 OBGyn Episode No OBEpisode recorded.
--- OUTSIDE RECORDS SUMMARY | 2025-05-04 19:27 | XMS_ITS | Encounter Summary ---
Author Name [facility] Organization [facility] ([place]) Address [address] [place] [address] Care Team Providers Care Operator Automated Process Name Role Phone SANTA COLLIER Primary Care [...] FEP BASIC FAM Jun 12, 2012 112 [id number] [phone] UGO CABELLO PATIENT ANTHEM [place] F[place] PREFERRED PROVIDER ORGANIZAT ION (PPO) FEP BASIC FAM Jun 12, 2012 112 [id number] [phone] UGO CABELLO SINCERE PATIENT ANTHEM [place] F[place] PREFERRED PROVIDER ORGANIZAT ION (PPO) FEP BASIC FAM Jun 12, 2012 112 [id number] [phone] UGO CABELLO SINCERE PATIENT [place] FEP PREFERRED PROVIDER ORGANIZAT ION (PPO) FEP BASIC FAM Jun 12, 2012 112 [id number] [phone] UGO CABELLO PATIENT [employer] FEP ([id number]) PRESCRIPT ION FEPRX Jun 12, 2012 [id number] [phone] UGO CABELLO PATIENT Selected Encounter This section includes the information on record at [place] for the Encounter. Date/Time Encounter Type Encounter Description Reason Provider Source Dec 21, 2024 02:30 PM THERAPEUTIC EXERCISES PHYSICAL THERAPY ICD-10-CM M17.11 Unilateral primary osteoarthritis, right knee JO AGGE IHE Encounter Template Text not used by [place] Assessments - Encounter Diagnoses This section includes the primary and secondary diagnoses documented for the Encounter. Date/Time Primary/Secondary Diagnosis Diagnosis Name Provider Source Dec 22, 2024 08:54 AM PRIMARY Unilateral primary osteoarthritis, right knee JO GAGE [facility] Plan of Treatment: Future Appointments (+ 6 months) and Future Tests (+/- 45 days) The Plan of Treatment section includes future care activities for the patient from all [place] treatmentfacilities. This section includes future appointments and future orders which are active, pending or scheduled. Future Appointments This section includes appointments that were scheduled to occur 6 months from the date of the Encounter, up to a maximum of 20 appointments. The data comes from all [place] treatment facilities. Appointment Date/Time Appointment Type Appointme nt Facility Name Jan 04, 2025 02:30 PM AMBULATORY - REHAB MEDICIN E [facility] Jan 24, 2025 10:30 AM AMBULATORY - MEDICINE [facility] Jan 29, 2025 02:30 PM AMBULATORY - REHAB MEDICIN E [facility] Feb 12, 2025 02:30 PM AMBULATORY - REHAB MEDICIN E [facility] February 19, 2025 01:30 PM AMBULATORY - MEDICINE [facility] March 07, 2025 08:00 AM AMBULATORY - REHAB MEDICIN E [facility] March 14, 2025 08:00 AM AMBULATORY - REHAB MEDICIN E [facility] Mar 26, 2025 08:00 AM AMBULATORY - REHAB MEDICIN E [facility] Apr 02, 2025 08:00 AM AMBULATORY - REHAB MEDICIN E [facility] Apr 04, 2025 08:30 AM AMBULATORY - NONE [facility] Apr 10, 2025 08:00 AM AMBULATORY - REHAB MEDICIN E [facility] Apr 17, 2025 01:30 PM AMBULATORY - NONE . [facility] Jun 12, 2025 08:30 AM AM[facility]ULATORY [facility]ONE [facility] Jun 22, 2025 08:30 AM AMBULATORY [facility] NONE [facility] Encounter Notes: All associated encounter notes This section contains the clinical notes associated to the Encounter. Date/Time Encounter Note(s) Provider Source Dec 21, 2024 03:20 PM PHYSICAL MEDICINE REHAB NOTE: LOCAL TITLE: PT PROGRESS ST STANDARD TITLE: PHYSICAL MEDICINE REHAB NOTE DATE OF NOTE: DEC 21, 2024@15:20 ENTRY DATE: DEC 21, 2024@15:20:18 AUTHOR: JO GAGE COSIGNER: URGENCY: STATUS: COMPLETED [...] (10%) Order Information To Service: PT OUTPT ST From Service: OLGA DO PACT PHONE 06 PCP Requesting Provider: SANTA COLLIER Service is to be rendered on an OUTPATIENT basis Place: Ski Production Supervisor's choice Urgency: Routine Clinically Ind. Date: Oct [...] Therapy Department is needed: Launch Email to [facility] Evaluation and Treatment for: (Please include post-op protocol as appropriate) received [facility] for PT from [facility] at [facility]. pt is s/p right knee arthroplasty 10/01/24 and is ordered to start PT 2-3x/week for 8-12 weeks. ROM, strengthening, gait training, functional activities, balance/proprioception. HEP instructions , modalities as needed. Responsible attending:Santa Collier Md for NON [facility] ortho provider Cecilio Reese MD PHYSICAL THERAPY PROGRESS NOTE for RIGHT TKA on 10/01/25(by outside doctor) Referring provider: Josefina Collier MD Start of Care: 10/24/24 Reevaluation due:11/24/24 POC through:01/22/25 Visits to date: 6 No shows/cancellations: 0 Treatment time: Total mins. 40 Therapeutic exercise: 40 mins. Subjective:Pt states that she feels she is progressing with TKA rehab. She has returned to work on a limited basis. She states that she is still having some difficulty with going down the stairs. Needs UE support. 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 Delia given written HEP Encouraged HEP 2x's/day In PT today: -Physiostep for 9.0 min -Leg press with 60 lbs, 2 sets of 10 reps. and 20 reps. at 80lbs. -Toe raises and calf/ham stretch on step with UE support, 10 reps. -Stretching into knee fl on step, 10 reps. -Lunges with 10lb wt., forward and side to side -Agility drills (with triangles on the floor), side to side and forward, quick steps. -Instructed in sit to stands without UE support, 2 sets of 10 reps. Using pool at her gym. Assessment: Pt would benefit from PT to address:ROM, strength, gait, balance. PT tolerated well. Delia has been able to to RTW on a limited basis. Delia is a 49 yr female with a dx of right TKA on 10/01/24. 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 [...] will verbalize pain at worst:4 at night FDC: (12 weeks) 1) Pt will demonstrate independence [...] Pt Currently Has:SPC Plan: Will see in 2 weeks for strengthening, ROM, gait and balance activites. [...] Family/Other acknowledged understanding of instruction /es/ Jo Uriarte. BELKIS Gage, PT Physical Therapist Signed: 12/22/2024 08:55 JO GAGE [facility]
--- OUTSIDE RECORDS SUMMARY | 2025-05-04 19:27 | XMS_ITS | Encounter Summary ---
Author Name [facility]) Organization [facility] ([place]) Address [address] [place] [address] Care Team Providers Care Reefer Engineer Name Role Phone SANTA COLLIER Primary Care [...] FEP BASIC FAM Jun 12, 2012 112 [id number] [phone] UGO CABELLO PATIENT ANTHE[place] FEP PREFERRED PROVIDER ORGANIZAT ION (PPO) FEP BASIC FAM Jun 12, 2012 112 [id number] [phone] UGO CABELLO SINCERE PATIENT ANTHE[place] F[place] PREFERRED PROVIDER ORGANIZAT ION (PPO) FEP BASIC FAM Jun 12, 2012 112 [id number] [phone] UGO CABELLO SINCERE PATIENT [place] FEP PREFERRED PROVIDER ORGANIZAT ION (PPO) FEP BASIC FAM Jun 12, 2012 112 [id number] [phone] UGO CABELLO PATIENT [employer] FEP ([id number]) PRESCRIPT ION FEPRX Jun 12, 2012 [id number] [phone] UGO CABELLO PATIENT Selected Encounter This section includes the information on record at [place] for the Encounter. Date/Time Encounter Type Encounter Description Reason Provider Source Nov 07, 2024 02:30 PM THERAPEUTIC EXERCISES PHYSICAL THERAPY ICD-10-CM M17.11 Unilateral primary osteoarthritis, right knee JO GAGE I[facility] Encounter Template Text not used by [place] Assessments - Encounter Diagnoses This section includes the primary and secondary diagnoses documented for the Encounter. Date/Time Primary/Secondary Diagnosis Diagnosis Name Provider Source Nov 08, 2024 11:45 AM PRIMARY Unilateral primary osteoarthritis, right knee JO GAGE [facility] Plan of Treatment: Future Appointments (+ 6 months) and Future Tests (+/- 45 days) The Plan of Treatment section includes future care activities for the patient from all [place] treatmentfacilities. This section includes future appointments and future orders which are active, pending or scheduled. Future Appointments This section includes appointments that were scheduled to occur 6 months from the date of the Encounter, up to a maximum of 20 appointments. The data comes from all [place] treatment facilities. Appointment Date/Time Appointment Type Appointme nt Facility Name Nov 14, 2024 01:30 PM AMBULATORY - REHAB MEDICIN E [facility] Nov 21, 2024 01:30 PM AMBULATORY - REHAB MEDICIN E [facility] Dec 21, 2024 02:30 PM AMBULATORY - REHAB MEDICIN E [facility] Jan 04, 2025 02:30 PM AMBULATORY - REHAB MEDICIN E [facility] Jan 24, 2025 10:30 AM AMBULATORY - MEDICINE [facility] Jan 29, 2025 02:30 PM AMBULATORY - REHAB MEDICIN E [facility] Feb 12, 2025 02:30 PM AMBULATORY - REHAB MEDICIN E [facility] February 19, 2025 01:30 PM AMBULATORY - MEDICINE [facility] March 07, 2025 08:00 AM AMBULATORY - REHAB MEDICIN E [facility] March 14, 2025 08:00 AM AMBULATORY - REHAB MEDICIN E [facility] Mar 26, 2025 08:00 AM AMBULATORY - REHAB MEDICIN E [facility] Apr 02, 2025 08:00 AM AMBULATORY - REHAB MEDICIN E [facility] Apr 04, 2025 08:30 AM AMBULATORY - NONE [facility] Apr 10, 2025 08:00 AM AMBULATORY - REHAB [facility] Apr 17, 2025 01:30 PM AMBULATORY - NONE [facility] Encounter Notes: All associated encounter notes This section contains the clinical notes associated to the Encounter. Date/Time Encounter Note(s) Provider Source Nov 07, 2024 03:06 PM PHYSICAL MEDICINE REHAB NOTE: LOCAL TITLE: PT DAILY STL STANDARD TITLE: PHYSICAL MEDICINE REHAB NOTE DATE OF NOTE: NOV 07, 2024@15:06 ENTRY DATE: NOV 07, 2024@15:06:15 AUTHOR: JO GAGE COSIGNER: URGENCY: STATUS: COMPLETED Current PC Provider: SANTA COLLIER Current PC Team: OLGA DO PACT 6 PCP *WH* Current Pat. Status: Outpatient UCID: [id number] Primary Eligibility: SERVICE CONNECTED 50% to 100%(VERIFIED) Patient Type: [place] OEF/OIF: NO Service Connection/Rated Disabilities OK Percent: 90% Rated Disabilities: FLAT FOOT CONDITION [...] be rendered on an OUTPATIENT basis Place: Casualty Claims Supervisor's choice Urgency: Routine Clinically Ind. Date: [...] Therapy Department is needed: Launch Email to [facility] PT Group Evaluation and Treatment for: (Please include post-op protocol as appropriate) received request for PT from NON [facility] orth[facility] at [facility]. pt is s/p right knee arthroplasty 10/01/24 and is ordered to start PT 2-3x/week for 8-12 weeks. ROM, strengthening, gait training, functional activities, balance/proprioception. HEP instructions , modalities as needed. Responsible attending:Santa Collier Md for NON [facility] ortho provider Cecilio Reese MD view: Imaging: Chart Review: [facility] including: PHYSICAL THERAPY DAILY NOTE for RIGHT TKA on 10/01/25(by outside doctor) Referring provider: Josefina Collier MD Start of Care: 10/24/24 Reevaluation due:11/24/24 POC through:01/22/25 Visits to date: 3 No shows/cancellations: 0 Treatment time: Total mins. 40 Therapeutic exercise: 40 mins. Subjective:Pt states that she has been having more right TKA pain lately. States that she is having difficulty sleeping. 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 given written HEP Encouraged HEP 2x's/day In PT today: -Physiostep for 6.0 min -Total gym, 3 sets of 10 reps. -Toe raises and calf/ham stretch on step with UE support, 10 reps. -Tandem walking in parallel bars with back wards walking, 3 laps. -Toe raises/ham. stretch on blue foam block in parallel bars with UE support as needed, 2 sets of 10 reps. EMS/Interferential applied today to the right knee for 20 min. to help with pain control and swelling. Assessment: Pt would benefit from PT to address:ROM, strength, gait, balance. Pt was unable to perform any exercises including the Physiostep due to an increase in pain. She will try them again at home. PT tolerated well. Alcove is a 49 yr female with a dx of right TKA on 10/01/24. 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 --PATIENT EDUCATION DOCUMENTATION: Person(s) who received education: [...] Jo Gage MA, PT Physical Therapist Signed: 11/08/2024 11:45 JO GAGE [facility]
--- OUTSIDE RECORDS SUMMARY | 2025-05-04 19:27 | XMS_ITS ---
Author Name [facility] ([place]) Organization [facility] ([place]) Address [address] [place] [id number] Care Team Providers Care Electric Shipyard Operator Name Role Phone SANTA COLLIER Primary [...] FEP BASIC FAM Jun 12, 2012 112 [id number] [phone] UGO CABELLO PATIENT ANTHEM [place] FEP PREFERRED PROVIDER ORGANIZAT ION (PPO) FEP BASIC FAM Jun 12, 2012 112 [id number] [phone] UGO CABELLO SINCERE PATIENT ANTHEM [place] FEP PREFERRED PROVIDER ORGANIZAT ION (PPO) FEP BASIC FAM Jun 12, 2012 112 [id number] [phone] UGO CABELLO SINCERE PATIENT [place] FEP PREFERRED PROVIDER ORGANIZAT ION (PPO) FEP BASIC FAM Jun 12, 2012 112 [id number] [phone] UGO CABELLO PATIENT CAREMARK FEP ([id number]) PRESCRIPT ION FEPRX Jun 12, 2012 [id number] [phone] UGO CABELLO PATIENT Selected Encounter This section includes the information on record at [place] for the Encounter. Date/Time Encounter Type Encounter Description Reason Provider Source Jan 04, 2025 02:30 PM THERAPEUTIC EXERCISES PHYSICAL THERAPY ICD-10-CM M17.11 Unilateral primary osteoarthritis, right knee JO GAGE IHE Encounter Template Text not used by [place] Assessments - Encounter Diagnoses This section includes the primary and secondary diagnoses documented for the Encounter. Date/Time Primary/Secondary Diagnosis Diagnosis Name Provider Source Jan 04, 2025 03:41 PM PRIMARY Unilateral primary osteoarthritis, right knee JO GAGE [facility] Plan of Treatment: Future Appointments (+ 6 months) and Future Tests (+/- 45 days) The Plan of Treatment section includes future care activities for the patient from all [place] treatmentfacilities. This section includes future appointments and future orders which are active, pending or scheduled. Future Appointments This section includes appointments that were scheduled to occur 6 months from the date of the Encounter, up to a maximum of 20 appointments. The data comes from all [place] treatment facilities. Appointment Date/Time Appointment Type Appointme nt Facility Name Jan 24, 2025 10:30 AM AMBULATORY - MEDICINE [facility] Jan 29, 2025 02:30 PM AMBULATORY - REHAB MEDICIN E [facility] Feb 12, 2025 02:30 PM AMBULATORY - REHAB MEDICIN E [facility] February 19, 2025 01:30 PM AMBULATORY - MEDICINE [facility] March 07, 2025 08:00 AM AMBULATORY - REHAB MEDICIN E [facility] March 14, 2025 08:00 AM AMBULATORY - REHAB MEDICIN [facility] Mar 26, 2025 08:00 AM AMBULATORY - REHAB MEDICIN [facility] Apr 02, 2025 08:00 AM AMBULATORY - REHAB MEDICIN [facility] Apr 04, 2025 08:30 AM AMBULATORY - NONE [facility] Apr 10, 2025 08:00 AM AMBULATORY - REHAB MEDICIN E [facility] Apr 17, 2025 01:30 PM AMBULATORY - NONE [facility] Jun 12, 2025 08:30 AM AMBULATORY - NONE [facility] Jun 22, 2025 08:30 AM AMBULATORY - NONE [facility] Jun 29, 2025 08:30 AM AMBULATORY - NONE [facility] Jul 06, 2025 08:30 AM AMBULATORY - NONE [facility] Encounter Notes: All associated encounter notes This section contains the clinical notes associated to the Encounter. Date/Time Encounter Note(s) Provider Source Jan 04, 2025 03:13 PM PHYSICAL MEDICINE REHAB NOTE: LOCAL TITLE: PT DAILY [facility] STANDARD TITLE: PHYSICAL MEDICINE REHAB NOTE DATE OF NOTE: JAN 04, 2025@15:13 ENTRY DATE: JAN 04, 2025@15:13:22 AUTHOR: JO GAGE COSIGNER: URGENCY: STATUS: COMPLETED [...] be rendered on an OUTPATIENT basis Place: Pond Supervisor's choice Urgency: Routine Clinically Ind. Date: [...] Therapy Department is needed: Launch Email to [facility] PT Group Evaluation and Treatment for: (Please include post-op protocol as appropriate) received request for PT from NON [facility] ortho at [facility]. pt is s/p right knee [...] Reevaluation due:11/24/24 POC through:01/22/25 Visits to date: 7 No shows/cancellations: 0 Treatment time: Total mins. 35 Therapeutic exercise: 35 mins. Subjective:Pt states that she is doing water aerobics once a week. She has returned to work on a limited basis. She states that she is still having some difficulty with going down the stairs. Needs UE support. 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 -Agility drills (with triangles on the floor), side to side and forward, quick steps. - sit to stands without UE support, 2 sets of 10 reps. -Prone stretching into knee fl. with green stretch our strap. Will send strap to pt's home. Using pool at her gym. States that she also swam some laps. States that she has to be able to kneel at work. Assessment: Pt would benefit from PT to address:ROM, strength, gait, balance. PT tolerated well. Delia has been able to to RTW on a limited basis. Delia is a 49 yr female with a dx of right TKA on 10/01/24. 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
--- OUTSIDE RECORDS SUMMARY | 2025-05-04 19:27 | XMS_ITS | Encounter Summary ---
Author Name [facility]) [facility] ([place]) Address [address] [place] [address] Care Team Providers Care Sales Representative Aircraft Name Role Phone SANTA COLLIER Primary Care [...] FEP BASIC FAM Jun 12, 2012 112 [id number] [phone] UGO CABELLO PATIENT ANTHEM [place] FEP PREFERRED PROVIDER ORGANIZAT ION (PPO) FEP BASIC FAM Jun 12, 2012 112 [id number] [phone] UGO CABELLO SINCERE PATIENT [place]THE[place] FEP PREFERRED PROVIDER ORGANIZAT ION (PPO) FEP BASIC FAM Jun 12, 2012 112 [id number] [phone] UGO CABELLO SINCERE PATIENT [place] FEP PREFERRED PROVIDER ORGANIZAT ION (PPO) FEP BASIC FAM Jun 12, 2012 112 [id number] [phone] UGO CABELLO PATIENT CAR[employer] FEP ([id number]) PRESCRIPT ION FEPRX Jun 12, 2012 [id number] [phone] UGO CABELLO PATIENT Selected Encounter This section includes the information on record at [place] for the Encounter. Date/Time Encounter Type Encounter Description Reason Provider Source Feb 12, 2025 02:30 PM THERAPEUTIC EXERCISES PHYSICAL THERAPY ICD-10-CM M17.11 Unilateral primary osteoarthritis, right knee JO GAGE IHE Encounter Template Text not used by [place] Assessments - Encounter Diagnoses This section includes the primary and secondary diagnoses documented for the Encounter. Date/Time Primary/Secondary Diagnosis Diagnosis Name Provider Source Feb 12, 2025 03:21 PM PRIMARY Unilateral primary osteoarthritis, right knee JO GAGE [facility] Plan of Treatment: Future Appointments (+ 6 months) and Future Tests (+/- 45 days) The Plan of Treatment section includes future care activities for the patient from all [place] treatmentfacilities. This section includes future appointments and future orders which are active, pending or scheduled. Future Appointments This section includes appointments that were scheduled to occur 6 months from the date of the Encounter, up to a maximum of 20 appointments. The data comes from all [place] treatment facilities. Appointment Date/Time Appointment Type Appointme nt Facility Name February 19, 2025 01:30 PM AMBULATORY - MEDICINE [facility] March 07, 2025 08:00 AM AMBULATORY - REHAB MEDICIN E [facility] March 14, 2025 08:00 AM AMBULATORY - REHAB MEDICIN E [facility] Mar 26, 2025 08:00 AM AMBULATORY - REHAB MEDICIN E [facility] Apr 02, 2025 08:00 AM AMBULATORY - REHAB MEDICIN E [facility] Apr 04, 2025 08:30 AM AMBULATORY - NONE [facility] Apr 10, 2025 08:00 AM AMBULATORY - REHAB MEDICIN E [facility] Apr 17, 2025 01:30 PM [facility] Jun 12, 2025 08:30 AM AMBULATORY - NONE [facility] Jun 22, 2025 08:30 AM AMBULATORY - NONE [facility] Jun 29, 2025 08:30 AM AMBULATORY - NONE [facility] Jul 06, 2025 08:30 AM AMBULATORY - NONE [facility] Jul 12, 2025 03:00 PM [facility] Active, Pending, and Scheduled Orders This section includes a listing of several types of active, pending, and scheduled orders, including clinic medications orders, diagnostic test orders, procedure orders and consult orders; where the start date of the order is 45 days before the date of the Encounter or 45 days after the date of theEncounter. The data comes from all [place] treatment facilities. Test Date/Time Test Type Test Details Facility Name February 19, 2025 12:00 AM Laboratory - Chemistry Order COMPREHENSIVE METABOLIC PANEL GREEN LI/HEP BLD/PLAS PLASMA SP [facility] February 19, 2025 12:00 AM Laboratory - Chemistry Order LIPID PANEL (STL) GREEN LI/HEP BLD/PLAS PLASMA SP ONCE [facility] Lab Results: +/- 30 days [...] Type Comment February 20, 2025 02:09 PM [facility] MICRAL/CREAT PROFILE (STL) URINE Specimen Typ e: URINE Comment: uALB/CREAT Ratio Unable to be calculated Unable to calculate due to Microalbumin < 5.0 mg/L Ordering Provider: SANTA COLLIER Report Released Date/Time: February 19, 2025 02:02 PM Reporting Lab: [facility] [address] [facility] [address] Performing Lab: [facility] [address] [facility] [address] URINE ALBUMIN (PB-STL) <5.0 mg/L uACR (STL) comment mg/g 0-29 CREATININE URINE/OTHERS 51.0 mg/dL 47-11 0 February 19, 2025 02:05 PM [facility] HGA1C BLOOD Specimen Type: BLOOD No comment entered. Ordering Provider: SANTA COLLIER Report Released Date/Time: February 19, 2025 02:02 PM Reporting Lab: [facility] [address] [facility] [address] Performing Lab: [facility] [address] [address] HGA1C 5.8 4.0-6.0 February 19, 2025 02:05 PM [facility] TSH W/ REFLEX FT4 (STL) PLASMA Specimen Type: PLASMA No comment entered. Ordering Provider: SANTA COLLIER Report Released Date/Time: February 19, 2025 02:02 PM Reporting Lab: [address] [address] Performing Lab: [address] [address] TSH 1.441 u[IU]/mL 0.47-5 February 19, 2025 02:05 PM [facility] VITAMIN D, 25-HYDROXY SERUM Specimen Type: SE RUM No comment entered. Ordering Provider: SANTA COLLIER Report Released Date/Time: February 19, 2025 02:02 PM Reporting Lab: [address] [address] Performing Lab: [address] [address] VITAMIN D, 25-HYDROXY 28.6 ng/mL L 30-96 February 19, 2025 02:05 PM [facility] CBC BLOOD Specimen Type: BLOOD No comment entered. Ordering Provider: SANTA COLLIER Report Released Date/Time: February 19, 2025 02:02 PM Reporting Lab: [address] [address] Performing Lab: [address] [address] WBC 7.4 10*3/uL 3.6-11.2 RBC 4.79 10*6/uL [...] the Encounter. Date/Time Encounter Note(s) Provider Source Feb 12, 2025 03:09 PM PHYSICAL MEDICINE REHAB NOTE: LOCAL TITLE: PT DAILY [facility] STANDARD TITLE: PHYSICAL MEDICINE REHAB NOTE DATE OF NOTE: FEB 12, 2025@15:09 ENTRY DATE: FEB 12, 2025@15:10:04 AUTHOR: JO GAGE COSIGNER: URGENCY: STATUS: COMPLETED Current PC Provider: SANTA COLLIER Current PC Team: OLGA DO PACT 6 PCP *WH* Current Pat. Status: Outpatient UCID: [id number] Primary Eligibility: SERVICE CONNECTED 50% to 100%(VERIFIED) Patient Type: [place] OEF/OIF: NO Service Connection/Rated Disabilities [place] Percent: 90% Rated Disabilities: FLAT FOOT CONDITION [...] be rendered on an OUTPATIENT basis Place: Pressurised Container Filler's choice Urgency: Routine Clinically Ind. Date: Oct [...] PT from NON VA ortho at [facility]. pt is s/p right knee [...] Reevaluation due:11/24/24 POC through:01/22/25 Visits to date: 10 No shows/cancellations: 0 Treatment time: Total mins. 30 Therapeutic exercise: 30 mins. Subjective:Pt states that she is having right patellar tendon pain, Right over the incision. [facility] states that she was told by the [...] going down the stairs. Needs UE support. 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 Left knee ROM:0 to 115d Functional ability: [...] the knee, toe raises->all with UE support. [facility] given written HEP Encouraged HEP 2x's/day In PT today: -Physiostep for 8.0 min -Leg press with 20 reps. at 80lbs. -Toe raises and calf/ham stretch on step with UE support, 10 reps. -Stretching into knee fl on step, 10 reps. -Lateral step-ups with UE support, 10 reps. -Agility drills (with triangle ladder on the floor), side to side and forward, quick steps. - Sit to stand without UE support, 2 sets of 10 reps. -Instructed in hip strengthening ex's. *Sidelying clam [...] TKA on 10/01/24. 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
--- OUTSIDE RECORDS SUMMARY | 2025-05-04 19:27 | XMS_ITS | Encounter Summary ---
Author Name [facility]) Organization [facility] ([place]) Address [address] [place] [address] Care Team Providers Care Pantograph Operator Name Role Phone SANTA COLLIER Primary [...] FEP BASIC FAM Jun 12, 2012 112 [id number] [phone] UGO CABELLO PATIENT ANTHEM [place] FEP PREFERRED PROVIDER ORGANIZAT ION (PPO) FEP BASIC FAM Jun 12, 2012 112 [id number] [phone] UGO CABELLO SINCERE PATIENT ANTHEM [place] FEP PREFERRED PROVIDER ORGANIZAT ION (PPO) FEP BASIC FAM Jun 12, 2012 112 [id number] [phone] UOG CABELLO SINCERE PATIENT [place] FEP PREFERRED PROVIDER ORGANIZAT ION (PPO) FEP BASIC FAM Jun 12, 2012 112 [id number] [phone] UGO CABELLO PATIENT CAR[employer]ARK FEP ([id number]) PRESCRIPT ION FEPRX Jun 12, 2012 [id number] [phone] UGO CABELLO PATIENT Selected Encounter This section includes the information on record at [place] for the Encounter. Date/Time Encounter Type Encounter Description Reason Provider Source Oct 31, 2024 01:00 PM THERAPEUTIC EXERCISES PHYSICAL THERAPY ICD-10-CM M17.11 Unilateral primary osteoarthritis, right knee JO GAGE IHE Encounter Template Text not used by [place] Assessments - Encounter Diagnoses This section includes the primary and secondary diagnoses documented for the Encounter. Date/Time Primary/Secondary Diagnosis Diagnosis Name Provider Source Oct 31, 2024 01:58 PM PRIMARY Unilateral primary osteoarthritis, right knee JO GAGE [facility] Plan of Treatment: Future Appointments (+ 6 months) and Future Tests (+/- 45 days) The Plan of Treatment section includes future care activities for the patient from all [place] treatmentfacilcitizens [facility]. This section includes future appointments and future orders which are active, pending or scheduled. Future Appointments This section includes appointments that were scheduled to occur 6 months from the date of the Encounter, up to a maximum of 20 appointments. The data comes from all [place] treatment facilities. Appointment Date/Time Appointment Type Appointme nt Facility Name Nov 07, 2024 02:30 PM AMBULATORY - REHAB MEDICIN E [facility] Nov 14, 2024 01:30 PM AMBULATORY - REHAB MEDICIN E [facility] Nov 21, 2024 01:30 PM AMBULATORY - REHAB MEDICIN E [facility] Dec 21, 2024 02:30 PM AMBULATORY - REHAB MEDICIN E [facility] Jan 04, 2025 02:30 PM AMBULATORY - REHAB MEDICIN E [facility] Jan 24, 2025 10:30 AM AMBULATORY - MEDICINE [facility] Jan 29, 2025 02:30 PM AMBULATORY - REHAB MEDICIN E [facility] Feb 12, 2025 02:30 PM AMBULATORY - REHAB MEDICIN E [facility] February 19, 2025 01:30 PM AMBULATORY - MEDICINE [facility] March 07, 2025 08:00 AM AMBULATORY - REHAB MEDICIN E [facility] March 14, 2025 08:00 AM AMBULATORY - REHAB MEDICIN E [facility] Mar 26, 2025 08:00 AM AMBULATORY - REHAB MEDICIN E [facility] Apr 02, 2025 08:00 AM AMBULATORY - REHAB MEDICIN E [facility] Apr 04, 2025 08:30 AM AMBULATORY - NONE [facility] Apr 10, 2025 08:00 AM AMBULATORY - REHAB MEDICIN E [facility] Apr 17, 2025 01:30 PM AMBULATORY - NONE [facility] Encounter Notes: All associated encounter notes This section contains the clinical notes associated to the Encounter. Date/Time Encounter Note(s) Provider Source Oct 31, 2024 01:50 PM PHYSICAL MEDICINE REHAB NOTE: LOCAL TITLE: PT DAILY [facility] STANDARD TITLE: PHYSICAL MEDICINE REHAB NOTE DATE OF NOTE: OCT 31, 2024@13:50 ENTRY DATE: OCT 31, 2024@13:50:17 AUTHOR: OJ GAGE COSIGNER: URGENCY: STATUS: COMPLETED Current PC Provider: SANTA COLLIER Current PC Team: OLGA DO PACT 6 PCP *WH* Current Pat. 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 Date: Oct [...] Therapy Department is needed: Launch Email to [facility] PT Group Evaluation and Treatment for: (Please include post-op protocol as appropriate) received request for PT from NON [facility] ortho at [facility]. pt is s/p right knee arthroplasty 10/01/24 and is ordered to start PT 2-3x/week for 8-12 weeks. ROM, strengthening, gait training, functional activities, balance/proprioception. HEP instructions , modalities as needed. Responsible attending:Santa Collier Md for NON [facility] ortho provider Cecilio Reese MD view: Imaging: Chart Review: [facility] including: Referring provider: Josefina Collier MD Start of Care: 10/24/24 Reevaluation due:11/24/24 POC through:01/22/25 Visits to date: 2 No shows/cancellations: 0 Treatment time: Total mins. 40 Therapeutic exercise: 40 mins. Subjective:Pt states that she is having soreness in her right TKA ayaz with performing wall squats. 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 Badger given written HEP Encouraged HEP 2x's/day In PT today: -Physiostep for 6.0 min -Total gym, 3 sets of 10 reps. -Toe raises and calf/ham stretch on step with UE support, 10 reps. -Tandem walking in parallel bars with back wards walking, 3 laps. -Toe raises/ham. stretch on blue foam block in parallel bars with UE support as needed, 2 sets of 10 reps. Assessment: Pt would benefit from PT to address:ROM, strength, gait, balance. PT tolerated well. Badger is a 49 yr female with a dx of right TKA on 10/01/24. 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 [...] will verbalize pain at worst:4 at night FPC: (12 weeks) 1) Pt will demonstrate independence [...] Jo Gage MA, PT Physical Therapist Signed: 10/31/2024 13:58 JO GAGE [facility]
--- OUTSIDE RECORDS SUMMARY | 2025-05-04 19:27 | XMS_ITS | Encounter Summary ---
Author Name [facility] ([place]) Organization [facility] ([place]) Address [address] [place] [address] Care Team Providers Care Mercerizing Range Controller Name Role Phone SANTA BETHEA Primary Care Provider Anurag eastman Insurance Providers: [...] FEP BASIC FAM Jun 12, 2012 112 [id number] [phone] UGO CABELLO SINCERE PATIENT ANTHEM [place] FEP PREFERRED PROVIDER ORGANIZAT ION (PPO) FEP BASIC FAM Jun 12, 2012 112 [id number] [phone] UGO CABELLO SINCERE PATIENT ANTHE[place] FEP PREFERRED PROVIDER ORGANIZAT ION (PPO) FEP BASIC FAM Jun 12, 2012 112 [id number] [phone] UGO CABELLO SINCERE PATIENT [place] FEP PREFERRED PROVIDER ORGANIZAT ION (PPO) FEP BASIC FAM Jun 12, 2012 112 [id number] [phone] UGO CABELLO SINCERE PATIENT [place] FEP ([id number]) PRESCRIPT ION FEPRX Jun 12, 2012 [id number] [phone] UGO CABELLO SINCERE PATIENT Selected Encounter This section includes the information on record at [place] for the Encounter. Date/Time Encounter Type Encounter Description Reason Provider Source Apr 04, 2025 08:30 AM MANUAL THERAPY 1/> [facility] TREATMENT ICD-10-CM M54.50 Low back pain, unspecified SAMANTHA CHUNG IHE Encounter Template Text not used by [place] Assessments - Encounter Diagnoses This section includes the primary and secondary diagnoses documented for the Encounter. Date/Time Primary/Secondary Diagnosis Diagnosis Name Provider Source Apr 04, 2025 09:57 AM PRIMARY Low back pain, unspecified SAMANTHA CHUNG [facility] Plan of Treatment: Future Appointments (+ 6 months) and Future Tests (+/- 45 days) The Plan of Treatment section includes future care activities for the patient [facility] This section includes future appointments and future orders which are active, pending or scheduled. Future Appointments This section includes appointments that were scheduled to occur 6 months from the date of the Encounter, up to a maximum of 20 appointments. The data comes from all [facility]. Appointment Date/Time Appointment Type Appointme nt Facility Name Apr 10, 2025 08:00 AM AMBULATORY - REHAB MEDICIN E [facility] Apr 17, 2025 01:30 PM AMBULATORY - NONE [facility] Jun 12, 2025 08:30 AM AMBULATORY - NONE [facility] Jun 22, 2025 08:30 AM AMBULATORY - NONE [facility] Jun 29, 2025 08:30 AM AMBULATORY - NONE [facility] Jul 06, 2025 08:30 AM AMBULATORY - NONE [facility] Jul 12, 2025 03:00 PM AMBULATORY - NONE [facility] Active, Pending, and Scheduled Orders This section includes a listing of several types of active, pending, and scheduled orders, including clinic medications orders, diagnostic test orders, procedure orders and consult orders; where the start date of the order is 45 days before the date of the Encounter or 45 days after the date of theEncounter. The data comes from all [facility]. Test Date/Time Test Type Test Details Facility Name February 19, 2025 12:00 AM Laboratory - Chemistry Order COMPREHENSIVE METABOLIC PANEL GREEN LI/HEP BLD/PLAS PLASMA SP [facility] February 19, 2025 12:00 AM Laboratory - Chemistry Order LIPID PANEL (STL) GREEN LI/HEP BLD/PLAS PLASMA SP ONCE [facility] May 18, 2025 12:00 AM Imaging - Mammography Order MAMM SCREENING WITH CAD-P RIGHT, LEFT [facility] Encounter Notes: All associated encounter notes This section contains the clinical notes associated to the Encounter. Date/Time Encounter Note(s) Provider Source Apr 04, 2025 08:44 AM PRIMARY CARE CONSU LT: LOCAL TITLE: WHOLE HEALTH MASSAGE COMPLEMENTARY APPROACH CONSULT STANDARD TITLE: PRIMARY CARE CONSULT DATE OF NOTE: APR 04, 2025@08:44 ENTRY DATE: APR 04, 2025@08:44:16 AUTHOR: SAMANTHA CHUNG EXP COSIGNER: URGENCY: STATUS: COMPLETED MEDICAL MASSAGE THERAPY From Service: [facility] PACT 6 PCP Requesting Provider: SANTA BETHEA Provisional Diagnosis: Low back pain, unspecified note: pt has CLBP and neck pain 2.2 DDDD, has done PT with minimal relief on CLBP and neck pain and would like to try massage of LBP Treatment Plan 1 SESSION #1 F2F Indication for Massage Therapy: low back pain, neck pain Diagnosis/Pain Condition --- low back pain ----- CLINICAL RECORD REVIEWED --- Working with a Unclaimed Property Officer PCP 02/19/2025 HPI:had knee replacement Sep 2024. still followed by [facility] and still on restrictions. still doing PT and reports improving ROM. still as occ neck pain that radiates to shoulders, on a daily basis, [facility] was helpful but pt is unable to get to [facility] .last pap 3 yrs ago, will scheds wwe in 6 mo SOURCE(S) OF HISTORY: Patient PAST MEDICAL HISTORY: 1) Low Back Pain ([facility] [id number]) 2) Bilateral Knee Pain ([facility] [id number]) comment: L TKA Oct 2022, R TKA Sep 2024 3) Shoulder Pain ([facility] [id number]) 4) Tinnitus ([facility] 34823914) 5) Foot Pain ([facility] [id number]) 6) Neck Pain ([facility] [id number]) 7) Headache ([facility] [id number]) ----- PATIENT REPORT PRIOR TO TREATMENT: Six months post op and knee is still bothering her. She is trying to be patient. CURRENT pain: 01/25 Where are the main locations of your pain: back pain at intake: 01/25 band along beltline with increased tenderness at midline radiculopathy at lateral hips along IT band bilateral rt side worse right knee pain at intake 11/27 pain along incision and distal to incision has not received manual therapy neck pain at intake 01/25 posterior In the LAST SEVEN DAYS- BEST pain:3/10 WORST pain: 7/10 Flare ups: 3 Last SEVEN DAY AVERAGE pain:5/10 Last 30 DAY AVERAGE Pain:5/10 In the LAST SEVEN DAYS- needed to take MORE pain medication: y pain interfered with usual activity: 03/27 pain interfered with enjoyment of life: 03/27 anxiety today:12/25 stress today:02/24 pain post treatment today: 10/27 at right knee Associated Non-pain Symptoms --- 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 KNEES: RT knee pain today 11/27 pain along incision and distal to incision has not received manual therapy Full knee replacement rt 10/2024 lft 10/2021 knee scopes bilateral knee due to arthritis 2016 FEET: Palpation: Surgeries/Fusions/Implant s: SBT - cardiac ablation 2020 gallbladder removed 2007 ADHESIONS/HYPERTONICITY- Other: IMPRESSION: Date: Myofascial Pain Syndrome by Travell criteria with classic referred pain patterns combined with postural compensations, and age related degeneration affecting --- [place] will benefit from focused medical massage therapy with transition to active pain management strategies as appropriate. TREATMENT: dressed supine LOCATION --- right knee TECHNIQUES UTILIZED MLD right knee Pt education: self MLD at right knee PATIENT RESPONSE TO TREATMENT: Y/N: Relaxation of muscle spasm: y Y/N: Reduction of trigger point(s): y Y/N: Improved mobility of: right knee Y/N: Patient reports improved function: y Y/N: Patient reports reduced intensity of pre-treatment pain y Y/N: General well-being is improved by patient self-report and therapist observation Other (Narrative): Treatment provided without incidence. PLAN: --Initial plan of care to consist of 4-6 initial visits of massage therapy in addition to incremental increase in appropriate, assessable,and relevant self massage technique, movement/positional protocols or active pain management strategies depending on the patient goals and response to treatment. agreed to this plan. Consent to Treatment was provided by . --Risks, Benefits, and potential complications of massage therapy and associated practices were discussed with the patient,along with an opportunity to ask questions. --Increase water intake for 12-24 hours following treatment, unless otherwise restricted. --Education to include physical self-care with soft-tissue manipulation, stretching, exercise. --Thermal therapy (cold and heat) application as directed by therapist. --Pain medications, topical analgesics per prescribing clinician. --Massage Therapist brief review of Veterans mission/aspiration/purpos e (MAP) in Whole Health framework. --Review of Massage Therapy framework/guidelines. --Heating pad, foam roller, theracane REFERRALS/Recommendations : encouraging PT for low back post knee rehab FOLLOW UP --Patient to return as recommended for follow up Massage Therapy care. --Schedule follow up visit(s) y Treatment plan reflects shared decision-making between the provider and the . Thank you for allowing me to participate in the care of this [place]. If you have any questions or concerns, please reachout to me on Teams or email. ICD-10 DIAGNOSIS CODES: CPT CODES: 12704 (Massage Therapy), 79238 (Manual Therapy), Other EVALUATION/TREATMENT TIME: 75 minutes TOTAL TIME SPENT: 75 minutes, including record review, patient treatment/counseling/educ ation, documentation, and coordination of care /jose Chung, LMT, CLT, C-IAYT [facility] Massage Therapist Signed: 04/04/2025 09:59 SAMANTHA CHUNG [facility] Apr 04, 2025 08:41 AM SUICIDE PREVENTION NOTE: LOCAL TITLE: [place]-SUICIDE SEVERITY RATING SCALE STANDARD TITLE: SUICIDE PREVENTION NOTE DATE OF NOTE: APR 04, 2025@08:41 ENTRY DATE: APR 04, 2025@08:41:50 AUTHOR: SAMANTHA CHUNG EXP COSIGNER: URGENCY: STATUS: COMPLETED [place]-Suicide Severity Rating Scale (C-SSRS Screener) 1. Over the past month, have you wished you were or wished you could go to sleep and not wake up? No 2. Over the past month, have you had any actual thoughts of killing yourself? No 3. Over the past month, have you been thinking about how you might do this? Response not required due to responses to other questions. 4. Over the past month, have you had these thoughts and had some intention of acting on them? Response not required due to responses to other questions. 5. Over the past month, have you started to work out or worked out the details of how to kill yourself? Response not required due to responses to other questions. 6. If yes, at any time in the past month did you intend to carry out this plan? Response not required due to responses to other questions. 7. In your lifetime, have you ever done anything, started to do anything, or prepared to do anything to end your life (for example, collected pills, obtained a gun, gave away valuables, went to the roof but didn't jump)? No 8. If YES, was this within the past 3 months? Response not required due to responses to other questions. I have reviewed the results of the Mental Health screens and have evaluated the patient. Based on the evaluation, the following disposition plan will be implemented: No further intervention is needed at this time. Contact information and instructions for accessing emergency services provided. /es/ Samantha Chung LMT, ODALYS, Carlo-IAYT [facility] Massage Therapist Signed: 04/04/2025 10:00 SAMANTHA CHUNG [facility]
--- OUTSIDE RECORDS SUMMARY | 2025-05-04 19:27 | XMS_ITS | Continuity of Care Document ---
Author Name [facility] Organization [facility] Care Team Providers Care Scaffolder Name Role Phone [facility] Unavailable Unavailable Problems Combined list of problems from Department of Defense and Veterans Affairs facilities. It does not include entries that were removed or entered in error. Problem Status Onset Date Problem Type Date of Resolution Comments Source Bilateral Knee Pain (SCT [id number]) Active Condition Jan 16 025 Entered By: SANTA BETHEA Comment: L TKA Oct 2022, R TKA Sep 2024 [facility] Foot Pain (SCT [id number]) Active Condition [facility] Headache (SCT 04241767) Active Condition [facility] Hypothyroidism (SCT 23594283) Active Condition [facility] Low Back Pain (SCT 455363541) Active Condition [facility] Neck Pain (SCT 38793331) Active Condition [facility] Shoulder Pain (SCT 00626335) Active Condition [facility] Tinnitus (SCT 47055772) Active Condition [facility] FOLLICLE CYST OF OVARY Active Condition [facility] NORMAL ROUTINE HISTORY AND PHYSICAL Inactive Condition DoD CONDITIONS INFLUENCING HEALTH STATUS Active Condition [facility] visit for: postsurgical exam Active Condition DoD Test Negative Inactive Condition DoD MENORRHAGIA Active Condition DoD NORMAL ROUTINE HISTORY AND PHYSICAL ADULT (18-65) Inactive Condition DoD LUMBAGO Active Condition DoD BULGING INTERVERTEBRAL DISC Active Condition DoD Nails Onycholysis Active Condition DoD joint pain fingers Active Condition DoD CERVICAL STENOSIS / STRICTURE Active Condition DoD POST CHOLECYSTECTOMY Active Condition DoD Vomiting Inactive Condition DoD PATELLOFEMORAL DYSFUNCTION Active Condition DoD BULGING INTERVERTEBRAL DISC LUMBAR Active Condition DoD X-Ray Active Condition DoD tingling (paresthesia) Active Condition DoD Cervical Pap Smear Unsatisfactory Inactive Condition DoD VIRAL SYNDROME Inactive Condition DoD URTICARIA Active Condition DoD Laboratory Studies Active Condition DoD Abnormal Pap Smear Of Cervix Active Condition Repeat due to insuffient endocervical cells. PAP 07 ACUS w/negative HPV DoD visit for: laboratory Active Condition DoD Preventive Medicine Establ. Patient Checkup Adult 18-39 Active Condition DoD Need For Vaccination Hepatitis B Active Condition Pt in need of her third Hep B vaccine. Pt tolerated well, no questions. Pt given Vaccine information sheet and told to follow up as needed. 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 Reassurance. Probably viral. Encouraged fluids. Avoid OTC that slow down stools. Review s/s of dehydration. Advised to return in 48 hours if symptoms persist or sooner any problems DoD visit for: routine eye exam Active Condition DoD REFRACTIVE ERROR - HYPERMETROPIA Active Condition DoD CERUMEN IMPACTION - RIGHT EAR Inactive Condition DoD DYSMENORRHEA Active Condition DoD visit for: screening exam for malignant neoplasm cervix Active Condition DoD ROUTINE GYNECOLOGICAL EXAM WITH CERVICAL PAP SMEAR Inactive Condition DoD ALLERGIC RHINITIS Active Condition DoD visit for: services physical Inactive Condition DoD ASTIGMATISM - IRREGULAR Active Condition DoD Cornea Pannus Both Eyes Active Condition DoD GASTROENTERITIS Active Condition DoD visit for: issue repeat prescription for medication Inactive Condition DoD Oral Contraceptives Inactive Condition DoD PHARYNGITIS STREPTOCOCCUS, GROUP A: BETA HEMOLYTIC Inactive Condition Pt to take medication as Rx, to wash hands regularly and to throw away toothbrush after 24-48 hours of treatment. DoD cough Inactive Condition Pt to take medication as Rx. with plenty of water for congestion and cough. DoD visit for: screening exam malignant neoplasm breast Inactive Condition DoD visit for: contraceptive surveillance Active Condition discussed options as far as injection, pills, IUD, Nuvaring; pt states they may be considering Vasectomy; will consider and will f/u DoD visit for: issue repeat prescription Active Condition DoD Contraceptives Inactive Condition DoD Gynecologic Service Prescrip Of Contracept Agent - Repeat Rx Active Condition DoD Administrative Evaluation Services Inactive Condition Cleared for participation in fitness test/career opportunity. Paperwork completed. DoD ASTIGMATISM Active Condition DoD visit for: administrative purpose Inactive Condition DoD METRORRHAGIA Active Condition DoD VAGINITIS NONSPECIFIC Active Condition DoD Diagnosis: ICD-10-CM Z71.89 Other specified counseling Active Diagnosis [facility] Diagnosis: ICD-10-CM M17.11 Unilateral primary osteoarthritis, right knee Active Diagnosis [facility] Diagnosis: ICD-10-CM M54.50 Low back pain, unspecified Active Diagnosis [facility] Diagnosis: ICD-10-CM M25.561 Pain in right knee Active Diagnosis [facility] Diagnosis: ICD-10-CM Z59.86 Financial insecurity Active Diagnosis [facility] Diagnosis: ICD-10-CM M17.12 Unilateral primary osteoarthritis, left knee Active Diagnosis [facility] Diagnosis: ICD-10-CM Z71.9 Counseling, unspecified Active Diagnosis [facility] Diagnosis: ICD-10-CM M54.2 Cervicalgia Active Diagnosis [facility] Diagnosis: ICD-10-CM R51.9 Headache, unspecified Active Diagnosis [facility] Medications Combined list of outpatient medications from Department of Defense and [facility] Affairs facilities.Medications provided include 1) outpatient medications from the last 15 months, and 2) patient-reported medications. Medication Details Route Status Patient Instructions Prescription Expires Prescription Number Last Dispense Date Ordering Provider Order Date Order Qty Source LEVOTHYROXI NE NA 50MCG TAB TAKE ONE TABLET BY MOUTH EVERY MORNING BEFORE A MEAL FOR HYPOTHYR OIDISM TAKE 30 MINUTES BEFORE FOOD. TAKE SEPARATE LY FROM ALL OTHER MEDICATI ONS. ORAL SUSPEND ED 03/22/2026 [id number] 5 ME WILSON TTISA 2024 90 [facility] [place] 750[place] TAB TAKE 1 TABLET BY MOUTH FOUR TIMES A DAY NEEDED ORAL ACTIVE 02/01/2026 [id number] 5 BETHEA,A RMIDA A 2024 120 [facility] METH[place]BAM [place] 750MG TAB TAKE 1 TABLET BY MOUTH FOUR TIMES A DAY NEEDED FOR MUSCLE SPASM ORAL 06/29/2024 [id number] 4 BETHEA,A RMIDA A 2023 120 [facility] NAPROXEN 500MG TAB TAKE ONE TABLET BY MOUTH TWICE A DAY FOR PAIN TAKE WITH FOOD. ORAL ACTIVE 02/20/2026 [id number] 5 BETHEA,A RMIDA A 2024 180 [facility] NAPROXEN 500MG TAB TAKE ONE TABLET BY MOUTH TWICE A DAY ORAL ACTIVE BETHEAA RMIDA A 2020 [facility] Allergies, Adverse Reactions, Alerts Combined list of allergies from Department of Defense and Veterans Affairs facilities. It does not include entries that were removed or entered in error. Substance Category Reaction Severity Reaction type Status Date Reported Comments Source MORPHINE Drug allergy (disorder) Eruption of skin active 1 [facility] MORPHINE Propensity to adverse reactions to drug (finding) Eruption active 1 [facility] MORPHINE {Cla } Drug allergy (disorder) Unknown active 4 [employer] [place] ABDALLA [place] Immunizations Combined list of available immunizations from the Department of Defense and Veterans Affairs facilities. 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 INFLUENZA, RECOMBINANT, QUADRIVALENT, PF 1 2022 185 complet ed HISTORICA L INFORMATI ON - FROM OTHER [facility] INFLUENZA, SPLIT VIRUS, QUADRIVALENT, PF 1 2022 150 complet ed HISTORICA L INFORMATI ON - FROM OTHER [facility] COVID-19 (Giftango), MRNA, LNP-S, PF, 30 MCG/0.3 ML DOSE 2 2020 208 complet ed [facility] COVID-19 (PFIZER), MRNA, LNP-S, PF, 30 MCG/0.3 ML DOSE 1 2020 208 complet ed [facility] INFLUENZA, SPLIT VIRUS, QUADRIVALENT, PF 1 2019 150 complet ed HISTORICA L INFORMATI ON - FROM OTHER [facility] INFLUENZA, UNSPECIFIED FORMULATION 2019 88 complet ed [facility] INFLUENZA, SPLIT VIRUS, QUADRIVALENT, PF 1 2018 150 complet ed HISTORICA L INFORMATI ON - FROM OTHER [facility], [facility] INFLUENZA, SPLIT VIRUS, QUADRIVALENT, PF 1 2017 150 complet ed HISTORICA L INFORMATI ON - FROM OTHER [facility], [facility] INFLUENZA, SPLIT VIRUS, TRIVALENT, PRESERVATIVE 1 2016 141 complet ed HISTORICA L INFORMATI ON - FROM OTHER REGISTRY, [facility] INFLUENZA, SPLIT VIRUS, QUADRIVALENT, PF 1 2015 150 complet ed HISTORICA L INFORMATI ON - FROM OTHER REGISTRY, [facility] Influenza, seasonal, injectable 1 2013 141 Transcribed (TRS) complet ed Influenza , seasonal, injectabl e DoD INFLUENZA, UNSPECIFIED FORMULATION 1 2012 88 complet ed HISTORICA L INFORMATI ON - FROM OTHER REGISTRY, [facility] Influenza, seasonal, injectable 1 2012 141 Transcribed (TRS) complet ed Influenza , seasonal, injectabl e DoD influenza virus vaccine, unspecified formulation 1 2011 88 Transcribed (TRS) complet ed influenza virus vaccine, unspecifi ed formulati on [facility] tetanus toxoid, reduced diphtheria toxoid, and acellular pertu is vaccine, adsorbed 0 2011 [id number] 115 [facility] (B) complet ed tetanus toxoid, reduced diphtheri a toxoid, and acellular pertussis vaccine, adsorbed DoD Influenza, seasonal, injectable 12 2010 141 Sanofi Pasteur ([facility]) complet ed Influenza , seasonal, injectabl e [facility] influenza virus vaccine, split virus (incl. purified surface antigen)-reti red CODE 3 2009 15 Transcribed (TRS) complet influenza virus vaccine, split virus (incl. purified surface antigen)- retired CODE [facility] influenza virus vaccine, split virus (incl. purified surface antigen)-reti red CODE 2 2008 15 Transcribed (TRS) complet ed influenza virus vaccine, split virus (incl. purified surface antigen)- retired CODE [facility] Novel influenza-H1N 1-09, injectable 1 2008 127 Transcribed (TRS) complet Novel influenza -[id number], injectabl e [facility] influenza virus vaccine, split virus (incl. purified surface antigen)-reti red CODE 1 2008 [id number] 15 Sanofi Pasteur ([facility]) complet ed influenza virus vaccine, split virus (incl. purified surface antigen)- retired CODE [facility] hepatitis B vaccine, adult dosage 3 2007 [id number] 43 SmithKline (SKB) complet ed hepatitis B vaccine, adult dosage DoD influenza virus vaccine, live, attenuated, for intranasal use 1 2006 [id number] [employer] ([facility]) complet ed influenza virus vaccine, live, attenuate d, for intranasa l use DoD influenza virus vaccine, split virus (incl. purified surface antigen)-reti red CODE [id number] [facility] ([facility] complet ed influenza virus vaccine, split virus (incl. purified surface antigen)- retired CODE DoD varicella virus vaccine 0 2005 21 () Not Given varicella virus vaccine DoD influenza virus vaccine, split virus (incl. purified surface antigen)-reti red CODE 1 2005 [id number] 15 Sanofi Pasteur ([facility]) complet ed influenza virus vaccine, split virus (incl. purified surface antigen)- retired CODE DoD influenza virus vaccine, whole virus 0 2002 16 Transcribed (TRS) complet ed influenza virus vaccine, whole virus DoD rabies vaccine, for intramuscular injection RETIRED CODE 3 2002 [id number] 18 Sanofi Pasteur ([facility]) complet ed rabies vaccine, for intramusc ular injection RETIRED CODE DoD rabies vaccine, for intramuscular injection RETIRED CODE 2 2002 [id number] 18 Sanofi Pasteur ([facility]) complet ed rabies vaccine, for intramusc ular injection RETIRED CODE DoD tetanus and diphtheria toxoids, adsorbed, preservative free, for adult use (2 Lf of tetanus toxoid and 2 Lf of diphtheria toxoid) 1 2002 [id number] Merck (MSD) complet ed tetanus and diphtheri a toxoids, adsorbed, preservat stefan free, for adult use (2 Lf of tetanus toxoid and 2 Lf of diphtheri a toxoid) DoD rabies vaccine, for intramuscular injection RETIRED CODE 1 2002 [id number] 18 Sanofi Pasteur ([facility]) complet ed rabies vaccine, for intramusc ular injection RETIRED CODE DoD meningococcal polysaccharid e vaccine (MPSV4) 0 2002 [id number] 32 Sanofi Pasteur (PMC) complet ed meningoco ccal polysacch aride vaccine (MPSV4) DoD hepatitis B vaccine, adult dosage 2 2002 [id number] 43 SmithKline (SKB) complet ed hepatitis B vaccine, adult dosage DoD influenza virus vaccine, whole virus 0 2001 [id number] 16 Wyeth-Ayerst (WAL) complet ed influenza virus vaccine, whole virus DoD typhoid vaccine, parenteral, other than acetone-kille d, dried 0 2001 [id number] Sanofi Pasteur ([facility]) complet ed typhoid vaccine, parentera l, other than acetone-k illed, dried DoD hepatitis B vaccine, adult dosage 1 2001 [id number] 43 [employer] (SKB) complet ed hepatitis B vaccine, adult dosage DoD anthrax vaccine 6 1999 24 [employer] Kisha (MIP) complet ed anthrax vaccine DoD influenza virus vaccine, whole virus 0 1998 16 Katie-Berterst (WAL) complet ed influenza virus vaccine, whole virus DoD anthrax vaccine 5 1998 [id number] 24 [employer] [facility] (MIP) complet ed anthrax vaccine DoD anthrax vaccine 4 1998 [id number] 24 [employer] [facility] (MIP) complet ed anthrax vaccine DoD influenza virus vaccine, whole virus 0 [id number] Connaucirat (CON) complet ed influenza virus vaccine, whole virus DoD anthrax vaccine 3 1997 [id number] 24 [employer] Kisha (MIP) complet ed anthrax vaccine DoD anthrax vaccine 2 1997 [id number] 24 [employer] Kisha (MIP) complet ed anthrax vaccine DoD anthrax vaccine 1 1997 [id number] 24 [employer] [facility] (MIP) complet ed anthrax vaccine DoD typhoid vaccine, parenteral, other than acetone-kille d, dried 0 1997 [id number] 41 [employer]naught (CON) complet ed typhoid vaccine, parentera l, other than acetone-k illed, dried DoD influenza virus vaccine, whole virus 0 [id number] 16 Wyeth-Ayerst (Inactive) (NE) complet ed influenza virus vaccine, whole virus DoD meningococcal polysaccharid e vaccine (MPSV4) 0 1996 32 () complet ed meningoco ccal polysacch aride vaccine (MPSV4) DoD meningococcal polysaccharid e vaccine (MPSV4) 0 1995 32 () complet ed meningoco ccal polysacch aride vaccine (MPSV4) DoD hepatitis A vaccine, adult dosage 2 1995 52 () complet ed hepatitis A vaccine, adult dosage DoD hepatitis A vaccine, adult dosage 1 1994 52 () complet ed hepatitis A vaccine, adult dosage DoD yellow fever vaccine 0 1994 37 () complet ed yellow fever vaccine DoD trivalent poliovirus vaccine, live, oral 0 1993 02 () complet ed trivalent polioviru s vaccine, live, oral DoD measles, mumps and rubella virus vaccine 0 1993 03 () Not Given measles, mumps and rubella virus vaccine DoD tetanus and diphtheria toxoids, adsorbed, preservative free, for adult use (2 Lf of tetanus toxoid and 2 Lf of diphtheria toxoid) 0 1993 09 () complet ed tetanus and diphtheri a toxoids, adsorbed, preservat stefan free, for adult use (2 Lf of tetanus toxoid and 2 Lf of diphtheri a toxoid) DoD Results Combined list of recent chemistry, hematology and other laboratory results from Department of Defense and Veterans Affairs, ranging from 15 months to all on record, depending upon the facility. Order Name Results Value Reference Range Date Interpretation Specimen Comments Source MICRAL/C REAT PROFILE (STL) ALBUMIN [MASS/VOLUME ] IN URINE <5.0mg /L 02/20 Specimen Type: URINE Comment: uALB/CREAT Ratio Unable to be calculated Unable to calculate due to Microalbumin < 5.0 mg/L Ordering Provider: CLAUDIO BETHEA Report Released Date/Time: February 19, 2025 02:02 PM Reporting Lab: [facility] [address] [facility] [address] Performing Lab: [facility] [address] [facility] [address] [facility] MICRAL/C REAT PROFILE (STL) ALBUMIN/CREA TININE [MASS RATIO] IN URINE commen tmg/g 0 - 29 02/20 Specimen Type: URINE Comment: uALB/CREAT Ratio Unable to be calculated Unable to calculate due to Microalbumin < 5.0 mg/L Ordering Provider: CLAUDIO BETHEA Report Released Date/Time: February 19, 2025 02:02 PM Reporting Lab: [facility] [address] [facility] [phone] Performing Lab: [facility] [address] [place] [address] [phone] [place] [address] MICRAL/C REAT PROFILE (STL) CREATININE [MASS/VOLUME ] IN URINE 51.0 mg/dL 47 - 110 02/20 Specimen Type: URINE Comment: uALB/CREAT Ratio Unable to be calculated Unable to calculate due to Microalbumin < 5.0 mg/L Ordering Provider: CLAUDIO BETHEA Report Released Date/Time: February 19, 2025 02:02 PM Reporting Lab: [facility] [address] [place] [phone] Performing Lab: [address] [phone] [place] [address] HGA1C HEMOGLOBIN A1C/HEMOGLOB IN.TOTAL IN BLOOD 5.8 4.0 - 6.0 02/19 Specimen Type: BLOOD No comment entered. Ordering Provider: CLAUDIO BETHEA Report Released Date/Time: February 19, 2025 02:02 PM Reporting Lab: [facility] [address] [place] [phone] Performing Lab: [address] [phone] [place] [address] TSH W/ REFLEX FT4 (STL) THYROTROPIN [UNITS/VOLUM E] IN SERUM OR PLASMA 1.441 u[IU]/ mL 0.47 - 5 02/19 Specimen Type: PLASMA No comment entered. Ordering Provider: CLAUDIO BETHEA Report Released Date/Time: February 19, 2025 02:02 PM Reporting Lab: [facility] [address] [facility] [address] Performing Lab: [facility] [address] [facility] [address] [facility] VITAMIN D, 25-HYDRO XY 25-HYDROXYVI TAMIN D3 [MASS/VOLUME ] IN SERUM OR PLASMA 28.6 ng/mL 30 - 96 02/19 L Specimen Type: SERUM No comment entered. Ordering Provider: CLAUDIO BETHEA Report Released Date/Time: February 19, 2025 02:02 PM Reporting Lab: [address] [address] Performing Lab: [address] [phone] [place] [address] CBC LEUKOCYTES [#/VOLUME] IN BLOOD BY AUTOMATED COUNT 7.4 10*3/u L 3.6 - 11.2 02/19 Specimen Type: BLOOD No comment entered. Ordering Provider: CLAUDIO BETHEA Report Released Date/Time: February 19, 2025 02:02 PM Reporting Lab: [address] [address] Performing Lab: [facility] [address] [place] [phone] [place] [address] CBC ERYTHROCYTES [#/VOLUME] IN BLOOD BY AUTOMATED COUNT 4.79 10*6/u L 3.60 - 5.00 02/19 Specimen Type: BLOOD No comment entered. Ordering Provider: CLAUDIO BETHEA Report Released Date/Time: February 19, 2025 02:02 PM Reporting Lab: [facility] [address] [place] [phone] Performing Lab: [address] [phone] [place] [address] CBC HEMOGLOBIN [MASS/VOLUME ] IN BLOOD 14.7 g/dL 11.0 - 14.9 02/19 Specimen Type: BLOOD No comment entered. Ordering Provider: CLAUDIO BETHEA Report Released Date/Time: February 19, 2025 02:02 PM Reporting Lab: [address] [address] Performing Lab: [facility] [address] [facility] [phone] [facility] CBC HEMATOCRIT [VOLUME FRACTION] OF BLOOD 45.0 32.6 - 43.4 02/19 H Specimen Type: BLOOD No comment entered. Ordering Provider: CLAUDIO BETHEA Report Released Date/Time: February 19, 2025 02:02 PM Reporting Lab: [address] [phone] Performing Lab: [address] [phone] [facility] CBC MCV [ENTITIC VOLUME] BY AUTOMATED COUNT 93.9 fL 80.0 - 100.0 02/19 Specimen Type: BLOOD No comment entered. Ordering Provider: CLAUDIO BETHEA Report Released Date/Time: February 19, 2025 02:02 PM Reporting Lab: [address] [address] Performing Lab: [address] [address] [facility] CBC MCH [ENTITIC MASS] BY AUTOMATED COUNT 30.7 pg 27.0 - 34.0 02/19 Specimen Type: BLOOD No comment entered. Ordering Provider: CLAUDIO BETHEA Report Released Date/Time: February 19, 2025 02:02 PM Reporting Lab: [address] [address] Performing Lab: [address] [phone] [facility] CBC MCHC [MASS/VOLUME ] BY AUTOMATED COUNT 32.7 g/dL 33.0 - 36.0 02/19 L Specimen Type: BLOOD No comment entered. Ordering Provider: CLAUDIO BETHEA Report Released Date/Time: February 19, 2025 02:02 PM Reporting Lab: [address] [address] Performing Lab: [address] [place] [address] [facility] CBC PLATELETS [#/VOLUME] IN BLOOD BY AUTOMATED COUNT 463 10*3/u L 150 - 400 02/19 H Specimen Type: BLOOD No comment entered. Ordering Provider: CLAUDIO BETHEA Report Released Date/Time: February 19, 2025 02:02 PM Reporting Lab: [facility] [address] [place] [phone] Performing Lab: [facility] [address] [facility] [address] [facility] CBC PLATELET MEAN VOLUME [ENTITIC VOLUME] IN BLOOD BY AUTOMATED COUNT 10.4 fL 7.5 - 11.2 02/19 Specimen Type: BLOOD No comment entered. Ordering Provider: CLAUDIO BETHEA Report Released Date/Time: February 19, 2025 02:02 PM Reporting Lab: [address] [address] Performing Lab: [place] [address] [address] [facility] [address] [facility] CBC ERYTHROCYTE DISTRIBUTION WIDTH [RATIO] BY AUTOMATED COUNT 12.4 11.8 - 15.1 02/19 Specimen Type: BLOOD No comment entered. Ordering Provider: CLAUDIO BETHEA Report Released Date/Time: February 19, 2025 02:02 PM Reporting Lab: [place] [address] [address] [facility] [phone] Performing Lab: [address] [address] [facility] CBC LYMPHOCYTES/ 100 LEUKOCYTES IN BLOOD BY AUTOMATED COUNT 28 02/19 Specimen Type: BLOOD No comment entered. Ordering Provider: CLAUDIO BETHEA Report Released Date/Time: February 19, 2025 02:02 PM Reporting Lab: [facility] [facility] [address] Performing Lab: [facility] [address] [facility] [address] [facility] CBC MONOCYTES/10 0 LEUKOCYTES IN BLOOD BY AUTOMATED COUNT 8 02/19 Specimen Type: BLOOD No comment entered. Ordering Provider: CLAUDIO BETHEA Report Released Date/Time: February 19, 2025 02:02 PM Reporting Lab: [facility] [address] [facility] [address] Performing Lab: [facility] [address] [facility] [id number] [place] [address] CBC NEUTROPHILS/ 100 LEUKOCYTES IN BLOOD BY AUTOMATED COUNT 61 02/19 Specimen Type: BLOOD No comment entered. Ordering Provider: CLAUDIO BETHEA Report Released Date/Time: February 19, 2025 02:02 PM Reporting Lab: [facility] [address] [facility] [address] Performing Lab: [facility] [address] [place], [place] [phone] [address] CBC EOSINOPHILS/ 100 LEUKOCYTES IN BLOOD BY AUTOMATED COUNT 3 02/19 Specimen Type: BLOOD No comment entered. Ordering Provider: CLAUDIO BETHEA Report Released Date/Time: February 19, 2025 02:02 PM Reporting Lab: [facility] [address] [facility] [address] Performing Lab: [facility] [address] [place] [phone] [place] [address] CBC BASOPHILS/10 0 LEUKOCYTES IN BLOOD BY AUTOMATED COUNT 1 02/19 Specimen Type: BLOOD No comment entered. Ordering Provider: CLAUDIO BETHEA Report Released Date/Time: February 19, 2025 02:02 PM Reporting Lab: [facility] [address] [facility] [address] Performing Lab: [facility] [address] [facility] [phone] CBC LYMPHOCYTES [#/VOLUME] IN BLOOD BY AUTOMATED COUNT 2.06 10*3/u L 0.77 - 4.50 02/19 Specimen Type: BLOOD No comment entered. Ordering Provider: CLAUDIO BETHEA Report Released Date/Time: February 19, 2025 02:02 PM Reporting Lab: [facility] [address] [place], [place] [phone] Performing Lab: [facility] [address] [place] [phone] [place] [address] CBC MONOCYTES [#/VOLUME] IN BLOOD BY AUTOMATED COUNT 0.56 10*3/u L 0.19 - 0.80 02/19 Specimen Type: BLOOD No comment entered. Ordering Provider: CLAUDIO BETHEA Report Released Date/Time: February 19, 2025 02:02 PM Reporting Lab: [facility] [address] [place] [phone] Performing Lab: [facility] [address] [place] [address] [phone] CBC NEUTROPHILS [#/VOLUME] IN BLOOD BY AUTOMATED COUNT 4.49 10*3/u L 2.10 - 8.00 02/19 Specimen Type: BLOOD No comment entered. Ordering Provider: CLAUDIO BETHEA Report Released Date/Time: February 19, 2025 02:02 PM Reporting Lab: [facility] [address] [place] [phone] Performing Lab: [address] [phone] [place] [address] CBC EOSINOPHILS [#/VOLUME] IN BLOOD BY AUTOMATED COUNT 0.24 10*3/u L 0.00 - 0.60 02/19 Specimen Type: BLOOD No comment entered. Ordering Provider: CLAUDIO BETHEA Report Released Date/Time: February 19, 2025 02:02 PM Reporting Lab: [facility] [address] [place] [phone] Performing Lab: [facility] [address] [place] [phone] [facility] CBC BASOPHILS [#/VOLUME] IN BLOOD BY AUTOMATED COUNT 0.04 10*3/u L 0.00 - 0.20 02/19 Specimen Type: BLOOD No comment entered. Ordering Provider: CLAUDIO BETHEA Report Released Date/Time: February 19, 2025 02:02 PM Reporting Lab: [facility] [address] [facility] [address] Performing Lab: [facility] [address] [facility] [address] [facility] Vital Signs Combined list of inpatient and outpatient Vital Signs from Department of [facility] and [facility], ranging from 12 months to all on record, depending upon the facility. Vital Sign Value Date Comments Source SYSTOLIC BLOOD PRESSURE 124 02/19/2025 13:39:01 [facility] DIASTOLIC BLOOD PRESSURE 84 02/19/2025 13:39:01 [facility] PULSE OXIMETRY 99 02/19/2025 13:39:01 S . [facility]3] WEIGHT 220 02/19/2025 13:39:01 [facility] BMI 38 kg/m2 02/19/2025 13:39:01 [facility] PAIN 5 02/19/2025 13:39:01 [facility] HEIGHT 64 02/19/2025 13:39:01 [facility] TEMPERATURE 98 02/19/2025 13:39:01 [facility] PULSE 82 02/19/2025 13:39:01 [facility] RESPIRATION 18 02/19/2025 13:39:01 [facility] Encounters Combined list of: 1) Encounters from Department of Veterans Affairs facilities going backup to the last 18 months, not all [place] inpatient encounters are included; 2) Encounters from the Department of Defense facilities going backup to 280 months. Location Location Details Encounter Type Encounter Number Reason For Visit Attending Provider ADM Date DC Date Status Disposition Source [address] [place] [address] [employer] [facility] ([facility]Sco tt Internal Medicine Tm) OUTPATIENT [id number] Vaginal Dischar ge, itching w/bleed KEM Villanueva 04/09 Released w/o Limitations [address] [place] [address] [employer] ABDALLA ([facility]S cott Interna l Medicin e Tm) [facility] Medical [facility] [employer] ([facility] Practice Non-GME FHI1) TELE CONSULT [id number] pt wanted SDA for persist ant cough TARA CHURCH A 06/[address] [place] [address] [employer] JEFFERSONB [facility])(F amily Practic e Non-GME FHI1) [address] [place] [address] [employer] B ([facility]Opt ometry) OUTPATIENT [id number] Routine Eye Exam / CL Re-new JIMBO CORRALES A 06/15 Released w/o Limitations [address] [place] [address] [employer] JEFFERSONB ([facility]O ptometr y) [address] [place] [address] [employer] [facility] Practice Non-GME FHI2) OUTPATIENT [id number] employ ent MANISH Wyman 07/24 Released w/o Limitations [address] [place] [address] [employer] JEFFERSONB ([facility])(F amily Practic e Non-GME FHI2) [address] [place] [address] [employer] B [facility])([facility] Non-GME FHI1) TELE CONSULT [id number] RX RENEWED - B/C LAYO SANZ 08/[address] [place] [address] [employer] JEFFERSONB [facility])(F amily Practic e Non-GME FHI1) [address] [place] [address] [employer] [facility] Non-GME FHI1) TELE CONSULT [id number] PASQUALE --MED JONATHAN MARTINEZ 11/[address] [place] [address] [employer] JEFFERSONB [facility])(F amily Practic e Non-GME FHI1) [address] [place] [address] [employer] [facility])([facility] Practice Non-GME FHI1) OUTPATIENT [id number] ANNUAL PAP SARAH BARDALES S 12/10 Released w/o Limitations [address] [place] [address] [employer] [facility])(F amily Practic e Non-GME FHI1) [address] [place] [address] [employer] [facility])([facility] nish Practice Non-GME FHI2) OUTPATIENT [id number] sore throat HARINDER CEDENO 12/19 Released w/o Limitations [address] [place] [address] [employer] ([facility])(F amily Practic e Non-GME FHI2) [address] [place] [address] [employer] ([facility])([facility] nish Practice Non-GME FHI1) TELE CONSULT [id number] 0959-[id number] d duc- LUIS Henry 01/[address] [place], [place] [address]B [facility])(F amily Practic e Non-GME FHI1) [address] [place] [address] [employer] [facility])([facility] nish Practice Non-GME FHI1) OUTPATIENT [id number] sneezin g, eyes itch and burn TYESHA GARCIA 02/02 Released w/o Limitations [address] [place] [address] [employer] [facility])(F amily Practic e Non-GME FHI1) [address] [place] [address] [employer] [facility] Practice Non-GME FHI1) OUTPATIENT [id number] ELENO MATA 02/18 Released w/o Limitations [address] [place] [address] [employer] [facility])(F amily Practic e Non-GME FHI1) [address] [place], [place] [address] [facility])([facility] nish Practice Non-GME FHI1) OUTPATIENT [id number] Upset stomach PREM SEPULVEDA 08/03 Sick at Home/Quarter s [address] [place], [place] [address] [facility])(F amily Practic e Non-GME FHI1) [address] [place], [place] [address]B [facility])(Opt ometry) OUTPATIENT [id number] annual eye exam-co ntact wearer- astigma BHAKTI Saldivar 11/12 Released w/o Limitations [address] [place] [address] [employer] [facility])(O ptometr y) [address] [place], [place] [address] [facility])(Opt ometry) OUTPATIENT [id number] pt here for RGP BHAKTI Saleem 11/18 Released w/o Limitations [address] [place] [address] [employer] [facility])(O ptometr y) [address] [place] [address] [employer] [facility])([facility] nish Practice Non-GME FHI1) TELE CONSULT [id number] meds duc- KELSEA Marlow 12/[address] [place] [address] [employer] [facility])(F amily Practic e Non-GME FHI1) [address] [place] [address] [employer] [facility])([facility] nish Practice Non-GME FHI2) OUTPATIENT [id number] DIMITRIOS Denny 01/19 Released w/o Limitations [address] [place] [address] [employer] B [facility])(F amily Practic e Non-GME FHI2) [address] [place] [address] [employer] B [facility])(Operations Team Leader ecology) OUTPATIENT [id number] YURY WATT 01/21 Released w/o Limitations [address] [place] [address] [employer] B [facility])(G ynecolo gy) [address] [place] [address] [employer] B [facility])(Fam nish Practice Non-GME FHI2) OUTPATIENT [id number] rt ear infecti on [phone]# CEDENO HARINDER Zee 05/03 Released w/o Limitations [address] [place] [address] [employer] B [facility])(F amily Practic e Non-GME FHI2) [address] [place] [address] [employer] B [facility])(Opt ometry) OUTPATIENT [id number] ; eye exam JIMBO CORRALES 09/14 Released w/o Limitations [address] [place] [address] [employer] B [facility])(O ptometr y) [address] [place] [address] [employer] [facility])(Fam nish Practice Non-GME FHI2) OUTPATIENT [id number] stom pain x 2 days vomit JAIMEE CONNOLLY 12/06 Released w/o Limitations [address] [place] [address] [employer] B [facility])(F amily Practic e Non-GME FHI2) [address] [place] [address] [employer] [facility])(Fam nish Practice Non-GME FHI1) OUTPATIENT [id number] [facility]- web based ROSANNE Aponte 02/16 Released w/o Limitations [address] [place] [address] [employer] [facility])(F amily Practic e Non-GME FHI1) [address] [place] [address] [employer] [facility])(Fam nish Practice Non-GME FHI2) OUTPATIENT [id number] allergi es/ need meds MANISH VIVEROS 03/05 Released w/o Limitations [address] [place] [address] [employer] [facility])(F amily Practic e Non-GME FHI2) [address] [place] [address] [employer] ([facility]Fam nish Practice Non-GME FHI1) OUTPATIENT [id number] physica l [phone] ELBA ANTUNEZ 03/14 Released w/o Limitations [employer] ([facility])(F amily Practic e Non-GME FHI1) [employer] ([facility] Practice Non-GME FHI2) OUTPATIENT [id number] Annual PAP [phone] JAIMEE CONNOLLY 03/21 Released w/o Limitations [facility] [employer] ([facility])(F amily Practic e Non-GME FHI2) [employer] ([facility] Practice Non-GME FHI2) TELE CONSULT [id number] results /BERNARDINO Alcantar 04/05 [facility] [employer] ([facility])(F amily Practic e Non-GME FHI2) [address] [place] [address] Group [employer] ([facility])([facility] Practice Non-GME FHI2) OUTPATIENT [id number] repeat pap JAIMEE CONNOLLY 04/30 Released w/o Limitations [facility] [employer] ([facility])(F amily Practic e Non-GME FHI2) [facility] Medical Group [employer] ([facility])(Sco tt [facility] Team 4) TELE CONSULT [id number] Results - URIEL Pedersen 12/19 [facility] [employer] ([facility]S cott [facility] Team 4) [address] [place] [address] [employer] ([facility])(Fam nish Med Tm B Non-AD BCC) OUTPATIENT [id number] itching from waist down to legs when working out [phone] JAIMEE CONNOLLY 12/25 Released w/o Limitations [employer] ([facility])(F amily Med Tm B Non-AD BCC) [facility] Medical Group [employer] ([facility])(Fam nish Med Tm B Non-AD BCC) OUTPATIENT [id number] allergi ALEXX Camejo 01/04 Released w/o Limitations [facility] Medical Group [employer] ([facility])(F amily Med Tm B Non-AD BCC) [facility] Medical [facility] [employer] ([facility])(Operations Team Leader ecology) OUTPATIENT [id number] Womenjaziel johnson s w/PAP [phone] JAIMEE TERRAZAS 02/22 Released w/o Limitations [address] [place] [address] Group [employer] [facility] ([facility])(G ynecolo gy) [facility] Medical [facility] [employer] ([facility])(Ob/ Operations Team Leader) TELE CONSULT [id number] repeat pap due to No ECC SMILEY RAMOS 03/[address] [place] [address] Group [employer] [facility] ([facility])(O b/Operations Team Leader) [address] [place] [address] [employer] PAULIN[facility] ([facility])(Ob/ Operations Team Leader) TELE CONSULT [id number] repeat pap smear DIGNA THAKUR 03/[address] [place] [address] [employer] [facility] ([facility])(O b/Operations Team Leader) [address] [place] [address] [employer] PAULIN[facility] ([facility])(Operations Team Leader ecology) OUTPATIENT [id number] repeat pap due to UNSAt/c ytotec night prior DIGNA THAKUR 03/21 Released w/o Limitations [address] [place] [address] Group [employer] [facility] ([facility])(G ynecolo gy) [address] [place] [address] [employer] [facility] ([facility]) OUTPATIENT [id number] [facility] - Web Based Assessm vera -BASHIR KILPATRICK 04/03 Released w/o Limitations [address] [place] [address] Group [employer] [facility] ([facility])([facility]) [address] [place] [address] [employer] PAULINOB [facility])(Fam nish Med Tm B Non-AD BCC) OUTPATIENT [id number] Numbnes s in back after running [phone] ALEXX VIVEROS 12/17 Released with Work/Duty Limitations [address] [place] [address] [employer] [facility] ([facility])(F amily Med Tm B Non-AD BCC) [address] [place] [address] [employer] PAULINOB [facility])(Fam nish Med Tm B Non-AD BCC) TELE CONSULT [id number] X- Ray Results ALEXX VIVEROS 12/[address] [place] [address] Group [employer] [facility] ([facility])(F amily Med Tm B Non-AD BCC) [facility] Medical Group [employer] JEFFERSONB [facility])(Fam nish Med Tm B Non-AD BCC) TELE CONSULT [id number] Leela/miguel ants test results CHAS AMIN 12/[address] [place] [address] [employer] ([facility])(F amily Med Tm B Non-AD BCC) [address] [place] [address] [employer] [facility])(Fam nish Med Tm B Non-AD BCC) TELE CONSULT [id number] Leela/NEHEMIAH FrancisI A 12/[address] [place] [address] Group [employer] ([facility])(F amily Med Tm B Non-AD BCC) [address] [place] [address] [employer] ([facility])(Fam nish Med Tm B Non-AD BCC) TELE CONSULT [id number] Leela/binta briscoe for her therapy CHAS AMIN Jossie 12/[address] [place] [address] [employer] ([facility])(F amily Med Tm B Non-AD BCC) [address] [place] [address] [employer] ([facility])(Fam nish Med Tm B Non-AD BCC) TELE CONSULT [id number] Enrique kenney NEHEMIAH AMINReny Sethi 01/[address] [place] [address] [employer] [facility] ([facility])(F amily Med Tm B Non-AD BCC) [address] [place] [address] [employer] ([facility])(Fam nish Med Tm B Non-AD BCC) TELE CONSULT [id number] Lakshmi - CHAS Dockery 01/[address] [place] [address] [employer] [facility] ([facility])(F amily Med Tm B Non-AD BCC) [address] [place] [address] [employer] ([facility])(Fam nish Med Tm B Non-AD BCC) OUTPATIENT [id number] ALEXX Craig 02/06 Released with Work/Duty Limitations [address] [place] [address] [employer] [facility] ([facility])(F amily Med Tm B Non-AD BCC) [address] [place] [address] [employer] ([facility])(Fam nish Med Tm B Non-AD BCC) TELE CONSULT [id number] CHAN Barrera 04/[address] [place] [address] Group [employer] [facility] ([facility])(F amily Med Tm B Non-AD BCC) [address] [place] [address] [employer] ([facility])(Fam nish Med Tm B Non-AD BCC) OUTPATIENT [id number] [facility]-a /pha ALEXX ALBRIGHT 04/03 Released w/o Limitations [address] [place] [address] Group [employer] ([facility])(F amily Med Tm B Non-AD BCC) [address] [place] [address] [employer] ([facility])(Fam nish Med Tm B Non-AD BCC) TELE CONSULT [id number] CHAS Krishna 04/[address] [place] [address] [employer] [facility] ([facility])(F amily Med Tm B Non-AD BCC) [facility] Medical Group [employer] ([facility])(Fam nish Med Tm B Non-AD BCC) TELE CONSULT [id number] [facility] update- CHAS Dockery 04/15 [facility] [employer] [facility] ([facility])(F amily Med Tm B Non-AD BCC) [employer] [facility] ([facility])(Fam nish Med Tm B Non-AD BCC) TELE CONSULT [id number] [facility]-CHAS De León 04/[address] [place] [address] Group [employer] [facility] ([facility])(F amily Med Tm B Non-AD BCC) [facility] Medical Group [employer] ([facility])(Fam nish Med Tm B Non-AD BCC) TELE CONSULT [id number] [facility] CHAS Medel 04/28 Referred for Appointment [employer] [facility] ([facility])(F amily Med Tm B Non-AD BCC) [facility] Medical Group [employer] ([facility])(Fam nish Med Tm B Non-AD BCC) TELE CONSULT [id number] Contact numbers [phone] work or [phone] Cell. See add note CHAS AMIN 04/29 Referred for Appointment [facility] Medical Group [employer] ([facility])(F amily Med Tm B Non-AD BCC) [address] [place] [address] [employer] ([facility])(Fam nish Med Tm B Non-AD BCC) TELE CONSULT [id number] pt is having Gall bladder surgery on Wednesday 26 needs ok'd by Leela burciaga#[phone] CHAS AMIN 05/08 Referred for Appointment [facility] Medical Group [employer] [facility])(F amily Med Tm B Non-AD BCC) [facility] Medical Group [employer] [facility])(Operations Team Leader ecology) TELE CONSULT [id number] medicat ion DIGNA THAKUR 06/[address] [place] [address] Group [employer] [facility] ([facility])(Araceli holt) [address] [place] [address] [employer] [facility])(Operations Team Leader ecology) OUTPATIENT [id number] annual wwe - [id number] DIGNA THAKUR 06/10 Released w/o Limitations [address] [place] [address] Group [employer] [facility] ([facility])(Araceli holt) [address] [place] [address] [employer] ABDALLA [facility])(Sco tt [facility] Team 3) TELE CONSULT [id number] after hours call SERENE SAN 06/[address] [place] [address] [employer] ABD[facility])(S cott [facility] Team 3) [address] [place] [address] [facility]Fam nish Med Tm B Non-AD BCC) OUTPATIENT [id number] Phy [phone] ALEXX VIVEROS 07/04 Released w/o Limitations [address] [place] [address] Group Bonifacio [facility]BDALLA [facility])(F amily Med Tm B Non-AD BCC) [address] [place] [address] Bonifacio [facility])(War rior Op Med Cln Tm A Ad) TELE CONSULT [id number] Have yadira judd about profile extenti [phone] CHAS Docekry 08/19 Referred for Appointment [address] [place] [address] Bonifacio ABDALLA [facility])(W arrior Op Med Cln Tm A Ad) [address] [place] [address] Bonifacio [facility])(Fam nish Med Tm B Non-AD BCC) TELE CONSULT [id number] Leela/4 07 3276/pr dustin cardoso and wants advice on tx (dual eligibl e) CHAS AMIN 10/23 Referred for Appointment [address] [place] [address] [place] [facility])(F amily Med Tm B Non-AD BCC) [address] [place] [address] [place] [facility])(Fam nish Med Tm B Non-AD BCC) OUTPATIENT [id number] profile ALEXX VIVEROS 11/11 Released w/o Limitations [address] [place] [address] [place] [facility])(F amily Med Tm B Non-AD BCC) [address] [place] [address] [place] PA[facility]INOB [facility])(Fam insh Med Tm B Non-AD BCC) TELE CONSULT [id number] st profile update/ андрей ad/tnp [phone] CHAS AMIN 02/[address] [place] [address] [place] [facility]IN[facility])(F amily Med Tm B Non-AD BCC) [address] [place] [address] [place] PA[facility]INOB [facility])(Fam nish Med Tm B Non-AD BCC) TELE CONSULT [id number] Referra terry Viveros cad tlt CHAS AMIN 03/[address] [place] [address] [place] [facility])(F amily Med Tm B Non-AD BCC) [address] [place] [address] [place] PAULINOB ([facility]Fam nish Med Tm B Non-AD BCC) TELE CONSULT [id number] Order for physica CHAS Mora 03/[address] [place] [address] [place] PAULINOB ([facility])(F amily Med Tm B Non-AD BCC) [address] [place] [address] [place] PAULINOB ([facility])(Fam nish Med Tm B Non-AD BCC) TELE CONSULT [id number] Pt woul d like f/u - Leela - [phone] - [facility] CHAS AMIN 03/[address] [place] [address] [place] PAULINOB ([facility])(F amily Med Tm B Non-AD BCC) [address] [place] [address] [place] B ([facility])(Fam nish Med Tm B Non-AD BCC) TELE CONSULT [id number] Profile update/ Leela/JAIMEE Herman 04/[address] [place] [address] [place] JEFFERSONB ([facility])(F amily Med Tm B Non-AD BCC) [address] [place] [address] [place] JEFFERSONB [facility])(Fam nish Med Tm B Non-AD BCC) OUTPATIENT [id number] profile f/u ALEXX VIVEROS 04/07 Released with Work/Duty Limitations [address] [place] [address] [place] JEFFERSONB ([facility])(F amily Med Tm B Non-AD BCC) [address] [place] [address] [place] PAULINOB ([facility])(Fam nish Med Tm B Non-AD BCC) TELE CONSULT [id number] T con for profile concern s Dr Viveros phone [phone] CHAS AMIN 04/[address] [place] [address] [place] JEFFERSONB ([facility])(F amily Med Tm B Non-AD BCC) [address] [place] [address] [place] PAULINOB [facility])(Fam nish Med Tm B Non-AD BCC) OUTPATIENT [id number] discuss lifting profile ALEXX VIVEROS 05/15 Released w/o Limitations [address] [place] [address] [place] JEFFERSONB ([facility])(F amily Med Tm B Non-AD BCC) [address] [place] [address] [employer] ([facility])(Phy sical Therapy) OUTPATIENT [id number] DOMINGO SCHMID 05/28 Released w/o Limitations [address] [place] [address] [employer] ([facility])(P hysical Therapy ) [address] [place] [address] [employer] ([facility])(Fam nish Med Tm B Non-AD BCC) TELE CONSULT [id number] has she been release d off her profile for back [phone] CAD [facility] CHAS AMIN Jossie 06/[address] [place] [address] [employer] ([facility])(F amily Med Tm B Non-AD BCC) [address] [place] [address] [place] B ([facility])(Operations Team Leader ecology) TELE CONSULT [id number] Needs WWE, has concern ESTEBAN Baron 08/[address] [place] [address] [employer] ([facility])(G ynecolo gy) [address] [place] [address] [employer] ([facility])(Operations Team Leader ecology) TELE CONSULT [id number] Needs PAP appt KWAKU TAY 08/[address] [place] [address] [employer] ([facility])(G ynecolo gy) [address] [place] [address] [employer] ([facility])(Operations Team Leader ecology) OUTPATIENT [id number] pap smear.. .[id number] MADISON HOLMAN 09/03 Released w/o Limitations [address] [place] [address] [employer] [facility])(G ynecolo gy) [address] [place] [address] [employer] [facility])(Operations Team Leader ecology) OUTPATIENT [id number] pap with possibl e paracer vical block KWAKU TAY 09/07 Released w/o Limitations [address] [place] [address] [employer] ([facility])(G ynecolo gy) [address] [place] [address] [employer] [facility])(Ob/ Operations Team Leader) TELE CONSULT [id number] Called to discuss results of testing KWAKU TAY 09/[address] [place] [address] [employer] ([facility])(O b/Operations Team Leader) [address] [place] [address] [employer] [facility])(Operations Team Leader ecology) OUTPATIENT [id number] pre op - [id number] KWAKU TAY 10/06 Released w/o Limitations [address] [place] [address] [employer] [facility])(G ynecolo gy) [address] [place] [address] [employer] ([facility])(Ob/ Operations Team Leader) TELE CONSULT [id number] F/U with SMILEY Saavedra 10/[address] [place] [address] [employer] [facility])(O b/Operations Team Leader) [address] [place] [address] [employer] [facility])(Operations Team Leader ecology) OUTPATIENT [id number] post op KWAKU TAY L 12/14 Released w/o Limitations [address] [place] [address])(G ynecolo gy) [address] [place] [address])(Dandre e Managemen t) TELE CONSULT [id number] Notes Entered by: ST JOLANTA BOOKER 21 Dec 2011 1604 ------- ------- ------- ------- -- CC: Russ Coordin DEL Leon 12/[address] [place] [address] [place] [facility])(C ase Managem ent) [address] [place] [address] [place] [facility])(Fam nish Med Tm B Non-AD BCC) OUTPATIENT [id number] seasona terry allergi es [phone] 8 ALEXX VIVEROS 02/10 Released w/o Limitations [address] [place] [address])(F amily Med Tm B Non-AD BCC) [address] [place] [address])(Fam nish Med Tm B Non-AD BCC) TELE CONSULT [id number] Notes Entered by: Joann NOBLE 02 Mar 2012 1249 ------- ------- ------- ------- -- Patient needs info on TB test please call [phone] TASHA TIWARI 03/[address] [place] [address] [place] [facility])(F amily Med Tm B Non-AD BCC) [address] [place] [address])(Sco tt Flight Medicine Tm) TELE CONSULT [id number] Notes Entered by: MANISH RODRIGUEZ 14 Mar 2013 1227 ------- ------- ------- ------- -- MELISSA/PERLA GERMAN 03/[address] [place] [address])(S cott Flight Medicin e Tm) [address] [place] [address])(Operations Team Leader ecology) TELE CONSULT [id number] Notes Entered by: ESTEBAN BURDICK 03 Apr 2013 1008 ------- ------- ------- ------- -- Abdomin al/Uter ine crampin araceli MONROEONSUJIT 04/[address] [place] [address] [place] [facility])(G ynecolo gy) [address] [place] [address] [place] [facility])(Operations Team Leader ecology) TELE CONSULT [id number] Notes Entered by: SMILEY RAMOS 05 Apr 2013 0922 ------- ------- ------- ------- -- WWE/ Pelvic US results SMILEY RAMOS 04/[address] [place] [address] [place] [facility])(G ynecolo gy) [address] [place] [address])(Operations Team Leader ecology) OUTPATIENT [id number] WWe/Pel radha US results DOMINGO JONES 04/14 Released w/o Limitations [address] [place] [address] [place] [facility])(G ynecolo gy) [address] [place] [address])(Fam nish Med Tm B Non-AD BCC) OUTPATIENT [id number] sinus congest ion x2wks,o tc meds not working /on orders [id number] MONY BRADLEY 03/07 Released w/o Limitations [address] [place] [address] [place] [facility])(F amily Med Tm B Non-AD BCC) [address] [place] [address])([facility] Flight Medicine Tm) TELE CONSULT [id number] Notes Entered by: JALEN ACUNA 16 Apr 2014 1323 ------- ------- ------- ------- -- DHC/JOSE DEGROOT 04/[address] [place] [address])(S nate Flight Medicin e Tm) [address] [place] [address])([facility] Flight Medicine Tm) TELE CONSULT [id number] Notes Entered by: BRENDON SORIANO 30 Apr 2015 1208 ------- ------- ------- ------- -- DHC/ROBERTO CARLOS MCINTOSH 04/[address] [place] [address])(S gifted2you Medicin e Tm) [facility] [place] [facility])(Operations Team Leader ecology) OUTPATIENT [id number] wwe DIGNA THAKUR 04/30 Released w/o Limitations [address] [place] [address] Group [place] [facility])(G ynecolo gy) [address] [place] [address] [place] [facility])([facility] Flight Medicine ) OUTPATIENT [id number] PHA, discuss health concern BERTA GOMEZ 05/01 Released w/o Limitations [address] [place] [address] Group [place] [facility])(S gifted2you Medicin e Tm) [facility] [place] [facility])(Operations Team Leader ecology) TELE CONSULT [id number] Notes Entered by: SMILEY RAMOS 08 May 2015 0841 ------- ------- ------- ------- -- results SMILEY RAMOS 05/[address] [place] [address] Group [place] [facility])(G rorynecodelmer gy) [address] [place] [address] Group [place] [facility])([facility] [employer] ) TELE CONSULT [id number] Notes Entered by: Lazaro SHELBY 10 Jun 2015 1505 ------- ------- ------- ------- -- MRI Results TYESHA SHELBY 06/10 Released to Self Care [address] [place] [address] [place] [facility])(S gifted2you Medicin e Tm) [address] [place] [address] [place] [facility])(Operations Team Leader ecology) OUTPATIENT [id number] dysplas ia pt - repeat pap/cot esting/ annual wwe - [phone] DIGNA THAKUR 06/29 Released w/o Limitations [address] [place] [address] Group [place] [facility])(G ynecodelmer gy) [address] [place] [address])(War rior Op Med Cln Tm A Ad) OUTPATIENT [id number] AF DEAN-Non erollee PHA per pt request [phone] HERIBERTO DARNELL 07/01 Released w/o Limitations [address] [place] [address] Group [place] [facility])(W arrior Op Med Cln Tm A Ad) [address] [place] [address])(War rior Op Med Cln Tm A Ad) OUTPATIENT [id number] L HERIBERTO Jansen 07/02 Released w/o Limitations [address] [place] [address])(W arrior Op Med Cln Tm A Ad) [address] [place] [address])(Operations 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 Leader ecology) TELE CONSULT [id number] Notes Entered by: RANDY HOLGUIN LT 08 Jul 2016 1441 ------- ------- ------- ------- -- Results DIGNA THAKUR 07/[address] [place] [address])(G ynecolo gy) [address] [place] [address])(Operations Team Leader ecology) OUTPATIENT [id number] colpo/ [phone] 6 IZAIAH YOBANIALEYDA MEDINA 07/14 Released w/o Limitations [address] [place] [address])(G ynecolo gy) [address] [place] [address])(Operations Team Leader ecology) TELE CONSULT [id number] Notes Entered by: SMILEY RAMOS 23 Jul 2016 1407 ------- ------- ------- ------- -- Test results SMILEY RAMOS 07/[address] [place] [address])(G ynecolo gy) [address] [place] [address])(Bas e Operation al Medicine Clin) OUTPATIENT [id number] Notes Entered by: MILAGROS GAGE 18 Aug 2016 1349 ------- ------- ------- ------- -- [facility] TAYLOR TESFAYE 08/18 Released w/o Limitations [address] [place] [address])(B ase Operati onal Medicin e Clin) [address] [place] [address])(Bas e Operation al Medicine Clin) TELE CONSULT [id number] Notes Entered by: ALEX ROBBINS 17 Dec 2016 0726 ------- ------- ------- ------- -- JOY Johnson 12/17 Other Not Elsewhere Classified [address] [place] [address])(B ase Operati onal Medicin e Clin) [address] [place] [address])(Bas e Operation al Medicine Clin) OUTPATIENT [id number] Notes Entered by: Kanu SHERIDAN 30 Jun 2017 1159 ------- ------- ------- ------- -- TRI SERVICE PHA NON FLY CARMELITA MORRISSEY 06/30 Released w/o Limitations [address] [place] [address])(B ase Operati onal Medicin e Clin) [address] [place] [address])(Operations Team Leader ecology) OUTPATIENT [id number] WWE dysplas ia pt EL ESTRADA 06/30 Released w/o Limitations [address] [place] [address])(G ynecolo gy) [address] [place] [address])(Operations Team Leader ecology) TELE CONSULT [id number] Notes Entered by: JOSE MAYER 02 Jul 2017 1315 ------- ------- ------- ------- -- Lab results JOSE MAYER 07/02 Referred for Appointment [address] [place] [address])(G ynecodelmer gy) [address] [place] [address])(Operations Team Leader ecology) TELE CONSULT [id number] Notes Entered by: SMILEY RAMOS 08 Jul 2017 1429 ------- ------- ------- ------- -- Test result. SMILEY RAMOS 07/[address] [place] [address])(G ynecodelmer gy) [address] [place] [address])(Bas e Operation al Medicine Clin) OUTPATIENT [id number] Notes Entered by: LEONARDO MARTINEZ 16 Jun 2018 1333 ------- ------- ------- ------- -- TRI-SER VICE NON FLY PHA LEISA EMDINA 06/16 Released w/o Limitations [address] [place] [address])(B ase Operati onal Medicin e Clin) [address] [place] [address])(Operations Team Leader ecology) OUTPATIENT [id number] annual wwe ([facility]) - [phone] EL ESTRADA 07/07 Released w/o Limitations [address] [place] [address])(G ynecolo gy) [address] [place] [address])(Aud iology Procedure s) OUTPATIENT [id number] Notes Entered by: JOSE ZIMMERMAN 07 Jul 2018 1401 ------- ------- ------- ------- -- Retirem ent HONORIO PENNNIGTON 07/07 Released w/o Limitations [address] [place] [address])(A udiolog y Procedu res) [address] [place] [address])(Operations Team Leader ecology) TELE CONSULT [id number] Notes Entered by: GERSON ESTRADA 11 Jul 2018 1106 ------- ------- ------- ------- -- Test results EL ESTRADA 07/[address] [place] [address])(G ynecodelmer gy) [address] [place] [address])(Bas e Operation al Medicine Clin) OUTPATIENT [id number] [facility] K[facility] Steven 07/13 Released w/o Limitations [address] [place] [address])(B ase Operati onal Medicin e Clin) [address] [place] [address])(Operations Team Leader ecology) TELE CONSULT [id number] Notes Entered by: SMILEY RAMOS 26 Jul 2018 0851 ------- ------- ------- ------- -- Test results SMILEY RAMOS 07/26 Referred for Appointment [address] [place] [address])(G ynecodelmer gy) [facility] Outpatient Encounter [id number] ANDERSON,KA JACKSON E 03/29 [facility] Outpatient Encounter [id number] 1 03/29 [facility] Outpatient Encounter [id number] 03/29 [facility] Outpatient Encounter [id number] [id number] Diagnos is: ICD-10- CM R51.9 Headach e, unspeci JUNG Meek 03/29 [facility] Outpatient Encounter [id number] 04/18 [facility] OFFICE O/P EST MOD 30 MIN [id number] [id number] Diagnos is: ICD-10- CM M54.2 Cervica lgia BETHEA,AR MIDA A 04/18 [facility] Outpatient Encounter [id number] 04/19 [facility] ACUPUNCT W/O STIMUL 15 MIN [id number] [id number] Diagnos is: ICD-10- CM M54.2 Cervica lgia BELKIS VENTURA TTHEW J 05/09 [facility] Outpatient Encounter [id number] [id number] 05/12 [facility] Outpatient Encounter [id number] [id number] AKASH RIVERA 05/17 [facility] [id number] [id number] Diagnos is: ICD-10- CM Z71.89 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 stephanie IRBYENSCAMRON AUSTINRory A 05/22 [facility] Outpatient Encounter [id number] [id number] 05/23 [facility] Outpatient Encounter [id number] [id number] 05/23 [facility] Outpatient Encounter [id number] Diagnos is: ICD-10- CM M54.2 Cervica lgia BETHEA,AR MIDA A 05/30 [facility] Outpatient Encounter [id number] [id number] AKASH RIVERA J 05/30 [facility] Outpatient Encounter [id number] [id number] AKASH RIVERA 05/30 [facility] Outpatient Encounter [id number] [id number] 1 06/05 [facility] Outpatient Encounter [id number] [id number] 08/02 [facility] Outpatient Encounter [id number] [id number] 7 MARIANELA BOGGS N 08/02 [facility] Outpatient Encounter [id number] [id number] 10/09 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 [facility] L 10/24 [facility] THERAPEUTI C EXERCISES [id number] [id number] 1 Diagnos is: ICD-10- CM M17.11 Unilate ral primary osteoar thritis , right knee 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 [facility] L 10/31 [facility] THERAPEUTI C EXERCISES [id number] [id number] Diagnos is: ICD-10- CM M17.11 Unilate ral primary osteoar thritis , right knee 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 [facility] L 11/07 [facility] THERAPEUTI C EXERCISES [id number] [id number] Diagnos is: ICD-10- CM M17.11 Unilate ral primary osteoar thritis , right knee 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 [facility] L 11/14 [facility] THERAPEUTI C EXERCISES [id number] [id number] Diagnos is: ICD-10- CM M17.11 Unilate ral primary osteoar thritis , right knee ISABEL GAGE ITH L 11/21 [facility] Outpatient Encounter [id number] [id number] 11/28 [facility] Outpatient Encounter [id number] [id number] 1 12/12 [facility] THERAPEUTI C EXERCISES [id number] [id number] Diagnos is: ICD-10- CM M17.11 Unilate ral primary osteoar thritis , right knee ISABEL GAGE ITH L 12/21 [facility] THERAPEUTI C EXERCISES [id number] [id number] 1 Diagnos is: ICD-10- CM M17.11 Unilate ral primary osteoar thritis , right knee ISABEL GAGE ITH L 01/04 [facility] Outpatient Encounter [id number] [id number] 1 01/12 [facility] Outpatient Encounter [id number] [id number] UZMATX ANNA Bobby 01/18 [facility] PH1 ASSMT&MGMT NQHP 5-10 [id number] [id number] Diagnos is: ICD-10- CM Z71.9 Head Bellhop Captain ing, unspeci fied [place] ORINDA K 01/24 [facility] THERAPEUTI C EXERCISES [id number] [id number] Diagnos is: ICD-10- CM M17.12 Unilate ral primary osteoar thritis , left knee ISABEL GAGE ITH L 01/29 [facility] Outpatient Encounter [id number] [id number] ALFREDO HUITRON A 01/29 [facility] Outpatient Encounter [id number] [id number] PRADIP GUSMAN K 02/09 [facility] CASE MANAGEMENT [id number] [id number] Diagnos is: ICD-10- CM Z59.86 Financi Kanu Chan 02/09 [facility] THERAPEUTI C EXERCISES [id number] [id number] Diagnos is: ICD-10- CM M17.11 Unilate ral primary osteoar thritis , right knee ISABEL GAGE ITH L 02/12 [facility] OFFICE O/P EST MOD 30 MIN [id number] [id number] Diagnos is: ICD-10- CM M54.50 Low back pain, unspeci fied BETHEA,AR MIDA A 02/19 [facility] Outpatient Encounter [id number] [id number] 02/21 [facility] Outpatient Encounter [id number] [id number] 02/22 [facility] Outpatient Encounter [id number] [id number] AKASH RIVERA 03/06 [facility] THERAPEUTI C EXERCISES [id number] [id number] Diagnos is: ICD-10- CM M17.11 Unilate ral primary osteoar thritis , right knee ISABEL GAGE ITH L 03/07 [facility] THERAPEUTI C EXERCISES [id number] [id number] Diagnos is: ICD-10- CM M25.561 Pain in right knee KYARA SCHUSTER EY 03/14 [facility] Outpatient Encounter [id number] [id number] PRADIP GUSMAN K 03/15 [facility] Outpatient Encounter [id number] [id number] 03/20 [facility] THERAPEUTI C EXERCISES [id number] [id number] Diagnos is: ICD-10- CM M17.11 Unilate ral primary osteoar thritis , right knee ISABEL GAGE ITH L 03/26 [facility] THERAPEUTI C EXERCISES [id number] [id number] Diagnos is: ICD-10- CM M17.11 Unilate ral primary osteoar thritis , right knee ISABEL GAGE ITH L 04/02 [facility] MANUAL THERAPY / REGIONS [id number] [id number] Diagnos is: ICD-10- CM M54.50 Low back pain, unspeci fied CATRINA RIVEAR TABITHA 04/04 [facility] [id number] [id number] Diagnos is: ICD-10- CM Z71.89 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 ing CAMRON LY 04/06 [facility] ELECTRIC STIMULATIO N THERAPY [id number] [id number] Diagnos is: ICD-10- CM M17.11 Unilate ral primary osteoar thritis , right knee ISABEL GAGE 04/10 [facility] COACHING INDIV 1ST [id number] Diagnos is: ICD-10- CM Z71.89 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 JOSH Ybarra 04/17 [facility] Outpatient Encounter [id number] [place] ORIANIYAH Bobby 04/25 [facility] Procedures Combined list of: 1) Procedures from Department of [facility] Affairs facilities going back up to thelast 18 months, not all [place] non-surgical procedures are included; 2) All procedures from the Department of Defense facilities. Procedure Procedure Type Code Date Perfomer Comments Sourc e HANDLING AND/OR CONVEYANCE O F SPECIMEN FOR TRANSFER FROM THE OFFICE TO A LABORATORY 04/11/2001 [facility] UNLISTED SPECIAL SERVICE, PROCEDURE OR REPORT 04/07/2001 [facility] DETERMINATION OF REFRACTIVE STATE 02/23/2001 [facility] DIAPHRAGM OR CERVICAL CAP FITTING WITH INSTRUCTIONS 02/06/2000 [facility] CYTOPATHOLOGY, SMEARS, CERVICAL OR VAGINAL, UP TO THREE SMEARS; SCREENING BY TIME STUDY OBSERVER UNDER PHYSICIAN SUPERVISION 01/12/2000 [facility] SCREENING [place]OU SMEAR ; OBTAINING, PREPARING AND CONVEYANCE OF CERVICAL OR VAGINAL SMEAR TO LABORATORY 03/07/2004 [facility] DETERMINATION OF REFRACTIVE STATE 02/22/2004 [facility] COMPUTERIZED CORNEAL TOPOGRAPHY, UNILATERAL 02/14/2004 [facility] ULTRASOUND, UTERUS, REAL TIME WITH IMAGE DOCUMENTATION,TRANSVAGINAL 02/04/2004 [facility] MEDICAL NUTRITION THERAPY; GROUP (2 OR MORE INDIVIDUAL(S)), EACH 30 MINUTES 01/23/2004 [facility] PHYS/OTH QUALIFIED HEALTH SOCIAL AND POLITICAL STUDIES PROFESSOR QUALIFIED,EDUCATION,TRAIN,LIC ENSURE/REGULATION (WHEN APPLICABLE) EDUC SER RENDERED TO PATS IN A GRP SETTING (EG,,OBESITY,OR DIABETIC INSTRUCT) 01/22/2004 [facility] THERAPEUTIC, PROPHYLACTIC OR DIAGNOSTIC INJECTION (SPECIFY MATERIAL INJECTED); SUBCUTANEOUS OR INTRAMUSCULAR 05/25/2003 [facility] INJECTION, MEDROXYPROGESTERONE ACETATE FOR CONTRACEPTIVE USE, 150 MG 03/05/2003 [facility] THERAPEUTIC, PROPHYLACTIC OR DIAGNOSTIC INJECTION (SPECIFY MATERIAL INJECTED); SUBCUTANEOUS OR INTRAMUSCULAR 09/20/2002 [facility] THERAPEUTIC OR DIAGNOSTIC INJECTION (SPECIFY MATERIAL INJECTED); INTRAVENOUS 06/21/2002 [facility] INJECTION, MEDROXYPROGESTERONE ACETATE, 1 MG 06/21/2002 [facility] DETERMINATION OF REFRACTIVE STATE 04/27/2002 [facility] DETERMINATION OF REFRACTIVE STATE 02/21/2002 [facility] NON-STRESS TEST 12/29/2001 [facility] HANDLING AND/OR CONVEYANCE O F SPECIMEN FOR TRANSFER FROM THE PATIENT IN OTHER THAN AN OFFICE TO A LABORATORY (DISTANCE MAY BE INDICATED) 11/08/2001 [facility] UNLISTED PROCEDURE, SKIN, MUCOUS MEMBRANE AND SUBCUTANEOUS TISSUE 10/31/2001 [facility] OTHER MONITORING 10/28/2001 [facility] MANUAL REMOVAL OF RETAINED PLACENTA 10/28/2001 [facility] LOW CERVICAL SECTION 10/28/2001 [facility] INSERTION OF CATHETER INTO SPINAL CANAL FOR INFUSION OF THERAPEUTIC OR PALLIATIVE SUBSTANCES 10/28/2001 [facility] MEDICAL INDUCTION OF LABOR 10/28/2001 [facility] NON-STRESS TEST 10/26/2001 [facility] NON-STRESS TEST 10/24/2001 [facility] NON-STRESS TEST 10/20/2001 [facility] DOPPLER ECHOCARDIOGRAPHY, , PULSED WAVE AND/OR CONTINUOUS WAVE WITH SPECTRAL DISPLAY; COMPLETE 10/04/2001 [facility] DOPPLER ECHOCARDIOGRAPHY, , PULSED WAVE AND/OR CONTINUOUS WAVE WITH SPECTRAL DISPLAY; COMPLETE 09/21/2001 [facility] URINALYSIS, BY DIP STICK OR TABLET REAGENT FOR BILIRUBIN, GLUCOSE, HEMOGLOBIN, KETONES, LEUKOCYTES, NITRITE, PH, PROTEIN, SPEC GRAVITY, UROBILINOGEN, ANY NUMBER OF CONSTITUENTS; W/O MICRO, NON-AUTO 08/30/2001 [facility] URINALYSIS, BY DIP STICK OR TABLET REAGENT FOR BILIRUBIN, GLUCOSE, HEMOGLOBIN, KETONES, LEUKOCYTES, NITRITE, PH, PROTEIN, SPEC GRAVITY, UROBILINOGEN, ANY NUMBER OF CONSTITUENTS; W/O MICRO, NON-AUTO 08/25/2001 [facility] URINALYSIS, BY DIP STICK OR TABLET REAGENT FOR BILIRUBIN, GLUCOSE, HEMOGLOBIN, KETONES, LEUKOCYTES, NITRITE, PH, PROTEIN, SPEC GRAVITY, UROBILINOGEN, ANY NUMBER OF CONSTITUENTS; W/O MICRO, NON-AUTO 08/08/2001 [facility] DOPPLER ECHOCARDIOGRAPHY, , PULSED WAVE AND/OR CONTINUOUS WAVE WITH SPECTRAL DISPLAY; COMPLETE 07/12/2001 [facility] PURE TONE AUDIOMETRY (THRESHOLD), AUTOMATED; AIR ONLY 07/07/2018 [facility] SCREENING PAPANICOLAOU SMEAR ; OBTAINING, PREPARING AND CONVEYANCE OF CERVICAL OR VAGINAL SMEAR TO LABORATORY 07/07/2018 [facility] SCREENING PAPANICOLAOU SMEAR ; OBTAINING, PREPARING AND CONVEYANCE OF CERVICAL OR VAGINAL SMEAR TO LABORATORY 06/30/2017 [facility] ADMINISTRATION OF PATIENT-FOCUSED HEALTH RISK ASSESSMENT INSTRUMENT (EG, HEALTH HAZARD APPRAISAL) WITH SCORING AND DOCUMENTATION, PER STANDARDIZED INSTRUMENT 06/30/2017 [facility] URINE TEST, BY VISUAL COLOR COMPARISON METHODS 07/14/2016 [facility] SCREENING PAPANICOLAOU SMEAR ; OBTAINING, PREPARING AND CONVEYANCE OF CERVICAL OR VAGINAL SMEAR TO LABORATORY 06/29/2016 [facility] SCREENING PAPANICOLAOU SMEAR ; OBTAINING, PREPARING AND CONVEYANCE OF CERVICAL OR VAGINAL SMEAR TO LABORATORY 04/30/2015 [facility] COORDINATED CARE FEE, MAINTENANCE RATE 12/21/2011 [facility] POSTOPERATIVE FOLLOW-UP VISIT, NORMALLY INCLUDED IN THE SURGICAL PACKAGE, INDICATE THAT EVALUATION & MANAGEMENT SERVICE WAS PERFORMED DURING A POSTOPERATIVE PERIOD REASON RELATED ORIGINAL PROCEDURE 12/14/2011 [facility] HYSTEROSCOPY, SURGICAL; WITH SAMPLING (BIOPSY) OF ENDOMETRIUM AND/OR POLYPECTOMY, WITH OR WITHOUT D & C 11/18/2011 [facility] URINE TEST, BY VISUAL COLOR COMPARISON METHODS 09/07/2011 [facility] SCREENING PAPANICOLAOU SMEAR ; OBTAINING, PREPARING AND CONVEYANCE OF CERVICAL OR VAGINAL SMEAR TO LABORATORY 09/03/2011 [facility] TELE ASSESS & MGT SRV PROV QUAL NONPHYS HLTH CARE PRO TO EST PAT,PARENT,GUARD NOT ORIG REL ASSESS & MGT SRV PROV W/IN PREV 7 DAYS NOR LEAD ASSESS & MGT SRV/PX W/IN NXT 24 HR/SOON APT;5-10 MIN MED DIS 08/14/2011 [facility] TELE ASSESS & MGT SRV PROV QUAL NONPHYS HLTH CARE PRO TO EST PAT,PARENT,GUARD NOT ORIG REL ASSESS & MGT SRV PROV W/IN PREV 7 DAYS NOR LEAD ASSESS & MGT SRV/PX W/IN NXT 24 HR/SOON APT;5-10 MIN MED DIS 06/09/2011 [facility] PHYSICAL THERAPY EVALUATION 05/28/2011 DoD TELE ASSESS & MGT SRV PROV QUAL NONPHYS HLTH CARE PRO TO EST PAT,PARENT,GUARD NOT ORIG REL ASSESS & MGT SRV PROV W/IN PREV 7 DAYS NOR LEAD ASSESS & MGT SRV/PX W/IN NXT 24H/SOON APT; 11-20 MIN MED DIS 04/13/2011 [facility] TELE ASSESS & MGT SRV PROV QUAL NONPHYS HLTH CARE PRO TO EST PAT,PARENT,GUARD NOT ORIG REL ASSESS & MGT SRV PROV W/IN PREV 7 DAYS NOR LEAD ASSESS & MGT SRV/PX W/IN NXT 24H/SOON APT; 11-20 MIN MED DIS 04/06/2011 [facility] TELE ASSESS & MGT SRV PROV QUAL NONPHYS HLTH CARE PRO TO EST PAT,PARENT,GUARD NOT ORIG REL ASSESS & MGT SRV PROV W/IN PREV 7 DAYS NOR LEAD ASSESS & MGT SRV/PX W/IN NXT 24 HR/SOON APT;5-10 MIN MED DIS 03/26/2011 [facility] TELE ASSESS & MGT SRV PROV QUAL NONPHYS HLTH CARE PRO TO EST PAT,PARENT,GUARD NOT ORIG REL ASSESS & MGT SRV PROV W/IN PREV 7 DAYS NOR LEAD ASSESS & MGT SRV/PX W/IN NXT 24 HR/SOON APT;5-10 MIN MED DIS 03/17/2011 [facility] TELE ASSESS & MGT SRV PROV QUAL NONPHYS HLTH CARE PRO TO EST PAT,PARENT,GUARD NOT ORIG REL ASSESS & MGT SRV PROV W/IN PREV 7 DAYS NOR LEAD ASSESS & MGT SRV/PX W/IN NXT 24 HR/SOON APT;5-10 MIN MED DIS 02/05/2011 [facility] TELE ASSESS & MGT SRV PROV QUAL NONPHYS HLTH CARE PRO TO EST PAT,PARENT,GUARD NOT ORIG REL ASSESS & MGT SRV PROV W/IN PREV 7 DAYS NOR LEAD ASSESS & MGT SRV/PX W/IN NXT 24 HR/SOON APT;5-10 MIN MED DIS 08/19/2010 [facility] SCREENING PAPANICOLAOU SMEAR ; OBTAINING, PREPARING AND CONVEYANCE OF CERVICAL OR VAGINAL SMEAR TO LABORATORY 06/10/2010 [facility] SCREENING PAPANICOLAOU SMEAR ; OBTAINING, PREPARING AND CONVEYANCE OF CERVICAL OR VAGINAL SMEAR TO LABORATORY 02/22/2009 [facility] CYTOPATHOLOGY, SMEARS, CERVICAL OR VAGINAL, UP TO THREE SMEARS; SCREENING BY TIME STUDY OBSERVER UNDER PHYSICIAN SUPERVISION 03/21/2008 [facility] HEPATITIS B VACCINE (HEPB), ADULT DOSAGE, 3 DOSE SCHEDULE, FOR INTRAMUSCULAR USE 03/14/2008 Do[facility] FITTING OF SPECTACLES, EXCEP T FOR APHAKIA; MONOFOCAL 09/14/2007 Do D REMOVAL IMPACTED CERUMEN REQUIRING INSTRUMENTATION, UNILATERAL 05/03/2007 [facility] SCREENING PAPANICOLAOU SMEAR ; OBTAINING, PREPARING AND CONVEYANCE OF CERVICAL OR VAGINAL SMEAR TO LABORATORY 01/21/2007 [facility] DETERMINATION OF REFRACTIVE STATE 11/18/2006 [facility] FITTING OF SPECTACLES, EXCEP T FOR APHAKIA; MONOFOCAL 11/12/2006 Do D CULTURE, BACTERIAL; AEROBIC ISOLATE, ADDITIONAL METHODS REQUIRED FOR DEFINITIVE IDENTIFICATION, EACH ISOLATE 12/19/2005 [facility] SCREENING PAPANICOLAOU SMEAR ; OBTAINING, PREPARING AND CONVEYANCE OF CERVICAL OR VAGINAL SMEAR TO LABORATORY 12/10/2005 [facility] DETERMINATION OF REFRACTIVE STATE 06/15/2005 [facility] INFUSION, NORMAL SALINE SOLUTION, 250 CC 01/25/2005 [facility] SCREENING PAPANICOLAOU SMEAR ; OBTAINING, PREPARING AND CONVEYANCE OF CERVICAL OR VAGINAL SMEAR TO LABORATORY 10/29/2004 [facility] Social History Combined list of available smoking, tobacco, and other social history from Department of Defense and Veterans Affairs facilities. Social History Type Response Date Comment Sourc e Tobacco smoking status NHIS [place]-TOBACCO NEVER USED 04/18/2024 [facility] History of tobacco use [place]-TOBACCO FORMER USER 06/02/2021 [facility] This section is an empty social history section. DoD Plan of Care List of future care activities from Department of Veterans Affairs facilities. Additional future care activities may be listed in the Assessment and Plan section. Date/Time Care Activity Care Activity Detail Facili ty 06/12/2025 AMBULATORY - NONE AMBULATORY - NONE [facility]
[2025-05-04 19:28] VITALS: BP 140/81; PULSE 109; RESP 20; TEMP 37.1; O2SAT 100
--- OUTSIDE RECORDS SUMMARY | 2025-05-04 19:28 | XMS_ITS | Encounter Summary ---
Author Name [facility] ([place] Organization [facility] ([place] Address [address] [place] [id number] Care Team Providers Care Expense Analyst Name Role Phone SANTA COLLIER Primary Care [...] FEP BASIC FAM Jun 12, 2012 112 [id number] [phone] UGO CABELLO PATIENT ANTHEM [employer] [place] FEP PREFERRED PROVIDER ORGANIZAT ION (PPO) FEP BASIC FAM Jun 12, 2012 112 [id number] [phone] UGO CABELLO SINCERE PATIENT ANTHE[place] FEP PREFERRED PROVIDER ORGANIZAT ION (PPO) FEP BASIC FAM Jun 12, 2012 112 [id number] [phone] UGO CABELLO SINCERE PATIENT [place] FEP PREFERRED PROVIDER ORGANIZAT ION (PPO) FEP BASIC FAM Jun 12, 2012 112 [id number] [phone] UGO CABELLO PATIENT [place] FEP ([id number]) PRESCRIPT ION FEPRX Jun 12, 2012 [id number] [phone] UGO CABELLO PATIENT Selected Encounter This section includes the information on record at [place] for the Encounter. Date/Time Encounter Type Encounter Description Reason Provider Source Oct 24, 2024 01:00 PM THERAPEUTIC EXERCISES PHYSICAL THERAPY ICD-10-CM M17.11 Unilateral primary osteoarthritis, right knee JO GAGE I[facility] Encounter Template Text not used by [place] Assessments - Encounter Diagnoses This section includes the primary and secondary diagnoses documented for the Encounter. Date/Time Primary/Secondary Diagnosis Diagnosis Name Provider Source Oct 24, 2024 03:16 PM PRIMARY Unilateral primary osteoarthritis, right knee JO GAGE [facility] Plan of Treatment: Future Appointments (+ 6 months) and Future Tests (+/- 45 days) The Plan of Treatment section includes future care activities for the patient from all [place] [facility]. This section includes future appointments and future orders which are active, pending or scheduled. Future Appointments This section includes appointments that were scheduled to occur 6 months from the date of the Encounter, up to a maximum of 20 appointments. The data comes from all [place] treatment facilities. Appointment Date/Time Appointment Type Appointme nt Facility Name Oct 31, 2024 01:00 PM AMBULATORY - REHAB [facility] Nov 07, 2024 02:30 PM AMBULATORY - REHAB [facility] Nov 14, 2024 01:30 PM AMBULATORY - REHAB MED[facility] Nov 21, 2024 01:30 PM AMBULATORY - REHAB [facility] Dec 21, 2024 02:30 PM AMBULATORY - REHAB [facility] Jan 04, 2025 02:30 PM AMBULATORY - REHAB [facility] Jan 24, 2025 10:30 AM AMBULATORY - MEDICINE [facility] Jan 29, 2025 02:30 PM AMBULATORY - REHAB MEDICIN [facility] Feb 12, 2025 02:30 PM AMBULATORY - REHAB MEDICIN [facility] February 19, 2025 01:30 PM AMBULATORY - MEDICINE [facility] March 07, 2025 08:00 AM AMBULATORY - REHAB MED[facility] March 14, 2025 08:00 AM AMBULATORY - REHAB [facility] Mar 26, 2025 08:00 AM AMBULATORY - RE[facility]AB [facility] Apr 02, 2025 08:00 AM [facility] Apr 04, 2025 08:30 AM AMBULATORY - NONE [facility] Apr 10, 2025 08:00 AM AMBULATORY - [facility] Apr 17, 2025 01:30 PM AM[facility]ULATORY - NONE [facility] Encounter Notes: All associated encounter notes This section contains the clinical notes associated to the Encounter. Date/Time Encounter Note(s) Provider Source Oct 24, 2024 02:48 PM PHYSICAL THERAPY C ONSULT: LOCAL TITLE: PT CONSULT ST[facility] STANDARD TITLE: PHYSICAL THERAPY CONSULT DATE OF NOTE: OCT 24, 2024@14:48 ENTRY DATE: OCT 24, 2024@14:48:56 AUTHOR: JO GAGE COSIGNER: URGENCY: STATUS: COMPLETED Current PC Provider: SANTA COLLIER Current PC Team: COLE ERNESTINA PACT 6 PCP Current Pat. 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 Date: Oct [...] Therapy Department is needed: Launch Email to [facility] PT [facility] Evaluation and Treatment for: (Please include post-op protocol as appropriate) [facility]. pt is s/p right knee arthroplasty 10/01/24 and is ordered to start PT 2-3x/week for 8-12 weeks. ROM, strengthening, gait training, functional activities, balance/proprioception. HEP instructions , modalities as needed. Responsible attending:Santa Collier Md for [facility] provider Cecilio Reese MD view: Imaging: Chart Review: [facility] including: Referring provider: Josefina Colleir MD Start of Care: 10/24/24 Reevaluation due:11/24/24 POC through:01/22/25 Visits to date: 1 No shows/cancellations: 0 Treatment time: Total mins. 60 Evaluation:25 mins. Therapeutic exercise: 35 mins. Subjective:Pt states that she is having soreness in her right TKA. 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 --Pain Rating (0-10): Current: 0 Best:0 Worst:7 at night --Co-morbidities:LBP;Left TKA 2022 --Personal Factors:administrative hearing officer Currently is teleworking Usually works out on the street --Patient goal(s): Pt reports that her goal is RTW, go to the gym 3X's/week, run Objective:Pt ambulating with a SPC with an antalgic gait Assistive Device:SPC Posture: No problems noted Shallow Squat: able with UE support Strength: Right Left Quads 4-/5 4+/5 Hams 4-/5 4+/5 Right knee ROM:0 to 100d Left knee ROM:0 to 125d Functional ability: sit <-> stand: use BRENDEN's Has CPM at home States that she has 'max'd-out' on the ROM. No home PT Has been doing HEP 1X/day Not driving Treatment: Initial Evaluation Therapeutic exercise: Pt was instructed in and [...] raises->all with UE support. given written HEP In PT today: -Physiostep for 6.0 min -Review of HEP as noted above Assessment: Pt would benefit from PT to address:ROM, strength, gait, balance. PT tolerated well. is a 49 yr female with a dx of right TKA on 10/01/24. 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
--- OUTSIDE RECORDS SUMMARY | 2025-05-04 19:28 | XMS_ITS | Encounter Summary ---
Author Name [facility] of [facility] ([place]) Organization [facility] ([place]) Address [address] [place] [address] Care Team Providers Care As400 Administrator Name Role Phone SANTA COLLIER Primary Care [...] FEP BASIC FAM Jun 12, 2012 112 [id number] [phone] UGO CABELLO PATIENT ANTHEM [place] FEP PREFERRED PROVIDER ORGANIZAT ION (PPO) FEP BASIC FAM Jun 12, 2012 112 [id number] [phone] UGO CABELLO SINCERE PATIENT ANTHEM [place] FEP PREFERRED PROVIDER ORGANIZAT ION (PPO) FEP BASIC FAM Jun 12, 2012 112 [id number] [phone] UGO CABELLO SINCERE PATIENT [place] FEP PREFERRED PROVIDER ORGANIZAT ION (PPO) FEP BASIC FAM Jun 12, 2012 112 [id number] [phone] UGO CABELLO PATIENT [place] FEP ([id number]) PRESCRIPT ION FEPRX Jun 12, 2012 [id number] [phone] UGO CABELLO PATIENT Selected Encounter This section includes the information on record at [place] for the Encounter. Date/Time Encounter Type Encounter Description Reason Provider Source March 14, 2025 08:00 AM THERAPEUTIC EXERCISES PHYSICAL THERAPY ICD-10-CM M25.561 Pain in right knee GEOVANY SCHUSTER Encounter Template Text not used by [place] Assessments - Encounter Diagnoses This section includes the primary and secondary diagnoses documented for the Encounter. Date/Time Primary/Secondary Diagnosis Diagnosis Name Provider Source March 14, 2025 10:57 AM PRIMARY Pain in right knee ABDIRASHID CHAMBERS [facility] Plan of Treatment: Future Appointments (+ 6 months) and Future Tests (+/- 45 days) The Plan of Treatment section includes future care activities for the patient from all [place] [facility]. This section includes future appointments and future orders which are active, pending or scheduled. Future Appointments This section includes appointments that were scheduled to occur 6 months from the date of the Encounter, up to a maximum of 20 appointments. The data comes from all [facility]. Appointment Date/Time Appointment Type Appointme nt Facility Name Mar 26, 2025 08:00 AM AMBULATORY - REHAB MEDICIN E [facility] Apr 02, 2025 08:00 AM AMBULATORY - REHAB MEDICIN E [facility] Apr 04, 2025 08:30 AM AMBULATORY - NONE [facility] Apr 10, 2025 08:00 AM AMBULATORY - REHAB MEDICIN E [facility] Apr 17, 2025 01:30 PM [facility] NONE [facility] Jun 12, 2025 08:30 AM AMBULATORY - NONE [facility] Jun 22, 2025 08:30 AM AMBULATORY - NONE [facility] Jun 29, 2025 08:30 AM AMBULATORY - NONE [facility] Jul 06, 2025 08:30 AM AMBULATORY - NONE [facility] Jul 12, 2025 03:00 PM [facility] Active, Pending, and Scheduled Orders This section includes a listing of several types of active, pending, and scheduled orders, including clinic medications orders, diagnostic test orders, procedure orders and consult orders; where the start date of the order is 45 days before the date of the Encounter or 45 days after the date of theEncounter. The data comes from all [facility]. Test Date/Time Test Type Test Details Facility Name February 19, 2025 12:00 AM Laboratory - Chemistry Order COMPREHENSIVE METABOLIC PANEL GREEN LI/HEP BLD/PLAS PLASMA SP [facility] February 19, 2025 12:00 AM Laboratory - Chemistry Order LIPID PANEL (STL) GREEN LI/HEP BLD/PLAS PLASMA SP ONCE [facility] Lab Results: +/- 30 days of the [...] Type Comment February 20, 2025 02:09 PM [facility] MICRAL/CREAT PROFILE (STL) URINE Specimen Typ e: URINE Comment: uALB/CREAT Ratio Unable to be calculated Unable to calculate due to Microalbumin < 5.0 mg/L Ordering Provider: SANTA COLLIER Report Released Date/Time: February 19, 2025 02:02 PM Reporting Lab: [facility] [address] [facility] [phone] Performing Lab: [facility] [address] [facility] [phone] URINE ALBUMIN (PB-STL) <5.0 mg/L uACR (STL) comment mg/g 0-29 CREATININE URINE/OTHERS 51.0 mg/dL 47-11 0 February 19, 2025 02:05 PM [facility] HGA1C BLOOD Specimen Type: BLOOD No comment entered. Ordering Provider: SANTA COLLIER Report Released Date/Time: February 19, 2025 02:02 PM Reporting Lab: [facility] [address] [facility] [phone] Performing Lab: [facility] [address] [facility] [phone] HGA1C 5.8 4.0-6.0 February 19, 2025 02:05 PM [facility] TSH W/ REFLEX FT4 (STL) PLASMA Specimen Type: PLASMA No comment entered. Ordering Provider: SANTA COLLEIR Report Released Date/Time: February 19, 2025 02:02 PM Reporting Lab: [facility] [address] [place] [phone] Performing Lab: [facility] [address] [place] [phone] TSH 1.441 u[IU]/mL 0.47-5 February 19, 2025 02:05 PM [facility] VITAMIN D, 25-HYDROXY SERUM Specimen Type: SE RUM No comment entered. Ordering Provider: SANTA COLLIER Report Released Date/Time: February 19, 2025 02:02 PM Reporting Lab: [place] [phone] Performing Lab: [address] [phone] VITAMIN D, 25-HYDROXY 28.6 ng/mL L 30-96 February 19, 2025 02:05 PM [facility] CBC BLOOD Specimen Type: BLOOD No comment entered. Ordering Provider: SANTA COLLIER Report Released Date/Time: February 19, 2025 02:02 PM Reporting Lab: [address] [address] Performing Lab: [address] [phone] WBC 7.4 10*3/uL 3.6-11.2 RBC 4.79 10*6/uL [...] Encounter. Date/Time Encounter Note(s) Provider Source March 14, 2025 07:33 AM PHYSICAL MEDICINE REHAB NOTE: LOCAL TITLE: PT DAILY STL STANDARD TITLE: PHYSICAL MEDICINE REHAB NOTE DATE OF NOTE: MARCH 14, 2025@07:33 ENTRY DATE: MARCH 14, 2025@07:33:43 AUTHOR: ABDIRASHID CHAMBERS EXP COSIGNER: URGENCY: STATUS: COMPLETED Current PC Provider: SANTA COLLIER Current PC Team: OLGA DO PACT 6 PCP *WH* Current Pat. Status: Outpatient UCID: [id number] Primary Eligibility: SERVICE CONNECTED 50% to 100%(VERIFIED) Patient Type: [place] OEF/OIF: NO Service Connection/Rated Disabilities [place] Percent: 90% Rated Disabilities: FLAT FOOT CONDITION [...] be rendered on an OUTPATIENT basis Place: Grants Director's choice Urgency: Routine Clinically Ind. Date: Oct [...] Therapy Department is needed: Launch Email to [facility] PT Group Evaluation and Treatment for: (Please include post-op protocol as appropriate) received request for PT from [place] at [facility]. pt is s/p right knee arthroplasty 10/01/24 and is ordered to start PT 2-3x/week for 8-12 weeks. ROM, strengthening, gait training, functional activities, balance/proprioception. HEP instructions , modalities as needed. Responsible attending:Santa Collier Md for NON [place] ortho provider Cecilio Reese MD --- PHYSICAL THERAPY DAILY NOTE for RIGHT TKA on 10/01/25(by outside doctor) Referring provider: Josefina Collier MD Start of Care: 10/24/24 Reevaluation due:11/24/24 POC through:01/22/25 Visits to date: 12 No shows/cancellations: 0 Primary PT: Monet Chen Treatment time: Total mins. 30 Therapeutic exercise: 30 mins. Subjective:Pt states doing about the same. Would like to work on kneeling and squats so she can return to work. 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 Treatment: Therapeutic exercise: Physio step for 8.0 minutes, level 5 forward lunges in // bars x 10 each side backwards lunge onto blue airex+red/yellow mat, 1 UE support on chair x 10 reps bilateral single leg stance, toe taps on 3 cones in front of pt, 3 rounds each direction and 1 round on LLE Pt was instructed in and demonstrated independence [...] knee, toe raises->all with UE support. 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 Signed: 03/14/2025 10:57 ABDIRASHID CHAMBERS [facility]
--- OUTSIDE RECORDS SUMMARY | 2025-05-04 19:28 | XMS_ITS | Encounter Summary ---
Author Name [facility] ([place]) Organization [facility] ([place]) Address [address] [place] [address] Care Team Providers Care Keypuncher Name Role Phone SANTA COLLIER Primary Care [...] FEP BASIC FAM Jun 12, 2012 112 [id number] [phone] UGO CABELLO PATIENT ANTHEM [place] FEP PREFERRED PROVIDER ORGANIZAT ION (PPO) FEP BASIC FAM Jun 12, 2012 112 [id number] [phone] UGO CABELLO SINCERE PATIENT ANTHE[place] FEP PREFERRED PROVIDER ORGANIZAT ION (PPO) FEP BASIC FAM Jun 12, 2012 112 [id number] [phone] UGO CABELLO SINCERE PATIENT [place] FEP PREFERRED PROVIDER ORGANIZAT ION (PPO) FEP BASIC FAM Jun 12, 2012 112 [id number] [phone] UGO CABELLO PATIENT [employer] FEP ([id number]) PRESCRIPT ION FEPRX Jun 12, 2012 [id number] [phone] UGO CABELLO PATIENT Selected Encounter This section includes the information on record at [place] for the Encounter. Date/Time Encounter Type Encounter Description Reason Provider Source Apr 02, 2025 08:00 AM THERAPEUTIC EXERCISES PHYSICAL THERAPY ICD-10-CM M17.11 Unilateral primary osteoarthritis, right knee JO GAGE IHE Encounter Template Text not used by [place] Assessments - Encounter Diagnoses This section includes the primary and secondary diagnoses documented for the Encounter. Date/Time Primary/Secondary Diagnosis Diagnosis Name Provider Source Apr 02, 2025 12:47 PM PRIMARY Unilateral primary osteoarthritis, right knee JO GAGE [facility] Plan of Treatment: Future Appointments (+ 6 months) and Future Tests (+/- 45 days) The Plan of Treatment section includes future care activities for the patient from all [place] [facility]. This section includes future appointments and future orders which are active, pending or scheduled. Future Appointments This section includes appointments that were scheduled to occur 6 months from the date of the Encounter, up to a maximum of 20 appointments. The data comes from all [place] treatment facilities. Appointment Date/Time Appointment Type Appointme nt Facility Name Apr 04, 2025 08:30 AM AMBULATORY - NONE [facility] Apr 10, 2025 08:00 AM AMBULATORY - REHAB MEDICIN E [facility] Apr 17, 2025 01:30 PM AMBULATORY - NONE [facility] Jun 12, 2025 08:30 AM AMBULATORY - NONE [facility] Jun 22, 2025 08:30 AM AMBULATORY - NONE [facility] Jun 29, 2025 08:30 AM AMBULATORY - NONE [facility] Jul 06, 2025 08:30 AM AMBULATORY - NONE [facility] Jul 12, 2025 03:00 PM AMBULATORY - NONE [facility] Active, Pending, and Scheduled Orders This section includes a listing of several types of active, pending, and scheduled orders, including clinic medications orders, diagnostic test orders, procedure orders and consult orders; where the start date of the order is 45 days before the date of the Encounter or 45 days after the date of theEncounter. The data comes from all [facility]. Test Date/Time Test Type Test Details Facility Name February 19, 2025 12:00 AM Laboratory - Chemistry Order COMPREHENSIVE METABOLIC PANEL GREEN LI/HEP BLD/PLAS PLASMA SP [facility] February 19, 2025 12:00 AM Laboratory - Chemistry Order LIPID PANEL (STL) GREEN LI/HEP BLD/PLAS PLASMA SP ONCE [facility] Encounter Notes: All associated encounter notes This section contains the clinical notes associated to the Encounter. Date/Time Encounter Note(s) Provider Source Apr 02, 2025 11:42 AM PHYSICAL MEDICINE REHAB NOTE: LOCAL TITLE: PT DAILY STL STANDARD TITLE: PHYSICAL MEDICINE REHAB NOTE DATE OF NOTE: APR 02, 2025@11:42 ENTRY DATE: APR 02, 2025@11:42:36 AUTHOR: JO GAGE EXP COSIGNER: URGENCY: STATUS: COMPLETED Current PC [...] be rendered on an OUTPATIENT basis Place: Assistant Corporation Counsel's choice Urgency: Routine Clinically Ind. Date: Oct [...] Therapy Department is needed: Launch Email to [facility] PT Group Evaluation and Treatment for: (Please include post-op protocol as appropriate) received request for PT from NON [place] ortho at [facility]. pt is s/p right knee arthroplasty [...] Reevaluation due:11/24/24 POC through:01/22/25 Visits to date: 14 No shows/cancellations: 0 Primary PT: Monet Gage Treatment time: Total mins. 45 Therapeutic exercise: 45 mins. Subjective:Leland states that she continue to have right knee pain with kneeling. She states that she has tried it at home, but it was too painful. Leland states that she has until the end of the month to get ready for her eval. for RTW. Pt states doing about the same. Would to continue to work on kneeling and squats so she can return to work. 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 Treatment: Therapeutic exercise: -Physiostep for 10.0 minutes, level 5 -forward/side lunges in // bars x 10 each side holding a 2 5lb wts -single leg stance -Squats holding a 10lb kettle gutierrez, 10 reps. -SLB with one arm overhead(holding a 4lb wt) and one out to the side. -Practiced kneeling on large foam mat with Airex foam, 2 sets of 5 reps.(going to half kneeling position on right and left knees without use of UE's. -Lateral step-ups with use of UE's on a step, 10 reps. Encouraged pt to try jogging in place Pt was instructed in and demonstrated independence [...] the knee, toe raises->all with UE support. [place] given written HEP Encouraged HEP 2x's/day -Instructed [...] Jo Gage MA, PT Physical Therapist Signed: 04/02/2025 12:47 JO GAGE [facility]
--- OUTSIDE RECORDS SUMMARY | 2025-05-04 19:28 | XMS_ITS | Encounter Summary ---
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 Name Role Phone SANTA COLLIER Primary Care [...] FEP BASIC FAM Jun 12, 2012 112 [id number] [phone] UGO CABELLO PATIENT ANTHEM [place] FEP PREFERRED PROVIDER ORGANIZAT ION (PPO) FEP BASIC FAM Jun 12, 2012 112 [id number] [phone] UGO CABELLO SINCERE PATIENT [place]THE[place] FEP PREFERRED PROVIDER ORGANIZAT ION (PPO) FEP BASIC FAM Jun 12, 2012 112 [id number] [phone] UGO CABELLO SINCERE PATIENT [place] FEP PREFERRED PROVIDER ORGANIZAT ION (PPO) FEP BASIC FAM Jun 12, 2012 112 [id number] [phone] UGO CABELLO PATIENT [employer] FEP ([id number]) PRESCRIPT ION FEPRX Jun 12, 2012 [id number] [phone] UGO CABELLO PATIENT Selected Encounter This section includes the information on record at [place] for the Encounter. Date/Time Encounter Type Encounter Description Reason Provider Source Nov 14, 2024 01:30 PM THERAPEUTIC EXERCISES PHYSICAL THERAPY ICD-10-CM M17.11 Unilateral primary osteoarthritis, right knee JO GAGE IHE Encounter Template Text not used by [place] Assessments - Encounter Diagnoses This section includes the primary and secondary diagnoses documented for the Encounter. Date/Time Primary/Secondary Diagnosis Diagnosis Name Provider Source Nov 14, 2024 03:33 PM PRIMARY Unilateral primary osteoarthritis, right knee JO GAGE [facility] Plan of Treatment: Future Appointments (+ 6 months) and Future Tests (+/- 45 days) The Plan of Treatment section includes future care activities for the patient from all [place] treatmentfacilities. This section includes future appointments and future orders which are active, pending or scheduled. Future Appointments This section includes appointments that were scheduled to occur 6 months from the date of the Encounter, up to a maximum of 20 appointments. The data comes from all [place] treatment facilities. Appointment Date/Time Appointment Type Appointme nt Facility Name Nov 21, 2024 01:30 PM AMBULATORY - REHAB MEDICIN E [facility] Dec 21, 2024 02:30 PM AMBULATORY - REHAB MEDICIN E [facility] Jan 04, 2025 02:30 PM AMBULATORY - REHAB MEDICIN E [facility] Jan 24, 2025 10:30 AM AMBULATORY - MEDICINE [facility] Jan 29, 2025 02:30 PM AMBULATORY - REHAB MEDICIN E [facility] Feb 12, 2025 02:30 PM AMBULATORY - REHAB MEDICIN E [facility] February 19, 2025 01:30 PM AMBULATORY - MEDICINE [facility] March 07, 2025 08:00 AM AMBULATORY - REHAB MEDICIN E [facility] March 14, 2025 08:00 AM AMBULATORY - REHAB MEDICIN E [facility] Mar 26, 2025 08:00 AM AMBULATORY - REHAB MEDICIN E [facility] Apr 02, 2025 08:00 AM AMBULATORY - REHAB MEDICIN E [facility] Apr 04, 2025 08:30 AM AMBULATORY - NONE [facility] Apr 10, 2025 08:00 AM AMBULATORY - REHAB MEDICIN E [facility] Apr 17, 2025 01:30 PM AMBULATORY - NONE [facility] Encounter Notes: All associated encounter notes This section contains the clinical notes associated to the Encounter. Date/Time Encounter Note(s) Provider Source Nov 14, 2024 03:16 PM PHYSICAL MEDICINE REHAB NOTE: LOCAL TITLE: PT DAILY ST STANDARD TITLE: PHYSICAL MEDICINE REHAB NOTE DATE OF NOTE: NOV 14, 2024@15:16 ENTRY DATE: NOV 14, 2024@15:17 AUTHOR: JO GAGE COSIGNER: URGENCY: STATUS: COMPLETED [...] be rendered on an OUTPATIENT basis Place: Roller Mechanic's choice Urgency: Routine Clinically Ind. Date: Oct [...] for PT from NON [facility] ortho at [facility]. pt is s/p right knee arthroplasty 10/01/24 and is ordered to start PT 2-3x/week for 8-12 weeks. ROM, strengthening, gait training, functional activities, balance/proprioception. HEP instructions , modalities as needed. Responsible attending:Santa Collier Md for NON [place] ortho provider Cecilio Reese MD view: Imaging: Chart Review: H including: PHYSICAL THERAPY DAILY NOTE for RIGHT TKA on 10/01/25(by outside doctor) Referring provider: Josefina Collier MD Start of Care: 10/24/24 Reevaluation due:11/24/24 POC through:01/22/25 Visits to date: 4 No shows/cancellations: 0 Treatment time: Total mins. 35 Therapeutic exercise: 35 mins. Subjective:Pt states that she got a good report from orthopedic doctor last week. Doctor felt she was progressing well with PT. 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 [place] given written HEP Encouraged HEP 2x's/day In PT today: -Physiostep for 7.0 min -Leg press with 60 lbs, 2 sets of 10 reps. -Toe raises and calf/ham stretch on step with UE support, 10 reps. -Tandem walking in parallel bars with back wards walking, 3 laps. -Balancing on BOSU ball in parallel bars, and with rocking forward and back, 10 reps. each. -Step-ups on Bosu ball, with RLE, 10 reps. -Stretching into knee fl on step, 10 reps. 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
--- OUTSIDE RECORDS SUMMARY | 2025-05-04 19:28 | XMS_ITS | Encounter Summary ---
Author Name [facility] ([place] Organization [facility] ([place]) Address [address] [place] [address] Care Team Providers Care Data Capture Clerk Name Role Phone [place] Primary Care Provider Unavailshekhar eastman Insurance Providers: [...] FEP BASIC FAM Jun 12, 2012 112 [id number] [phone] UGO CABELLO PATIENT [place]THE[place] FEP PREFERRED PROVIDER ORGANIZAT ION (PPO) FEP BASIC FAM Jun 12, 2012 112 [id number] [phone] UGO CABELLO SINCERE PATIENT AN[place] FEP PREFERRED PROVIDER ORGANIZAT ION (PPO) FEP BASIC FAM Jun 12, 2012 112 [id number] [phone] UGO CABELLO SINC[place] PATIENT [place] FEP PREFERRED PROVIDER ORGANIZAT ION (PPO) FEP BASIC FAM Jun 12, 2012 112 [id number] [phone] UGO CABELLO PATIENT [place] FEP ([id number]) PRESCRIPT ION FEPRX Jun 12, 2012 [id number] [phone] UGO CABELLO PATIENT Selected Encounter This section includes the information on record at [place] for the Encounter. Date/Time Encounter Type Encounter Description Reason Provider Source Apr 10, 2025 08:00 AM ELECTRIC STIMULATION THERAPY PHYSICAL THERAPY ICD-10-CM M17.11 Unilateral primary osteoarthritis, right knee LIGMAN,JO L IHE Encounter Template Text not used by [place] Assessments - Encounter Diagnoses This section includes the primary and secondary diagnoses documented for the Encounter. Date/Time Primary/Secondary Diagnosis Diagnosis Name Provider Source Apr 10, 2025 10:11 AM PRIMARY Unilateral primary osteoarthritis, right knee JO GAGE [facility] Plan of Treatment: Future Appointments (+ 6 months) and Future Tests (+/- 45 days) The Plan of Treatment section includes future care activities for the patient from all [place] treatmentfacilities. This section includes future appointments and future orders which are active, pending or scheduled. Future Appointments This section includes appointments that were scheduled to occur 6 months from the date of the Encounter, up to a maximum of 20 appointments. The data comes from all [facility]. Appointment Date/Time Appointment Type Appointme nt Facility Name Apr 17, 2025 01:30 PM AMBULATORY - NONE [facility] Jun 12, 2025 08:30 AM AMBULATORY - NONE [facility] Jun 22, 2025 08:30 AM AMBULATORY - NONE [facility] Jun 29, 2025 08:30 AM AMBULATORY - NONE [facility] Jul 06, 2025 08:30 AM AMBULATORY - NONE [facility] Jul 12, 2025 03:00 PM AMBULATORY - NONE [facility] Active, Pending, and Scheduled Orders This section includes a listing of several types of active, pending, and scheduled orders, including clinic medications orders, diagnostic test orders, procedure orders and consult orders; where the start date of the order is 45 days before the date of the Encounter or 45 days after the date of theEncounter. The data comes from all [facility]. Test Date/Time Test Type Test Details Facility Name May 18, 2025 12:00 AM Imaging - Mammogra phy Order MAMM SCREENING WITH CAD-P RIGHT, LEFT [facility] Encounter Notes: All associated encounter notes This section contains the clinical notes associated to the Encounter. Date/Time Encounter Note(s) Provider Source Apr 10, 2025 09:58 AM PHYSICAL MEDICINE REHAB NOTE: LOCAL TITLE: PT DAILY [facility] STANDARD TITLE: PHYSICAL MEDICINE REHAB NOTE DATE OF NOTE: APR 10, 2025@09:58 ENTRY DATE: APR 10, 2025@09:58:58 AUTHOR: JO GAGE COSIGNER: URGENCY: STATUS: COMPLETED [...] be rendered on an OUTPATIENT basis Place: Cement Worker's choice Urgency: Routine Clinically Ind. Date: Oct [...] Therapy Department is needed: Launch Email to [facility] PT [facility] Evaluation and Treatment for: (Please include post-op protocol as appropriate) [facility]. pt is s/p right knee [...] Reevaluation due:11/24/24 POC through:01/22/25 Visits to date: 15 No shows/cancellations: 5 Primary PT: Jo Gage MA, PT Treatment time: Total mins. 35 Therapeutic exercise: 35 mins. Subjective: states that she is having more knee pain that is going into her right foot. No reports of injury or anything unusual happening. She states that she saw her surgeon who stated that he thought she doing well, but should continue PT. [place] states that she continue to have right knee pain with kneeling. states that she has until the end of the month to get ready for her eval. for RTW. Pt states doing about the same. Would to continue to work on kneeling and squats so she can return to work. 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 HELD EXERCISES TODAY DUE TO PAIN EXCEPT FOR PHYSIOSTEP FOR 8.0 MIN. Treatment: Therapeutic exercise: -Physiostep for 10.0 minutes, [...] the knee, toe raises->all with UE support. [place] given written HEP Encouraged HEP 2x's/day -Instructed in hip strengthening ex's. *Sidelying clam shells->partial and with hip lift, 10 reps. each, X2 *Sit to stands, 10 reps. *AROM of the hip in standing with ankle weight *Marching step in standing with ankle weight 04/10/25 EMS for pain control to the right knee for 15 min. [place] states that she felt a little less pain following treatment. Other exercises held today due to pain complaints. 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 Will see in 1 week for strengthening, [...] Jo Gage MA, PT Physical Therapist Signed: 04/10/2025 10:11 JO GAGE [facility]
--- OUTSIDE RECORDS SUMMARY | 2025-05-04 19:28 | XMS_ITS | Data Portability ---
Author Organization [facility] OFFICE Address [address] [place] [address] Care Team Providers Care Project Scientist Name Role Phone ESTEBAN LOMELI Primary Care Provider [phone] Assessment No assessment recorded. Plan of Treatment Reminders Order Date Submit Date Provider Last Modified By Organization Details Last Modified Time Details Appointments None recorded. Lab None recorded. Referral None recorded. Procedures None recorded. Surgeries None recorded. Imaging None recorded. Medication Orders Jardiance 10 mg tablet 2023 024 [place] [facility] [employer] #[id number], [address], [place], [id number], 4 13:24:28 magnesium oxide 400 mg (241.3 mg magnesium) tablet 2020 021 [id number], [address] [facility], [place], [place], [id number], 2 17:28:20 metoprolol succinate ER 25 mg tablet,ext ended release 24 hr 2020 021 [id number], [address] [facility], [place], [place], [id number], 2 17:28:17 Patient TargetsNo targets recorded. Patient Instructions Encounter Date Encounter Id Patient Instructions Last Modified By Organization Details Last Modified Time 11/28/2020 [id number] supraventricular tachycardia: care instructions [email or web address] Not available 11/28/2020 16:33:02 Scribed by Ayala Marquez [facility] Not available 11/28/2020 16:32:25 01/30/2021 [id number] supraventricular tachycardia: care instructions [email or web address] Not available 02/19/2021 12:01:48 12/02/2021 [id number] palpitations: ca re instructions [email or web address] Not available 12/03/2021 12:59:07 Reason for Referral None Reported. Results Created Date Observation Date Name Description Value Unit Range Abnormal Flag Note LastModifiedBy Organization Detail LastModifiedTime 11/26/19 21 10/31/2019 , echoc ardio gram No observ ation record ed. [email or web address] Not Available 2020 11:19:53 11/26/19 21 10/30/2019 XR, chest No observ ation record ed. [email or web address] Not Available 2020 11:23:29 11/26/19 21 10/30/2019 elect rocar diogr am No observ ation record ed. [email or web address] Not Available 2020 11:31:48 12/04/19 21 11/28/2020 elect rocar diogr am No observ ation record ed. [email or web address] Not Available 2020 13:02:10 12/04/19 21 11/22/2020 elect rocar diogr am No observ ation record ed. [email or web address] Not Available 2020 13:04:28 12/19/19 21 10/30/2019 XR, chest , 2 view No observ ation record ed. [email or web address] Not Available 2020 14:12:17 08/24/20 24 10/29/2022 XR, chest , 2 view No observ ation record ed. [email or web address] Not Available 2023 15:05:40 08/30/20 24 08/29/2024 elect rocar diogr am No observ ation record ed. [email or web address] Not Available 2023 09:56:19 09/15/20 24 09/13/2024 , echoc ardio gram No observ ation record ed. [email or web address] Not Available 2023 08:35:13 Result Notes None recorded. Problems Name Problem SNOMED Code Status Onset Date Resolution Date Notes Provider Name and Address Organization Details Recorded Time Exposure to tuberculosi s 0047395027842 Active 2018 Bryanna Abraham [place], [place] - [facility] 9 15:31:55 Ringing in ear 424166650 Active 2018 Bryanna [place] - [facility] 9 15:32:05 Backache 699096066 Active 2018 Bryanna [place] - [facility] 9 15:32:13 Easy bruising 329654882 Active 2018 Bryanna [place] - [facility] 9 15:32:23 Supraventri cular tachycardia 9260255 Active 2018 Javier Lukei [place], [place] - [facility] 9 16:27:47 Dyspnea on exertion 91954139 Active 2018 Javier Monsalve [facility], [place] - [facility] 9 16:28:42 Palpitation s 35741609 Active 2019 [facility], [place] - [facility] 0 15:44:19 Problem Notes None recorded. Procedures Surgical History Date Name Laterality Status Provider Name and Address Organization Details Recorded Time delivery completed [facility] - [facility] 11/10/2019 15:39:03 operative procedure on knee completed Bryanna Abraham [place] - [facility] 12/15/2018 15:41:36 Cholecystectomy completed [facility] [place] - [facility] 11/10/2019 15:33:46 Unlisted procedure shoulder completed [facility] - [facility] 08/06/2021 16:32:01 Shoulder joint surgery completed [facility] - [facility] 08/29/2024 06:49:23 Imaging Results None recorded. Procedure Notes None recorded. Medical Equipment None Reported. Allergies Allergen ID Allergen Name Allergen Category Reaction Reaction Severity Criticality Documentation Date Start Date Code Code System Note Provider Name and Address Organization Details Recorded Time 7773 morphine medicatio n Not available Not available Not available 12/15/2018 7052 RxNorm Bryanna [place]ckeon, [place] - [facility] 9 15:46:18 Medications Name Sig Start Date Stop Date Status Note LastModified by Organization Details LastModified Time cyclobenza melissa 10 mg tablet TAKE 1 TABLET BY MOUTH AT BEDTIME NEEDED 01/30 completed Not Available Not Available Not Available amoxicilli n 500 mg capsule 12/15 completed Not Available Not Available Not Available promethanumi ne-DM 6.25 mg-15 mg/5 mL oral syrup 05/06 completed pt not taking Not Available Not Available Not Available clindamyci n HCl 300 mg capsule 12/15 completed Not Available Not Available Not Available ibuprofen 800 mg tablet Take 1 tablet every day by oral route as needed. 11/13 completed Not Available Not Available Not Available ofloxacin 0.3 % eye drops 05/06 completed pt. no longer takes 11/13/19 20 FH Not Available Not Available Not Available fluconazol e 150 mg tablet TAKE 1 TABLET BY MOUTH NOW. MAY REPEAT IN 3 DAYS. IF SYMPTOMS CONTINUE 08/29 completed Not Available Not Available Not Available hydrocodon e 5 mg-acetami nophen 325 mg tablet TAKE 1 TO 2 TABLETS BY MOUTH EVERY 4 HOURS NEEDED FOR PAIN active Not Available Not Available No t Available metronidaz ole 0.75 % (37.5 mg/5 gram) vaginal gel 05/06 completed pt. no longer takes 11/13/19 20 FH Not Available Not Available Not Available ondansetro n HCl 4 mg tablet active Not Available Not Available Not Available clobetasol 0.05 % topical cream 08/29 completed Not Available Not Available Not Available penicillin V potassium 500 mg tablet 12/15 completed Not Available Not Available Not Available phentermin e 37.5 mg tablet TAKE 1 TABLET BY MOUTH EVERY DAY 08/29 completed Not Available Not Available Not Available aspirin 81 mg tablet,del ayed release Take 1 tablet every day by oral route. active Not Available Not Available No t Available triamcinol one acetonide 0.1 % topical cream 12/15 completed Not Available Not Available Not Available amoxicilli n 500 mg tablet Take 1 mg 3 times a day by oral route as directed . 01/26 completed Not Available Not Available Not Available oxycodone- acetaminop hen 5 mg-325 mg tablet 08/29 completed no longer take 12/02/19 22 mb Not Available Not Available Not Available magnesium oxide 400 mg (241.3 mg magnesium) tablet TAKE 1 TABLET BY MOUTH EVERY OTHER DAY 12/02 completed Not Available Not Available Not Available doxycyclin e monohydrat e 100 mg capsule 12/15 completed Not Available Not Available Not Available levothyrox ine 50 mcg tablet TAKE 1 TABLET BY MOUTH EVERY DAY active Not Available Not Available No t Available tobramycin 0.3 % eye drops 05/06 completed pt. no longer takes 11/13/19 20 FH Not Available Not Available Not Available diclofenac sodium 75 mg tablet,del ayed release TAKE 1 TABLET BY MOUTH TWICE DAILY NEEDED 08/29 completed Not Available Not Available Not Available metoprolol succinate ER 25 mg tablet,ext ended release 24 hr TAKE 0.5 TABLET BY MOUTH DAILY AT BEDTIME DIRECTED 12/02 completed Not Available Not Available Not Available clobetasol 0.05 % topical ointment APPLY TO LEGS / TRUNKS TWICE DAILY FOR 7 DAYS THEN NEEDED 08/29 completed Not Available Not Available Not Available betamethas one dipropiona te 0.05 % topical ointment 12/15 completed Not Available Not Available Not Available ondansetro n 4 mg disintegra ting tablet 08/29 completed Not Available Not Available Not Available fluticason e propionate 50 mcg/actuat ion nasal spray,susp ension 05/06 completed pt not taking 05/06/20 Not Available Not Available Not Available naproxen 500 mg tablet TAKE 1 TABLET BY MOUTH TWICE DAILY NEEDED active Not Available Not Available No t Available amoxicilli n 875 mg-potassi um clavulanat e 125 mg tablet 12/15 completed Not Available Not Available Not Available calcipotri chad 0.005 % topical ointment APPLY TO SPOTS TWICE DAILY NEEDED 08/29 completed Not Available Not Available Not Available moxifloxac in 0.5 % eye drops 08/29 completed Not Available Not Available Not Available metoprolol tartrate 25 mg tablet Take 1 tablet every day by oral route as directed for 30 days. 01/26 completed States she is no longer taking Not Available Not Available Not Available nitrofuran toin monohydrat e/macrocry stals 100 mg capsule 12/15 completed Not Available Not Available Not Available multivitam in 08/29 completed Not Available Not Available Not Available diclofenac 1 % topical gel 08/29 completed Not Available Not Available Not Available calcipotri chad-betame thasone 0.005 %-0.064 % topical suspension APPLY EXTERNAL LY TO THE AFFECTED AREA ON ARMS AND LEGS TWICE DAILY NEEDED 08/29 completed Not Available Not Available Not Available Jardiance 10 mg tablet Take 1 tablet every day by oral route for 90 days. 2023 active Not Available Not Available Not Avai lable Blisovi Fe 11/06 (28) 1 mg-20 mcg (21)/75 mg (7) tablet TAKE 1 TABLET BY MOUTH EVERY DAY 08/29 completed Not Available Not Available Not Available Taltz Autoinject or 80 mg/mL subcutaneo us active Not Available Not Available Not Available Fluarix Quad 5359-8565 (PF) 60 mcg (15 mcg x 4)/0.5 mL IM syringe 12/15 completed Not Available Not Available Not Available ID NOW COVID-19 Test Kit TEST DIRECTED TODAY 08/29 completed Not Available Not Available Not Available Vitals Date Recorded Body height Body mass index (BMI) Body weight Heart rate Oxygen saturation Oxygen saturation in Arterial blood by Pulse oximetry Body temperature Systolic And Diastolic Provider Name and Address Organization Details Last Updated DateTime 1 162.56 cm 33.6 kg/m2 04799.1 g 79 /min 98 % 98 % 96.5 [degF] 110/84 mm[Hg] JOVANA WEBER [facility] [place] 1 16:21:46 Date Recorded Body height Body mass index (BMI) Body weight Heart rate Oxygen saturation Oxygen saturation in Arterial blood by Pulse oximetry Systolic And Diastolic Provider Name and Address Organization Details Last Updated DateTime 2 162.56 cm 35.5 kg/m2 58207.6 2 g 85 /min 98 % 98 % 118/76 mm[Hg] Maude Lindsey [facility] 2 17:24:00 Date Recorded Body height Body mass index (BMI) Body weight Heart rate Oxygen saturation Oxygen saturation in Arterial blood by Pulse oximetry Body temperature Systolic And Diastolic Provider Name and Address Organization Details Last Updated DateTime 1 162.56 cm 32.8 kg/m2 37578.1 4 g 71 /min 98 % 98 % 97.5 [degF] 118/71 mm[Hg] Martha Burch [facility] [place] 1 12:17:05 Date Recorded Body height Body mass index (BMI) Body weight Heart rate Respiratory rate Oxygen saturation Oxygen saturation in Arterial blood by Pulse oximetry Systolic And Diastolic Provider Name and Address Organization Details Last Updated DateTime 4 162.56 cm 38.8 kg/m2 240261. 88 g 61 /min 18 /min 97 % 97 % 152/88 mm[Hg] Suzi Mariusz [facility] [place] 4 10:49:48 Date Recorded Body height Body mass index (BMI) Body weight Heart rate Oxygen saturation Oxygen saturation in Arterial blood by Pulse oximetry Systolic And Diastolic Provider Name and Address Organization Details Last Updated DateTime 4 162.56 cm 39.3 kg/m2 232873. 65 g 74 /min 94 % 94 % 124/82 mm[Hg] Suzi Mariusz [facility] 4 11:30:06 Social History Question Answer Notes LastModified by Camerama Details LastModified Time Tobacco Smoking Status Never Smoker Not Available [facility] 08/20/2020 03:30:41 What Is Your Level Of Caffeine Consumption? Occasional [id number] Information not available 08/20/2020 How Much Tobacco Do You Chew? None [id number] Information not available 08/20/2020 Which Illicit Or Recreational Drugs Have You Used? No [id number] Information not available 08/20/2020 Live Alone Or With Others? With Others Information not available 12/15/2018 Marital Status Informatio n not available 12/15/2018 What Was The Date Of Your Most Recent Tobacco Screening? 12/15/2018 [id number] Information not available 08/20/2020 How Many Children Do You Have? 2 [id number] Information not available 08/20/2020 How Much Tobacco Do You Smoke? No [id number] Information not available 08/20/2020 How Many Years Have You Smoked Tobacco? 0 [id number] Information not available 08/20/2020 Sex: Unknown Functional Status Question Answer Note LastModified by Camerama Details LastModified Time What is your level of alcohol consumption? None [id number] Information not available 08/20/2020 Do you or have you ever used smokeless tobacco? Never used smokeless tobacco [id number] Information not available 08/20/2020 What is your occupation? [employer] [id number] Information not available 08/20/2020 Do you or have you ever used e-cigarettes or vape? Never used electronic cigarettes [id number] Information not available 08/20/2020 What is your exercise level? Moderate [id number] Information not available 08/20/2020 Mental Status None recorded. Family History Relationship Description Onset Age of this Age Resolved Age Notes LastModified by Organization Details LastModified Time Sister Diabetes mellitus [email or web address] Not available 2018 15:32:34 Mother Hypertensive disorder [email or web address] Not available 2018 15:32:44 Mother Heart irregularly irregular [email or web address] Not available 2018 15:33:13 Brother Hyperlipidem ia [email or web address] Not available 2018 15:33:00 Father Hyperlipidem ia [email or web address] Not available 2018 15:33:00 Father Cerebrovascu lar accident [email or web address] Not available 15:33:18 Medical History Condition Response Arrhythmia Y Gynecological HistoryNo gynecological history recorded. Obstetrics History GPAL:G 0 P 0 0 0 0 Past Encounters Encounter ID Performer Location Encounter Start Date Encounter Closed Date Diagnosis/Indication Diagnosis SNOMED-CT Code Diagnosis ICD10 Code Diagnosis Note [id number] Javier Monsalve MD [place] [facility] [place] [address] 12/15/2018 15:02:54 12/15/2018 16:30:47 Supraventricular tachycardia 5910451 I47.1 resolved. Pt had recently episode which converted to NSR in ER.cont Metoprolol for nowHolterw ill consider referral to EP for evaluation and possible ablation Dyspnea on exertion 6084 5006 R06.09 Patient presents with CANTRELL which could be equivalent of angina.Giv en the history, exam findings and intermedia te cardiac risk factors, I feel additional investigat ion is warranted. I have made arrangemen ts in the near future for an exercise stress echocardio gram to evaluate for any ischemia, structural heart disease, or exercise induced arrythmia. The procedure was discussed with the patient, and risks, benefits, and alternativ e options were explained. Appropriat e labwork has not been performed recently, therefore I have made arrangemen ts for further testing. I have asked the patient to curtail exercise and activities until our investigat ion is complete. [id number] Javier Monsalve MD [place] [facility] [place] [address] 01/26/2019 17:23:39 01/26/2019 18:01:04 Supraventricular tachycardia 3166103 I47.1 resolved. Pt had recently episode which converted to NSR in ER.cont Metoprolol Holterwill consider referral to EP for evaluation and possible ablation if recurrent Dyspnea on exertion 6084 5006 R06.09 [place] meds [id number] Javier Monsalve MD [place] [facility] [address] [place] [address] 11/13/2019 17:22:45 11/13/2019 18:01:19 Supraventricular tachycardia 2648401 I47.1 resolved. Pt had recently episode which converted to NSR in ER.cont Metoprolol and ASAwill consider referral to EP for evaluation and possible ablation if recurrent Dyspnea on exertion 6084 5006 R06.09 stress test negativeco nt meds [id number] Jona Santiago MD [facility] [facility] [address] [place] [address] 05/06/2020 16:45:36 05/06/2020 18:47:26 Supraventricular tachycardia 5599367 I47.1 resolved. cont Metoprolol . Will decrease dose to 12.5 as her heart rate is 51 and she reports fatigue.Cynthia valadez D/C ASAConside r referral to EP for evaluation and possible ablation if recurrent Dyspnea on exertion 6084 5006 R06.09 stress test negativeco nt meds Obesity 813919132 E66.9 Weight loss, 20 pounds Exercise advised Low cholestero l diet advised Low sodium diet advised. [id number] Javier Monsalve MD [facility] [facility] [address] [place] [address] 11/28/2020 16:06:04 11/28/2020 16:59:53 Supraventricular tachycardia 2497505 I47.1 resolved. cont Metoprolol . Will decrease dose to 12.5 as her heart rate is 51 and she reports fatigue.Desir pplement electrolyt esWill refer to EP for evaluation and possible ablation Dyspnea on exertion 6084 5006 R06.09 stress test negativeco nt meds Obesity 497389292 E66.9 Weight loss, 20 pounds Exercise advised Low cholestero l diet advised Low sodium diet advised. [id number] Javier Monsalve MD [facility] [address] [place] [address] 01/30/2021 12:10:12 02/19/2021 12:02:01 Supraventricular tachycardia 7895509 I47.1 s/p ablation McPike Feels better on Toprol 50 Dyspnea on exertion 6084 5006 R06.09 stress test negativeco nt meds Obesity 845937000 E66.9 Weight loss, 20 pounds Exercise advised Low cholestero l diet advised Low sodium diet advised. [id number] [facility] [address] [place] [address] [place] [address] 12/02/2021 17:19:04 12/03/2021 14:49:06 Dyspnea on exertion 61321620 R06.09 stress test negativeco nt meds Palpitations 12482011 R0 0.2 SVT s/p ablation. asymptomat ic till COVID infectionp ulmonary eval [id number] Melchor Koch MD [place] [facility] [place] [address] 08/29/2024 10:18:56 08/29/2024 11:23:30 Dyspnea on exertion 23384661 R06.09 Obtain echo to evaluate for structural /functiona l disease. Palpitations 45668819 R0 0.2 SVT s/p ablation. asymptomat ic till COVID infection Essential hypertension 71495771 I10 Obtain echo to evaluate for structural /functiona l disease.Bl ood pressure is elevated today, but this is only one reading, will keep close follow up, and consider medication change if blood pressure is still elevated next visit. Obstructiv e sleep apnea syndrome 72979287 G47.33 May need sleep study Pre-surger y evaluation 108606207 Z01.818 Obtain echo to evaluate for structural /functiona l disease. [id number] Melchor Koch MD [facility] [address] [place] [address] 09/26/2024 11:18:55 09/26/2024 11:57:21 Palpitations 24204003 R00.2 SVT s/p ablation. asymptomat ic till COVID infection Essential hypertension 81110225 I10 Now well controlled Obstructiv e sleep apnea syndrome 75984473 G47.33 May need sleep study Pre-surger y evaluation 266518247 Z01.818 There is no cardiac contraindi cation for the procedure. The planned procedure would be within acceptable risk. Health Concerns Section Related Observation LastModified by Organization Detai ls LastModified Time None Recorded Concern Status LastModified by Organization Details LastModified Time None Recorded Advance Directives Directive None Recorded Payers Insurance Date Sequence Insurance Name Policy Number Policy Phipps Covered Member ID Phipps Member ID Guarantor Name 04/24/2025 1 [place] 112 Kayla Blancas [id number] Kayla Blancas Notes Date Note Type Note Provider Name and Address Organization Details Recorded Time 11/28/2020 text/html 11/29/2020 CC : Palpitation fu 45 y/o female with h/o SVT is here for follow up . She was last seen 6 months ago. She has been to [place] ER with SVT twice since last visit. The last time was on 11/22/20. Magali got two doses of adenosine and was converted to NSR. Her metoprolol was increased back to 25mg daily and she was discharged home. No evidence of AFib. previously,She was in [facility] in 10/30/19 because of Palpitation . Pt has some palpitations for hours before admission to [facility]. ECHO at that time showed normal LV systolic function (LVEF 55-60%). since dc she feels fine. no more episodes. states that her BP is good She states that was dgn with SVT which resolved in ER after medications. She had cardioversion at one time. Review of records shows that pt received 6 then 12 mh of adenosine. 12/03 pt was evaluated in ER and was advised to fu with pediatric np. Pt had similar symptoms few years before. She was admitted to hospital. No recurrence till now. Pt does workout all the time and recently was related to physical activity. pt had root canal pt was told that she had SVT in hospital. Pt never had EP evaluation. No known history of coronary artery disease. No history of previous myocardial infarction. No history of heart failure. No known valvular heart disease. No known arrhythmia. Patient reports feeling well overall. Patient is active, but is not exercising regularly. No known history of coronary artery disease. No history of previous myocardial infarction. No history of heart failure. No known valvular heart disease. History of arrhythmia reported. Patient reports feeling well overall. Patient is active, but is not exercising regularly. No chest pain. No arm pain. No neck pain. No nausea and vomiting. No diaphoresis. No shortness of breath at rest. No dyspnea on exertion. No fatigue.No orthopnea. No PND. No leg swelling. No palpitation. No dizziness. No syncope . No pre-syncope. No claudication. No major bleeding events. No side effects from medications. Complete ROS negative except as stated in the HPI and ROS. Results from this visit, or from the past: 10/30/19 PT/INR: PT: 13.2, INR 1.0BMP, serum or plasma 10-30-2019 10/30/19 BMP; NA 140, K 4.2, CL 106 , CO2 24, GLU 86, CR,0.80 CBC w/ diff 10-30-2019 10/30/19 CBC ; WBC 6.4, HGB 13.4 , HCT 40.6 ,PLT 336 CMP, serum or plasma 12-03-2018 12/03/18 CMP: NA 138, CL 105, CO2 21, GLU 129, BUN 17, CR 0.70, AST 36, ALT 41 EKG (11/28/2020): NSR, poor R progression, NSST mewrohw08/20/20 EKG: Sinus rhythm, Normal EKGekg (12/15/18): NSR, within normal limits Echo 10/30/2019 LVSF is normal, estimated at 55-60% 01/18/19 SE- Negative stress echo for ischemia. Patient had mild generalized chest soreness before exercise which persisted throughout the test, increased mildly with exercise. Good exercise capacity. Holter Monitor 01/18/19 : Normal sinus rhythm. Frequent PVCs. Rare PACs. Tachycardia. XR 10/30/19: Normal chest x-ray exam. Javier Monsalve [facility] [place] [facility] 11/28/2020 16:59:50 01/30/2021 text/html 01/30/21 CC : Palpitation fu 46 y/o female with h/o SVT is here for follow up . Pt was last here 3 months ago Since then feels fine. No CP, SOB, palps She has been to [place] ER with SVT twice since last visit. The last time was on 11/22/20. Magali got two doses of adenosine and was converted to NSR. Her metoprolol was increased back to 25mg daily and she was discharged home. McPike ablation 01/05 L shoulder surgeryNo evidence of AFib. previously,She was in [facility] in 10/30/19 because of Palpitation . Pt has some palpitations for hours before admission to [facility]. ECHO at that time showed normal LV systolic function (LVEF 55-60%). since dc she feels fine. no more episodes. states that her BP is good She states that was dgn with SVT which resolved in ER after medications. She had cardioversion at one time. Review of records shows that pt received 6 then 12 mh of adenosine. 12/03 pt was evaluated in ER and was advised to fu with pediatric np. Pt had similar symptoms few years before. She was admitted to hospital. No recurrence till now. Pt does workout all the time and recently was related to physical activity. pt had root canal pt was told that she had SVT in hospital. Pt never had EP evaluation. No known history of coronary artery disease. No history of previous myocardial infarction. No history of heart failure. No known valvular heart disease. No known arrhythmia. Patient reports feeling well overall. Patient is active, but is not exercising regularly. No known history of coronary artery disease. No history of previous myocardial infarction. No history of heart failure. No known valvular heart disease. History of arrhythmia reported. Patient reports feeling well overall. Patient is active, but is not exercising regularly. No chest pain. No arm pain. No neck pain. No nausea and vomiting. No diaphoresis. No shortness of breath at rest. No dyspnea on exertion. No fatigue.No orthopnea. No PND. No leg swelling. No palpitation. No dizziness. No syncope . No pre-syncope. No claudication. No major bleeding events. No side effects from medications. Complete ROS negative except as stated in the HPI and ROS. Results from this visit, or from the past: 11/22/20 CBC: WBC 4.3, RBC 4.05, HGB 12.5, HCT 37.8, PLT 36011/22/20 PT/INR: PT 14.0, INR 1.0, PTT 27.08/03/21 BMP: NA 140, K 3.4, CH 111, CO2 26, B 16, CR 0.80, GL 7110/30/19 PT/INR: PT: 13.2, INR 1.0BMP, serum or plasma 10-30-2019 10/30/19 BMP; NA 140, K 4.2, CL 106 , CO2 24, GLU 86, CR,0.80 CBC w/ diff 10-30-2019 10/30/19 CBC ; WBC 6.4, HGB 13.4 , HCT 40.6 ,PLT 336 CMP, serum or plasma 12-03-2018 12/03/18 CMP: NA 138, CL 105, CO2 21, GLU 129, BUN 17, CR 0.70, AST 36, ALT 41 EKG (11/28/2020): NSR, poor R progression, NSST wsleius37/20/20 EKG: Sinus rhythm, Normal EKGekg (12/15/18): NSR, within normal limits Echo 10/30/2019 LVSF is normal, estimated at 55-60% 01/18/19 SE- Negative stress echo for ischemia. Patient had mild generalized chest soreness before exercise which persisted throughout the test, increased mildly with exercise. Good exercise capacity. Holter Monitor 01/18/19 : Normal sinus rhythm. Frequent PVCs. Rare PACs. Tachycardia. XR 10/30/19: Normal chest x-ray exam. Javier Monsalve [place], [place] - [facility] 02/19/2021 12:01:58 12/02/2021 text/html CC: palpitations fuHPI: 46 y/o female with h/o SVT s/p ablation is here for follow up . Pt was last here about a year ago. In the meantime she had succesful ablation by Dr. Merino.remained asymptomatic afterwards. In Oct visited [place]. Had CANTRELL and her heart was racing. It was during streous physical activity 2 weeks then was dgn with COVID. PreviouslyShe has been to [facility] with SVT twice since last visit. The last time was on 11/22/20. Magali got two doses of adenosine and was converted to NSR. Her metoprolol was increased back to 25mg daily and she was discharged home.[facility] ablation 01/05L shoulder surgeryNo evidence of AFib.previously,She was in [facility] in 10/30/19 because of Palpitation .Pt has some palpitations for hours before admission to [facility].ECHO at that time showed normal LV systolic function (LVEF 55-60%).since dc she feels fine. no more episodes.states that her BP is goodShe states that was dgn with SVT which resolved in ER after medications. She had cardioversion at one time.Review of records shows that pt received 6 then 12 mh of adenosine.12/03 pt was evaluated in ER and was advised to fu with pediatric np.Pt had similar symptoms few years before. She was admitted to hospital. No recurrence till now.Pt does workout all the time and recently was related to physical activity.pt had root canalpt was told that she had SVT in hospital. Pt never had EP evaluation.No known history of coronary artery disease. No history of previous myocardial infarction. No history of heart failure. No known valvular heart disease. No known arrhythmia.Patient reports feeling well overall. Patient is active, but is not exercising regularly.No known history of coronary artery disease. No history of previous myocardial infarction. No history of heart failure. No known valvular heart disease. History of arrhythmia reported.Patient reports feeling well overall. Patient is active, but is not exercising regularly.No chest pain. No arm pain. No neck pain. No nausea and vomiting. No diaphoresis. No shortness of breath at rest. No dyspnea on exertion. No fatigue.No orthopnea. No PND. No leg swelling. No palpitation. No dizziness. No syncope . No pre-syncope. No claudication. No major bleeding events. No side effects from medications. Complete ROS negative except as stated in the HPI and ROS.Results from this visit, or from the past:11/22/20 CBC: WBC 4.3, RBC 4.05, HGB 12.5, HCT 37.8, PLT 3602 PT/INR: PT 14.0, INR 1.0, PTT 27.08/03/21 BMP: NA 140, K 3.4, CH 111, CO2 26, B 16, CR 0.80, GL 7110/30/19 PT/INR: PT: 13.2, INR 1.0BMP, serum or plasma BMP; NA 140, K 4.2, CL 106 , CO2 24, GLU 86, CR,0.80CBC w/ diff CBC ; WBC 6.4, HGB 13.4 , HCT 40.6 ,PLT 336CMP, serum or plasma CMP: NA 138, CL 105, CO2 21, GLU 129, BUN 17, CR 0.70, AST 36, ALT 41EKG (11/28/2020): NSR, poor R progression, NSST [id number]/20/20 EKG: Sinus rhythm, Normal EKGekg (12/15/18): NSR, within normal limitsEcho 10/30/2019 LVSF is normal, estimated at 55-60%01/18/19 SE- Negative stress echo for ischemia.Patient had mild generalized chest soreness before exercise which persisted throughout the test, increased mildly with exercise.Good exercise capacity.Holter Monitor 01/18/19 : Normal sinus rhythm. Frequent PVCs. Rare PACs. Tachycardia.XR 10/30/19: Normal chest x-ray exam. Javier Monsalve [place], [place] - [facility] 12/03/2021 12:59:35 08/29/2024 text/html 08/29/24CC: dysp anil on [id number] y/o female with h/o SVT s/p ablation was referred for cardiac evaluation. She was last seen in the clinic on 12/02/21, since then Silvano denies ER visits and hospitalizations since she was last seen. Today reports:Denies chest pain.Denies shortness of breath at rest. Has mild dyspnea on exertion.No orthopnea. No PNDs.Denies heart palpitations.Denies dizziness. Denies syncope or near syncope.No ankle or leg edema.No major bleeding events.No reported side effects from medications. Taking medications as prescribed with no missed doses.Denies snoring, daytime somnolence and AM headache.*Last LDL was done on .Pt takes.*Pt dose not have any lipid labs previously. and dose not takes any statins. 4CMP-NA 138 K 3.8 CR 0.70 GL 108 CA 9.2CBC-WBC 7.9 RBC 4.57 HGB 14.4 HCT 43.3 PLT 179 Previously:She has been to [place] ER with SVT twice since last visit. The last time was on 11/22/20. Magali got two doses of adenosine and was converted to NSR. Her metoprolol was increased back to 25mg daily and she was discharged home.[facility] ablation 01/05She was in [facility] in 10/30/19 because of Palpitation .ECHO at that time showed normal LV systolic function (LVEF 55-60%).Review of records shows that pt received 6 then 12 mh of adenosine.12/03 pt was evaluated in ER and was advised to fu with pediatric np.Pt had similar symptoms few years before. She was admitted to hospital. No recurrence till now.Pt does workout all the time and recently was related to physical activity.pt had root canalpt was told that she had SVT in hospital. Pt never had EP evaluation.No known history of coronary artery disease. No history of previous myocardial infarction. No history of heart failure. No known valvular heart disease. No known arrhythmia.Results from this visit, or from the past:11/22/20 CBC: WBC 4.3, RBC 4.05, HGB 12.5, HCT 37.8, PLT 3602/03/07 PT/INR: PT 14.0, INR 1.0, PTT 27.08/03/21 BMP: NA 140, K 3.4, CH 111, CO2 26, B 16, CR 0.80, GL 711 PT/INR: PT: 13.2, INR 1.0BMP, serum or plasma BMP; NA 140, K 4.2, CL 106 , CO2 24, GLU 86, CR,0.80CBC w/ diff CBC ; WBC 6.4, HGB 13.4 , HCT 40.6 ,PLT 336CMP, serum or plasma CMP: NA 138, CL 105, CO2 21, GLU 129, BUN 17, CR 0.70, AST 36, ALT 41EKG (11/28/2020): NSR, poor R progression, NSST gwetrax27/20/20 EKG: Sinus rhythm, Normal EKGekg (12/15/18): NSR, within normal limitsEcho 10/30/2019 LVSF is normal, estimated at 55-60%01/18/19 SE- Negative stress echo for ischemia.Patient had mild generalized chest soreness before exercise which persisted throughout the test, increased mildly with exercise.Good exercise capacity.Holter Monitor 01/18/19 : Normal sinus rhythm. Frequent PVCs. Rare PACs. Tachycardia.XR 10/30/19: Normal chest x-ray exam. Melchor Koch MD [address] [place], [address], [facility] 08/29/2024 11:19:33 09/26/2024 text/html 09/26/24CC : Car diac follow up, Pre op49 y/o female with h/o essential hypertension, obstructive sleep apnea syndrome, SVT s/p ablation is here for 1 month follow up with ECHO results. She was last seen in the clinic on 08/29/24, since then she is going for Knee replacementShe denies ER visits and hospitalizations since she was last seen. Today reports:no ccDenies chest pain.Denies shortness of breath at rest. Has mild dyspnea on exertion.No orthopnea. No PNDs.Denies heart palpitations.Denies dizziness. Denies syncope or near syncope.No ankle or leg edema.No major bleeding events.No reported side effects from medications. Taking medications as prescribed with no missed doses.Denies snoring, daytime somnolence and AM headache.*Pt dose not have any lipid labs previously. and dose not takes any statins. *Had ECHO on 09/13/24 showed LV chamber size is normal. The estimated LVEF is 70-75% (normal). The aortic valve is mildly calcified. There is mild thickening of the mitral valve anterior leaflet. Previously:05/30/2024 MP-NA 138 K 3.8 CR 0.70 GL 108 CA 9.2CBC-WBC 7.9 RBC 4.57 HGB 14.4 HCT 43.3 PLT [address] She has been to [facility] with SVT twice since last visit. The last time was on 11/22/20. She got two doses of adenosine and was converted to NSR. Her metoprolol was increased back to 25mg daily and she was discharged home. pt was told that she had SVT in hospital. Pt never had EP evaluation.No known history of coronary artery disease. No history of previous myocardial infarction. No history of heart failure. No known valvular heart disease. No known arrhythmia.Results from this visit, or from the past:11/22/20 CBC: WBC 4.3, RBC 4.05, HGB 12.5, HCT 37.8, PLT 3602 PT/INR: PT 14.0, INR 1.0, PTT 27.08/03/21 BMP: NA 140, K 3.4, CH 111, CO2 26, B 16, CR 0.80, GL 7110/30/19 PT/INR: PT: 13.2, INR 1.0BMP, serum or plasma BMP; NA 140, K 4.2, CL 106 , CO2 24, GLU 86, CR,0.80CBC w/ diff CBC ; WBC 6.4, HGB 13.4 , HCT 40.6 ,PLT 336CMP, serum or plasma CMP: NA 138, CL 105, CO2 21, GLU 129, BUN 17, CR 0.70, AST 36, ALT 41EKG (11/28/2020): NSR, poor R progression, NSST ahmuduf98/20/20 EKG: Sinus rhythm, Normal EKGekg (12/15/18): NSR, within normal limitsEcho 10/30/2019 LVSF is normal, estimated at 55-60%01/18/19 SE- Negative stress echo for ischemia.Patient had mild generalized chest soreness before exercise which persisted throughout the test, increased mildly with exercise.Good exercise capacity.Holter Monitor 01/18/19 : Normal sinus rhythm. Frequent PVCs. Rare PACs. Tachycardia.XR 10/30/19: Normal chest x-ray exam. Melchor Koch MD [address] [place], [address], [facility] - [facility] 09/26/2024 11:53:39 OBGyn Episode No OBEpisode recorded.
--- OUTSIDE RECORDS SUMMARY | 2025-05-04 19:29 | XMS_ITS | Clinical Summary ---
Author Organization [facility] [address] [place] [address] [place] [id number] Care Team Providers Care Car Park Attendant Name Role Phone Saravanan Pendleton NP Unavailable [phone] Zeke Merino MD Unavailable [phone] Maude Raya Unavailable [phone] Jeff Jones NP Primary Care Provider [phone] Allergies Active Allergy Reactions Criticality Noted Date Comments Morphine Rash Medium 08/23/2020 Medications levothyroxine (SYNTHROID) 50 mcg tablet TK 1 T PO QD 0 Active multivitamin capsule Take 1 capsule by mouth daily Active etonogestreL (Nexplanon) 68 mg implant Nexplanon 68 mg subdermal implant Inject 1 implant by subcutaneous route. Active ixekizumab (Taltz Syringe) 80 mg/mL syringe Inject 1 mL (80 mg total) under the skin every 6 (six) weeks Every 6-8 weeks Active albuterol HFA (PROVENTIL HFA,VENTOLIN HFA,PROAIR HFA) 90 mcg/actuation inhaler Inhale 2 puffs every 4 (four) hours as needed 5 Active methocarbamoL (ROBAXIN) 750 mg tablet Take 1 tablet (750 mg total) by mouth 3 (three) times a day 5 Active naproxen (NAPROSYN) 500 mg tablet Take 1 tablet (500 mg total) by mouth 2 (two) times a day as needed 5 Active Active Problems Problem Noted Date Diagnosed Date Pes anserinus bursitis of right knee 04/06/2025 S/P TKR (total knee replacement), right 10/03/20 24 Primary osteoarthritis of right knee 09/17/2024 Bacterial vaginosis 07/18/2024 Corneal pannus 07/18/2024 Follicular cyst of ovary 07/18/2024 Gastroenteritis 07/18/2024 Cervicalgia 07/18/2024 Herniated lumbar intervertebral disc 07/18/2024 Irregular astigmatism 07/18/2024 Metrorrhagia 07/18/2024 Nonspecific reaction to tuberculin test 07/18/20 Pain of finger 07/18/2024 Patellofemoral dysfunction 07/18/2024 Pins and needles sensation 07/18/2024 Postcholecystectomy syndrome 07/18/2024 Stenosis of cervix 07/18/2024 Temporomandibular joint disorder 07/18/2024 Urticaria 07/18/2024 Arthralgia of right knee 01/19/2024 Left arm pain 01/13/2024 Closed fracture of shaft of left radius, unspecified fracture morphology, initial encounter 01/13/2024 Asthma 10/31/2023 Disorder of globe 10/31/2023 Posterior tibial tendinitis of right lower extre mity 10/31/2023 Skin problem 10/31/2023 Arthritis 10/31/2023 Hyperglycemia 06/01/2023 History of total knee arthroplasty, left 023 Primary osteoarthritis of both knees 10/29/2022 Overview (10/29/2022): Added automatically from request for surgery [id number] Prediabetes 04/27/2022 Abnormal cervical Papanicolaou smear 04/17/2021 Acne 04/17/2021 Cyst of ovary 04/17/2021 Dysmenorrhea 04/17/2021 Fever 04/17/2021 Genital warts 04/17/2021 Knee pain 04/17/2021 Menorrhagia 04/17/2021 Muscle strain 04/17/2021 Seasonal allergic rhinitis 04/17/2021 Sprain of ankle 04/17/2021 Synovitis and tenosynovitis 04/17/2021 Arthritis of left acromioclavicular joint 2020 Overview (01/03/2021): Added automatically from request for surgery [id number] Shoulder impingement, left 01/03/2021 Overview (01/03/2021): Added automatically from request for surgery [id number] Biceps tendonitis on left 01/03/2021 Overview (01/03/2021): Added automatically from request for surgery [id number] Tear of medial meniscus of left knee 09/06/2020 Overview (09/06/2020): Added automatically from request for surgery [id number] Tear of medial meniscus of left knee, current Class 1 obesity with body ma ss index (BMI) of 32.0 to 32.9 in adult 08/23/2020 Hypothyroidism 08/05/2020 Palpitations 11/10/2019 Supraventricular tachycardia 12/15/2018 Assessment & Plan (02/06/2021 3:07 PM CDT): AVNRT ablated. Metoprolol discontinued. May stop aspirin. Follow-up as needed Assessment & Plan (12/10/2020 3:28 PM ASSISTANT HEALTH EDUCATOR): I spent a total of 30 Face to Face minutes of which more than 50% of the time was spent in counseling and coordination of care. This time included: Likely PSVT pathology. EP study and radiofrequency ablation with possible transseptal approach. She is willing to proceed. Ringing in ear 12/15/2018 Easy bruising 12/15/2018 Dyspnea on exertion 12/15/2018 Backache 12/15/2018 Sinusitis 06/15/2017 Encounters Date Type Department Care Team Description 04/11/2025 Documentation [facility] Orthopedics and Sports Medicine [address] [place] [address] Noreen Babin MA 04/10/2025 Orders Only [facility] Orthopedics and Sports Medicine [address] [place] [address] Cecilio Reese MD Pes anserinus bursitis of right knee (Primary Dx) 04/06/2025 9:00 AM CDT Ancillary Procedure [facility] Imaging at [address] [phone] 04/06/2025 9:00 AM CDT Office Visit [facility] Orthopedic and Sports Medicine [address] [place] [phone] Cecilio Reese MD S/P total knee arthroplasty, right (Primary Dx); Pes anserinus bursitis of right knee from Last 3 Months Immunizations Immunization Administration Dates Next Due Pfizer SARS-CoV-2 Monovalent Vaccination (12+ Yrs) PURPLE 01/13/2021 Surgical History Surgery Date Site/Laterality Comments KNEE ARTHROSCOPY Bilateral SECTION CHOLECYSTECTOMY CARDIAC ELECTROPHYSIOLOGY STUDY AND ABLATION 12/16/2020 - 01/15/2021 SHOULDER SURGERY 01/16/2021 - 02/14/2021 Left bone spur ARM SURGERY 01/14/2024 Left Procedure Laterality Anesthesia OPEN REDUCTION INTERNAL FIXATION - RADIUS Left TOTAL KNEE ARTHROPLASTY 11/12/2022 Left Medical History Medical History Date Comments Hx Other Medical 1996 tuberculosis Hx Other Medical Back pain SVT (supraventricular tachycardia) Hypothyroidism Arthritis Asthma PONV (postoperative nausea and vomiting) Family History Medical History Relation Name Comments Alcohol abuse Father Scout Stroke Father Scout Arthritis Mother Iris Hypertension Mother Iris Arthritis Other 1 Family history of Arthritis; Diabetes type II Other 2 Family hist ory of Diabetes mellitus type 2; Heart disease Other 3 Family history of heart problems; Hypertension Other 4 Family history of Hypertension; COPD Sister 1 Alana Obesity Sister 1 Alana Diabetes Sister 2 Damarie Asthma Son Moi Relation Name Status Comments Father Scout Mother Iris Other 1 Other 2 Other 3 Other 4 Sister 1 Alana Sister 2 Damarie Son Moi Social History Tobacco Use Types Packs/Day Years Used Date Smoking Tobacco: Never Smokeless Tobacco: Never Tobacco Cessation:Counseling Given: Not Answered Alcohol Use Standard Drinks/Week Comments Yes 0 (1 standard drink = 0.6 oz pur e alcohol) occaisoal AUDIT-C Answer Date Recorded Q1: How often do you have a drink containing alc ohol? Monthly or less 10/03/2024 Q2: How many drinks containi ng alcohol do you have on a typical day when you are drinking? 1 or 2 10/03/2024 Q3: How often do you have si x or more drinks on one occasion? Less than monthly 10/03/2024 Personal Safety Answer Date Recorded Have you ever been in or are you currently in a harmful physical or emotional relationship or is someone making you feel afraid or unsafe? Denies 10/03/2024 Comments No Sex and Gender Information Value Date Recorded Sex Assigned at Not on file Legal Sex Female 8:39 AM ASSISTANT HEALTH EDUCATOR Gender Identity Female 04/16/2021 6:48 AM CDT Sexual Orientation Straight 04/16/2021 6: 48 AM CDT Obstetrics History Last Filed Vital Signs Vital Sign Reading Time Taken Comments Blood Pressure 122/84 04/06/2025 9:06 AM CDT Pulse 80 04/06/2025 9:06 AM CDT Temperature 36.2 C (97.1 F) 10/04/2024 11:37 AM ASSISTANT HEALTH EDUCATOR Respiratory Rate 18 10/04/2024 11:3 7 AM ASSISTANT HEALTH EDUCATOR Oxygen Saturation 100% 10/04/2024 11: 37 AM ASSISTANT HEALTH EDUCATOR Inhaled Oxygen Concentration - - Weight 100.8 kg (222 lb 4.8 oz) 04/06/2025 9:06 AM CDT Height 162.6 cm (5' 4) 04/06/2025 9:06 AM CDT Body Mass Index 38.16 04/06/2025 9:06 AM CDT Plan of Treatment Health Maintenance Due Date Last Done Comments Breast Cancer Screening-Mammogram 1976 Cervical Cancer Screening 1976 Colon Cancer Screening-Colonoscopy 1976 Depression Screening 1976 Hepatitis C Screening 1976 Regular Well Visit/Exam 18-64 01/06/1994 Pneumococcal vaccine <65 (1 of 2 - PCV) 01/06/1995 DTaP/Tdap/Td Vaccine (2 - Td or Tdap) 04/26/2022 04/26/2012, 04/23/2003, 04/24/1994 Covid-19 Vaccine (3 - 2023-2 5 season) 2024 02/09/2021, 01/13/2021 Influenza Vaccine (#1) 2025 3, 11/03/2022, 08/01/2020, Additional history exists Hepatitis B Screening Completed 03/14/2008 , 12/15/2002, 03/07/2002 Medical Devices Implanted Type Area Supervisor Stave Cutting Device Identifier Shelf Expiration Date Model / Serial / Lot [employer] [id number] Swivelock C 4.75mm 19.1mm Closed Eyelet Vent [place] Suture - [id number] Implanted:Qty: 1 on 01/27/2021 by Cecilio Reese MD at [facility] Left: Shoulder [employer] Inc 09/16/2024 [id number] / / [id number] Dep[employer] Attune Fb Tib Base Sz 4 Por [id number] - [id number] Implanted:Qty: 1 on 11/12/2022 by Cecilio Reese MD at [facility] Left: Knee [employer] [id number] 06/17/2032 [id number] / / [id number] [employer] Attune Cruciate Retain Cementless Knee Left 4 Component Femoral [id number] - [id number] Implanted:Qty: 1 on 11/12/2022 by Cecilio Reese MD at [facility] Left: Knee [employer] [id number] 03/17/2030 [id number] / / [id number] Attuneknee System Tibial Insert Fixed Bearing Medial Stabilized Size 4 Left 7mm Aox Implanted:Qty: 1 on 11/12/2022 by Cecilio Reese MD at [facility] Left: Knee [employer] [id number] 07/17/2030 [id number] / / [id number] Synthes 2.4mm 14mm Self Tap Stardrive Cortex T8 Screw Bone 201.764 - [id number] Implanted:Qty: 1 on 01/14/2024 by Drake Rowe MD at [facility] Left: Radius Synthes I 201.764 / / Synthes 2.4mm 12mm Self Tap Stardrive Cortex T8 Screw Bone 201.762 - [id number] Implanted:Qty: 3 on 01/14/2024 by Drake Rowe MD at [facility] Left: Radius Synthes I 201.762 / / Synthes Lcp Pro-Terrell 44mm 5 Hole Low Profile Cut To Length Plate Bone 247.375 - [id number] Implanted:Qty: 1 on 01/14/2024 by Drake Rowe MD at [facility] Left: Radius Synthes I 247.375 / / Synthes Lcp Pro-Terrell 94mm 10 Hole Low Profile Cut To Length Plate Bone 247.374 - [id number] Implanted:Qty: 1 on 01/14/2024 by Drake Rowe MD at [facility] Left: Radius Synthes I 247.374 / / Synthes 2.7mm 5mm 14mm 2.5mm Self Tap Stardrive Cortical T8 Screw Bone 202.874 - [id number] Implanted:Qty: 6 on 01/14/2024 by Drake Rowe MD at [facility] Left: Radius Synthes I 202.874 / / [employer] Attune Cruciate Retain Cementless Knee Right 4 Component Femoral [id number] - [id number] Implanted:Qty: 1 on 10/03/2024 by Cecilio Reese MD at [facility] Right: Knee [employer] [id number] 05/17/2034 [id number] / / [id number] [employer] Attune Fb Tib Base Sz 4 Por [id number] - [id number] Implanted:Qty: 1 on 10/03/2024 by Cecilio Reese MD at [facility] Right: Knee [employer] [id number] 05/17/2034 [id number] / / [id number] [employer] Insert Tibial Knee Fixed Rm Posterior Stabilized Attune 8mm Size 4 Polyethylene [id number] - [id number] Implanted:Qty: 1 on 10/03/2024 by Cecilio Reese MD at [facility] Right: Knee [employer] [id number] 01/16/2032 [id number] / / [id number] Procedures Procedure Name Priority Date/Time Associated Diagnosis Comments XR KNEE RIGHT 1 OR 2 VIEWS Schedule Routine, Read Routine (OP Routine) 04/06/2025 9:04 AM CDT S/P total knee arthroplasty, right from Last 3 Months Results * XR Knee Right 1 or 2 Views (04/06/2025 9:04 AM CDT) Anatomical Region Laterality Modality Lower Extremities, Knee Right Digital Radiography Narrative 04/06/2025 9:21 AM CDT Two views right knee shows attune total knee arthroplasty Press-Fit in appropriate position no signs of loosening us Cecilio Reese MD IMG XR PROCEDURES Final Resu lt from Last 3 Months Insurance [facility] FED[facility]AL [facility] FEDERAL Member Subscriber Plan / Payer (Ef fective 2012-Present) Name:Sebastián Cabello Relation to Subscriber:Self Name:Sebastián Cabello Payer ID:[id number] (NAIC) Group ID:[id number] Type:[facility] Address: [address] WORKERS COMPENSATION GENERIC WORKERS COMPENSATION GENERIC Advance Directives For more information, please contact: [phone] * Full Code (Latest Code Status on File) Date Activated Date Inactivated Comments 10/03/2024 3:19 PM 10/04/2024 5:22 PM * Full Code Date Activated Date Inactivated Comments 01/13/2024 10:53 PM 01/15/2024 8:17 PM * Full Code Date Activated Date Inactivated Comments 11/12/2022 10:56 AM 11/12/2022 9:13 PM Care Teams Car Park Attendant Relationship Specialty Start Date End Date Jeff Jones NP [address] [place] [address] [place] [address] PCP - General Family Medicine 07/21/24 Saravanan Pendleton NP [address] [place] [address] [address] [place] [address] Nurse Practitioner Nurse Practitioner 09/26/20 Zeke Merino MD [address] [place] [address] [address] [place] [address] Consulting Physician Cardiovascular Disease 12/10/20 Maude Raya PA [address] [place] [address] [address] [place] [address] Physician Manager Store Orthopedic Surgery 01/27/21
--- OUTSIDE RECORDS SUMMARY | 2025-05-04 19:29 | XMS_ITS | Encounter Summary ---
Author Name [facility] Organization [facility] ([place]) Address [address] [place] [id number] Care Team Providers Care Global Risk Management Director Name Role Phone SANTA COLLIER Primary Care [...] FEP BASIC FAM Jun 12, 2012 112 [id number] [phone] UGO CABELLO PATIENT ANTHEM [place] FEP PREFERRED PROVIDER ORGANIZAT ION (PPO) FEP BASIC FAM Jun 12, 2012 112 [id number] [phone] UGO CABELLO SINCERE PATIENT ANTHEM [place] FEP PREFERRED PROVIDER ORGANIZAT ION (PPO) FEP BASIC FAM Jun 12, 2012 112 [id number] [phone] UGO CABELLO SINCERE PATIENT [place] FEP PREFERRED PROVIDER ORGANIZAT ION (PPO) FEP BASIC FAM Jun 12, 2012 112 [id number] [phone] UGO CABELLO PATIENT [place] FEP ([id number]) PRESCRIPT ION FEPRX Jun 12, 2012 [id number] [phone] UGO CABELLO PATIENT Selected Encounter This section includes the information on record at [place] for the Encounter. Date/Time Encounter Type Encounter Description Reason Provider Source Nov 21, 2024 01:30 PM THERAPEUTIC EXERCISES PHYSICAL THERAPY ICD-10-CM M17.11 Unilateral primary osteoarthritis, right knee JO GAGE [facility] Encounter Template Text not used by [place] Assessments - Encounter Diagnoses This section includes the primary and secondary diagnoses documented for the Encounter. Date/Time Primary/Secondary Diagnosis Diagnosis Name Provider Source Nov 22, 2024 11:42 AM PRIMARY Unilateral primary osteoarthritis, right knee JO GAGE [facility] Plan of Treatment: Future Appointments (+ 6 [...] Date/Time Appointment Type Appointme nt Facility Name Dec 21, 2024 02:30 PM AMBULATORY - REHAB MEDICIN [facility] Jan 04, 2025 02:30 PM AMBULATORY - REHAB MEDICIN [facility] Jan 24, 2025 10:30 AM AMBULATORY - MEDICINE [facility] Jan 29, 2025 02:30 PM AMBULATORY - REHAB MEDICIN E [facility] Feb 12, 2025 02:30 PM AMBULATORY - REHAB MEDICIN [facility] February 19, 2025 01:30 PM AMBULATORY - MEDICINE [facility] March 07, 2025 08:00 AM AMBULATORY - REHAB MEDICIN E [facility] March 14, 2025 08:00 AM AMBULATORY - REHAB MEDICIN E [facility] Mar 26, 2025 08:00 AM AMBULATORY - REHAB MEDICIN E [facility] Apr 02, 2025 08:00 AM AMBULATORY - REHAB MEDICIN E [facility] Apr 04, 2025 08:30 AM AMBULATORY - NONE . [facility] Apr 10, 2025 08:00 AM AMBULATORY - REHAB MEDICIN E [facility] Apr 17, 2025 01:30 PM AMBULATORY - NONE [facility] Encounter Notes: All associated encounter notes This section contains the clinical notes associated to the Encounter. Date/Time Encounter Note(s) Provider Source Nov 21, 2024 03:00 PM PHYSICAL MEDICINE REHAB NOTE: LOCAL TITLE: PT DAILY [facility] STANDARD TITLE: PHYSICAL MEDICINE REHAB NOTE DATE OF NOTE: NOV 21, 2024@15:00 ENTRY DATE: NOV 21, 2024@15:00:47 AUTHOR: JO GAGE COSIGNER: URGENCY: STATUS: COMPLETED [...] To Service: PT OUTPT ST From Service: [facility] PACT PHONE 06 PCP Requesting Provider: SANTA COLLIER Service is to be rendered on an OUTPATIENT basis Place: Credit Investigator's choice Urgency: Routine Clinically Ind. Date: Oct [...] Department is needed: Launch Email to [facility] PT Group Evaluation and Treatment for: (Please include post-op protocol as appropriate) [facility]. pt is s/p right knee arthroplasty [...] Reevaluation due:11/24/24 POC through:01/22/25 Visits to date: 5 No shows/cancellations: 0 Treatment time: Total mins. 35 Therapeutic exercise: 35 mins. Subjective:Pt states that she feels she is progressing with TKA rehab. 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 [place] given written HEP Encouraged HEP 2x's/day In [...] side to side and forward, quick steps. Assessment: Pt would benefit from PT to address:ROM, strength, gait, balance. PT tolerated well. is a 49 yr female with a dx of right TKA on 10/01/24. 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
--- OUTSIDE RECORDS SUMMARY | 2025-05-04 19:29 | XMS_ITS | Encounter Summary ---
Author Name [facility] of [facility] ([place]) Organization [facility] ([place]) Address [address] [place] [address] Care Team Providers Care Lobster Fisherman Name Role Phone [place] Primary Care [...] FEP BASIC FAM Jun 12, 2012 112 [id number] [phone] UGO CABELLO SINCERE PATIENT ANTHEM [place] FEP PREFERRED PROVIDER ORGANIZAT ION (PPO) FEP BASIC FAM Jun 12, 2012 112 [id number] [phone] UGO CABELLO SINCERE PATIENT ANTHEM [place] FEP PREFERRED PROVIDER ORGANIZAT ION (PPO) FEP BASIC FAM Jun 12, 2012 112 [id number] [phone] UGO CABELLO SINCERE PATIENT [place] FEP PREFERRED PROVIDER ORGANIZAT ION (PPO) FEP BASIC FAM Jun 12, 2012 112 [id number] [phone] UGO CABELLO PATIENT [place] FEP ([id number]) PRESCRIPT ION FEPRX Jun 12, 2012 [id number] [phone] UGO CABELLO PATIENT Selected Encounter This section includes the information on record at [place] for the Encounter. Date/Time Encounter Type Encounter Description Reason Provider Source Apr 17, 2025 01:30 PM HLTH&WB COACHING INDIV [facility]LL[facility] ICD-10-CM Z71.89 Other specified counseling KIMBALL,EV AN IHE Encounter Template Text not used by [place] Assessments - Encounter Diagnoses This section includes the primary and secondary diagnoses documented for the Encounter. Date/Time Primary/Secondary Diagnosis Diagnosis Name Provider Source Apr 17, 2025 02:11 PM PRIMARY Other specified counseling KIMBALL,EMBER N [facility] Plan of Treatment: Future Appointments (+ 6 months) and Future Tests (+/- 45 days) The Plan of Treatment section includes future care activities for the patient from [facility] [place] [facility] This section includes future appointments and future orders which are active, pending or scheduled. Future Appointments This section includes appointments that were scheduled to occur 6 months from the date of the Encounter, up to a maximum of 20 appointments. The data comes from all [facility]. Appointment Date/Time Appointment Type Appointme nt Facility Name Jun 12, 2025 08:30 AM AMBULATORY - NONE [facility] Jun 22, 2025 08:30 AM AMBULATORY - NONE [facility] Jun 29, 2025 08:30 AM AMBULATORY - NONE [facility] Jul 06, 2025 08:30 AM AMBULATORY - NONE [facility] Jul 12, 2025 03:00 PM AMBULATORY - NONE [facility] Oct 17, 2025 10:00 AM AMBULATORY - MEDICINE [facility] Active, Pending, and Scheduled Orders This section includes a listing of several types of active, pending, and scheduled orders, including clinic medications orders, diagnostic test orders, procedure orders and consult orders; where the start date of the order is 45 days before the date of the Encounter or 45 days after the date of theEncounter. The data comes from all [facility]. Test Date/Time Test Type Test Details Facility Name May 18, 2025 12:00 AM Imaging - Mammogra phy Order MAMM SCREENING WITH CAD-P RIGHT, LEFT [facility] Social History: Smoking Status (Most current) and Tobacco Use (All prior to encounter date) This section includes the most current, and the historical, smoking and tobacco- related health factors from the [place] facility where the Encounter took place. Current Smoking Status This section includes the most current smoking, or tobacco-related health factor, from the [place] facility where the Encounter took place. Date/Time Current Smoking Status Comment Daniele wood Apr 18, 2024 11:30 AM VA-TOBACCO NEVER USED [facility] Tobacco Use History This section includes a history of the smoking, or tobacco-related health factors, that were collected on or before the date of the Encounter. The data comes from the [place] facility where the Encounter took place. Date/Time Smoking Status/Tobacco Use Comment F acility Jun 02, 2021 02:30 PM VA-TOBACCO FORMER USER [facility] Jun 02, 2021 02:30 PM VA-TOBACCO QUIT 15 YRS OR MORE [facility] Encounter Notes: All associated encounter notes This section contains the clinical notes associated to the Encounter. Date/Time Encounter Note(s) Provider Source Apr 17, 2025 01:59 PM INTEGRATIVE HEALTH NOTE: LOCAL TITLE: HEALTH AND WELLNESS COACHING STANDARD TITLE: [facility]TE[facility]ATIVE HEALTH NOTE DATE OF NOTE: APR 17, 2025@13:59 ENTRY DATE: APR 17, 2025@13:59:23 AUTHOR: JOSH KIMBALLER: URGENCY: STATUS: COMPLETED Health and Wellness Coaching HEALTH AND WELLNESS COACHING VISIT *Type of Visit: [place] contacted using Video Telehealth. Patient Contact Details: Best contact number for backup/emergency communication with patient: Patient Location/Surroundings During Visit: Patient location during visit: Home [address] [place] [id number] Patient confirms location is safe and private for visit. Telehealth Disclosure: Visit conducted by synchronous telehealth. Patient verbal consent obtained. Location/emergency number confirmed. Environment surveyed and all participants identified. Virtual conference room locked. *Session number: 1 Time spent with : 30-60 minutes Health and Wellness Coaching What to Expect Document was discussed and agreed to by [place] and college basketball coach. was seen for Health and Wellness Coaching related to: Moving the Body Recharge Food and Drink VETERANS GOALS Long-Term S.M.A.R.T. Whole Health Goals: Collaboratively identified new long-term Whole Health goal(s) of: lose weight, increase mobility and strength Short-Term S.M.A.R.T. Goals/Action Steps: [place]'s S.M.A.R.T. goal(s): [place] set a new S.M.A.R.T. goal(s) of: Goal 1: call Scheduling to assess yoga/gerald chi and nutrition class with schedule ADDITIONAL SESSION INFORMATION [place] is interested in referral to: [facility] Other: nutrition Additional information (e.g. 's self-identified strengths, Values, Vision for the Future): and staff met for fist time. came in to on massage therapy consult. [place] shared she had a knee replacement surgery past SEP. Would like to focus on weight loss and increasing mobility. Staff shared about offerings that align with Veterans goals. [place] will call Scheduling to check if times work for her. PLAN Plan: Other: [place] will schedule kiara/arnold /yonny/ Josh Kimball [employer] GROUNDS RESTORATION SPECIALIST Signed: 04/17/2025 14:11 JOSH KIMBALL [facility]
--- OUTSIDE RECORDS SUMMARY | 2025-05-04 19:29 | XMS_ITS | Referral Summary ---
Author Organization [address] Address [address] [place] [phone] Care Team Providers Care Call Center Rn Name Role Phone Saravanan Pendleton NP Unavailable [phone] Zeke Merino MD Unavailable [phone] Maude Raya Unavailable [phone] Jeff Jones NP Primary Care Provider [phone] Encounters Date Type Department Care Team Description 04/11/2025 Documentation [facility] Medical [facility] Orthopedics and Sports Medicine [address] [place] [address] [place] [phone] Noreen Babin MA 04/10/2025 Orders Only [facility] Orthopedics and Sports Medicine [address] [place] [address] [address] [place] [phone] Cecilio Reese MD Pes anserinus bursitis of right knee (Primary Dx) 04/06/2025 9:00 AM CDT Ancillary Procedure [facility] Medical Group Imaging at [address] [phone] 04/06/2025 9:00 AM CDT Office Visit [facility] Orthopedic and Sports Medicine [address] [place] [phone] Cecilio Reese MD S/P total knee arthroplasty, right (Primary Dx); Pes anserinus bursitis of right knee from Last 3 Months Allergies Active Allergy Reactions Criticality Noted Date [...] 07/18/2024 Nonspecific reaction to tuberculin test 07/18/20 24 Pain of finger 07/18/2024 Patellofemoral dysfunction 07/18/2024 [...] (10/29/2022): Added automatically from request for surgery [id number] Prediabetes 04/27/2022 Abnormal cervical Papanicolaou smear 04/17/2021 Acne 04/17/2021 Cyst of ovary 04/17/2021 Dysmenorrhea 04/17/2021 Fever 04/17/2021 Genital warts 04/17/2021 Knee pain 04/17/2021 Menorrhagia 04/17/2021 Muscle strain 04/17/2021 Seasonal allergic rhinitis 04/17/2021 Sprain of ankle 04/17/2021 Synovitis and tenosynovitis 04/17/2021 Arthritis of left acromioclavicular joint 2020 Overview (01/03/2021): Added automatically from request for surgery [id number] Shoulder impingement, left 01/03/2021 Overview (01/03/2021): Added automatically from request for surgery [id number] Biceps tendonitis on left 01/03/2021 Overview (01/03/2021): Added automatically from request for surgery [id number] Tear of medial meniscus of left knee 09/06/2020 Overview (09/06/2020): Added automatically from request for surgery [id number] Tear of medial meniscus of left knee, current Class 1 obesity with body ma ss index (BMI) of 32.0 to 32.9 in adult 08/23/2020 Hypothyroidism 08/05/2020 Palpitations 11/10/2019 Supraventricular tachycardia 12/15/2018 Assessment & Plan (02/06/2021 3:07 PM CDT): AVNRT ablated. Metoprolol discontinued. May stop aspirin. Follow-up as needed Assessment & Plan (12/10/2020 3:28 PM DOUGHNUT GLAZIER): I spent a total of 30 Face to Face minutes of which more than 50% of the time was spent in counseling and coordination of care. This time included: Likely PSVT pathology. EP study and radiofrequency ablation with possible transseptal approach. She is willing to proceed. Ringing in ear 12/15/2018 Easy bruising 12/15/2018 Dyspnea on exertion 12/15/2018 Backache 12/15/2018 Sinusitis 06/15/2017 Immunizations Immunization Administration Dates Next Due Pfizer SARS-CoV-2 Monovalent Vaccination (12+ Yrs) PURPLE 01/13/2021 Social History Tobacco Use Types Packs/Day Years [...] on file Legal Sex Female 8:39 AM DOUGHNUT GLAZIER Gender Identity Female 04/16/2021 6:48 AM CDT Sexual Orientation Straight 04/16/2021 6: 48 AM CDT Last Filed Vital Signs Vital Sign Reading Time Taken Comments Blood Pressure 122/84 04/06/2025 9:06 AM CDT Pulse 80 04/06/2025 9:06 AM CDT Temperature 36.2 C (97.1 F) 10/04/2024 11:37 AM DOUGHNUT GLAZIER Respiratory Rate 18 10/04/2024 11:3 7 AM DOUGHNUT GLAZIER Oxygen Saturation 100% 10/04/2024 11: 37 AM DOUGHNUT GLAZIER Inhaled Oxygen Concentration - - Weight 100.8 kg (222 lb 4.8 oz) 04/06/2025 9:06 AM CDT Height 162.6 cm (5' 4) 04/06/2025 9:06 AM CDT Body Mass Index 38.16 04/06/2025 9:06 AM CDT Plan of Treatment Not on file Medical Devices Implanted Type Area Logger Device Identifier Shelf Expiration Date Model / Serial / Lot [employer] Ar-2324bcc Swivelock C 4.75mm 19.1mm Closed Eyelet Vent [place] Suture - [id number] Implanted:Qty: 1 on 01/27/2021 by Cecilio Reese MD at [facility] Left: Shoulder [employer] 09/16/2024 [id number] / / [id number] Dep[employer] Attune Fb Tib Base Sz 4 Por [id number] - [id number] Implanted:Qty: 1 on 11/12/2022 by Cecilio Reese MD at [facility] Left: Knee [employer] [id number] 06/17/2032 [id number] / / [id number] [employer] Attune Cruciate Retain Cementless Knee Left 4 Component Femoral [id number] - [id number] Implanted:Qty: 1 on 11/12/2022 by Cecilio Reese MD at [facility] Left: Knee [employer] [id number] 03/17/2030 [id number] / / [id number] Attuneknee System Tibial Insert Fixed Bearing Medial Stabilized Size 4 Left 7mm Aox Implanted:Qty: 1 on 11/12/2022 by Cecilio Reese MD at [facility] Left: Knee [employer] [id number] 07/17/2030 [id number] / / [id number] Synthes 2.4mm 14mm Self Tap Stardrive Cortex T8 Screw Bone 201.764 - [id number] Implanted:Qty: 1 on 01/14/2024 by Drake Rowe MD at [facility] Left: Radius Synthes I 201.764 / / Synthes 2.4mm 12mm Self Tap Stardrive Cortex T8 Screw Bone 201.762 - [id number] Implanted:Qty: 3 on 01/14/2024 by Drake Rowe MD at [facility] Left: Radius Synthes I 201.762 / / Synthes Lcp Pro-Terrell 44mm 5 Hole Low Profile Cut To Length Plate Bone 247.375 - [id number] Implanted:Qty: 1 on 01/14/2024 by Drake Rowe MD at [facility] Left: Radius Synthes I 247.375 / / Synthes Lcp Pro-Terrell 94mm 10 Hole Low Profile Cut To Length Plate Bone 247.374 - [id number] Implanted:Qty: 1 on 01/14/2024 by Drake Rowe MD at [facility] Left: Radius Synthes I 247.374 / / Synthes 2.7mm 5mm 14mm 2.5mm Self Tap Stardrive Cortical T8 Screw Bone 202.874 - [id number] Implanted:Qty: 6 on 01/14/2024 by Drake Rowe MD at [facility] Left: Radius Synthes I 202.874 / / [employer] Attune Cruciate Retain Cementless Knee Right 4 Component Femoral [id number] - [id number] Implanted:Qty: 1 on 10/03/2024 by Cecilio Reese MD at [facility] Right: Knee [employer] [id number] 05/17/2034 [id number] / / [id number] [employer] Attune Fb Tib Base Sz 4 Por [id number] - [id number] Implanted:Qty: 1 on 10/03/2024 by Cecilio Reese MD at [facility] Right: Knee [employer] [id number] 05/17/2034 [id number] / / [id number] [employer] Insert Tibial Knee Fixed Rm Posterior Stabilized Attune 8mm Size 4 Polyethylene [id number] - [id number] Implanted:Qty: 1 on 10/03/2024 by Cecilio Reese MD at [facility] Right: Knee [employer] [id number] 01/16/2032 [id number] / / [id number] Procedures Procedure Name Priority [...] Resu lt from Last 3 Months Insurance [facility] FEDERAL [facility] FEDERAL [facility] FEDERAL Member Subscriber Plan / Payer (Ef fective 2012-Present) Name:Sebastián Cabello Relation to Subscriber:Self Name:Sebastián Cabello Payer ID:[id number] (NAIC) Group ID:[id number] Type:[employer] Address: [address] WORKERS COMPENSATION GENERIC WORKERS COMPENSATION GENERIC Advance Directives For more information, please contact: [phone] * Full Code (Latest Code Status on File) Date Activated Date Inactivated Comments 10/03/2024 3:19 PM 10/04/2024 5:22 PM * Full Code Date Activated Date Inactivated Comments 01/13/2024 10:53 PM 01/15/2024 8:17 PM * Full Code Date Activated Date Inactivated Comments 11/12/2022 10:56 AM 11/12/2022 9:13 PM Care Teams Call Center Rn Relationship Specialty Start Date End Date Jeff Jones NP [address] [place] [address] [place] [address] PCP - General Family Medicine 07/21/24 Saravanan Pendleton NP [address] [place] [address] [place] [address] Nurse Practitioner Nurse Practitioner 09/26/20 Zeke Merino MD [address] [place] [address] [place] [address] Consulting Physician Cardiovascular Disease 12/10/20 Maude Raya PA [address] [place] [address] [place] [address] Physician Seed Packer Orthopedic Surgery 01/27/21
--- NOTE | 2025-05-04 19:33 | ECG_ITS ---
Test Date: 2025-05-04 19:39:14 Measurements Intervals [place] Rate: 107 P: 10 DE: 122 QRS: 0 QRSD: 80 T: -25 QT: 308 QTc: 412 Interpretive Statements SINUS TACHYCARDIA LOW-VOLTAGE QRS NONSPECIFIC T-WAVE ABNORMALITY ABNORMAL ECG No previous ECG available for comparison Electronically Signed On 05-05-2025 08:48:34 CDT by Darius Noonan M.D.
[2025-05-04 20:01] VITALS: BP 146/107; PULSE 109; RESP 20; O2SAT 99
[2025-05-04 21:50] VITALS: BP 133/87; PULSE 86; RESP 20; TEMP 36.7; O2SAT 98
[2025-05-04] MEDS: FAMOTIDINE 20 MG/2 ML VIAL IV PUSH (23:33)
[2025-05-04] MEDS: dexAMETHasone SOD PHOS INJ 10 MG/ML 1 ML VIAL IV PUSH (23:33)
[2025-05-04] MEDS: KETOROLAC 15 MG/ML VIAL (*BKC) IV PUSH (23:35)
--- OUTSIDE RECORDS SUMMARY | 2025-05-04 23:35 | XMS_ITS | Clinical Summary ---
Author Organization [facility] Address [address] [place] [address] Care Team Providers Care Cook Seafood Name Role Phone Unavailable Primary Care Provider Unavailabl e Source Comments [facility],non-owned Affiliates and Associated Physician Practices is amultiple site organization consisting of ambulatory clinics and hospital sitesin [place], [place], [place] and [place]. This disclosure is being madepursuant to the Care Everywhere program and may not contain all information available regarding this patient. Last updated 18.[facility] [employer] Social History Tobacco Use Types Packs/Day Years [...] patient's age to complete this topic Insurance [facility] Address: [facility] [id number] [place] [address]
--- OUTSIDE RECORDS SUMMARY | 2025-05-04 23:35 | XMS_ITS | Clinical Summary ---
Author Organization [facility] Address [address] [place] [address] Care Team Providers Care Steam Drier Tender Name Role Phone Samantha Mackay MD Primary Care Provider [phone] Social History Tobacco Use Types Packs/Day Years [...] age to complete this topic Care Teams Steam Drier Tender Relationship Specialty Start Date End Date Samantha Mackay MD [address] [place], [place] [id number] [facility] - General 03/23/17
--- OUTSIDE RECORDS SUMMARY | 2025-05-04 23:35 | XMS_ITS | Encounter Summary ---
Author Organization [facility] Address [address] [address] Care Team Providers Care Prototype Model Maker Name Role Phone Unavailable Primary Care Provider Unavailabl e Encounter Details Date Type Department Care Team (Late st Contact Info) Description 05/11/2018 Lab Requisition [facility] Care DermPath Lab [address] [facility] [place] [address] Mely Jones MD [address] [facility] [address] [place] [address] Social History Tobacco Use Types Packs/Day Years [...] AM CDT) Case Report Dermatopathology Report Case: [id number] Authorizing Provider: Mely Jones MD Collected: 05/10/2018 12:00 AM Pathologist: Maura Bay MD Received: 05/11/2018 06:16 AM Specimen: Skin, left barrientos 8 11:36 AM CDT DERMATOPATHOLOGY LABORATORY Addendum 1 At the request of the diagnosing physician, the technical component for GMS was performed by [facility]. 8 11:36 AM CDT DERMATOPATHOLOGY LABORATORY Addendum electronically signed by Maura Bay MD on 05/13/2018 at 1136 CDT Clinical History [place]utt[place] vs PSO vs other. 11:36 AM T DERMATOPATHOLOGY LABORATORY Gross Description Specimen A: Received is one formalin filled container labeled with the patient's name and designated left barrientos. The specimen consists of a shave biopsy measuring [id number]. Jar 0. [facility] performed the technical component only. [...] characteristic determined by the Dermatopathology Laboratory at [facility]. These tests need not be, and therefore are not, approved by the [place] Food and Drug Administration. The tests are used for clinical purposes. 11:36 AM [facility] DERMATOPATHOLOGY LABORATORY at 1232 CDT Pathology/Cytolog y TISSUE SPECIMEN FROM SKIN / Unknown 05/10/2018 05/11/2018 6:16 AM CDT Mely Jones MD LAB - PATHOLOGY/CYTOLOGY OR DERABLES Edited Result - Final DERMATOPATHOLOGY LABORATORY [facility] - Department of Dermatology [address] 5th [place] [address], [facility] [phone] documented in this encounter Visit Diagnoses Not on filedocumented in this encounter
--- OUTSIDE RECORDS SUMMARY | 2025-05-04 23:35 | XMS_ITS | Referral Summary ---
Author Organization [address] Address [address] [place] [address] Care Team Providers Care Venetian Blind Assembler Name Role Phone Saravanan Pendleton NP Unavailable [phone] Zeke Merino MD Unavailable [phone] Maude Raya Unavailable [phone] Jeff Jones NP Primary Care Provider [phone] Encounters Date Type Department Care Team Description 04/11/2025 Documentation [facility] Medical [facility] Orthopedics and Sports Medicine [address] [place] [address] [place] [phone] Noreen Babin MA 04/10/2025 Orders Only [facility] Orthopedics and Sports Medicine [address] [place] [address] [address] [place] [phone] Cecilio Reese MD Pes anserinus bursitis of right knee (Primary Dx) 04/06/2025 9:00 AM CDT Ancillary Procedure [facility] Medical Group Imaging at [address] [phone] 04/06/2025 9:00 AM CDT Office Visit [facility] Orthopedic and Sports Medicine [address] [place] [phone] Cecilio Reese MD S/P total knee arthroplasty, [...] (10/29/2022): Added automatically from request for surgery [id number] Prediabetes 04/27/2022 Abnormal cervical Papanicolaou smear 04/17/2021 Acne 04/17/2021 Cyst of ovary 04/17/2021 Dysmenorrhea 04/17/2021 Fever 04/17/2021 Genital warts 04/17/2021 Knee pain 04/17/2021 Menorrhagia 04/17/2021 Muscle strain 04/17/2021 Seasonal allergic rhinitis 04/17/2021 Sprain of ankle 04/17/2021 Synovitis and tenosynovitis 04/17/2021 Arthritis of left acromioclavicular joint 2020 Overview (01/03/2021): Added automatically from request for surgery [id number] Shoulder impingement, left 01/03/2021 Overview (01/03/2021): Added automatically from request for surgery [id number] Biceps tendonitis on left 01/03/2021 Overview (01/03/2021): Added automatically from request for surgery [id number] Tear of medial meniscus of left knee 09/06/2020 Overview (09/06/2020): Added automatically from request for surgery [id number] Tear of medial meniscus of left knee, current Class 1 obesity with body ma ss index (BMI) of 32.0 to 32.9 in adult 08/23/2020 Hypothyroidism 08/05/2020 Palpitations 11/10/2019 Supraventricular tachycardia 12/15/2018 Assessment & Plan (02/06/2021 3:07 PM CDT): AVNRT ablated. Metoprolol discontinued. May stop aspirin. Follow-up as needed Assessment & Plan (12/10/2020 3:28 PM HELPER/DRIVER): I spent a total of 30 Face [...] on file Legal Sex Female 8:39 AM HELPER/DRIVER Gender Identity Female 04/16/2021 6:48 AM CDT Sexual Orientation Straight 04/16/2021 6: 48 AM CDT Last Filed Vital Signs Vital Sign Reading Time Taken Comments Blood Pressure 122/84 04/06/2025 9:06 AM CDT Pulse 80 04/06/2025 9:06 AM CDT Temperature 36.2 C (97.1 F) 10/04/2024 11:37 AM HELPER/DRIVER Respiratory Rate 18 10/04/2024 11:3 7 AM HELPER/DRIVER Oxygen Saturation 100% 10/04/2024 11: 37 AM HELPER/DRIVER Inhaled Oxygen Concentration - - Weight 100.8 kg (222 lb 4.8 oz) 04/06/2025 9:06 AM CDT Height 162.6 cm (5' 4) 04/06/2025 9:06 AM CDT Body Mass Index 38.16 04/06/2025 9:06 AM CDT Plan of Treatment Not on file Medical Devices Implanted Type Area Wrap Knitting Machine Operator Device Identifier Shelf Expiration Date Model / Serial / Lot Arthrex Inc Ar-2324bcc Swivelock C 4.75mm 19.1mm Closed Eyelet Vent [place] Suture - [id number] Implanted:Qty: 1 on 01/27/2021 by Cecilio Reese MD at [facility] Left: Shoulder Ar[employer] Inc 09/16/2024 AR-2324BCC / / [id number] Depuy Orthopaed[employer] Inc Attune Fb Tib Base Sz 4 Por [id number] - [id number] Implanted:Qty: 1 on 11/12/2022 by Cecilio Reese MD at [facility] Left: Knee [employer] [id number] 06/17/2032 [id number] / / [id number] Depuy [employer] Attune Cruciate Retain Cementless Knee Left 4 Component Femoral [id number] - [id number] Implanted:Qty: 1 on 11/12/2022 by Cecilio Reese MD at [facility] Left: Knee [employer] [id number] 03/17/2030 [id number] / / [id number] Attuneknee System Tibial Insert Fixed Bearing Medial Stabilized Size 4 Left 7mm Aox Implanted:Qty: 1 on 11/12/2022 by Cecilio Reese MD at [facility] Left: Knee [employer] Inc [id number] 07/17/2030 1518-20-407 / / [id number] Synthes 2.4mm 14mm Self Tap Stardrive Cortex T8 Screw Bone 201.764 - [id number] Implanted:Qty: 1 on 01/14/2024 by Drake Rowe MD at [facility] Left: Radius Synthes I 201.764 / / Synthes 2.4mm 12mm Self Tap Stardrive Cortex T8 Screw Bone 201.762 - [id number] Implanted:Qty: 3 on 01/14/2024 by Drake Rowe MD at [facility] Left: Radius Synthes I 201.762 / / Synthes Lcp Pro-Terrell 44mm 5 Hole Low Profile Cut To Length Plate Bone 247.375 - [id number] Implanted:Qty: 1 on 01/14/2024 by Drake Rowe MD at [facility] Left: Radius Synthes I 247.375 / / Synthes Lcp Pro-Terrell 94mm 10 Hole Low Profile Cut To Length Plate Bone 247.374 - [id number] Implanted:Qty: 1 on 01/14/2024 by Drake Rowe MD at [facility] Left: Radius Synthes I 247.374 / / Synthes 2.7mm 5mm 14mm 2.5mm Self Tap Stardrive Cortical T8 Screw Bone 202.874 - [id number] Implanted:Qty: 6 on 01/14/2024 by Drake Rowe MD at [facility] Left: Radius Synthes I 202.874 / / Depuy Orthopa[employer] Inc Attune Cruciate Retain Cementless Knee Right 4 Component Femoral [id number] - [id number] Implanted:Qty: 1 on 10/03/2024 by Cecilio Reese MD at [facility] Right: Knee [employer] [id number] 05/17/2034 [id number] / / [id number] Depuy [employer] Attune Fb Tib Base Sz 4 Por [id number] - [id number] Implanted:Qty: 1 on 10/03/2024 by Cecilio Reese MD at [facility] Right: Knee [employer] Inc [id number] 05/17/2034 [id number] / / [id number] Depuy Orthopaed[employer] Insert Tibial Knee Fixed Rm Posterior Stabilized Attune 8mm Size 4 Polyethylene [id number] - [id number] Implanted:Qty: 1 on 10/03/2024 by Cecilio Reese MD at [facility] Right: Knee [employer] [id number] 01/16/2032 [id number] / / [id number] Procedures Procedure Name Priority [...] Resu lt from Last 3 Months Insurance [facility] FEDERAL [facility] FEDERAL [facility] FEDERAL Member Subscriber Plan / Payer (Ef fective 2012-Present) Name:Sebastián Cabello Relation to Subscriber:Self Name:Sebastián Cabello Payer ID:[id number] (NAIC) Group ID:[id number] Type:Delivery Agent Address: [address] WORKERS COMPENSATION GENERIC WORKERS COMPENSATION GENERIC Advance Directives For more information, please contact: [phone] * Full Code (Latest Code Status on File) Date Activated Date Inactivated Comments 10/03/2024 3:19 PM 10/04/2024 5:22 PM * Full Code Date Activated Date Inactivated Comments 01/13/2024 10:53 PM 01/15/2024 8:17 PM * Full Code Date Activated Date Inactivated Comments 11/12/2022 10:56 AM 11/12/2022 9:13 PM Care Teams Venetian Blind Assembler Relationship Specialty Start Date End Date Jeff Jones NP [address] [place] [address] [place] [address] PCP - General Family Medicine 07/21/24 Saravanan Pendleton NP [address] [place] [address] [place] [address] Nurse Practitioner Nurse Practitioner 09/26/20 Zeke Merino MD [address] [place] [address] [place] [address] Consulting Physician Cardiovascular Disease 12/10/20 Maude Raya PA [address] [place] [address] [place] [address] Physician Dress Draper Orthopedic Surgery 01/27/21
--- OUTSIDE RECORDS SUMMARY | 2025-05-04 23:35 | XMS_ITS | Clinical Summary ---
Author Organization [facility] [address] [place] [address] [place] [address] Care Team Providers Care Human Resources Partner Name Role Phone Saravanan Pendleton NP Unavailable [phone] Zeke Merino MD Unavailable [phone] Maude Raya Unavailable [phone] Jeff Jones NP Primary Care Provider [phone] Allergies Active Allergy Reactions Criticality Noted Date [...] (10/29/2022): Added automatically from request for surgery [id number] Prediabetes 04/27/2022 Abnormal cervical Papanicolaou smear 04/17/2021 Acne 04/17/2021 Cyst of ovary 04/17/2021 Dysmenorrhea 04/17/2021 Fever 04/17/2021 Genital warts 04/17/2021 Knee pain 04/17/2021 Menorrhagia 04/17/2021 Muscle strain 04/17/2021 Seasonal allergic rhinitis 04/17/2021 Sprain of ankle 04/17/2021 Synovitis and tenosynovitis 04/17/2021 Arthritis of left acromioclavicular joint 2020 Overview (01/03/2021): Added automatically from request for surgery [id number] Shoulder impingement, left 01/03/2021 Overview (01/03/2021): Added automatically from request for surgery [id number] Biceps tendonitis on left 01/03/2021 Overview (01/03/2021): Added automatically from request for surgery [id number] Tear of medial meniscus of left knee 09/06/2020 Overview (09/06/2020): Added automatically from request for surgery [id number] Tear of medial meniscus of left knee, current Class 1 obesity with body ma ss index (BMI) of 32.0 to 32.9 in adult 08/23/2020 Hypothyroidism 08/05/2020 Palpitations 11/10/2019 Supraventricular tachycardia 12/15/2018 Assessment & Plan (02/06/2021 3:07 PM CDT): AVNRT ablated. Metoprolol discontinued. May stop aspirin. Follow-up as needed Assessment & Plan (12/10/2020 3:28 PM HEALTH SERVICES COORDINATOR): I spent a total of 30 Face [...] Type Department Care Team Description 04/11/2025 Documentation [facility] Medical Group Orthopedics and Sports Medicine [address] [facility] [address] [place] [address] Noreen Babin MA 04/10/2025 Orders Only [facility] Orthopedics and Sports Medicine [address] [facility] [address] [place] [address] Cecilio Reese MD Pes anserinus bursitis of right knee (Primary Dx) 04/06/2025 9:00 AM CDT Ancillary Procedure [facility] Imaging at [address] [phone] 04/06/2025 9:00 AM CDT Office Visit [facility] Orthopedic and Sports Medicine [address] [place] [phone] Cecilio Reese MD S/P total knee arthroplasty, [...] on file Legal Sex Female 8:39 AM HEALTH SERVICES COORDINATOR Gender Identity Female 04/16/2021 6:48 AM CDT Sexual Orientation Straight 04/16/2021 6: 48 AM CDT Obstetrics History Last Filed Vital Signs Vital Sign Reading Time Taken Comments Blood Pressure 122/84 04/06/2025 9:06 AM CDT Pulse 80 04/06/2025 9:06 AM CDT Temperature 36.2 C (97.1 F) 10/04/2024 11:37 AM HEALTH SERVICES COORDINATOR Respiratory Rate 18 10/04/2024 11:3 7 AM HEALTH SERVICES COORDINATOR Oxygen Saturation 100% 10/04/2024 11: 37 AM HEALTH SERVICES COORDINATOR Inhaled Oxygen Concentration - - Weight 100.8 [...] 12/15/2002, 03/07/2002 Medical Devices Implanted Type Area Manager Transport Device Identifier Shelf Expiration Date Model / Serial / Lot Ar[employer]rex Inc Ar-2324bcc Swivelock C 4.75mm 19.1mm Closed Eyelet Vent [place] Suture - [id number] Implanted:Qty: 1 on 01/27/2021 by Cecilio Reese MD at [facility] Left: Shoulder [employer] Inc 09/16/2024 AR-2324BCC / / [id number] Depuy Orthopaed[employer] Inc Attune Fb Tib Base Sz 4 Por [id number] - [id number] Implanted:Qty: 1 on 11/12/2022 by Cecilio Reese MD at [facility] Left: Knee Depuy Orthopaed[employer] Inc [id number] 06/17/2032 [id number] / / [id number] Depuy Orth[employer] Inc Attune Cruciate Retain Cementless Knee Left 4 Component Femoral [id number] - [id number] Implanted:Qty: 1 on 11/12/2022 by Cecilio Reese MD at [facility] Left: Knee [employer]uy Orthopaed[employer] Inc [id number] 03/17/2030 [id number] / / [id number] Attuneknee System Tibial Insert Fixed Bearing Medial Stabilized Size 4 Left 7mm Aox Implanted:Qty: 1 on 11/12/2022 by Cecilio Reese MD at [facility] Left: Knee Depuy Orthopaed[employer] Inc [id number] 07/17/2030 1518-20-407 / / [id number] Synthes 2.4mm 14mm Self Tap Stardrive Cortex T8 Screw Bone 201.764 - [id number] Implanted:Qty: 1 on 01/14/2024 by Drake Rowe MD at [facility] Left: Radius Synthes I 201.764 / / Synthes 2.4mm 12mm Self Tap Stardrive Cortex T8 Screw Bone 201.762 - [id number] Implanted:Qty: 3 on 01/14/2024 by Drake Rowe MD at [facility] Left: Radius Synthes I 201.762 / / Synthes Lcp Pro-Terrell 44mm 5 Hole Low Profile Cut To Length Plate Bone 247.375 - [id number] Implanted:Qty: 1 on 01/14/2024 by Drake Rowe MD at [facility] Left: Radius Synthes I 247.375 / / Synthes Lcp Pro-Terrell 94mm 10 Hole Low Profile Cut To Length Plate Bone 247.374 - [id number] Implanted:Qty: 1 on 01/14/2024 by Drake Rowe MD at [facility] Left: Radius Synthes I 247.374 / / Synthes 2.7mm 5mm 14mm 2.5mm Self Tap Stardrive Cortical T8 Screw Bone 202.874 - [id number] Implanted:Qty: 6 on 01/14/2024 by Drake Rowe MD at [facility] Left: Radius Synthes I 202.874 / / Depuy Orthopaed[employer] Inc Attune Cruciate Retain Cementless Knee Right 4 Component Femoral [id number] - [id number] Implanted:Qty: 1 on 10/03/2024 by Cecilio Reese MD at [facility] Right: Knee Depuy Orthopaed[employer] Inc [id number] 05/17/2034 [id number] / / [id number] Depuy Orthopaed[employer] Inc Attune Fb Tib Base Sz 4 Por [id number] - [id number] Implanted:Qty: 1 on 10/03/2024 by Cecilio Reese MD at [facility] Right: Knee Depuy Orthopaed[employer] Inc [id number] 05/17/2034 [id number] / / [id number] Depuy Orthopa[employer] Inc Insert Tibial Knee Fixed Rm Posterior Stabilized Attune 8mm Size 4 Polyethylene [id number] - [id number] Implanted:Qty: 1 on 10/03/2024 by Cecilio Reese MD at [facility] Right: Knee Depuy Orthopaed[employer] Inc [id number] 01/16/2032 [id number] / / [id number] Procedures Procedure Name Priority [...] lt from Last 3 Months Insurance [facility] FEDERAL Member Subscriber Plan / Payer (Ef fective 2012-Present) Name:Sebastián Cabello Relation to Subscriber:Self Name:Sebastián Cabelol Payer ID:[id number] (NAIC) Group ID:[id number] Type:[facility] Address: [address] WORKERS COMPENSATION GENERIC WORKERS COMPENSATION GENERIC Advance Directives For more information, please contact: [phone] * Full Code (Latest Code Status on File) Date Activated Date Inactivated Comments 10/03/2024 3:19 PM 10/04/2024 5:22 PM * Full Code Date Activated Date Inactivated Comments 01/13/2024 10:53 PM 01/15/2024 8:17 PM * Full Code Date Activated Date Inactivated Comments 11/12/2022 10:56 AM 11/12/2022 9:13 PM Care Teams Human Resources Partner Relationship Specialty Start Date End Date Jeff Jones NP [address] [place] [address] [place] [address] PCP - General Family Medicine 07/21/24 Saravanan Pendleton NP [address] [place] [address] [address] [place] [address] Nurse Practitioner Nurse Practitioner 09/26/20 Zeke Merino MD [address] [place] [address] [address] [place] [address] Consulting Physician Cardiovascular Disease 12/10/20 Maude Raya PA [address] [place] [address] [address] [place] [address] Physician Dry Kiln Loader Orthopedic Surgery 01/27/21
--- NOTE | 2025-05-04 23:45 | ED.ALLEREA ---
HPI - Allergic Reaction General Chief complaint: Allergic Reaction Stated complaint: stung by 10 bees, chest pain, sob Time Seen by Provider: 05/04/25 22:29 History of Present Illness HPI narrative: Patient is a 50-year-old female who presents to the ER following multiple wasp stings. She reports she was mowing the lawn and ran over a wasp nest. Patient reports she was stung multiple times in the back of her left calf, back of her right thigh, and left shoulder. She reports she has had a ?previous reaction to bee stings. Patient reports she is not short of breath but ?it is hard to take deep breaths and my heart feels like I'm having contractions. She denies any stridor, difficulty swallowing secretions, or excessive swelling. Patient reports she has a history SVT and had a cardiac ablation. She is worried about her heart at this time. In addition, patient endorses a history of right knee surgery and thyroid issues. Related Data Home Medications ?Medication ?Instructions ?Recorded ?Confirmed ?Last Taken ?Type ixekizumab 80 mg/mL subcutaneous mg subcut 11/16/24 11/29/24 Unknown History auto-injector (Taltz Autoinjector) levothyroxine 50 mcg tablet 50 mcg PO 11/16/24 11/29/24 Unknown History etonogestrel 68 mg subdermal 1 implant subdermal ONCE 11/29/24 11/29/24 Unknown History implant (Nexplanon) Allergies Allergy/AdvReac Type Severity Reaction Status Date / Time morphine Allergy Unknown Rash Verified 05/04/25 19:33 bee venom protein (honey AdvReac Intermediate Chest Pain Verified 05/04/25 19:33 bee) (bees) Review of Systems Review of Systems: All systems reviewed & are unremarkable except as noted in HPI and below PMFSH Past Medical History Medical History Encounter for surveillance of other contraceptives Encounter for adjustment and management of other implanted devices SVT (supraventricular tachycardia) Surgical History Surgical History Hx of right knee surgery Previous section x2 History of cholecystectomy Family History Family History Sibling Diabetes mellitus Hypertension Grandparent Diabetes mellitus Hypertension Mother Pacemaker Hypertension Father Cerebrovascular accident Social History Social History Smoking packs per day: 1 Smoking cigarettes per day: 20.0 Years smoked: 1 Smoking pack-years: 1.00 Smoking status: Former smoker Tobacco type: cigarettes Second hand tobacco smoke exposure: Yes Alcohol intake: former Substance use: former Gender identity (if verbalized by the patient): Female Spiritual care concerns: No Agree to blood products: Yes Exam Narrative: GENERAL: Well appearing, well-nourished, non-toxic, in no acute distress. HEAD: Normocephalic, atraumatic. NECK: Supple. No adenopathy, no masses. RESPIRATORY: Airway patent, respirations nonlabored. Clear to auscultation bilaterally, no rales, rhonchi, wheezing. No stridor. CARDIOVASCULAR: Regular rate and rhythm without murmurs, rubs, or gallops. Peripheral pulses 2+ and equal bilaterally. ABDOMINAL: Soft, nontender, nondistended, no hepatosplenomegaly. Normoactive BS. MUSCULOSKELETAL: Moves all extremities. Strength/ROM intact without gross deformities. SKIN: Warm, dry, normal color. No rashes. NEURO: A&O X3. Speech clear. Cranial nerves II-XII intact. No ataxic movements. PSYCHIATRIC: Appropriate mood and affect. Normal interaction. Course Vital Signs Vital signs: Vital Signs Temperature 37.1 C 05/04/25 19:28 Pulse Rate 109 H 05/04/25 19:28 Respiratory Rate 20 05/04/25 19:28 Blood Pressure 140/81 05/04/25 19:28 Pulse Oximetry 100 05/04/25 19:28 Oxygen Delivery Room Air 05/04/25 19:28 Temperature 36.7 C 05/05/25 00:13 Pulse Rate 65 05/05/25 00:13 Respiratory Rate 18 05/05/25 00:13 Blood Pressure 132/74 05/05/25 00:13 Pulse Oximetry 99 05/05/25 00:13 Oxygen Delivery Room Air 05/04/25 19:28 MDM - Allergic Reaction MDM Narrative Medical decision making narrative: Patient is a 50-year-old female who presents to the ER following multiple wasp stings. She reports she was mowing the lawn and ran over a wasp nest. Patient reports she was stung multiple times in the back of her left calf, back of her right thigh, and left shoulder. She reports she has had a ?previous reaction to bee stings. Patient reports she is not short of breath but ?it is hard to take deep breaths and my heart feels like I'm having contractions. She denies any stridor, difficulty swallowing secretions, or excessive swelling. Patient reports she has a history SVT and had a cardiac ablation. She is worried about her heart at this time. In addition, patient endorses a history of right knee surgery and thyroid issues. Labs Ordered: CBC, CMP, troponin Imaging Ordered: None necessary Medications Ordered: Benadryl IV, Decadron IV, Toradol IV, Pepcid IV, 1 L normal saline IV bolus Results: Patient's CBC indicates a platelet count of 439. Her chemistry indicates a BUN of 19 and creatinine of 0.69. Patient's troponin was negative. Diagnosis: Allergic reaction Patient Education/Shared MDM: Results of lab work shared with patient. She endorses significant improvement of symptoms following medication administration. Patient strongly advised to maintain hydration status upon discharge and follow-up with her PCP as needed. She will be discharged home with a prescription for steroids and EpiPen. Strict return precautions provided. Patient verbalized understanding and is in agreement with plan. Vital signs stable at time of discharge. All questions answered. Differential Diagnosis Differential diagnosis: Likely anaphylaxis, allergic reaction and angioedema Lab Data Attestation: I reviewed the patient's lab results. 05/04/25 23:42 05/04/25 23:42 Labs: Lab Results 05/04/25 Range/Units 23:42 WBC 7.4 (4.5-10.0) K/mm3 RBC 4.33 (4.2-5.4) M/mm3 Hgb 13.4 (12.0-15.0) g/dL Hct 40.7 (37.0-47.0) % MCV 94.0 (80-100) fl MCH 30.9 (26-34) pg MCHC 32.9 (32-36) g/dl RDW 13.0 (11.5-14.5) % Plt Count 439 H (150-375) k/mm3 MPV 9.6 (7.4-10.4) fl Immature Gran % (Auto) 0.4 (0-0.5) % Neut % (Auto) 52.8 (45.5-73.1) % Lymph % (Auto) 33.9 (18.3-44.2) % [place] % (Auto) 8.7 H (2.6-8.5) % Eos % (Auto) 3.7 (0-4.4) % Baso % (Auto) 0.5 (0.2-1.2) % Lymph # (Auto) 2.49 (0.9-3.2) K/mm3 [place] # (Auto) 0.6 (0.1-0.6) K/mm3 Eos # (Auto) 0.3 (0-0.3) K/mm3 Baso # (Auto) 0.0 (0.0-0.1) K/mm3 Abs Immat Gran (auto) 0.03 (0.00-0.031) K/mm3 Absolute Neuts (auto) 3.9 (1.3-6.7) K/mm3 Absolute Nucleated RBC 0.000 (0.0-0.012) K/mm3 Nucleated RBC % 0.0 (0.0-0.2) % Sodium 139 (137-145) mmol/L Potassium 3.8 (3.4-5.0) mmol/L Chloride 107 (98-107) mmol/L Carbon Dioxide 24 (22-30) mmol/L Anion Gap 8 (4-12) mmol/L BUN 19 H (7-17) mg/dL Creatinine 0.69 L (0.7-1.0) mg/dL Estim Creat Clear Calc 98 ml/min Estimated GFR > 60 (59 - ) Glucose 101 (65-110) mg/dL Calcium 8.6 (8.4-10.2) mg/dL Total Bilirubin 0.2 (0.2-1.3) mg/dL AST 35 (14-36) U/L ALT 34 (6-35) U/L Alkaline Phosphatase 96 (38-126) U/L Troponin I < 0.012 (0.000-0.034) ng/mL Total Protein 7.1 (6.3-8.2) g/dL Albumin 4.1 (3.5-5.1) g/dL Discharge Plan Discharge Clinical Impression: Allergic reaction, Urticaria, Allergic reaction to wasp sting Patient Disposition: Home Condition: Stable Instructions: Antibiotic Form, Anaphylaxis (ED) Additional Instructions: Please return to the ER with any worsening symptoms. Follow-up with primary care provider as needed. Take all medications as prescribed, including regularly scheduled medications. Patient Language: Bermudian Prescriptions: New methylprednisolone [Medrol (Terrell)] 4 mg tablets,dose pack See Rx Instructions PO .COMPLEX Qty: 21 0RF Rx Instructions: for 6 days epinephrine [EpiPen] 0.3 mg/0.3 mL auto-injector 0.3 mg IM Q5-15M PRN (Reason: anaphylaxis) Qty: 1 2RF Rx Instructions: do not exceed 3 doses per episode No Action Taltz Autoinjector 80 mg/mL auto-injector subcut levothyroxine 50 mcg tablet 50 mcg PO Nexplanon 68 mg implant 1 implant subdermal ONCE Rx Instructions: as a single dose Follow-up/Referrals: [facility] [Primary Care Provider] - Time of Disposition: 01:22
[2025-05-04 23:52] LABS: Hematocrit 40.7 % (37.0-47.0); Hemoglobin 13.4 g/dL (12.0-15.0); Immature Granulocyte Percent A 0.4 % (0-0.5); Lymphocytes Absolute Auto 2.49 K/mm3 (0.9-3.2); Mean Corpuscular HGB Conc 32.9 g/dl (32-36); Mean Corpuscular Hemoglobin 30.9 pg (26-34); Mean Corpuscular Volume 94.0 fl (80-100); Nucleated Red Blood Cells Absolute Auto 0.000 K/mm3 (0.0-0.012); Nucleated Red Blood Cells Perc 0.0 % (0.0-0.2); Platelet Count Result 439 k/mm3 (150-375); Red Blood Count 4.33 M/mm3 (4.2-5.4); White Blood Count 7.4 K/mm3 (4.5-10.0)
[2025-05-05] MEDS: IPRATROPIUM 0.5 MG/ALBUTEROL SULFATE 2.5 MG AMPUL.NEB 3 ML INHALATION (00:02)
[2025-05-05 00:04] VITALS: PULSE 71; RESP 24
[2025-05-05 00:13] VITALS: BP 132/74; PULSE 65; RESP 18; TEMP 36.7; O2SAT 99
[2025-05-05 00:14] LABS: Alanine Aminotransferase 34 U/L (6-35); Albumin Level 4.1 g/dL (3.5-5.1); Alkaline Phosphatase 96 U/L (38-126); Anion Gap 8 mmol/L (4-12); Aspartate Amino Transferase 35 U/L (14-36); Bilirubin,Total 0.2 mg/dL (0.2-1.3); Blood Urea Nitrogen 19 mg/dL (7-17); Calcium 8.6 mg/dL (8.4-10.2); Carbon Dioxide 24 mmol/L (22-30); Chloride 107 mmol/L (98-107); Estimated CRCL calculation 98 ml/min; Estimated Glomerular Filt Rate > 60; Glucose 101 mg/dL (65-110); Potassium 3.8 mmol/L (3.4-5.0); Sodium 139 mmol/L (137-145); Total Protein 7.1 g/dL (6.3-8.2)
[2025-05-05 00:26] LABS: Troponin I < 0.012 ng/mL (0.000-0.034)
--- NOTE | 2025-05-05 00:39 | PCRCNOTE ---
Tx delayed due to the order not transmitting over [employer] and did not populate on the ED tracker.
[2025-05-05 01:33] VITALS: BP 125/78; PULSE 68; RESP 18; TEMP 36.6; O2SAT 99
== END 2025-05-05 01:34 | disposition home or self-care (01) ==
PROVIDERS: Emergency Provider Registered Nurse
DX: T63.461A Toxic effect of venom of wasps, accidental (unintentional), initial encounter (principal); L50.0 Allergic urticaria; E07.9 Disorder of thyroid, unspecified; Z90.49 Acquired absence of other specified parts of digestive tract; Z87.891 Personal history of nicotine dependence; Z79.899 Other long term (current) drug therapy; R00.0 Tachycardia, unspecified; R94.31 Abnormal electrocardiogram [ECG] [EKG]
CPT/HCPCS: 36415; 80053; 84484; 85025; 93005; 94640; 96374; 96375; 99284; J1100; J1200; J1885